=== PATIENT | male | born 1945 | race Caucasian/White ===

== ENCOUNTER 2016-07-30 15:36 | Inpatient (IN) | payer MEDICARE ==
[~2016-07-30] VITALS: Ht 182.9 cm; Wt 122.5 kg
--- NOTE | 2016-07-30 16:04 | PHYS DOC ---
Past Medical History Past Medical History: COPD, Diabetes-Type II, Hypertension, Renal Disease Additional Past Medical Histor: atrial flutter, lympedema Adult General Chief Complaint Chief Complaint: ALTERED MENTAL STATUS HPI HPI Patient is a 71 year old male who presents with AMS. Patient sent to ED from [facility] with c/o decreased LOC. Patient's present at bedside. She reports that patient is usually talkative and A&Ox3, and today the patient is confused and speaking little. She also reports he had emesis x1 today and has been constipated recently. A son catheter was placed at the [facility] yesterday (unclear why) and today he started having some hematuria. Patient altered but denies any complaints at this time. Of note, patient had been on warfarin for atrial fibrillation/flutter. This was stopped on Tuesday, but per report it has been increasing over the course of the week. Review of Systems Review of Systems Review of systems limited by altered mental status Constitutional: Denies fever or chills Eyes: Denies change in visual acuity or eye pain HENT: Denies nasal congestion or sore throat Respiratory: Denies cough or shortness of breath Cardiovascular: Denies chest pain GI: Emesis x1 today, constipation. Denies abdominal pain, bloody stools or diarrhea : Hematuria Musculoskeletal: Denies back pain or joint pain Integument: Denies rash or skin lesions Neurologic: AMS. Denies headache, focal weakness or sensory changes Current Medications Current Medications Current Medications Medications (Trade) Dose Ordered Sig/Shayne Start Time Stop Time Status Last Admin Dose Admin Ceftriaxone Sodium 50 ml @ 100 mls/hr 1X ONCE 07/30/16 16:45 07/30/16 17:14 DC 07/30/16 17:00 100 MLS/HR Fluconazole/ Sodium Chloride (Diflucan 200mg/ 100ml Premix) 100 ml @ 100 mls/hr 1X ONCE 07/30/16 16:45 07/30/16 17:44 DC 07/30/16 17:53 100 MLS/HR Allergies Allergies Allergies Coded Allergies Type Severity Reaction Last Updated Verified No Known Drug Allergies 07/30/16 No Physical Exam Physical Exam Constitutional: Well developed, well nourished, no acute distress, non-toxic appearance HENT: Normocephalic, atraumatic, bilateral external ears normal Eyes: PERRL, EOMI, conjunctiva normal, no discharge Neck: Normal range of motion, no stridor Cardiovascular: Tachycardic, regular rhythm, no murmur Lungs & Thorax: Bilateral breath sounds clear to auscultation Abdomen: Bowel sounds normal, soft, non-distended, appears to have lower abdominal discomfort on palpation Skin: Warm, dry, no erythema, no rash Extremities: No obvious deformity. Marked BLE edema (at baseline per ) Neurologic: Alert and oriented to person only, BAILON to command, diminished strength in all extremities, no facial droop or other obvious cranial nerve deficit Current Patient Data Vital Signs Vital Signs Date Time Temp Pulse Resp B/P Pulse Ox O2 Delivery O2 Flow Rate FiO2 07/30/16 17:56 103 24 113/91 92 07/30/16 16:44 Room Air 07/30/16 16:00 99.0 99.0 Lab Values Laboratory Tests Test 07/30/16 15:45 07/30/16 16:45 Urine Collection Type Unknown Urine Color Red Urine Clarity Turbid Urine pH 5.0 Urine Specific [place] 1.015 Urine Protein 100mg/dL (NEG-TRACE) Urine Glucose (UA) Negativemg/dL (NEG) Urine Ketones (Stick) 15mg/dL (NEG) Urine Blood Large (NEG) Urine Nitrite Negative (NEG) Urine Bilirubin Moderate (NEG) Urine Urobilinogen Dipstick 1.0mg/dL (0.2 mg/dL) Urine Leukocyte Esterase Large (NEG) Urine RBC Tntc/HPF (0-2) Urine WBC >40/HPF (0-4) Urine Bacteria Few/HPF (0-FEW) Urine Hyaline Casts Occasional/HPF Urine Mucus Slight/LPF Urine Yeast Present/HPF White Blood Count 8.6x10^3/uL (4.0-11.0) Red Blood Count 3.84x10^6/uL (4.30-5.70) L Hemoglobin 11.0g/dL (13.0-17.5) L Hematocrit 33.1% (39.0-53.0) L Mean Corpuscular Volume 86fL (79-100) Mean Corpuscular Hemoglobin 29pg (25-35) Mean Corpuscular Hemoglobin Concent 33g/dL (31-37) Red Cell Distribution Width 17.2% (11.5-14.5) H Platelet Count 214x10^3/uL (140-400) Neutrophils (%) (Auto) 84% (31-73) H Lymphocytes (%) (Auto) 7% (24-48) L Monocytes (%) (Auto) 7% (0-9) Eosinophils (%) (Auto) 2% (0-3) Basophils (%) (Auto) 1% (0-3) Neutrophils # (Auto) 7.2x10^3uL (1.8-7.7) Lymphocytes # (Auto) 0.6x10^3/uL (1.0-4.8) L Monocytes # (Auto) 0.6x10^3/uL (0.0-1.1) Eosinophils # (Auto) 0.2x10^3/uL (0.0-0.7) Basophils # (Auto) 0.0x10^3/uL (0.0-0.2) Prothrombin Time 78.3SEC (11.7-14.0) H Prothrombin Time INR 10.6 (0.8-1.1) *H Sodium Level 136mmol/L (136-145) Potassium Level 4.0mmol/L (3.5-5.1) Chloride Level 97mmol/L (98-107) L Carbon Dioxide Level 26mmol/L (21-32) Anion Gap 13 (6-14) Blood Urea Nitrogen 127mg/dL (8-26) H Creatinine 5.1mg/dL (0.7-1.3) H Estimated GFR (Cockcroft-Gault) 11.2 BUN/Creatinine Ratio 25 (6-20) H Glucose Level 92mg/dL (70-99) Lactic Acid Level 0.8mmol/L (0.4-2.0) Calcium Level 9.1mg/dL (8.5-10.1) Total Bilirubin 0.4mg/dL (0.2-1.0) Aspartate Amino Transferase (AST) 31U/L (15-37) Alanine Aminotransferase (ALT) 34U/L (16-63) Alkaline Phosphatase 196U/L (46-116) H Total Protein 6.9g/dL (6.4-8.2) Albumin 2.8g/dL (3.4-5.0) L Albumin/Globulin Ratio 0.7 (1.0-1.7) L Laboratory Tests 07/30/16 16:45 Laboratory Tests 07/30/16 16:45 EKG EKG EKG (my read): sinus tachycardia, rate 108, LAD, LAFB, nonspecific ST changes Radiology/Procedures Radiology/Procedures CT head: Impression: 1. Age-appropriate atrophy without any acute intracranial process. CT A/P: Impression: No convincing evidence of urolithiasis or hydronephrosis seen. Atrophic right kidney. Mild dilation of the colon throughout probably colonic ileus pattern. Diffuse infiltrates both lower lobes. CXR: Impression: 1. Borderline cardiomegaly 2. No acute pulmonary findings detected. Course & Med Decision Making Course & Med Decision Making Pertinent Labs and Imaging studies reviewed. (See chart for details) Patient is 71 year old male who presents with AMS. Differential includes infectious process (eg UTI), metabolic abnormality, CVA. Will check CXR, CT head , CT A/P, labs, UA. Dose of rocephin and fluconazole ordered after UA showed bacteria and yeast. Labs notable for creatinine 5.1 ( reports baseline ~3), elevated BUN, INR >10. Although no obvious bleeding except in urine (and hgb ok - slight anemia), will give 2 units FFP and dose of vitamin K. Small fluid bolus ordered. Discussed results with patient's . Discussed with Dr. Cleary ( nephrology). Discussed with Dr. Merritt, will admit under her care for further evaluation and treatment. Dragon Disclaimer Dragon Disclaimer This electronic medical record was generated, in whole or in part, using a voice recognition dictation system. Departure Departure Impression: Primary Impression: Altered mental status Additional Impressions: Acute kidney injury Supratherapeutic INR Disposition: ADMITTED INPATIENT Admitting Physician: Randy Merritt Condition: GUARDED Problem Qualifiers OLEGARIO MILLS MD Jul 30, 2016 16:04
[2016-07-30 16:12] LABS: BILIRUBIN,URINE MODERATE (NEG); GLUCOSE,URINE NEGATIVE (NEG); NITRITE,URINE NEGATIVE (NEG); PROTEIN,URINE 100 mg/dL (NEG-TRACE)
[2016-07-30 16:20] LABS: BACTERIA,URINE FEW /HPF (0-FEW); RBC,URINE TNTC /HPF (0-2); WBC,URINE >40 /HPF (0-4); YEAST,URINE PRESENT /HPF
--- NOTE | 2016-07-30 16:23 | RAD ---
Exam performed: One view chest. Indication: AMS, r/o acute process Date of Service: 07/30/2016 6:01 PM Comparison: None available. Single AP upright portable view chest findings: Cardiomediastinal silhouette is within upper limits of normal. Pulmonary vascularity is unremarkable. No acute infiltrates, effusion or pneumothorax is detected. Streaky linear opacities are seen in both lung bases probably atelectasis. The bony structures are normal. Impression: 1. Borderline cardiomegaly 2. No acute pulmonary findings detected.
--- NOTE | 2016-07-30 16:43 | RAD ---
Exam performed: CT scan of the head without contrast. Date of Service: 07/30/16. Comparison: None available. Clinical History: Altered mental status, patient is a poor historian. Technique: Helical acquisitions are obtained from the foramen magnum to the vertex without intravenous administration of contrast. Findings: There is prominence of cortical sulci and ventricular system compatible with age related atrophy. There are areas of low-attenuation in both periventricular deep white matter suggesting small vessel ischemic changes. Normal hutchison-white differentiation is maintained. There is no extra axial fluid collection, intraparenchymal hemorrhage or mass lesion. The visualized portions of the orbits, paranasal sinuses and the mastoid air cells appear clear. The calvarium is intact. Impression: 1. Age-appropriate atrophy without any acute intracranial process. PQRS Compliance Statement: One or more of the following individualized dose reduction techniques were utilized for this examination: 1. Automated exposure control 2. Adjustment of the mA and/or kV according to patient size 3. Use of iterative reconstruction technique
[2016-07-30] MEDS ORDERED: FLUCONAZOLE 200MG/100ML PREMIX 100 ML IV ONE (16:45)
[2016-07-30] MEDS ORDERED: CEFTRIAXONE 1GM IVPB FOR OMNI 50 ML IV ONE (16:45)
[2016-07-30 16:58] LABS: BASO % 1 % (0-3); EOS % 2 % (0-3); HEMATOCRIT 33.1 % (39.0-53.0); LYMPH # 0.6 x10^3/uL (1.0-4.8); LYMPH % 7 % (24-48); MEAN CORPUSCULAR HEMOGLOBIN 29 pg (25-35); MEAN CORPUSCULAR HGB CONC 33 g/dL (31-37); MEAN CORPUSCULAR VOLUME 86 fL (79-100); MONO % 7 % (0-9); NEUT % 84 % (31-73); PLATELET COUNT 214 x10^3/uL (140-400); RED BLOOD COUNT 3.84 x10^6/uL (4.30-5.70); RED CELL DISTRIBUTION WIDTH 17.2 % (11.5-14.5); WHITE BLOOD COUNT 8.6 x10^3/uL (4.0-11.0)
--- NOTE | 2016-07-30 17:00 | RAD ---
Exam performed: CT abdomen pelvis without contrast. History: Altered mental status, hematuria. Lymphedema. Patient is a poor historian. Date of service: 07/30/16. Comparison: None available Technique: Contiguous helical acquisitions are obtained through the abdomen and pelvis without oral or IV contrast. Sagittal and coronal reformatted images are obtained and reviewed. Findings: Infiltrates both lower lobes. Pericardial calcification. Atheromatous coronary calcification. Lack of IV contrast limits evaluation of abdominal viscera, however the liver, spleen and gallbladder appear normal. Diffuse fatty infiltration of the pancreas. Both adrenal glands are symmetric. Atrophic right kidney. The left kidney appears grossly normal. No nephrolithiasis is seen. Atheromatous aortic calcification. Small bowel loops appear grossly normal. Mild dilation of the colon throughout normal ileocecal junction. Visualized appendix is normal.. No inflammatory changes in the right lower quadrant. The urinary bladder is decompressed secondary to Carroll's catheter. Stool in the rectosigmoid region. No free or focal fluid collections or pelvic lymphadenopathy. Interrogation of bone windows demonstrates spondylotic changes. Impression: No convincing evidence of urolithiasis or hydronephrosis seen. Atrophic right kidney. Mild dilation of the colon throughout probably colonic ileus pattern. Diffuse infiltrates both lower lobes. PQRS Compliance Statement: One or more of the following individualized dose reduction techniques were utilized for this examination: 1. Automated exposure control 2. Adjustment of the mA and/or kV according to patient size 3. Use of iterative reconstruction technique
[2016-07-30 17:06] LABS: PROTHROMBIN TIME PATIENT 78.3 SEC (11.7-14.0)
[2016-07-30 17:09] LABS: INR 10.6 (0.8-1.1)
[2016-07-30 17:17] LABS: ALBUMIN 2.8 g/dL (3.4-5.0); ALBUMIN/GLOBULIN RATIO 0.7 (1.0-1.7); CALCIUM 9.1 mg/dL (8.5-10.1); CREATININE 5.1 mg/dL (0.7-1.3); GFR 11.2; TOTAL BILIRUBIN 0.4 mg/dL (0.2-1.0); TOTAL PROTEIN 6.9 g/dL (6.4-8.2)
[2016-07-30] MEDS ORDERED: DEXTROSE 50% 25 GM / 50ML DISP.SYRIN. IV PRN (18:45)
[2016-07-30] MEDS ORDERED: ONDANSETRON PF 4 MG/2 ML VIAL. IV PRN ×2 (18:45→19:00)
[2016-07-30] MEDS ORDERED: MORPHINE SULFATE 2 MG/ML DISP.SYRIN. IV PRN (18:45)
[2016-07-30] MEDS ORDERED: IV NORMAL SALINE 1000ML BAG 1,000 ML IV ONE (19:00)
[2016-07-30] MEDS ORDERED: IV NORMAL SALINE 500ML BAG 500 ML IV ONE (19:00)
[2016-07-30] MEDS ORDERED: ALBUTEROL SULFATE 2.5 MG/3 ML NEBU. NEB PRN (19:00)
[2016-07-30] MEDS ORDERED: PHYTONADIONE 5 MG TABLET PO ONE (19:00)
[2016-07-30] MEDS ORDERED: ACETAMINOPHEN 325 MG TABLET. PO PRN (19:00)
--- NOTE | 2016-07-30 19:16 | PDOC1 ---
History and Physical Date of Admission Date of Admission 07/30/16 Identification/Chief Complaint Chief Complaint AMS Problems: Source Source: Caregiver, Chart review History of Present Illness History of Present Illness HPI HPI Patient is a 71 year old male who presents with AMS. Pt is very lethargic now, open eyes, but dosenot follow commands or answer my questions. As per at bedside, [facility] bl leg wound and chronic lymphedema. Pt was found mild confusion for 2 ds, worse today. Usually he may refusing actions by saying "no", today not even answer. Usually also know the place and year, today not answer questions. denies fever, chills, cough, sob. +1 vomiting. in ER, INR 10 (4 2days ago), warfine for Afib was held, also BREANNA. head ct neg. Past Medical History Past Medical History : COPD, Diabetes-Type II, Hypertension, Renal Disease Additional Past Medical Histor: atrial flutter, lympedema Past Surgical History Past Surgical History bl leg wound care sx Social History Smoke: No ALCOHOL: none Drugs: None Current Problem List Problem List Problems Medical Problems: (1) Acute kidney injury Status: Acute (2) Altered mental status Status: Acute (3) Supratherapeutic INR Status: Acute Current Medications Current Medications Current Medications Medications (Trade) Dose Ordered Sig/Shayne Start Time Stop Time Status Last Admin Dose Admin Acetaminophen (Tylenol) 650 mg PRN Q6HRS PRN 07/30/16 19:00 UNV Albuterol Sulfate 2.5 mg 2.5 mg PRN Q4HRS PRN 07/30/16 19:00 UNV Albuterol/ Ipratropium (Duoneb) 3 ml QIDACHS 07/30/16 21:00 UNV Ceftriaxone Sodium/Sodium Chloride (Rocephin/Iv Sodium Chloride 0.9% 50ml) 50 ml @ 100 mls/hr Q24H 07/31/16 09:00 UNV Ceftriaxone Sodium 50 ml @ 100 mls/hr 1X ONCE 07/30/16 16:45 07/30/16 17:14 DC 07/30/16 17:00 100 MLS/HR Dextrose 12.5 gm PRN Q15MIN PRN 07/30/16 18:45 Fluconazole/ Sodium Chloride (Diflucan 200mg/ 100ml Premix) 100 ml @ 100 mls/hr 1X ONCE 07/30/16 16:45 07/30/16 17:44 DC 07/30/16 17:53 100 MLS/HR Insulin Aspart (Novolog) 0-7 UNITS TIDWMEALS 07/31/16 08:00 Morphine Sulfate 2 mg PRN Q2HR PRN 07/30/16 18:45 07/31/16 18:44 Ondansetron HCl (Zofran) 4 mg PRN Q8HRS PRN 07/30/16 18:45 07/31/16 18:44 Ondansetron HCl 4 mg 4 mg PRN Q6HRS PRN 07/30/16 19:00 UNV Phytonadione 2.5 mg 2.5 mg 1X ONCE 07/30/16 19:00 07/30/16 19:01 DC Phytonadione/ Sodium Chloride (Vitamin K/Iv Sodium Chloride 0.9% 50ml) 51 ml @ 102 mls/hr 1X ONCE 07/30/16 19:00 07/30/16 19:29 UNV Sodium Chloride (Iv Sodium Chloride 0.9% 1000ml Bag) 1,000 ml @ 100 mls/hr 1X ONCE 07/30/16 19:00 07/31/16 04:59 UNV Allergies Allergies Allergies Coded Allergies Type Severity Reaction Last Updated Verified No Known Drug Allergies 07/30/16 No ROS Review of System CONSTITUTIONAL: No fever or chills EYES: No recent changes SKIN: No rash or itching CARDIOVASCULAR: No chest pain, syncope, palpitations, or edema RESPIRATORY: No SOB or cough GASTROINTESTINAL: No nausea, vomiting or abdominal pain NEUROLOGICAL: No headaches or weakness ENDOCRINE: No cold or heat intolerance GENITOURINARY: No urgency or frequency of urination MUSCULOSKELETAL: No back pain or joint pain LYMPHATICS: No enlarged lymph nodes PSYCHIATRIC: No anxiety or depression Physical Exam Physical Exam GEN.: No apparent distress. lethargic not answer questions or follow commands ,opening eyes HEENT: Head is normocephalic, atraumatic NECK: Supple. LUNGS: decreased bs HEART: RRR, S1, S2 present. Peripheral pulses intact ABDOMEN: Soft, nontender. Positive bowel sounds. EXTREMITIES: Without any cyanosis. bl severe chronic lymphedema, with small scaral wound and left leg wound Vitals Vitals Vital Signs Date Time Temp Pulse Resp B/P Pulse Ox O2 Delivery O2 Flow Rate FiO2 07/30/16 17:56 103 24 113/91 92 07/30/16 16:44 Room Air 07/30/16 16:00 99.0 99.0 Labs Labs Laboratory Tests Test 07/30/16 15:45 07/30/16 16:45 Urine Collection Type Unknown Urine Color Red Urine Clarity Turbid Urine pH 5.0 Urine Specific [place] 1.015 Urine Protein 100mg/dL (NEG-TRACE) Urine Glucose (UA) Negativemg/dL (NEG) Urine Ketones (Stick) 15mg/dL (NEG) Urine Blood Large (NEG) Urine Nitrite Negative (NEG) Urine Bilirubin Moderate (NEG) Urine Urobilinogen Dipstick 1.0mg/dL (0.2 mg/dL) Urine Leukocyte Esterase Large (NEG) Urine RBC Tntc/HPF (0-2) Urine WBC >40/HPF (0-4) Urine Bacteria Few/HPF (0-FEW) Urine Hyaline Casts Occasional/HPF Urine Mucus Slight/LPF Urine Yeast Present/HPF White Blood Count 8.6x10^3/uL (4.0-11.0) Red Blood Count 3.84x10^6/uL (4.30-5.70) Hemoglobin 11.0g/dL (13.0-17.5) Hematocrit 33.1% (39.0-53.0) Mean Corpuscular Volume 86fL (79-100) Mean Corpuscular Hemoglobin 29pg (25-35) Mean Corpuscular Hemoglobin Concent 33g/dL (31-37) Red Cell Distribution Width 17.2% (11.5-14.5) Platelet Count 214x10^3/uL (140-400) Neutrophils (%) (Auto) 84% (31-73) Lymphocytes (%) (Auto) 7% (24-48) Monocytes (%) (Auto) 7% (0-9) Eosinophils (%) (Auto) 2% (0-3) Basophils (%) (Auto) 1% (0-3) Neutrophils # (Auto) 7.2x10^3uL (1.8-7.7) Lymphocytes # (Auto) 0.6x10^3/uL (1.0-4.8) Monocytes # (Auto) 0.6x10^3/uL (0.0-1.1) Eosinophils # (Auto) 0.2x10^3/uL (0.0-0.7) Basophils # (Auto) 0.0x10^3/uL (0.0-0.2) Prothrombin Time 78.3SEC (11.7-14.0) Prothromb Time International Ratio 10.6 (0.8-1.1) Sodium Level 136mmol/L (136-145) Potassium Level 4.0mmol/L (3.5-5.1) Chloride Level 97mmol/L (98-107) Carbon Dioxide Level 26mmol/L (21-32) Anion Gap 13 (6-14) Blood Urea Nitrogen 127mg/dL (8-26) Creatinine 5.1mg/dL (0.7-1.3) Estimated GFR (Cockcroft-Gault) 11.2 BUN/Creatinine Ratio 25 (6-20) Glucose Level 92mg/dL (70-99) Lactic Acid Level 0.8mmol/L (0.4-2.0) Calcium Level 9.1mg/dL (8.5-10.1) Total Bilirubin 0.4mg/dL (0.2-1.0) Aspartate Amino Transf (AST/SGOT) 31U/L (15-37) Alanine Aminotransferase (ALT/SGPT) 34U/L (16-63) Alkaline Phosphatase 196U/L (46-116) Total Protein 6.9g/dL (6.4-8.2) Albumin 2.8g/dL (3.4-5.0) Albumin/Globulin Ratio 0.7 (1.0-1.7) Laboratory Tests Test 07/30/16 15:45 07/30/16 16:45 Urine Collection Type Unknown Urine Color Red Urine Clarity Turbid Urine pH 5.0 Urine Specific [place] 1.015 Urine Protein 100mg/dL (NEG-TRACE) Urine Glucose (UA) Negativemg/dL (NEG) Urine Ketones (Stick) 15mg/dL (NEG) Urine Blood Large (NEG) Urine Nitrite Negative (NEG) Urine Bilirubin Moderate (NEG) Urine Urobilinogen Dipstick 1.0mg/dL (0.2 mg/dL) Urine Leukocyte Esterase Large (NEG) Urine RBC Tntc/HPF (0-2) Urine WBC >40/HPF (0-4) Urine Bacteria Few/HPF (0-FEW) Urine Hyaline Casts Occasional/HPF Urine Mucus Slight/LPF Urine Yeast Present/HPF White Blood Count 8.6x10^3/uL (4.0-11.0) Red Blood Count 3.84x10^6/uL (4.30-5.70) Hemoglobin 11.0g/dL (13.0-17.5) Hematocrit 33.1% (39.0-53.0) Mean Corpuscular Volume 86fL (79-100) Mean Corpuscular Hemoglobin 29pg (25-35) Mean Corpuscular Hemoglobin Concent 33g/dL (31-37) Red Cell Distribution Width 17.2% (11.5-14.5) Platelet Count 214x10^3/uL (140-400) Neutrophils (%) (Auto) 84% (31-73) Lymphocytes (%) (Auto) 7% (24-48) Monocytes (%) (Auto) 7% (0-9) Eosinophils (%) (Auto) 2% (0-3) Basophils (%) (Auto) 1% (0-3) Neutrophils # (Auto) 7.2x10^3uL (1.8-7.7) Lymphocytes # (Auto) 0.6x10^3/uL (1.0-4.8) Monocytes # (Auto) 0.6x10^3/uL (0.0-1.1) Eosinophils # (Auto) 0.2x10^3/uL (0.0-0.7) Basophils # (Auto) 0.0x10^3/uL (0.0-0.2) Prothrombin Time 78.3SEC (11.7-14.0) Prothromb Time International Ratio 10.6 (0.8-1.1) Sodium Level 136mmol/L (136-145) Potassium Level 4.0mmol/L (3.5-5.1) Chloride Level 97mmol/L (98-107) Carbon Dioxide Level 26mmol/L (21-32) Anion Gap 13 (6-14) Blood Urea Nitrogen 127mg/dL (8-26) Creatinine 5.1mg/dL (0.7-1.3) Estimated GFR (Cockcroft-Gault) 11.2 BUN/Creatinine Ratio 25 (6-20) Glucose Level 92mg/dL (70-99) Lactic Acid Level 0.8mmol/L (0.4-2.0) Calcium Level 9.1mg/dL (8.5-10.1) Total Bilirubin 0.4mg/dL (0.2-1.0) Aspartate Amino Transf (AST/SGOT) 31U/L (15-37) Alanine Aminotransferase (ALT/SGPT) 34U/L (16-63) Alkaline Phosphatase 196U/L (46-116) Total Protein 6.9g/dL (6.4-8.2) Albumin 2.8g/dL (3.4-5.0) Albumin/Globulin Ratio 0.7 (1.0-1.7) VTE Prophylaxis Ordered VTE Prophylaxis Devices: No VTE Pharmacological Prophylaxi: No Assessment/Plan Assessment/Plan 1. AMS, likely 2/2 metabolic encephalopathy with BREANNA 2. supratherapeubci INR, warfarin held 3. aflutter on warfarin 4. BREANNA , vasomtor with CKD3 , baseline Cr 3 as per 5. dehydration 6. copd 7. dm2 8. htn 9. bl leg chronic severe lymphedema with left leg wound 10. generalized weakness 11. UTI 12. SMALL sacral wound PLAN: 1. renal, neuro consult 2. ivf 3. 2 FFB, vitK 10mg ivx1 4. INR tmr, hold warfarin 5. duoneb 6. ceftriaxone for now, fu bcx, ucx 7. need home meds 8. PTOT 9. NpO IF not waking up enough to handle diet. check ABG wound care consult, lymphedema care consult ABELARDO COLUNGA MD Jul 30, 2016 19:16
[2016-07-30] MEDS ORDERED: PHYTONADIONE 10 MG in IV NORMAL SALINE 50ML 50 ML IV ONE (20:00)
--- NOTE | 2016-07-30 20:05 | ACF ---
Admission Forms Criteria MENTAL STATUS CHANGE Clinical Indications for Inpatient Care (Place 'X' for any and all applicable criteria): Ongoing inpatient care may be needed for ANY ONE of the following(1)(2)(3)(5)(6) : [X ]I. Suspected serious etiology (eg, medical disorder, [employer] event) of mental status change [ ]II. Danger to self or others not manageable at lower level of care [ ]III. Grave disability (eg, inability to perform self care necessary at lower level of care) [ ]IV. Agitation or inappropriate behavior interfering with care for primary condition (eg, attempting to discontinue lines or drains prematurely, unable to cooperate with respiratory care) [ ]V. Delirium [A] [D][E] as described by ANY ONE of the following(26): [ ]a) Delirium due to alcohol or sedative [F] withdrawal [ ]b) Delirium of uncertain etiology that has not responded to appropriate empiric treatment [ ]c) Delirium that prevents performance of a life-sustaining function (eg, feeding or hydrating oneself) [X ]. General contraindications and/or Inappropriate clinical situations for Observational Care in patients with Mental Status Change, when ANY ONE of the following is required: [ ]a) Prediction of prolongation of LOS based on ANY ONE of the following may be considered as a contraindication for observational care 2, 3, 4, 5, 6, 7, 8, 9, 10, 11 [X ]i) Age > 65 yrs. [ ]ii) Patient arriving by ambulance [ ]iii) Patient with high acuity [ ]iv) Patient requiring vital sign monitoring [X ]v) Patient on IV medication [ ]b) Systolic blood pressures 180mmHg 3,12 [ ]c) Patient with altered mental status including delirium and other alteration of consciousness, (3) [ ]d) Patient whose discharge disposition will be to a shelter home or rehabilitation home should not be managed in Emergency Department Observation Unit. CMS rule requires 3 days hospital stay before such placement.3,13 [ ]e) Patient with failure to thrive due to broad array of etiologies 3,16,17 [ ]f) Inability to ambulate 3,14 Extended stay beyond goal length of stay for the primary condition may be needed until ALL of the following are present(3)(5): [ ]a) Underlying medical etiology of mental status change is absent, or has been established and adequately treated [ ]b) Danger to self or others is absent or manageable at lower level of care. [ ]c) Behavior crisis management, including physical or chemical restraints, is not required or available at lower level of car [ ]d) Substance or alcohol withdrawal is absent or manageable at lower level of care. [ ]e) Behavioral symptoms (eg, agitation, somnolence, inappropriate behavior) are absent, or are manageable at lower level of care. The original [facility] [employer] content created by [facility] has been revised. The portions of the content which have been revised are identified through the use of italic text or in bold, and [facility] has neither reviewed nor approved the modified material. All other unmodified content is copyright [facility]. Please see references footnoted in the original [facility] edition [facility] Admission Criteria Met?: Yes MAG OCONNELL Jul 30, 2016 20:05
[2016-07-30 20:50] VITALS: BP 121/78
[2016-07-30] MEDS: IPRATRPIUM/ALBUTEROL 0.5/2.5MG 3 ML NEBU. NEB SCH (21:35)
[2016-07-30 23:00] VITALS: BP 113/76
[2016-07-30 23:04] VITALS: BP 110/68
[2016-07-30 23:22] VITALS: BP 113/75
[2016-07-30 23:25] LABS: HCO3 ABG 29 mmol/L (21-28); PCO2 ABG 55 mmHg (35-46); PH ABG 7.34 (7.35-7.45); PO2 ABG 68 mmHg (65-108); SAT O2 ABG 92 % (92-99)
[2016-07-30 23:48] VITALS: BP 121/72
[2016-07-30 23:52] LABS: FIO2 ABG 21
[2016-07-31] VITALS (13 sets, daily range): BP systolic 86–126; BP diastolic 54–82
[2016-07-31] MEDS ORDERED: INFLUENZA VAX SCREEN BY RX. MC PRN (01:30)
[2016-07-31] MEDS ORDERED: LANTUS SQ (01:57)
[2016-07-31] MEDS ORDERED: WARF5TAB PO (02:03)
[2016-07-31] MEDS ORDERED: FLUO20CA16 PO (02:03)
[2016-07-31] MEDS ORDERED: GABA-585 PO (02:03)
[2016-07-31] MEDS ORDERED: ACET325T9 PO (02:03)
[2016-07-31] MEDS ORDERED: DICL100G7 TP (02:03)
[2016-07-31] MEDS ORDERED: INSU100C SQ (02:03)
[2016-07-31] MEDS ORDERED: MUPI15CR TP (02:03)
[2016-07-31] MEDS ORDERED: ALLO300T PO (02:10)
[2016-07-31] MEDS ORDERED: DILT180C2 PO (02:10)
[2016-07-31] MEDS ORDERED: FURO-69 PO (02:10)
[2016-07-31] MEDS ORDERED: COLC0.6T34 PO (02:10)
[2016-07-31] MEDS ORDERED: GLYCOLAX PO (02:10)
[2016-07-31] MEDS ORDERED: TRAM50TA PO (02:19)
[2016-07-31] MEDS ORDERED: METO50TA2 PO (02:19)
[2016-07-31] MEDS ORDERED: TAMS0.4C2 PO (02:19)
[2016-07-31] MEDS ORDERED: MAGN400O4 PO (02:19)
[2016-07-31] MEDS ORDERED: BISA10SU55 RC (02:19)
[2016-07-31] MEDS ORDERED: SENN8.6T99 PO (02:19)
[2016-07-31] MEDS ORDERED: ONDA4TAB7 PO (02:24)
[2016-07-31] MEDS ORDERED: FLEET ENEMA RC (02:24)
[2016-07-31] MEDS ORDERED: MYLANTA PO (02:24)
[2016-07-31] MEDS ORDERED: CEPH-264 PO (02:24)
[2016-07-31 05:35] LABS: BASO # 0.1 x10^3/uL (0.0-0.2); BASO % 1 % (0-3); EOS % 2 % (0-3); HEMATOCRIT 30.1 % (39.0-53.0); HEMOGLOBIN 9.8 g/dL (13.0-17.5); LYMPH # 0.7 x10^3/uL (1.0-4.8); LYMPH % 9 % (24-48); MEAN CORPUSCULAR HEMOGLOBIN 29 pg (25-35); MEAN CORPUSCULAR HGB CONC 33 g/dL (31-37); MEAN CORPUSCULAR VOLUME 88 fL (79-100); MONO % 8 % (0-9); NEUT % 81 % (31-73); PLATELET COUNT 192 x10^3/uL (140-400); RED BLOOD COUNT 3.43 x10^6/uL (4.30-5.70); WHITE BLOOD COUNT 7.6 x10^3/uL (4.0-11.0)
[2016-07-31 05:48] LABS: INR 1.7 (0.8-1.1); PROTHROMBIN TIME PATIENT 19.2 SEC (11.7-14.0)
[2016-07-31 05:56] LABS: CALCIUM 8.7 mg/dL (8.5-10.1); CREATININE 4.8 mg/dL (0.7-1.3); GFR 12.1; POTASSIUM 3.8 mmol/L (3.5-5.1)
[2016-07-31 06:35] LABS: PLT ESTIMATE ADEQUATE (ADEQUATE)
[2016-07-31] MEDS: IPRATRPIUM/ALBUTEROL 0.5/2.5MG 3 ML NEBU. NEB SCH ×4 (07:30→20:02)
[2016-07-31] MEDS: INSULIN ASPART 300 UNITS/3 ML INSULN.PEN SQ SCH ×4 (08:00→17:33)
[2016-07-31] MEDS ORDERED: MAGNESIUM HYDROXIDE 2,400 MG/30 ML ORAL.SUSP. PO PRN (09:15)
[2016-07-31] MEDS ORDERED: TRAMADOL 50 MG TABLET. PO PRN (09:15)
[2016-07-31] MEDS ORDERED: BISACODYL 10 MG SUPP.RECT RC PRN (09:15)
[2016-07-31] MEDS ORDERED: DEXTROSE 50% 25 GM / 50ML DISP.SYRIN. IV PRN (09:15)
[2016-07-31] MEDS ORDERED: ONDANSETRON ODT 4 MG TAB.RAPDIS PO PRN (09:30)
[2016-07-31] MEDS: MUPIROCIN 2 % TOPICAL CREAM 15GM TUBE. TP SCH ×2 (09:30→21:00)
[2016-07-31] MEDS: DICLOFENAC SODIUM 1% TOPICAL GEL 100GM TUBE. TP SCH ×3 (10:00→17:24)
[2016-07-31] MEDS: FUROSEMIDE 20 MG TABLET PO SCH ×2 (10:27→14:15)
[2016-07-31] MEDS: METOPROLOL TART IMMED RELEASE 50 MG TABLET PO SCH ×2 (10:28→21:00)
--- NOTE | 2016-07-31 10:56 | PDOC ---
PROGRESS NOTES Chief Complaint Chief Complaint Delirium BREANNA Hypercoagulability ASSESSMENT AND PLAN: 1. Delirium on chronic worsening dementia: sleeping this AM, unresponsive. prob 2/2 urosepsis and hypercarbia 3. Sepsis: 2/2 UTI. Urine/blood cult drawn 3. UTI: on empiric ceftriax 4. dehydration: cont IVF for now 4. BREANNA: vasomotor. sl improved. nephrology following 5. CKD4: basline creat ~3 6. Hypercoag: INR corrected with vit K and FFP. w/o signs of bleeding, restart coumadin RODRÍGUEZ 7. aflutter: borderline rate controlled on dilt, currently in 100s. poss 2/2 sepsis. monitor for now. if persistent, may need adjustment in meds 8. HTN: well controleed on current regimen 9. DM: currently well controlled, but not eating. monitor 10. COPD: hypercarbic. d/c suppl O2. rpt ABG this PM. duonebs PRN 11. FTT: had been deteriorating at home, unable to walk by himself, which prompted prev admission at [facility] and [place] transfer. somewhat unrealistic. OT/PT 12. Lymphedema: chronic with chronic venous stasis changes. lymphedema massage, AIDEN wraps 13. SMALL sacral wound: wound care consult 14. Gout: on colchicine and allopurinol at home. hold both for now 2/2 renal fxn. pain meds as needed 15. BPH: on flomax 16. Constipation: per , no BM x1 week; symptomatic. MO enema Vitals Vitals Vital Signs Date Time Temp Pulse Resp B/P Pulse Ox O2 Delivery O2 Flow Rate FiO2 07/31/16 07:00 96.6 108 18 106/71 92 Room Air 96.6 07/31/16 00:57 2.0 Physical Exam General: No acute distress, Other (somnolent) Heart: Regular rate Lungs: Clear Abdomen: Normal bowel sounds, Other (TTP LUQ/LLQ) Extremities: Other (massive woody edema with hyperkeratotic changes) Skin: Other (per RN, small sacral decub) Labs LABS Laboratory Tests Test 07/30/16 15:45 07/30/16 16:45 07/30/16 23:24 07/31/16 04:45 Urine Collection Type Unknown Urine Color Red Urine Clarity Turbid Urine pH 5.0 Urine Specific Tower 1.015 Urine Protein 100mg/dL (NEG-TRACE) Urine Glucose (UA) Negativemg/dL (NEG) Urine Ketones (Stick) 15mg/dL (NEG) Urine Blood Large (NEG) Urine Nitrite Negative (NEG) Urine Bilirubin Moderate (NEG) Urine Urobilinogen Dipstick 1.0mg/dL (0.2 mg/dL) Urine Leukocyte Esterase Large (NEG) Urine RBC Tntc/HPF (0-2) Urine WBC >40/HPF (0-4) Urine Bacteria Few/HPF (0-FEW) Urine Hyaline Casts Occasional/HPF Urine Mucus Slight/LPF Urine Yeast Present/HPF White Blood Count 8.6x10^3/uL (4.0-11.0) 7.6x10^3/uL (4.0-11.0) Red Blood Count 3.84x10^6/uL (4.30-5.70) 3.43x10^6/uL (4.30-5.70) Hemoglobin 11.0g/dL (13.0-17.5) 9.8g/dL (13.0-17.5) Hematocrit 33.1% (39.0-53.0) 30.1% (39.0-53.0) Mean Corpuscular Volume 86fL (79-100) 88fL (79-100) Mean Corpuscular Hemoglobin 29pg (25-35) 29pg (25-35) Mean Corpuscular Hemoglobin Concent 33g/dL (31-37) 33g/dL (31-37) Red Cell Distribution Width 17.2% (11.5-14.5) 17.0% (11.5-14.5) Platelet Count 214x10^3/uL (140-400) 192x10^3/uL (140-400) Neutrophils (%) (Auto) 84% (31-73) 81% (31-73) Lymphocytes (%) (Auto) 7% (24-48) 9% (24-48) Monocytes (%) (Auto) 7% (0-9) 8% (0-9) Eosinophils (%) (Auto) 2% (0-3) 2% (0-3) Basophils (%) (Auto) 1% (0-3) 1% (0-3) Neutrophils # (Auto) 7.2x10^3uL (1.8-7.7) 6.1x10^3uL (1.8-7.7) Lymphocytes # (Auto) 0.6x10^3/uL (1.0-4.8) 0.7x10^3/uL (1.0-4.8) Monocytes # (Auto) 0.6x10^3/uL (0.0-1.1) 0.6x10^3/uL (0.0-1.1) Eosinophils # (Auto) 0.2x10^3/uL (0.0-0.7) 0.1x10^3/uL (0.0-0.7) Basophils # (Auto) 0.0x10^3/uL (0.0-0.2) 0.1x10^3/uL (0.0-0.2) Prothrombin Time 78.3SEC (11.7-14.0) 19.2SEC (11.7-14.0) Prothromb Time International Ratio 10.6 (0.8-1.1) 1.7 (0.8-1.1) Sodium Level 136mmol/L (136-145) 138mmol/L (136-145) Potassium Level 4.0mmol/L (3.5-5.1) 3.8mmol/L (3.5-5.1) Chloride Level 97mmol/L (98-107) 98mmol/L (98-107) Carbon Dioxide Level 26mmol/L (21-32) 27mmol/L (21-32) Anion Gap 13 (6-14) 13 (6-14) Blood Urea Nitrogen 127mg/dL (8-26) 122mg/dL (8-26) Creatinine 5.1mg/dL (0.7-1.3) 4.8mg/dL (0.7-1.3) Estimated GFR (Cockcroft-Gault) 11.2 12.1 BUN/Creatinine Ratio 25 (6-20) Glucose Level 92mg/dL (70-99) 160mg/dL (70-99) Lactic Acid Level 0.8mmol/L (0.4-2.0) Calcium Level 9.1mg/dL (8.5-10.1) 8.7mg/dL (8.5-10.1) Total Bilirubin 0.4mg/dL (0.2-1.0) Aspartate Amino Transf (AST/SGOT) 31U/L (15-37) Alanine Aminotransferase (ALT/SGPT) 34U/L (16-63) Alkaline Phosphatase 196U/L (46-116) Total Protein 6.9g/dL (6.4-8.2) Albumin 2.8g/dL (3.4-5.0) Albumin/Globulin Ratio 0.7 (1.0-1.7) O2 Saturation 92% (92-99) Arterial Blood pH 7.34 (7.35-7.45) Arterial Blood pCO2 at Patient Temp 55mmHg (35-46) Arterial Blood pO2 at Patient Temp 68mmHg (65-108) Arterial Blood HCO3 29mmol/L (21-28) Arterial Blood Base Excess 2mmol/L (-3-3) FiO2 21 Segmented Neutrophils % 81% (35-66) Band Neutrophils % 8% (0-9) Lymphocytes % 8% (24-48) Monocytes % 3% (0-10) Platelet Estimate Adequate (ADEQUATE) Activated Partial Thromboplast Time 62SEC (24-38) Test 07/31/16 07:45 Glucose (Fingerstick) 143mg/dL (70-99) Review of Systems Review of Systems JENNY Pedroza MD Jul 31, 2016 10:56
[2016-07-31] MEDS ORDERED: MINERAL OIL 133 ML ENEMA. PR ONE (11:15)
--- NOTE | 2016-07-31 11:37 | PDOC2 ---
NEUROLOGY CONSULT Date of Admission Date of Admission DATE: 07/31/16 TIME: 11:23 Reason for Consult Reason for Consult: IMPRESSION: Metabolic encephalopathy. Bilateral lower lobe infiltrate. UTI Vomiting. AFib or atrial flutter Renal failure Anemia DM HTN COPD Chronic LE wounds Morbid obesity RECOMMENDATIONS/PLAN: Brain MRI w/o contrast, if not able to perform MRI, can change to HCT w/o contrast. ASA 325 mg to tie over Coumadin to therapeutic range. Lab: TSH, Vit B12, Vit D 25OH, UDS Treat medical diseases per floor team. OT/PT Discussed in detail with his at bedside. HISTORY OF THE PRESENT ILLNESS: 71-y0old male patient with multiple medical diseases has menta status changes, decreased response, and confusion. He has chronic LE wounds and weakness and has not been able to walk for 6- 7 months. He has atrial flutter on Coumadin, but his PT was 78.3 and INR was 10.6, so Coumadin was put on hold. His PT and INR normalized on 07/31 test. PAST MEDICAL HISTORY: Please see above. PAST SURGERY HISTORY: LE wound care. ALLERGY: Unknown MEDICATIONS: Refer to [facility] FAMILY HISTORY: Non contributory. SOCIAL HISTORY: Denies current smoking, drinking, and illicit drug use. REVIEW OF SYSTEMS: Constitutional: No malnutrition, weight loss, cachexia. Head: No recent traumatic brain or head injury. Skin: No edema, or rash. Ear: No infection, tinnitus. Eyes: No vision loss or color blindness. Nose: No bleeding or purulent discharges. Hearing: Hearing decrease. Neck: No recent injury. Cardiac: AFib, HTN. Pulmonary: No COPD. GI: No GI ulcer, GI bleeding. Urinary/genital: UTI. Endocrinologic: Diabetes Mellitus, morbid obesity. Skeletomuscular: Generalized weakness. Neurological: see HP. Psychiatric: Denies drug use/abuse. Otherwise, not [id number] review of systems. PHYSICAL EXAMINATION: General appearance is in subacute distress. HEENT: Normocephalic and nontraumatic. Eyes, nose, ears, and throat are unremarkable. Neck is supple. No lymphadenopathy. No crepitus. Cardiovascular: S1, S2, seemed irregular rate and rhythm. Pulmonary: Decreased breathing sounds to auscultation bilaterally. Abdomen: Bowel sounds are positive. Extremities: Rash, lesions, edema and chronic skin changes in LE. NEUROLOGICAL EXAMINATION: Mildly lethargic. not oriented to time, place and person. PERRL. EOMI not elicited due to not follow commands. CN: no acute ocal findings. Muscle tone: decreased, chronic Muscle strength: Movements observed in UE, but not in LE as chronic weakness. DTR: 1- due to morbid obesity. Plantar reflex: Neutral response bilaterally Gait: not able to walk for long time. Sensory exam: no abnormal findings. Not able to access cerebellar signs at this mentation. Not able to F-T-N test due to not follow commands. Current Medications Current Medications Current Medications Ceftriaxone Sodium 50 ml @ 100 mls/hr 1X ONCE IV Last administered on 17:00; Start 07/30/16 at 16:45; Stop 07/30/16 at 17:14; Status DC Fluconazole/ Sodium Chloride (Diflucan 200mg/ 100ml Premix) 100 ml @ 100 mls/ hr 1X ONCE IV Last administered on 07/30/16 17:53; Start 07/30/16 at 16:45; Stop 07/30/16 at 17:44; Status DC Ondansetron HCl (Zofran) 4 mg PRN Q8HRS PRN IV NAUSEA/VOMITING; Start 07/30/16 at 18:45; Stop 07/31/16 at 18:44 Morphine Sulfate 2 mg PRN Q2HR PRN IV PAIN; Start 07/30/16 at 18:45; Stop at 18:44 Insulin Aspart (Novolog) 0-7 UNITS TIDWMEALS SQ ; Start 07/31/16 at 08:00 Dextrose 12.5 gm PRN Q15MIN PRN IV SEE COMMENTS; Start 07/30/16 at 18:45 Phytonadione 2.5 mg 2.5 mg 1X ONCE PO Last administered on 07/30/16 19:17; Start 07/30/16 at 19:00; Stop 07/30/16 at 19:01; Status DC Sodium Chloride 500 ml @ 500 mls/hr 1X ONCE IV Last administered on 07/30/16 19:00; Start 07/30/16 at 19:00; Stop 07/30/16 at 19:59; Status DC Ceftriaxone Sodium/Sodium Chloride (Rocephin/Iv Sodium Chloride 0.9% 50ml) 50 ml @ 100 mls/hr Q24H IV ; Start 07/31/16 at 16:00 Acetaminophen (Tylenol) 650 mg PRN Q6HRS PRN PO FEVER; Start 07/30/16 at 19:00 Ondansetron HCl 4 mg 4 mg PRN Q6HRS PRN IV NAUSEA; Start 07/30/16 at 19:00 Sodium Chloride (Iv Sodium Chloride 0.9% 1000ml Bag) 1,000 ml @ 100 mls/hr 1X ONCE IV Last administered on 07/30/16 23:11; Start 07/30/16 at 19:00; Stop at 04:59; Status DC Albuterol/ Ipratropium (Duoneb) 3 ml QIDACHS NEB Last administered on 07/31/16 11:14; Start 07/30/16 at 21:00 Albuterol Sulfate 2.5 mg 2.5 mg PRN Q4HRS PRN NEB SHORTNESS OF BREATH; Start at 19:00 Phytonadione/ Sodium Chloride (Vitamin K/Iv Sodium Chloride 0.9% 50ml) 51 ml @ 102 mls/hr 1X ONCE IV Last administered on 07/30/16 20:38; Start 07/30/16 at 20 :00; Stop 07/30/16 at 20:29; Status DC Info (Do NOT chart on this placeholder) 1 each PRN DAILY PRN MC UNABLE TO RESPOND; Start 07/31/16 at 01:30 Acetaminophen (Tylenol) 650 mg TID PO ; Start 07/31/16 at 14:00 Bisacodyl (Dulcolax Supp) 10 mg PRN DAILY PRN RC CONSTIPATION; Start 07/31/16 at 09:15 Diclofenac Sodium (Voltaren) 1 kathryn TID TP ; Start 07/31/16 at 10:00 Diltiazem HCl (Cardizem 24hr Cd) 120 mg DAILY PO ; Start 08/01/16 at 09:00 Fluoxetine HCl (Prozac) 20 mg HS PO ; Start 07/31/16 at 21:00 Furosemide (Lasix) 60 mg BID92 PO Last administered on 07/31/16 10:27; Start at 09:30 Gabapentin (Neurontin) 200 mg HS PO ; Start 07/31/16 at 21:00 Magnesium Hydroxide (Milk Of Magnesia) 400 mg DAILY PRN PO CONSTIPATION; Start 07/31/16 at 09:15 Metoprolol Tartrate (Lopressor) 50 mg BID PO Last administered on 07/31/16t 10: 28; Start 07/31/16 at 09:30 Mupirocin (Bactroban) 1 kathryn BID TP ; Start 07/31/16 at 09:30 Sennosides (Senna) 8.6 mg HS PO ; Start 07/31/16 at 21:00 Tamsulosin HCl (Flomax) 0.4 mg HS PO ; Start 07/31/16 at 21:00 Tramadol HCl (Ultram) 50 mg PRN Q6HRS PRN PO PAIN; Start 07/31/16 at 09:15 Insulin Aspart (Novolog) 12 units TIDAC SQ ; Start 07/31/16 at 16:30 Ondansetron HCl (Zofran Odt) 4 mg PRN Q6HRS PRN PO NAUSEA; Start 07/31/16 at 09: 30 Insulin Detemir (Levemir) 20 units QHS SQ ; Start 07/31/16 at 21:00 Insulin Aspart (Novolog) 0-9 UNITS TIDWMEALS SQ ; Start 07/31/16 at 12:00; Stop 07/31/16 at 12:00; Status DC Dextrose 12.5 gm PRN Q15MIN PRN IV SEE COMMENTS; Start 07/31/16 at 09:15 Warfarin Sodium (Coumadin) 6 mg DAILY16 PO ; Start 07/31/16 at 16:00 Mineral Oil (Fleet Mineral Oil) 133 ml 1X ONCE MS ; Start 07/31/16 at 11:15; Stop 07/31/16 at 11:16; Status DC Polyethylene Glycol (miraLAX PACKET) 17 gm DAILY PO ; Start 07/31/16 at 11:15 Warfarin Sodium (Coumadin Per Physician) 1 each PRN DAILY PRN MC SEE COMMENTS; Start 07/31/16 at 11:15 Active Scripts Active Reported Keflex (Cephalexin) 500 Mg Capsule 1 Cap PO TID Zofran (Ondansetron Hcl) 4 Mg Tablet 1 Tab PO Q6HRS PRN [Mylanta] 30 Ml PO PRN Q4HRS PRN [Fleet Enema] 1 Applic RC DAILY PRN Dulcolax (Bisacodyl) 10 Mg Supp.rect 10 Mg RC PRN DAILY PRN Milk Of Magnesia (Magnesium Hydroxide) 400 Mg/5 Ml Oral.susp 400 Mg PO DAILY PRN Senokot (Sennosides) 8.6 Mg Tablet 1 Tab PO HS Tamsulosin Hcl 0.4 Mg Cap.er.24h 0.4 Mg PO HS Metoprolol Tartrate 50 Mg Tablet 50 Mg PO BID Tramadol Hcl 50 Mg Tablet 50 Mg PO Q6H PRN [Glycolax] 17 Gm PO DAILY PRN Cardizem Cd (Diltiazem Hcl) 180 Mg Cap.er.24h 120 Mg PO DAILY Allopurinol 300 Mg Tablet 300 Mg PO DAILY Lasix (Furosemide) 20 Mg Tablet 60 Mg PO BID Colcrys (Colchicine) 0.6 Mg Tablet 0.6 Mg PO BID Humalog (Insulin Lispro) 100 Unit/1 Ml Cartridge 12 Unit SQ TIDAC Voltaren (Diclofenac Sodium) 100 Gm Gel..gram. 1 Gm TP TID Bactroban Cream (Mupirocin) 15 Gm Cream..g. 1 Kathryn TP BID Tylenol (Acetaminophen) 325 Mg Tablet 650 Mg PO TID Prozac (Fluoxetine Hcl) 20 Mg Capsule 1 Cap PO HS Gabapentin 100 Mg Capsule 200 Mg PO HS Coumadin (Warfarin Sodium) 5 Mg Tablet 5 Mg PO DAILY [Lantus] 30 Units SQ HS Allergies Allergies: Coded Allergies: No Known Drug Allergies (Unverified , 07/30/16) Vitals VITALS Vital Signs Date Time Temp Pulse Resp B/P Pulse Ox O2 Delivery O2 Flow Rate FiO2 07/31/16 11:15 96 Room Air 07/31/16 11:00 108 18 107/66 07/31/16 07:00 96.6 96.6 07/31/16 00:57 2.0 Labs Labs Laboratory Tests Test 07/30/16 15:45 07/30/16 16:45 07/30/16 23:24 07/31/16 04:45 Urine Collection Type Unknown Urine Color Red Urine Clarity Turbid Urine pH 5.0 Urine Specific Embudo 1.015 Urine Protein 100mg/dL (NEG-TRACE) Urine Glucose (UA) Negativemg/dL (NEG) Urine Ketones (Stick) 15mg/dL (NEG) Urine Blood Large (NEG) Urine Nitrite Negative (NEG) Urine Bilirubin Moderate (NEG) Urine Urobilinogen Dipstick 1.0mg/dL (0.2 mg/dL) Urine Leukocyte Esterase Large (NEG) Urine RBC Tntc/HPF (0-2) Urine WBC >40/HPF (0-4) Urine Bacteria Few/HPF (0-FEW) Urine Hyaline Casts Occasional/HPF Urine Mucus Slight/LPF Urine Yeast Present/HPF White Blood Count 8.6x10^3/uL (4.0-11.0) 7.6x10^3/uL (4.0-11.0) Red Blood Count 3.84x10^6/uL (4.30-5.70) 3.43x10^6/uL (4.30-5.70) Hemoglobin 11.0g/dL (13.0-17.5) 9.8g/dL (13.0-17.5) Hematocrit 33.1% (39.0-53.0) 30.1% (39.0-53.0) Mean Corpuscular Volume 86fL (79-100) 88fL (79-100) Mean Corpuscular Hemoglobin 29pg (25-35) 29pg (25-35) Mean Corpuscular Hemoglobin Concent 33g/dL (31-37) 33g/dL (31-37) Red Cell Distribution Width 17.2% (11.5-14.5) 17.0% (11.5-14.5) Platelet Count 214x10^3/uL (140-400) 192x10^3/uL (140-400) Neutrophils (%) (Auto) 84% (31-73) 81% (31-73) Lymphocytes (%) (Auto) 7% (24-48) 9% (24-48) Monocytes (%) (Auto) 7% (0-9) 8% (0-9) Eosinophils (%) (Auto) 2% (0-3) 2% (0-3) Basophils (%) (Auto) 1% (0-3) 1% (0-3) Neutrophils # (Auto) 7.2x10^3uL (1.8-7.7) 6.1x10^3uL (1.8-7.7) Lymphocytes # (Auto) 0.6x10^3/uL (1.0-4.8) 0.7x10^3/uL (1.0-4.8) Monocytes # (Auto) 0.6x10^3/uL (0.0-1.1) 0.6x10^3/uL (0.0-1.1) Eosinophils # (Auto) 0.2x10^3/uL (0.0-0.7) 0.1x10^3/uL (0.0-0.7) Basophils # (Auto) 0.0x10^3/uL (0.0-0.2) 0.1x10^3/uL (0.0-0.2) Prothrombin Time 78.3SEC (11.7-14.0) 19.2SEC (11.7-14.0) Prothromb Time International Ratio 10.6 (0.8-1.1) 1.7 (0.8-1.1) Sodium Level 136mmol/L (136-145) 138mmol/L (136-145) Potassium Level 4.0mmol/L (3.5-5.1) 3.8mmol/L (3.5-5.1) Chloride Level 97mmol/L (98-107) 98mmol/L (98-107) Carbon Dioxide Level 26mmol/L (21-32) 27mmol/L (21-32) Anion Gap 13 (6-14) 13 (6-14) Blood Urea Nitrogen 127mg/dL (8-26) 122mg/dL (8-26) Creatinine 5.1mg/dL (0.7-1.3) 4.8mg/dL (0.7-1.3) Estimated GFR (Cockcroft-Gault) 11.2 12.1 BUN/Creatinine Ratio 25 (6-20) Glucose Level 92mg/dL (70-99) 160mg/dL (70-99) Lactic Acid Level 0.8mmol/L (0.4-2.0) Calcium Level 9.1mg/dL (8.5-10.1) 8.7mg/dL (8.5-10.1) Total Bilirubin 0.4mg/dL (0.2-1.0) Aspartate Amino Transf (AST/SGOT) 31U/L (15-37) Alanine Aminotransferase (ALT/SGPT) 34U/L (16-63) Alkaline Phosphatase 196U/L (46-116) Total Protein 6.9g/dL (6.4-8.2) Albumin 2.8g/dL (3.4-5.0) Albumin/Globulin Ratio 0.7 (1.0-1.7) O2 Saturation 92% (92-99) Arterial Blood pH 7.34 (7.35-7.45) Arterial Blood pCO2 at Patient Temp 55mmHg (35-46) Arterial Blood pO2 at Patient Temp 68mmHg (65-108) Arterial Blood HCO3 29mmol/L (21-28) Arterial Blood Base Excess 2mmol/L (-3-3) FiO2 21 Segmented Neutrophils % 81% (35-66) Band Neutrophils % 8% (0-9) Lymphocytes % 8% (24-48) Monocytes % 3% (0-10) Platelet Estimate Adequate (ADEQUATE) Activated Partial Thromboplast Time 62SEC (24-38) Test 07/31/16 07:45 Glucose (Fingerstick) 143mg/dL (70-99) Laboratory Tests Test 07/30/16 15:45 07/30/16 16:45 07/30/16 23:24 07/31/16 04:45 Urine Collection Type Unknown Urine Color Red Urine Clarity Turbid Urine pH 5.0 Urine Specific Embudo 1.015 Urine Protein 100mg/dL (NEG-TRACE) Urine Glucose (UA) Negativemg/dL (NEG) Urine Ketones (Stick) 15mg/dL (NEG) Urine Blood Large (NEG) Urine Nitrite Negative (NEG) Urine Bilirubin Moderate (NEG) Urine Urobilinogen Dipstick 1.0mg/dL (0.2 mg/dL) Urine Leukocyte Esterase Large (NEG) Urine RBC Tntc/HPF (0-2) Urine WBC >40/HPF (0-4) Urine Bacteria Few/HPF (0-FEW) Urine Hyaline Casts Occasional/HPF Urine Mucus Slight/LPF Urine Yeast Present/HPF White Blood Count 8.6x10^3/uL (4.0-11.0) 7.6x10^3/uL (4.0-11.0) Red Blood Count 3.84x10^6/uL (4.30-5.70) 3.43x10^6/uL (4.30-5.70) Hemoglobin 11.0g/dL (13.0-17.5) 9.8g/dL (13.0-17.5) Hematocrit 33.1% (39.0-53.0) 30.1% (39.0-53.0) Mean Corpuscular Volume 86fL (79-100) 88fL (79-100) Mean Corpuscular Hemoglobin 29pg (25-35) 29pg (25-35) Mean Corpuscular Hemoglobin Concent 33g/dL (31-37) 33g/dL (31-37) Red Cell Distribution Width 17.2% (11.5-14.5) 17.0% (11.5-14.5) Platelet Count 214x10^3/uL (140-400) 192x10^3/uL (140-400) Neutrophils (%) (Auto) 84% (31-73) 81% (31-73) Lymphocytes (%) (Auto) 7% (24-48) 9% (24-48) Monocytes (%) (Auto) 7% (0-9) 8% (0-9) Eosinophils (%) (Auto) 2% (0-3) 2% (0-3) Basophils (%) (Auto) 1% (0-3) 1% (0-3) Neutrophils # (Auto) 7.2x10^3uL (1.8-7.7) 6.1x10^3uL (1.8-7.7) Lymphocytes # (Auto) 0.6x10^3/uL (1.0-4.8) 0.7x10^3/uL (1.0-4.8) Monocytes # (Auto) 0.6x10^3/uL (0.0-1.1) 0.6x10^3/uL (0.0-1.1) Eosinophils # (Auto) 0.2x10^3/uL (0.0-0.7) 0.1x10^3/uL (0.0-0.7) Basophils # (Auto) 0.0x10^3/uL (0.0-0.2) 0.1x10^3/uL (0.0-0.2) Prothrombin Time 78.3SEC (11.7-14.0) 19.2SEC (11.7-14.0) Prothromb Time International Ratio 10.6 (0.8-1.1) 1.7 (0.8-1.1) Sodium Level 136mmol/L (136-145) 138mmol/L (136-145) Potassium Level 4.0mmol/L (3.5-5.1) 3.8mmol/L (3.5-5.1) Chloride Level 97mmol/L (98-107) 98mmol/L (98-107) Carbon Dioxide Level 26mmol/L (21-32) 27mmol/L (21-32) Anion Gap 13 (6-14) 13 (6-14) Blood Urea Nitrogen 127mg/dL (8-26) 122mg/dL (8-26) Creatinine 5.1mg/dL (0.7-1.3) 4.8mg/dL (0.7-1.3) Estimated GFR (Cockcroft-Gault) 11.2 12.1 BUN/Creatinine Ratio 25 (6-20) Glucose Level 92mg/dL (70-99) 160mg/dL (70-99) Lactic Acid Level 0.8mmol/L (0.4-2.0) Calcium Level 9.1mg/dL (8.5-10.1) 8.7mg/dL (8.5-10.1) Total Bilirubin 0.4mg/dL (0.2-1.0) Aspartate Amino Transf (AST/SGOT) 31U/L (15-37) Alanine Aminotransferase (ALT/SGPT) 34U/L (16-63) Alkaline Phosphatase 196U/L (46-116) Total Protein 6.9g/dL (6.4-8.2) Albumin 2.8g/dL (3.4-5.0) Albumin/Globulin Ratio 0.7 (1.0-1.7) O2 Saturation 92% (92-99) Arterial Blood pH 7.34 (7.35-7.45) Arterial Blood pCO2 at Patient Temp 55mmHg (35-46) Arterial Blood pO2 at Patient Temp 68mmHg (65-108) Arterial Blood HCO3 29mmol/L (21-28) Arterial Blood Base Excess 2mmol/L (-3-3) FiO2 21 Segmented Neutrophils % 81% (35-66) Band Neutrophils % 8% (0-9) Lymphocytes % 8% (24-48) Monocytes % 3% (0-10) Platelet Estimate Adequate (ADEQUATE) Activated Partial Thromboplast Time 62SEC (24-38) Test 07/31/16 07:45 Glucose (Fingerstick) 143mg/dL (70-99) JANEE MCWILLIAMS MD Jul 31, 2016 11:37
[2016-07-31] MEDS ORDERED: INSULIN ASPART 300 UNITS/3 ML INSULN.PEN SQ SCH (12:00)
[2016-07-31] MEDS: POLYETHYLENE GLYCOL 3350 17 GM PACKET. PO SCH (12:32)
--- NOTE | 2016-07-31 13:06 | PDOC2 ---
DATE OF CONSULT Date of Consult 07/31/2016 REASON FOR CONSULT Reason for Consult BREANNA/ CKD III REFERRING PHYSICIAN Referring Provider Dr marie CHIEF COMPLAINT Chief Complaint Problems Medical Problems: (1) Acute kidney injury Status: Acute (2) Altered mental status Status: Acute (3) Supratherapeutic INR Status: Acute SOURCE Source HPI HPI as dictated CURRENT MEDICATIONS Current Meds Current Medications Medications (Trade) Dose Ordered Sig/Shayne Route PRN Reason Start Time Stop Time Status Last Admin Dose Admin Ceftriaxone Sodium 50 ml @ 100 mls/hr 1X ONCE IV 07/30/16 16:45 07/30/16 17:14 DC 07/30/16 17:00 Fluconazole/ Sodium Chloride (Diflucan 200mg/ 100ml Premix) 100 ml @ 100 mls/hr 1X ONCE IV 07/30/16 16:45 07/30/16 17:44 DC 07/30/16 17:53 Insulin Aspart (Novolog) 0-7 UNITS TIDWMEALS SQ 07/31/16 08:00 07/31/16 12:39 Phytonadione 2.5 mg 2.5 mg 1X ONCE PO 07/30/16 19:00 07/30/16 19:01 DC 07/30/16 19:17 Sodium Chloride 500 ml @ 500 mls/hr 1X ONCE IV 07/30/16 19:00 07/30/16 19:59 DC 07/30/16 19:00 Sodium Chloride (Iv Sodium Chloride 0.9% 1000ml Bag) 1,000 ml @ 100 mls/hr 1X ONCE IV 07/30/16 19:00 07/31/16 04:59 DC 07/30/16 23:11 Albuterol/ Ipratropium 3 ml 3 ml QIDACHS NEB 07/30/16 21:00 07/31/16 11:14 Phytonadione/ Sodium Chloride (Vitamin K/Iv Sodium Chloride 0.9% 50ml) 51 ml @ 102 mls/hr 1X ONCE IV 07/30/16 20:00 07/30/16 20:29 DC 07/30/16 20:38 Furosemide (Lasix) 60 mg BID92 PO 07/31/16 09:30 07/31/16 10:27 Metoprolol Tartrate (Lopressor) 50 mg BID PO 07/31/16 09:30 07/31/16 10:28 Polyethylene Glycol (miraLAX PACKET) 17 gm DAILY PO 07/31/16 11:15 07/31/16 12:32 Home Meds Reviewed as documented ALLERGIES Allergies: Coded Allergies: No Known Drug Allergies (Unverified , 07/30/16) ROS ROS GEN: + Fevers no Chills - per - Pt is altered and confused - unable to answer Qs VITAL SIGNS Vital Signs VS - Last 72 Hours, by Label Date Time Temp Pulse Resp B/P Pulse Ox O2 Delivery O2 Flow Rate FiO2 07/31/16 11:15 96 Room Air 07/31/16 11:00 108 18 107/66 92 Room Air 07/31/16 10:28 108 106/71 07/31/16 07:56 Room Air 07/31/16 07:00 96.6 108 18 106/71 92 Room Air 96.6 07/31/16 05:17 97.5 108 18 126/82 97.5 07/31/16 04:35 97.6 108 18 115/74 97.6 07/31/16 03:16 97.9 107 18 118/76 97.9 07/31/16 03:15 97.7 108 115/71 97.7 07/31/16 03:00 97.9 108 18 112/70 97 Nasal Cannula 97.9 07/31/16 02:54 97.9 108 18 112/70 97.9 07/31/16 01:30 98.1 103 13 117/73 98.1 07/31/16 00:57 Nasal Cannula 2.0 07/31/16 00:29 97.7 108 14 114/76 97.7 07/30/16 23:22 98.1 109 16 113/75 98.1 07/30/16 23:04 98.1 108 18 110/68 98.1 07/30/16 23:00 98.1 106 14 113/76 Room Air 98.1 07/30/16 21:45 97 Room Air 07/30/16 20:50 99.3 109 20 121/78 98 Room Air 99.3 07/30/16 20:37 108 119/75 95 Room Air 07/30/16 20:07 79 125/68 91 Room Air 07/30/16 19:37 109 119/76 92 Room Air 07/30/16 17:56 103 24 113/91 92 2/3/17 16:53 126/82 07/30/16 16:44 74 20 92 Room Air 07/30/16 16:00 99.0 109 107/65 96 Room Air 99.0 PHYSICAL EXAM Physical Exam General Appearance: Arousable not Alert Oriented x 1 () In no Distress Eyes: VIsion Unchanged Conjunctiva Normal EN: No EN Drainage Mucous Memb. dryish Neck: no JVD no JVP Supple no Thyromegaly - thick neck CVS: S1 S2 no Murmur No Gallop No Rub +3 Edema with m in erythema and Ch changes; - Tachy Resp: no Rales no Rhonchi no Acc. Muscle use GI: BAS +ve NO Bruit Non Tender Non Distended - Obese : no CVA tenderness; no Suprapubic Tenderness SKIN: ? Cellulitic rash + Chronic changes. Breast Exam deferred Mu.Sk: unable to assess ROM no Muscle Atrophy Heme: Unable to palpate Obvious LAD n o palp Splenomegaly NEURO: Unable to assess due to lack of pt co-operation Psych: ? Depressed no Active hallucination ASSESSMENT/PLAN Assessment/Plan ARF/ ATN - Dark urine suggestive of ATn. Current FLuid and E-lyte status does not necessitate emergent need for Dialysis. Pt (in the past) has not wanted to do HD, reiterates same. Will try IVF fornow Edema/ Ansarca - Currently better. Conservative IVF - may need Diuresis later Hematuria - suspect Carroll trauma and coagulopathy related Encephalopahty - multi-factorial - Cannot R/o same due to Uremia (however SIRS/ Sepsis appears morelikely) Anemia: may need Epogen Transfuse as needed. HTN: Current BP meds reviewed. watch trend for now Discussed Plan of Care and prognosis etc. at length with family () IMAGES Images: Diffuse fatty infiltration of the pancreas. Both adrenal glands are symmetric. Atrophic right kidney. The left kidney appears grossly normal. No nephrolithiasis is seen. Atheromatous aortic calcification LABS Labs: Laboratory Tests Test 07/30/16 15:45 07/30/16 16:45 07/30/16 23:24 07/31/16 04:45 Urine Collection Type Unknown Urine Color Red Urine Clarity Turbid Urine pH 5.0 Urine Specific Alta 1.015 Urine Protein 100mg/dL (NEG-TRACE) Urine Glucose (UA) Negativemg/dL (NEG) Urine Ketones (Stick) 15mg/dL (NEG) Urine Blood Large (NEG) Urine Nitrite Negative (NEG) Urine Bilirubin Moderate (NEG) Urine Urobilinogen Dipstick 1.0mg/dL (0.2 mg/dL) Urine Leukocyte Esterase Large (NEG) Urine RBC Tntc/HPF (0-2) Urine WBC >40/HPF (0-4) Urine Bacteria Few/HPF (0-FEW) Urine Hyaline Casts Occasional/HPF Urine Mucus Slight/LPF Urine Yeast Present/HPF White Blood Count 8.6x10^3/uL (4.0-11.0) 7.6x10^3/uL (4.0-11.0) Red Blood Count 3.84x10^6/uL (4.30-5.70) 3.43x10^6/uL (4.30-5.70) Hemoglobin 11.0g/dL (13.0-17.5) 9.8g/dL (13.0-17.5) Hematocrit 33.1% (39.0-53.0) 30.1% (39.0-53.0) Mean Corpuscular Volume 86fL (79-100) 88fL (79-100) Mean Corpuscular Hemoglobin 29pg (25-35) 29pg (25-35) Mean Corpuscular Hemoglobin Concent 33g/dL (31-37) 33g/dL (31-37) Red Cell Distribution Width 17.2% (11.5-14.5) 17.0% (11.5-14.5) Platelet Count 214x10^3/uL (140-400) 192x10^3/uL (140-400) Neutrophils (%) (Auto) 84% (31-73) 81% (31-73) Lymphocytes (%) (Auto) 7% (24-48) 9% (24-48) Monocytes (%) (Auto) 7% (0-9) 8% (0-9) Eosinophils (%) (Auto) 2% (0-3) 2% (0-3) Basophils (%) (Auto) 1% (0-3) 1% (0-3) Neutrophils # (Auto) 7.2x10^3uL (1.8-7.7) 6.1x10^3uL (1.8-7.7) Lymphocytes # (Auto) 0.6x10^3/uL (1.0-4.8) 0.7x10^3/uL (1.0-4.8) Monocytes # (Auto) 0.6x10^3/uL (0.0-1.1) 0.6x10^3/uL (0.0-1.1) Eosinophils # (Auto) 0.2x10^3/uL (0.0-0.7) 0.1x10^3/uL (0.0-0.7) Basophils # (Auto) 0.0x10^3/uL (0.0-0.2) 0.1x10^3/uL (0.0-0.2) Prothrombin Time 78.3SEC (11.7-14.0) 19.2SEC (11.7-14.0) Prothromb Time International Ratio 10.6 (0.8-1.1) 1.7 (0.8-1.1) Sodium Level 136mmol/L (136-145) 138mmol/L (136-145) Chloride Level 97mmol/L (98-107) 98mmol/L (98-107) Carbon Dioxide Level 26mmol/L (21-32) 27mmol/L (21-32) Anion Gap 13 (6-14) 13 (6-14) Blood Urea Nitrogen 127mg/dL (8-26) 122mg/dL (8-26) Estimated GFR (Cockcroft-Gault) 11.2 12.1 BUN/Creatinine Ratio 25 (6-20) Glucose Level 92mg/dL (70-99) 160mg/dL (70-99) Lactic Acid Level 0.8mmol/L (0.4-2.0) Calcium Level 9.1mg/dL (8.5-10.1) 8.7mg/dL (8.5-10.1) Total Bilirubin 0.4mg/dL (0.2-1.0) Aspartate Amino Transf (AST/SGOT) 31U/L (15-37) Alkaline Phosphatase 196U/L (46-116) Total Protein 6.9g/dL (6.4-8.2) Albumin 2.8g/dL (3.4-5.0) Albumin/Globulin Ratio 0.7 (1.0-1.7) O2 Saturation 92% (92-99) Arterial Blood pH 7.34 (7.35-7.45) Arterial Blood pCO2 at Patient Temp 55mmHg (35-46) Arterial Blood pO2 at Patient Temp 68mmHg (65-108) Arterial Blood HCO3 29mmol/L (21-28) Arterial Blood Base Excess 2mmol/L (-3-3) FiO2 21 Segmented Neutrophils % 81% (35-66) Band Neutrophils % 8% (0-9) Lymphocytes % 8% (24-48) Monocytes % 3% (0-10) Platelet Estimate Adequate (ADEQUATE) Activated Partial Thromboplast Time 62SEC (24-38) Creatine Kinase 64U/L (39-308) Test 07/31/16 07:45 07/31/16 11:58 Glucose (Fingerstick) 143mg/dL (70-99) 184mg/dL (70-99) CHERRY DORADO MD Jul 31, 2016 13:06
[2016-07-31] MEDS: ACETAMINOPHEN 325 MG TABLET. PO SCH ×2 (14:16→21:00)
--- NOTE | 2016-07-31 14:49 | EKG ---
[facility] [address] [place] [address] Test Date: 2016-07-30 Test Time: 16:48:15 Pat Name: LESLI LOZOYA Department: Room: Gender: M Director Of Clinical Services: : 1945 Requested By: OLEGARIO MILLS Order Number: [id number] Reading MD: Measurements Intervals [place] Rate: 108 P: 70 CA: 122 QRS: -38 QRSD: 108 T: -75 QT: 236 QTc: 319 Interpretive Statements SINUS TACHYCARDIA ABNORMAL LEFT AXIS DEVIATION LOW LIMB LEAD VOLTAGE LEFT ANTERIOR FASCICULAR BLOCK LVH WITH REPOLARIZATION ABNORMALITY ABNORMAL ECG RI6.01 No previous ECG available for comparison
[2016-07-31 15:37] LABS: HCO3 ABG 29 mmol/L (21-28); PCO2 ABG 56 mmHg (35-46); PH ABG 7.33 (7.35-7.45); SAT O2 ABG 82 % (92-99)
[2016-07-31 15:42] LABS: PO2 ABG 46 mmHg (65-108)
[2016-07-31 15:43] LABS: FIO2 ABG 21
[2016-07-31] MEDS: CEFTRIAXONE SODIUM 1 GM in IV NORMAL SALINE 50ML 50 ML IV SCH (17:22)
[2016-07-31] MEDS: WARFARIN 6 MG TABLET. PO SCH (17:23)
[2016-07-31] MEDS: GABAPENTIN 100 MG CAPSULE. PO SCH (21:00)
[2016-07-31] MEDS: SENNOSIDES 8.6 MG TABLET PO SCH (21:00)
[2016-07-31] MEDS: FLUOXETINE HCL 20 MG CAPSULE PO SCH (21:00)
[2016-07-31] MEDS: TAMSULOSIN 0.4 MG CAP.ER.24H. PO SCH (21:00)
[2016-07-31] MEDS: INSULIN DETEMIR 300 UNITS/3 ML INSULN.PEN. SQ SCH (21:10)
[2016-07-31 23:12] LABS: BARBITURATES NEG (NEG); BENZODIAZEPINES NEG (NEG); CANNABINOIDS NEG (NEG); COCAINE NEG (NEG); METHADONE NEG (NEG); OPIATES NEG (NEG); PHENCYCLIDINE NEG (NEG)
[2016-07-31 23:14] LABS: ETHANOL, URINE NEG (NEG)
[2016-08-01 02:40] VITALS: BP 112/84
--- NOTE | 2016-08-01 02:57 | CONS ---
DATE OF CONSULTATION: 07/31/2016 REASON FOR CONSULTATION: Acute on chronic renal insufficiency. HISTORY OF PRESENT ILLNESS: The patient is a 71-year-old morbidly obese gentleman who is usually cared for at [facility]. He was admitted there in early part of May with significant lower extremity edema and cellulitis in his lower extremities as well as weeping and oozing from his lower extremities. His tells me his baseline creatinine runs about 2-3 range. He is also noted to have CKD with a possible single functioning kidney with right renal atrophy on most recent CT scan. Post-hospitalization, he was transferred to [facility]. He apparently had a passing out episode and was noted to be febrile also. Source of fever is being worked up. He is also noted to have significant altered mental status. He has been evaluated by neurology for the same. We were asked to see him for worsening of his creatinine from the 3 range to about 5.1 at presentation with BUN of 127 and it has come down to 122/4.8. As mentioned previously, the patient has not wanted dialysis in the past and has also not followed up with his liability claims adjuster, Dr. Turner at [facility]. PAST MEDICAL HISTORY: Significant for: 1. Severe exogenous obesity. 2. CKD stage 3/4. 3. Congestive heart failure. 4. Atrial fibrillation. 5. COPD. 6. Urinary retention. 7. Gout. 8. Diabetes. 9. Cellulitis in his lower extremities. 10. Atrial flutter. 11. Chronic lymphedema. SOCIAL HISTORY: , nonsmoker, nondrinker, lives by himself. FAMILY HISTORY: Negative for known kidney problems. For rest of the details, please see electronic records. CHERRY DORADO MD DR: HAYDEE/suad JOB#: [id number] / [id number]
[2016-08-01 07:00] VITALS: BP 119/57
[2016-08-01] MEDS: IPRATRPIUM/ALBUTEROL 0.5/2.5MG 3 ML NEBU. NEB SCH ×4 (07:45→19:49)
[2016-08-01] MEDS: INSULIN ASPART 300 UNITS/3 ML INSULN.PEN SQ SCH ×6 (08:00→17:00)
[2016-08-01] MEDS: POLYETHYLENE GLYCOL 3350 17 GM PACKET. PO SCH (08:48)
[2016-08-01] MEDS: METOPROLOL TART IMMED RELEASE 50 MG TABLET PO SCH ×2 (08:48→21:25)
[2016-08-01] MEDS: FUROSEMIDE 20 MG TABLET PO SCH (08:48)
[2016-08-01] MEDS: DILTIAZEM HCL 180 MG CAP.ER.24H PO SCH (08:49)
[2016-08-01] MEDS: DICLOFENAC SODIUM 1% TOPICAL GEL 100GM TUBE. TP SCH ×3 (08:58→21:41)
[2016-08-01] MEDS: ACETAMINOPHEN 325 MG TABLET. PO SCH ×3 (08:59→21:25)
[2016-08-01] MEDS: MUPIROCIN 2 % TOPICAL CREAM 15GM TUBE. TP SCH ×2 (09:00→21:41)
[2016-08-01 11:00] VITALS: BP 116/41
--- NOTE | 2016-08-01 11:12 | PDOC ---
PROGRESS NOTES Chief Complaint Chief Complaint Delirium BREANNA Hypercoagulability ASSESSMENT AND PLAN: 1. Delirium on chronic worsening dementia: more awake, but still lethargic. prob 2/2 urosepsis and hypercarbia 3. Sepsis: 2/2 UTI. Urine/blood cult drawn. BC NGTD 3. UTI: on empiric ceftriax 4. dehydration: cont IVF for now 4. BREANNA: vasomotor. sl improved. nephrology following 5. CKD4: basline creat ~3 6. Hypercoag: INR corrected with vit K and FFP. w/o signs of bleeding, restart coumadin RODRÍGUEZ 7. aflutter: borderline rate controlled on dilt, currently in 100s. poss 2/2 sepsis. monitor for now. if persistent, may need adjustment in meds 8. HTN: well controleed on current regimen 9. DM: currently well controlled, but not eating. monitor 10. COPD: hypercarbic. d/c suppl O2. rpt ABG this PM. duonebs PRN 11. FTT: had been deteriorating at home, unable to walk by himself, which prompted prev admission at [facility] and [place] transfer. somewhat unrealistic. OT/PT 12. Lymphedema: chronic with chronic venous stasis changes. lymphedema massage, AIDEN wraps 13. SMALL sacral wound: wound care consult 14. Gout: on colchicine and allopurinol at home. hold both for now 2/2 renal fxn. pain meds as needed 15. BPH: on flomax 16. Constipation: per , no BM x1 week; symptomatic. ro result w/ MO enema. trial lactulose Vitals Vitals Vital Signs Date Time Temp Pulse Resp B/P Pulse Ox O2 Delivery O2 Flow Rate FiO2 08/01/16 08:49 112 119/57 08/01/16 07:45 94 Room Air 08/01/16 07:00 97.5 18 97.5 Physical Exam General: No acute distress, Other (lethargic, responding to yes/no questions) Heart: Regular rate Lungs: Clear Abdomen: Normal bowel sounds, Other (TTP LLQ) Extremities: Other (massive woody edema with hyperkeratotic changes) Skin: Other (per RN, small sacral decub) Labs LABS Laboratory Tests Test 07/31/16 11:58 07/31/16 15:20 07/31/16 16:39 07/31/16 20:33 Glucose (Fingerstick) 184mg/dL (70-99) 140mg/dL (70-99) 124mg/dL (70-99) O2 Saturation 82% (92-99) Arterial Blood pH 7.33 (7.35-7.45) Arterial Blood pCO2 at Patient Temp 56mmHg (35-46) Arterial Blood pO2 at Patient Temp 46mmHg (65-108) Arterial Blood HCO3 29mmol/L (21-28) Arterial Blood Base Excess 2mmol/L (-3-3) FiO2 21 Test 07/31/16 22:45 08/01/16 08:18 Urine Opiates Screen Neg (NEG) Urine Methadone Screen Neg (NEG) Urine Barbiturates Neg (NEG) Urine Phencyclidine Screen Neg (NEG) Urine Amphetamine/Methamphetamine Neg (NEG) Urine Benzodiazepines Screen Neg (NEG) Urine Cocaine Screen Neg (NEG) Urine Cannabinoids Screen Neg (NEG) Urine Ethyl Alcohol Neg (NEG) Glucose (Fingerstick) 128mg/dL (70-99) Review of Systems Review of Systems at bedside. no BM after Mo JENNY Zendejas MD Aug 01, 2016 11:12
--- NOTE | 2016-08-01 11:14 | PDOC ---
SUBJECTIVE ROS BREANNA/ CKD III/IV Doing same overall ; drowsy and min arousable ROS per is "Sleepy" OBJECTIVE Vital Signs Vital Signs Date Time Temp Pulse Resp B/P Pulse Ox O2 Delivery O2 Flow Rate FiO2 08/01/16 08:49 112 119/57 08/01/16 07:45 94 Room Air 08/01/16 07:00 97.5 18 97.5 I & 0 Intake and Output 08/01/16 07:00 Intake Total 350 ml Output Total 2650 ml Balance -2300 ml Intake Oral 350 ml Output Urine Total 2650 ml # Voids 1 PHYSICAL EXAM Physical Exam General Appearance: Arousable not Alert Oriented x 1 () In no Distress Eyes: VIsion Unchanged Conjunctiva Normal EN: No EN Drainage Mucous Memb. dryish Neck: no JVD no JVP Supple no Thyromegaly - thick neck CVS: S1 S2 no Murmur No Gallop No Rub +3 Edema with m in erythema and Ch changes; - Tachy Resp: no Rales no Rhonchi no Acc. Muscle use GI: BAS +ve NO Bruit Non Tender Non Distended - Obese : no CVA tenderness; no Suprapubic Tenderness ASSESSMENT/PLAN Assessment/Plan ARF/ ATN - UO is better. No labs (pt refused) Current FLuid and E-lyte status does not necessitate emergent need for Dialysis. Pt (in the past) has not wanted to do HD, reiterates same. Edema/ Ansarca - Currently better. Hold IVF and diuretics for now untill hemodynamics are better Hematuria - suspect Carroll trauma and coagulopathy related - now clearing up Encephalopahty - multi-factorial - Cannot R/o some due to Uremia (however SIRS/ Sepsis appears more likely) Anemia: may need Epogen Transfuse as needed. HTN: in the past - currently marginal. Has not been felt to be a dialysis Candidate in the past per and his son - IF AMS felt to be predominantly Uremic - Pall consult may be merited. Discussed Plan of Care and prognosis etc. at length with family () COMMENT/RELEVANT DATA Meds Current Medications Medications (Trade) Dose Ordered Sig/Shayne Start Time Stop Time Status Last Admin Dose Admin Acetaminophen (Tylenol) 650 mg TID 07/31/16 14:00 07/31/16 14:16 650 MG Albuterol Sulfate 2.5 mg 2.5 mg PRN Q4HRS PRN 07/30/16 19:00 Albuterol/ Ipratropium (Duoneb) 3 ml QIDACHS 07/30/16 21:00 08/01/16 07:45 3 ML Bisacodyl (Dulcolax Supp) 10 mg PRN DAILY PRN 07/31/16 09:15 Ceftriaxone Sodium/Sodium Chloride (Rocephin/Iv Sodium Chloride 0.9% 50ml) 50 ml @ 100 mls/hr Q24H 07/31/16 16:00 07/31/16 17:22 100 MLS/HR Ceftriaxone Sodium 50 ml @ 100 mls/hr 1X ONCE 07/30/16 16:45 07/30/16 17:14 DC 07/30/16 17:00 100 MLS/HR Dextrose 12.5 gm PRN Q15MIN PRN 07/31/16 09:15 Diclofenac Sodium (Voltaren) 1 mike TID 07/31/16 10:00 07/31/16 17:24 1 MIKE Diltiazem HCl (Cardizem 24hr Cd) 120 mg DAILY 08/01/16 09:00 08/01/16 08:49 120 MG Fluconazole/ Sodium Chloride (Diflucan 200mg/ 100ml Premix) 100 ml @ 100 mls/hr 1X ONCE 07/30/16 16:45 07/30/16 17:44 DC 07/30/16 17:53 100 MLS/HR Fluoxetine HCl (Prozac) 20 mg HS 07/31/16 21:00 Furosemide (Lasix) 60 mg BID92 07/31/16 09:30 08/01/16 08:48 60 MG Gabapentin (Neurontin) 200 mg HS 07/31/16 21:00 Info (Do NOT chart on this placeholder) 1 each PRN DAILY PRN 07/31/16 01:30 Insulin Aspart (Novolog) 0-9 UNITS TIDWMEALS 07/31/16 12:00 07/31/16 12:00 DC Insulin Detemir (Levemir) 20 units QHS 07/31/16 21:00 07/31/16 21:10 20 UNITS Magnesium Hydroxide (Milk Of Magnesia) 400 mg DAILY PRN 07/31/16 09:15 Metoprolol Tartrate (Lopressor) 50 mg BID 07/31/16 09:30 08/01/16 08:48 50 MG Mineral Oil (Fleet Mineral Oil) 133 ml 1X ONCE 07/31/16 11:15 07/31/16 11:16 DC 07/31/16 14:15 133 ML Morphine Sulfate 2 mg PRN Q2HR PRN 07/30/16 18:45 07/31/16 18:44 DC Mupirocin (Bactroban) 1 mike BID 07/31/16 09:30 08/01/16 09:00 1 MIKE Ondansetron HCl (Zofran Odt) 4 mg PRN Q6HRS PRN 07/31/16 09:30 Ondansetron HCl (Zofran) 4 mg PRN Q8HRS PRN 07/30/16 18:45 07/31/16 13:46 DC Ondansetron HCl 4 mg 4 mg PRN Q6HRS PRN 07/30/16 19:00 Phytonadione 2.5 mg 2.5 mg 1X ONCE 07/30/16 19:00 07/30/16 19:01 DC 07/30/16 19:17 2.5 MG Phytonadione/ Sodium Chloride (Vitamin K/Iv Sodium Chloride 0.9% 50ml) 51 ml @ 102 mls/hr 1X ONCE 07/30/16 20:00 07/30/16 20:29 DC 07/30/16 20:38 102 MLS/HR Polyethylene Glycol (miraLAX PACKET) 17 gm DAILY 07/31/16 11:15 08/01/16 08:48 17 GM Sennosides (Senna) 8.6 mg HS 07/31/16 21:00 Sodium Chloride (Iv Sodium Chloride 0.9% 1000ml Bag) 1,000 ml @ 100 mls/hr 1X ONCE 07/30/16 19:00 07/31/16 04:59 DC 07/30/16 23:11 100 MLS/HR Tamsulosin HCl (Flomax) 0.4 mg HS 07/31/16 21:00 Tramadol HCl (Ultram) 50 mg PRN Q6HRS PRN 07/31/16 09:15 Warfarin Sodium (Coumadin Per Physician) 1 each PRN DAILY PRN 07/31/16 11:15 Warfarin Sodium (Coumadin) 6 mg DAILY16 07/31/16 16:00 07/31/16 17:23 6 MG Lab Laboratory Tests Test 07/31/16 11:58 07/31/16 15:20 07/31/16 16:39 07/31/16 20:33 Glucose (Fingerstick) 184mg/dL (70-99) 140mg/dL (70-99) 124mg/dL (70-99) O2 Saturation 82% (92-99) Arterial Blood pH 7.33 (7.35-7.45) Arterial Blood pCO2 at Patient Temp 56mmHg (35-46) Arterial Blood pO2 at Patient Temp 46mmHg (65-108) Arterial Blood HCO3 29mmol/L (21-28) Arterial Blood Base Excess 2mmol/L (-3-3) FiO2 21 Test 07/31/16 22:45 08/01/16 08:18 Urine Opiates Screen Neg (NEG) Urine Methadone Screen Neg (NEG) Urine Barbiturates Neg (NEG) Urine Phencyclidine Screen Neg (NEG) Urine Amphetamine/Methamphetamine Neg (NEG) Urine Benzodiazepines Screen Neg (NEG) Urine Cocaine Screen Neg (NEG) Urine Cannabinoids Screen Neg (NEG) Urine Ethyl Alcohol Neg (NEG) Glucose (Fingerstick) 128mg/dL (70-99) CHERRY DORADO MD Aug 01, 2016 11:14
--- NOTE | 2016-08-01 12:11 | PDOC ---
PROGRESS NOTES Assessment Assessment Metabolic encephalopathy. Bilateral lower lobe infiltrate. UTI Vomiting. AFib or atrial flutter Renal failure Anemia DM HTN COPD Chronic LE wounds Morbid obesity No evidence of acute large CVA this time. RECOMMENDATIONS/PLAN: Brain MRI w/o contrast performed pending reports. ASA 325 mg to tie over Coumadin to therapeutic range. Treat medical diseases per floor team. OT/PT Discussed in detail with his at bedside on a daily basis. HISTORY OF THE PRESENT ILLNESS: 71-y0old male patient with multiple medical diseases has menta status changes, decreased response, and confusion. He has chronic LE wounds and weakness and has not been able to walk normally for 6- 7 months and inability to walk in at least for 2 weeks. He has atrial flutter on Coumadin, but his PT was 78.3 and INR was 10.6, so Coumadin was put on hold. His PT and INR normalized on 07/31 test. PAST MEDICAL HISTORY: Please see above. PAST SURGERY HISTORY: LE wound care. ALLERGY: Unknown MEDICATIONS: Refer to [facility] FAMILY HISTORY: Non contributory. SOCIAL HISTORY: Denies current smoking, drinking, and illicit drug use. REVIEW OF SYSTEMS: Constitutional: No malnutrition, weight loss, cachexia. Head: No recent traumatic brain or head injury. Skin: No edema, or rash. Ear: No infection, tinnitus. Eyes: No vision loss or color blindness. Nose: No bleeding or purulent discharges. Hearing: Hearing decrease. Neck: No recent injury. Cardiac: AFib, HTN. Pulmonary: No COPD. GI: No GI ulcer, GI bleeding. Urinary/genital: UTI. Endocrinologic: Diabetes Mellitus, morbid obesity. Skeletomuscular: Generalized weakness. Neurological: see HP. Psychiatric: Denies drug use/abuse. Otherwise, not [id number] review of systems. PHYSICAL EXAMINATION: General appearance is in subacute distress. HEENT: Normocephalic and nontraumatic. Eyes, nose, ears, and throat are unremarkable. Neck is supple. No lymphadenopathy. No crepitus. Cardiovascular: S1, S2, seemed irregular rate and rhythm. Pulmonary: Decreased breathing sounds to auscultation bilaterally. Abdomen: Bowel sounds are positive. Extremities: Rash, lesions, edema and chronic skin changes in LE. NEUROLOGICAL EXAMINATION: Drowsiness but arousable. Not oriented to time, place but knows his . PERRL. EOMI not elicited due to not follow commands. CN: no acute focal findings. Muscle tone: decreased, chronic Muscle strength: Movements observed in UE, but not in LE as chronic weakness. DTR: 1- due to morbid obesity. Plantar reflex: Neutral response bilaterally Gait: not able to walk for at least 2 weeks. Sensory exam: no abnormal findings. Not able to access cerebellar signs at this mentation. Not able to F-T-N test due to not follow commands. Objective Objective Vital Signs Date Time Temp Pulse Resp B/P Pulse Ox O2 Delivery O2 Flow Rate FiO2 08/01/16 11:30 94 Room Air 08/01/16 11:00 96.3 113 18 116/41 96.3 Intake and Output 08/01/16 07:00 Intake Total 350 ml Output Total 2650 ml Balance -2300 ml Intake Oral 350 ml Output Urine Total 2650 ml # Voids 1 Vitals Signs Vitals VS - Last 72 Hours, by Label Date Time Temp Pulse Resp B/P Pulse Ox O2 Delivery O2 Flow Rate FiO2 08/01/16 11:30 94 Room Air 08/01/16 11:00 96.3 113 18 116/41 95 Room Air 96.3 08/01/16 08:49 112 119/57 08/01/16 08:48 112 119/57 08/01/16 07:45 94 Room Air 08/01/16 07:00 97.5 112 18 119/57 98 Room Air 97.5 08/01/16 02:40 97.9 78 18 112/84 95 Room Air 97.9 07/31/16 23:00 98.8 105 18 112/54 97 Room Air 98.8 07/31/16 21:00 66 94/70 07/31/16 20:08 Room Air 07/31/16 19:00 97.7 66 16 94/70 98 Room Air 97.7 07/31/16 15:27 Room Air 07/31/16 14:50 98.5 108 18 110/69 94 Room Air 98.5 07/31/16 11:15 96 Room Air 07/31/16 11:00 108 18 107/66 92 Room Air 07/31/16 10:28 108 106/71 07/31/16 07:56 Room Air 07/31/16 07:00 96.6 108 18 106/71 92 Room Air 96.6 Laboratory Laboratory Laboratory Tests Test 2/4/17 15:20 07/31/16 16:39 07/31/16 20:33 07/31/16 22:45 O2 Saturation 82% (92-99) Arterial Blood pH 7.33 (7.35-7.45) Arterial Blood pCO2 at Patient Temp 56mmHg (35-46) Arterial Blood pO2 at Patient Temp 46mmHg (65-108) Arterial Blood HCO3 29mmol/L (21-28) Arterial Blood Base Excess 2mmol/L (-3-3) FiO2 21 Glucose (Fingerstick) 140mg/dL (70-99) 124mg/dL (70-99) Urine Opiates Screen Neg (NEG) Urine Methadone Screen Neg (NEG) Urine Barbiturates Neg (NEG) Urine Phencyclidine Screen Neg (NEG) Urine Amphetamine/Methamphetamine Neg (NEG) Urine Benzodiazepines Screen Neg (NEG) Urine Cocaine Screen Neg (NEG) Urine Cannabinoids Screen Neg (NEG) Urine Ethyl Alcohol Neg (NEG) Test 08/01/16 08:18 Glucose (Fingerstick) 128mg/dL (70-99) Microbiology 07/30/16 Blood Culture - Preliminary, Resulted NO GROWTH AFTER 1 DAY Medication Medications Current Medications Acetaminophen (Tylenol) 650 mg TID PO Last administered on 07/31/16 14:16; Start 07/31/16 at 14:00 Ceftriaxone Sodium/Sodium Chloride (Rocephin/Iv Sodium Chloride 0.9% 50ml) 50 ml @ 100 mls/hr Q24H IV Last administered on 07/31/16 17:22; Start 07/31/16 at 16:00 Darbepoetin Davey (Aranesp) 60 mcg WEEKLYHS SQ ; Start 08/01/16 at 21:00 Darbepoetin Davey (Aranesp) 100 mcg WEEKLYHS SQ ; Start 08/01/16 at 21:00 Diltiazem HCl (Cardizem 24hr Cd) 120 mg DAILY PO Last administered on 08/01/16 08:49; Start 08/01/16 at 09:00 Fluoxetine HCl (Prozac) 20 mg HS PO ; Start 07/31/16 at 21:00 Gabapentin (Neurontin) 200 mg HS PO ; Start 07/31/16 at 21:00 Insulin Aspart (Novolog) 12 units TIDAC SQ Last administered on 08/01/16 08:56 ; Start 07/31/16 at 16:30 Insulin Detemir (Levemir) 20 units QHS SQ Last administered on 07/31/16 21:10; Start 07/31/16 at 21:00 Lactulose 20 gm PRN Q2HR PRN PO until BM; Start 08/01/16 at 11:15 Sennosides (Senna) 8.6 mg HS PO ; Start 07/31/16 at 21:00 Tamsulosin HCl (Flomax) 0.4 mg HS PO ; Start 07/31/16 at 21:00 Warfarin Sodium (Coumadin) 6 mg DAILY16 PO Last administered on 07/31/16 17:23 ; Start 07/31/16 at 16:00 Comment Review of Relevant I have reviewed the following items alan (where applicable) has been applied. JANEE MCWILLIAMS MD Aug 01, 2016 12:11
--- NOTE | 2016-08-01 13:30 | RAD ---
MRI of the brain without contrast 07/31/2016 Clinical history: Mental status changes. Technique: Unenhanced T1-weighted sagittal and axial, T2-weighted axial and coronal and FLAIR, gradient-echo and diffusion-weighted axial images of the brain were obtained. Findings: Comparison is made to the patient's CT scan of the head dated 07/30/2016. There is generalized parenchymal atrophy. Patchy, confluent and small scattered areas of increased signal intensity are seen within the periventricular and subcortical white matter of both cerebral hemispheres on the FLAIR and T2-weighted images consistent with areas of small vessel ischemic disease. No acute brain abnormality is seen. There is no MRI evidence of acute ischemia/infarction. No extra-axial fluid collection is seen. The paranasal sinuses are essentially clear. Normal flow voids are seen within the major vascular structures surrounding the brain parenchyma. A 2.1 cm soft tissue nodule is seen within the left parotid gland which likely represents a benign lesion such as a pleomorphic adenoma. It is unchanged. Impression: No acute parenchymal abnormality is seen.
[2016-08-01 13:43] LABS: BASO # 0.1 x10^3/uL (0.0-0.2); BASO % 1 % (0-3); EOS % 3 % (0-3); HEMATOCRIT 31.8 % (39.0-53.0); HEMOGLOBIN 10.3 g/dL (13.0-17.5); LYMPH # 0.5 x10^3/uL (1.0-4.8); LYMPH % 7 % (24-48); MEAN CORPUSCULAR HEMOGLOBIN 29 pg (25-35); MEAN CORPUSCULAR HGB CONC 32 g/dL (31-37); MEAN CORPUSCULAR VOLUME 88 fL (79-100); MONO % 10 % (0-9); NEUT % 79 % (31-73); PLATELET COUNT 191 x10^3/uL (140-400); RED BLOOD COUNT 3.61 x10^6/uL (4.30-5.70); RED CELL DISTRIBUTION WIDTH 17.2 % (11.5-14.5); WHITE BLOOD COUNT 7.5 x10^3/uL (4.0-11.0)
[2016-08-01 13:52] LABS: INR 1.2 (0.8-1.1); PROTHROMBIN TIME PATIENT 14.1 SEC (11.7-14.0)
[2016-08-01 13:54] LABS: CALCIUM 8.8 mg/dL (8.5-10.1); CREATININE 4.1 mg/dL (0.7-1.3); GFR 14.5; POTASSIUM 3.2 mmol/L (3.5-5.1)
[2016-08-01 15:00] VITALS: BP 121/70
[2016-08-01] MEDS: WARFARIN 6 MG TABLET. PO SCH (16:02)
[2016-08-01] MEDS: CEFTRIAXONE SODIUM 1 GM in IV NORMAL SALINE 50ML 50 ML IV SCH (16:02)
[2016-08-01 19:10] VITALS: BP 111/78
[2016-08-01] MEDS: TAMSULOSIN 0.4 MG CAP.ER.24H. PO SCH (21:24)
[2016-08-01] MEDS: SENNOSIDES 8.6 MG TABLET PO SCH (21:24)
[2016-08-01] MEDS: GABAPENTIN 100 MG CAPSULE. PO SCH (21:25)
[2016-08-01] MEDS: FLUOXETINE HCL 20 MG CAPSULE PO SCH (21:25)
[2016-08-01] MEDS: INSULIN DETEMIR 300 UNITS/3 ML INSULN.PEN. SQ SCH (21:40)
[2016-08-01] MEDS: DARBEPOETIN ALFA 100 MCG/0.5 ML DISP.SYRIN. SQ SCH (21:45)
[2016-08-01] MEDS: DARBEPOETIN ALFA 60 MCG/0.3 ML DISP.SYRIN. SQ SCH (21:46)
[2016-08-01 22:50] VITALS: BP 101/72
[2016-08-02 03:25] VITALS: BP 104/67
[2016-08-02 07:00] VITALS: BP 123/79
[2016-08-02] MEDS: INSULIN ASPART 300 UNITS/3 ML INSULN.PEN SQ SCH ×6 (08:00→17:00)
[2016-08-02] MEDS: POLYETHYLENE GLYCOL 3350 17 GM PACKET. PO SCH (08:09)
[2016-08-02] MEDS: LACTULOSE 20 GM/30 ML SOLUTION. PO PRN ×2 (08:09→11:38)
[2016-08-02] MEDS: ACETAMINOPHEN 325 MG TABLET. PO SCH ×4 (08:09→20:25)
[2016-08-02] MEDS: DILTIAZEM HCL 180 MG CAP.ER.24H PO SCH (08:10)
[2016-08-02] MEDS: METOPROLOL TART IMMED RELEASE 50 MG TABLET PO SCH ×3 (08:10→20:25)
[2016-08-02] MEDS: IPRATRPIUM/ALBUTEROL 0.5/2.5MG 3 ML NEBU. NEB SCH ×4 (08:49→20:34)
[2016-08-02] MEDS: DICLOFENAC SODIUM 1% TOPICAL GEL 100GM TUBE. TP SCH ×3 (09:00→20:31)
[2016-08-02 09:34] LABS: BASO # 0.1 x10^3/uL (0.0-0.2); BASO % 1 % (0-3); EOS % 3 % (0-3); HEMATOCRIT 34.5 % (39.0-53.0); HEMOGLOBIN 11.1 g/dL (13.0-17.5); LYMPH # 0.8 x10^3/uL (1.0-4.8); LYMPH % 10 % (24-48); MEAN CORPUSCULAR HEMOGLOBIN 28 pg (25-35); MEAN CORPUSCULAR HGB CONC 32 g/dL (31-37); MEAN CORPUSCULAR VOLUME 87 fL (79-100); MONO % 11 % (0-9); NEUT % 75 % (31-73); PLATELET COUNT 185 x10^3/uL (140-400); RED BLOOD COUNT 3.95 x10^6/uL (4.30-5.70); RED CELL DISTRIBUTION WIDTH 16.7 % (11.5-14.5); WHITE BLOOD COUNT 7.9 x10^3/uL (4.0-11.0)
[2016-08-02 09:55] LABS: ALBUMIN 2.6 g/dL (3.4-5.0); ALBUMIN/GLOBULIN RATIO 0.6 (1.0-1.7); CREATININE 3.8 mg/dL (0.7-1.3); GFR 15.8; MAGNESIUM 4.2 mg/dL (1.8-2.4); TOTAL BILIRUBIN 0.6 mg/dL (0.2-1.0); TOTAL PROTEIN 7.3 g/dL (6.4-8.2)
[2016-08-02 09:58] LABS: INR 1.3 (0.8-1.1); PROTHROMBIN TIME PATIENT 15.1 SEC (11.7-14.0)
[2016-08-02 10:01] LABS: POTASSIUM 2.9 mmol/L (3.5-5.1)
[2016-08-02 10:19] LABS: VITAMIN D25(OH)TOTAL 21.7 ng/mL (30.0-100.0)
[2016-08-02 11:00] VITALS: BP 114/63
[2016-08-02] MEDS ORDERED: POTASSIUM CHLORIDE 20 MEQ TABLET.ER. PO ONE (11:00)
--- NOTE | 2016-08-02 11:12 | PDOC2 ---
GI CONSULT Reason For Consult: Constipation, abd distention HPI: HPI: 71 y/o obese male admitted admitted 07/30/16 w/ AMS, UTI/sepsis (on Rocephin). Has been at rehab w/ lymphedema. Followed by nephrology for CKD, also seeing neurology. GI consult requested for constipation. No history from pt; his , Mary Ellen, reports a h/o constipation (1 stool every 1-3 days w/ Colace QD) w/o BM for at least 10 days. She says this started at rehab because he didn't want to use the bed carr. Prior to admission, he had some abdominal pain and vomiting. He has been eating a little here w/o recurrent vomiting. Mary Ellen reports previous colonoscopy @ [facility] ~1 year ago which showed polyps. Additional h/o GERD ( apparently untreated) w/ previous EGD. He has been on Miralax and lactulose Q 2 hours (started yesterday). Labs significant for INR 10.6 (now 1.3), Hgb 11.1, K+ 2.9, AST 43, Alk Phos 211 , BUN 108, Cr 3.8. CT A/P suggestive of possible colonic ileus. PMH: PMH: dementia, CKD, A flutter/fib, HTN, DM, COPD, lymphedema, BPH, gout FH: Family History: No pertinent hx Social History: Smoke: No ALCOHOL: none Drugs: None ROS: Unobtainable. VItals: Vitals: Vital Signs Date Time Temp Pulse Resp B/P Pulse Ox O2 Delivery O2 Flow Rate FiO2 08/02/16 08:50 93 Room Air 08/02/16 08:10 111 123/79 08/02/16 07:00 98.0 20 98.0 Labs: Labs: Laboratory Tests Test 08/01/16 12:00 08/01/16 13:00 08/01/16 16:53 08/01/16 21:01 Glucose (Fingerstick) 111mg/dL (70-99) 91mg/dL (70-99) 91mg/dL (70-99) White Blood Count 7.5x10^3/uL (4.0-11.0) Red Blood Count 3.61x10^6/uL (4.30-5.70) Hemoglobin 10.3g/dL (13.0-17.5) Hematocrit 31.8% (39.0-53.0) Mean Corpuscular Volume 88fL (79-100) Mean Corpuscular Hemoglobin 29pg (25-35) Mean Corpuscular Hemoglobin Concent 32g/dL (31-37) Red Cell Distribution Width 17.2% (11.5-14.5) Platelet Count 191x10^3/uL (140-400) Neutrophils (%) (Auto) 79% (31-73) Lymphocytes (%) (Auto) 7% (24-48) Monocytes (%) (Auto) 10% (0-9) Eosinophils (%) (Auto) 3% (0-3) Basophils (%) (Auto) 1% (0-3) Neutrophils # (Auto) 5.9x10^3uL (1.8-7.7) Lymphocytes # (Auto) 0.5x10^3/uL (1.0-4.8) Monocytes # (Auto) 0.8x10^3/uL (0.0-1.1) Eosinophils # (Auto) 0.2x10^3/uL (0.0-0.7) Basophils # (Auto) 0.1x10^3/uL (0.0-0.2) Prothrombin Time 14.1SEC (11.7-14.0) Prothromb Time International Ratio 1.2 (0.8-1.1) Sodium Level 142mmol/L (136-145) Potassium Level 3.2mmol/L (3.5-5.1) Chloride Level 100mmol/L (98-107) Carbon Dioxide Level 32mmol/L (21-32) Anion Gap 10 (6-14) Blood Urea Nitrogen 110mg/dL (8-26) Creatinine 4.1mg/dL (0.7-1.3) Estimated GFR (Cockcroft-Gault) 14.5 Glucose Level 108mg/dL (70-99) Calcium Level 8.8mg/dL (8.5-10.1) Magnesium Level 4.0mg/dL (1.8-2.4) Test 08/02/16 08:07 08/02/16 08:59 Glucose (Fingerstick) 113mg/dL (70-99) White Blood Count 7.9x10^3/uL (4.0-11.0) Red Blood Count 3.95x10^6/uL (4.30-5.70) Hemoglobin 11.1g/dL (13.0-17.5) Hematocrit 34.5% (39.0-53.0) Mean Corpuscular Volume 87fL (79-100) Mean Corpuscular Hemoglobin 28pg (25-35) Mean Corpuscular Hemoglobin Concent 32g/dL (31-37) Red Cell Distribution Width 16.7% (11.5-14.5) Platelet Count 185x10^3/uL (140-400) Neutrophils (%) (Auto) 75% (31-73) Lymphocytes (%) (Auto) 10% (24-48) Monocytes (%) (Auto) 11% (0-9) Eosinophils (%) (Auto) 3% (0-3) Basophils (%) (Auto) 1% (0-3) Neutrophils # (Auto) 5.9x10^3uL (1.8-7.7) Lymphocytes # (Auto) 0.8x10^3/uL (1.0-4.8) Monocytes # (Auto) 0.8x10^3/uL (0.0-1.1) Eosinophils # (Auto) 0.3x10^3/uL (0.0-0.7) Basophils # (Auto) 0.1x10^3/uL (0.0-0.2) Prothrombin Time 15.1SEC (11.7-14.0) Prothromb Time International Ratio 1.3 (0.8-1.1) Sodium Level 142mmol/L (136-145) Potassium Level 2.9mmol/L (3.5-5.1) Chloride Level 100mmol/L (98-107) Carbon Dioxide Level 32mmol/L (21-32) Anion Gap 10 (6-14) Blood Urea Nitrogen 108mg/dL (8-26) Creatinine 3.8mg/dL (0.7-1.3) Estimated GFR (Cockcroft-Gault) 15.8 BUN/Creatinine Ratio 28 (6-20) Glucose Level 139mg/dL (70-99) Calcium Level 9.0mg/dL (8.5-10.1) Magnesium Level 4.2mg/dL (1.8-2.4) Total Bilirubin 0.6mg/dL (0.2-1.0) Aspartate Amino Transf (AST/SGOT) 43U/L (15-37) Alanine Aminotransferase (ALT/SGPT) 36U/L (16-63) Alkaline Phosphatase 211U/L (46-116) Total Protein 7.3g/dL (6.4-8.2) Albumin 2.6g/dL (3.4-5.0) Albumin/Globulin Ratio 0.6 (1.0-1.7) Allergies: Coded Allergies: No Known Drug Allergies (Unverified , 08/01/16) Medications: Current Medications Medications (Trade) Dose Ordered Sig/Shayne Route PRN Reason Start Time Stop Time Status Last Admin Dose Admin Lactulose 20 gm PRN Q2HR PRN PO until BM 08/01/16 11:15 08/02/16 08:09 Darbepoetin Davey (Aranesp) 100 mcg WEEKLYHS SQ 08/01/16 21:00 08/01/16 21:45 Darbepoetin Davey (Aranesp) 60 mcg WEEKLYHS SQ 08/01/16 21:00 08/01/16 21:46 Insulin Aspart (Novolog) 12 units TIDAC SQ 08/01/16 13:23 08/02/16 08:18 Imaging: Imaging: Head CT 07/30/16 Impression: 1. Age-appropriate atrophy without any acute intracranial process. CXR 07/30/16 Impression: 1. Borderline cardiomegaly 2. No acute pulmonary findings detected. CT A/P 07/31/16 Impression: No convincing evidence of urolithiasis or hydronephrosis seen. Atrophic right kidney. Mild dilation of the colon throughout probably colonic ileus pattern. Diffuse infiltrates both lower lobes. Brain MRI 08/01/16 Impression: No acute parenchymal abnormality is seen. PE: GEN: NAD HEENT: Atraumatic LUNGS: decreased bilaterally anteriorly HEART: tachycardic ABD: obese, BS+ but quiet, unclear if tender EXTREMITY: BLE massive edema SKIN: No rashes, no jaundice NEURO/PSYCH: unintelligible mumbling A/P: A/P: Constipation -history of previously controlled w/ Colace, apparently worse at rehab w/ last BM >10 days ago -unresolved w/ lactulose and Miralax her -?abd pain and +vomiting at rehab prior to admission -CT as above, ?ileus AMS, UTI/sepsis CKD, hematuria Coagulopathy - improved GERD -untreated, reports previous EGD CRC screen, h/o colon polyps - reports last colonoscopy ~1 year ago @[facility] -- Will review w/ Dr. Kee. GIRMA CASEY Aug 02, 2016 11:12
[2016-08-02] MEDS: MUPIROCIN 2 % TOPICAL CREAM 15GM TUBE. TP SCH ×2 (11:39→20:31)
--- NOTE | 2016-08-02 13:01 | PDOC ---
SUBJECTIVE ROS BREANNA/ CKD III; Edema Anasarca no ROS from the Pt, remains sleepy OBJECTIVE Vital Signs Vital Signs Date Time Temp Pulse Resp B/P Pulse Ox O2 Delivery O2 Flow Rate FiO2 08/02/16 11:13 Room Air 08/02/16 11:00 97.1 110 22 114/63 96 97.1 I & 0 Intake and Output 08/02/16 07:00 Intake Total 638 ml Output Total 725 ml Balance -87 ml Intake Oral 638 ml Output Urine Total 725 ml PHYSICAL EXAM Physical Exam General Appearance: Arousable not Alert Oriented x 1 () In no Distress Eyes: VIsion Unchanged Conjunctiva Normal EN: No EN Drainage Mucous Memb. dryish Neck: no JVD no JVP Supple no Thyromegaly - thick neck CVS: S1 S2 no Murmur No Gallop No Rub +3 Edema with m in erythema and Ch changes; - Tachy Resp: no Rales no Rhonchi no Acc. Muscle use GI: BS +ve NO Bruit ? Tender Non Distended - Obese : no CVA tenderness; no Suprapubic Tenderness ASSESSMENT/PLAN Assessment/Plan ARF/ ATN - UO is better. No labs (pt refused) Current FLuid and E-lyte status does not necessitate emergent need for Dialysis. Pt (in the past) has not wanted to do HD, reiterates same. ^ed Mag - D/c MOM Edema/ Ansarca - Currently better. Hold IVF and diuretics for now untill hemodynamics are better Hematuria - resolved Encephalopahty - multi-factorial - Cannot R/o some due to Uremia - await Neuro input Anemia: may need Epogen if hgb < 10 Transfuse as needed. HTN: in the past - currently marginal. Has not been felt to be a dialysis Candidate in the past per and his son - IF AMS felt to be predominantly Uremic - Pall consult may be merited. Discussed Plan of Care and prognosis etc. at length with family () COMMENT/RELEVANT DATA Meds Current Medications Medications (Trade) Dose Ordered Sig/Shayne Start Time Stop Time Status Last Admin Dose Admin Acetaminophen (Tylenol) 650 mg TID 07/31/16 14:00 08/02/16 08:09 650 MG Albuterol Sulfate 2.5 mg 2.5 mg PRN Q4HRS PRN 07/30/16 19:00 Albuterol/ Ipratropium (Duoneb) 3 ml QIDACHS 07/30/16 21:00 08/02/16 11:13 3 ML Bisacodyl (Dulcolax Supp) 10 mg PRN DAILY PRN 07/31/16 09:15 Ceftriaxone Sodium/Sodium Chloride (Rocephin/Iv Sodium Chloride 0.9% 50ml) 50 ml @ 100 mls/hr Q24H 07/31/16 16:00 08/01/16 16:02 100 MLS/HR Ceftriaxone Sodium 50 ml @ 100 mls/hr 1X ONCE 07/30/16 16:45 07/30/16 17:14 DC 07/30/16 17:00 100 MLS/HR Darbepoetin Davey (Aranesp) 60 mcg WEEKLYHS 08/01/16 21:00 08/01/16 21:46 60 MCG Dextrose 12.5 gm PRN Q15MIN PRN 07/31/16 09:15 Diclofenac Sodium (Voltaren) 1 mike TID 07/31/16 10:00 08/01/16 21:41 1 MIKE Diltiazem HCl (Cardizem 24hr Cd) 120 mg DAILY 08/01/16 09:00 08/02/16 08:10 120 MG Fluconazole/ Sodium Chloride (Diflucan 200mg/ 100ml Premix) 100 ml @ 100 mls/hr 1X ONCE 07/30/16 16:45 07/30/16 17:44 DC 07/30/16 17:53 100 MLS/HR Fluoxetine HCl (Prozac) 20 mg HS 07/31/16 21:00 08/01/16 21:25 20 MG Furosemide (Lasix) 60 mg [id number] 07/31/16 09:30 08/01/16 11:13 DC 08/01/16 08:48 60 MG Gabapentin (Neurontin) 200 mg HS 07/31/16 21:00 08/01/16 21:25 200 MG Info (Do NOT chart on this placeholder) 1 each PRN DAILY PRN 07/31/16 01:30 Cancel Insulin Aspart (Novolog) 12 units TIDAC 08/01/16 13:23 08/02/16 12:03 12 UNITS Insulin Detemir (Levemir) 20 units QHS 07/31/16 21:00 08/01/16 21:40 20 UNITS Lactulose 20 gm PRN Q2HR PRN 08/01/16 11:15 08/02/16 11:38 20 GM Lubiprostone (Amitiza) 8 mcg BIDWMEALS 08/02/16 17:00 Magnesium Hydroxide (Milk Of Magnesia) 400 mg DAILY PRN 07/31/16 09:15 Metoprolol Tartrate (Lopressor) 50 mg BID 07/31/16 09:30 08/02/16 08:10 50 MG Mineral Oil (Fleet Mineral Oil) 133 ml 1X ONCE 07/31/16 11:15 07/31/16 11:16 DC 07/31/16 14:15 133 ML Morphine Sulfate 2 mg PRN Q2HR PRN 07/30/16 18:45 07/31/16 18:44 DC Mupirocin (Bactroban) 1 mike BID 07/31/16 09:30 08/02/16 11:39 1 MIKE Ondansetron HCl (Zofran Odt) 4 mg PRN Q6HRS PRN 07/31/16 09:30 Ondansetron HCl (Zofran) 4 mg PRN Q8HRS PRN 07/30/16 18:45 07/31/16 13:46 DC Ondansetron HCl 4 mg 4 mg PRN Q6HRS PRN 07/30/16 19:00 Phytonadione 2.5 mg 2.5 mg 1X ONCE 07/30/16 19:00 07/30/16 19:01 DC 07/30/16 19:17 2.5 MG Phytonadione/ Sodium Chloride (Vitamin K/Iv Sodium Chloride 0.9% 50ml) 51 ml @ 102 mls/hr 1X ONCE 07/30/16 20:00 07/30/16 20:29 DC 07/30/16 20:38 102 MLS/HR Polyethylene Glycol (miraLAX PACKET) 17 gm DAILY 07/31/16 11:15 08/02/16 08:09 17 GM Potassium Chloride (Klor-Con) 40 meq 1X ONCE 08/02/16 11:00 08/02/16 11:01 DC 08/02/16 11:38 40 MEQ Sennosides (Senna) 8.6 mg HS 07/31/16 21:00 08/01/16 21:24 8.6 MG Sodium Chloride (Iv Sodium Chloride 0.9% 1000ml Bag) 1,000 ml @ 100 mls/hr 1X ONCE 07/30/16 19:00 07/31/16 04:59 DC 07/30/16 23:11 100 MLS/HR Tamsulosin HCl (Flomax) 0.4 mg HS 07/31/16 21:00 08/01/16 21:24 0.4 MG Tramadol HCl (Ultram) 50 mg PRN Q6HRS PRN 07/31/16 09:15 Warfarin Sodium (Coumadin Per Physician) 1 each PRN DAILY PRN 07/31/16 11:15 Warfarin Sodium (Coumadin) 6 mg DAILY16 07/31/16 16:00 08/01/16 16:02 6 MG Lab Laboratory Tests Test 08/01/16 13:00 08/01/16 16:53 08/01/16 21:01 08/02/16 08:07 White Blood Count 7.5x10^3/uL (4.0-11.0) Red Blood Count 3.61x10^6/uL (4.30-5.70) Hemoglobin 10.3g/dL (13.0-17.5) Hematocrit 31.8% (39.0-53.0) Mean Corpuscular Volume 88fL (79-100) Mean Corpuscular Hemoglobin 29pg (25-35) Mean Corpuscular Hemoglobin Concent 32g/dL (31-37) Red Cell Distribution Width 17.2% (11.5-14.5) Platelet Count 191x10^3/uL (140-400) Neutrophils (%) (Auto) 79% (31-73) Lymphocytes (%) (Auto) 7% (24-48) Monocytes (%) (Auto) 10% (0-9) Eosinophils (%) (Auto) 3% (0-3) Basophils (%) (Auto) 1% (0-3) Neutrophils # (Auto) 5.9x10^3uL (1.8-7.7) Lymphocytes # (Auto) 0.5x10^3/uL (1.0-4.8) Monocytes # (Auto) 0.8x10^3/uL (0.0-1.1) Eosinophils # (Auto) 0.2x10^3/uL (0.0-0.7) Basophils # (Auto) 0.1x10^3/uL (0.0-0.2) Prothrombin Time 14.1SEC (11.7-14.0) Prothromb Time International Ratio 1.2 (0.8-1.1) Sodium Level 142mmol/L (136-145) Potassium Level 3.2mmol/L (3.5-5.1) Chloride Level 100mmol/L (98-107) Carbon Dioxide Level 32mmol/L (21-32) Anion Gap 10 (6-14) Blood Urea Nitrogen 110mg/dL (8-26) Creatinine 4.1mg/dL (0.7-1.3) Estimated GFR (Cockcroft-Gault) 14.5 Glucose Level 108mg/dL (70-99) Calcium Level 8.8mg/dL (8.5-10.1) Magnesium Level 4.0mg/dL (1.8-2.4) Glucose (Fingerstick) 91mg/dL (70-99) 91mg/dL (70-99) 113mg/dL (70-99) Test 08/02/16 08:59 08/02/16 11:53 White Blood Count 7.9x10^3/uL (4.0-11.0) Red Blood Count 3.95x10^6/uL (4.30-5.70) Hemoglobin 11.1g/dL (13.0-17.5) Hematocrit 34.5% (39.0-53.0) Mean Corpuscular Volume 87fL (79-100) Mean Corpuscular Hemoglobin 28pg (25-35) Mean Corpuscular Hemoglobin Concent 32g/dL (31-37) Red Cell Distribution Width 16.7% (11.5-14.5) Platelet Count 185x10^3/uL (140-400) Neutrophils (%) (Auto) 75% (31-73) Lymphocytes (%) (Auto) 10% (24-48) Monocytes (%) (Auto) 11% (0-9) Eosinophils (%) (Auto) 3% (0-3) Basophils (%) (Auto) 1% (0-3) Neutrophils # (Auto) 5.9x10^3uL (1.8-7.7) Lymphocytes # (Auto) 0.8x10^3/uL (1.0-4.8) Monocytes # (Auto) 0.8x10^3/uL (0.0-1.1) Eosinophils # (Auto) 0.3x10^3/uL (0.0-0.7) Basophils # (Auto) 0.1x10^3/uL (0.0-0.2) Prothrombin Time 15.1SEC (11.7-14.0) Prothromb Time International Ratio 1.3 (0.8-1.1) Sodium Level 142mmol/L (136-145) Potassium Level 2.9mmol/L (3.5-5.1) Chloride Level 100mmol/L (98-107) Carbon Dioxide Level 32mmol/L (21-32) Anion Gap 10 (6-14) Blood Urea Nitrogen 108mg/dL (8-26) Creatinine 3.8mg/dL (0.7-1.3) Estimated GFR (Cockcroft-Gault) 15.8 BUN/Creatinine Ratio 28 (6-20) Glucose Level 139mg/dL (70-99) Calcium Level 9.0mg/dL (8.5-10.1) Magnesium Level 4.2mg/dL (1.8-2.4) Total Bilirubin 0.6mg/dL (0.2-1.0) Aspartate Amino Transf (AST/SGOT) 43U/L (15-37) Alanine Aminotransferase (ALT/SGPT) 36U/L (16-63) Alkaline Phosphatase 211U/L (46-116) Total Protein 7.3g/dL (6.4-8.2) Albumin 2.6g/dL (3.4-5.0) Albumin/Globulin Ratio 0.6 (1.0-1.7) Glucose (Fingerstick) 134mg/dL (70-99) CHERRY DORADO MD Aug 02, 2016 13:01
--- NOTE | 2016-08-02 14:56 | PDOC ---
PROGRESS NOTES Assessment Assessment Metabolic encephalopathy. Bilateral lower lobe infiltrate. UTI Vomiting. AFib or atrial flutter Renal failure Anemia DM HTN COPD Chronic LE wounds Morbid obesity No evidence of acute large CVA this time. RECOMMENDATIONS/PLAN: ASA 325 mg to tie over Coumadin to therapeutic range. Treat medical diseases per floor team. treat UTI. OT/PT Discussed in detail with his at bedside on a daily basis. Brain MRI w/o contrast: No acute findings. HISTORY OF THE PRESENT ILLNESS: 71-y0old male patient with multiple medical diseases has menta status changes, decreased response, and confusion. He has chronic LE wounds and weakness and has not been able to walk normally for 6- 7 months and inability to walk in at least for 2 weeks. He has atrial flutter on Coumadin, but his PT was 78.3 and INR was 10.6, so Coumadin was put on hold. His PT and INR normalized on 07/31 test. PAST MEDICAL HISTORY: Please see above. PAST SURGERY HISTORY: LE wound care. ALLERGY: Unknown MEDICATIONS: Refer to [facility] FAMILY HISTORY: Non contributory. SOCIAL HISTORY: Denies current smoking, drinking, and illicit drug use. REVIEW OF SYSTEMS: Constitutional: No malnutrition, weight loss, cachexia. Head: No recent traumatic brain or head injury. Skin: No edema, or rash. Ear: No infection, tinnitus. Eyes: No vision loss or color blindness. Nose: No bleeding or purulent discharges. Hearing: Hearing decrease. Neck: No recent injury. Cardiac: AFib, HTN. Pulmonary: No COPD. GI: No GI ulcer, GI bleeding. Urinary/genital: UTI. Endocrinologic: Diabetes Mellitus, morbid obesity. Skeletomuscular: Generalized weakness. Neurological: see HP. Psychiatric: Denies drug use/abuse. Otherwise, not [id number] review of systems. PHYSICAL EXAMINATION: General appearance is in subacute distress. HEENT: Normocephalic and nontraumatic. Eyes, nose, ears, and throat are unremarkable. Neck is supple. No lymphadenopathy. No crepitus. Cardiovascular: S1, S2, seemed irregular rate and rhythm. Pulmonary: Decreased breathing sounds to auscultation bilaterally. Abdomen: Bowel sounds are positive. Extremities: Rash, lesions, edema and chronic skin changes in LE. NEUROLOGICAL EXAMINATION: Awake. Not follow commands. Not oriented to time, place but knows his . PERRL. EOMI not elicited due to not follow commands. CN: no acute focal findings. Muscle tone: decreased, chronic Muscle strength: Movements observed in UE, but not in LE as chronic weakness. DTR: 1- due to morbid obesity. Plantar reflex: Neutral response bilaterally Gait: not able to walk for at least 2 weeks. Sensory exam: no abnormal findings. Not able to access cerebellar signs at this mentation. Not able to F-T-N test due to not follow commands. Objective Objective Vital Signs Date Time Temp Pulse Resp B/P Pulse Ox O2 Delivery O2 Flow Rate FiO2 08/02/16 11:13 Room Air 08/02/16 11:00 97.1 110 22 114/63 96 97.1 Intake and Output 08/02/16 07:00 Intake Total 638 ml Output Total 725 ml Balance -87 ml Intake Oral 638 ml Output Urine Total 725 ml Vitals Signs Vitals VS - Last 72 Hours, by Label Date Time Temp Pulse Resp B/P Pulse Ox O2 Delivery O2 Flow Rate FiO2 08/02/16 11:13 Room Air 08/02/16 11:00 97.1 110 22 114/63 96 Room Air 97.1 08/02/16 08:50 93 Room Air 08/02/16 08:10 111 123/79 08/02/16 08:10 111 123/79 08/02/16 07:46 Room Air 08/02/16 07:00 98.0 111 20 123/79 93 Room Air 98.0 08/02/16 03:25 97.2 110 20 104/67 92 Room Air 97.2 08/01/16 22:50 97.4 109 20 101/72 91 Room Air 97.4 08/01/16 21:25 114 111/78 08/01/16 19:59 Room Air 08/01/16 19:50 Room Air 08/01/16 19:10 97.8 114 20 111/78 91 Room Air 97.8 08/01/16 15:49 Room Air 08/01/16 15:00 97.3 111 18 121/70 100 Room Air 97.3 08/01/16 11:30 94 Room Air 08/01/16 11:00 96.3 113 18 116/41 95 Room Air 96.3 08/01/16 08:49 112 119/57 08/01/16 08:48 112 119/57 08/01/16 08:23 Room Air 08/01/16 07:45 94 Room Air 08/01/16 07:00 97.5 112 18 119/57 98 Room Air 97.5 Laboratory Laboratory Laboratory Tests Test 08/01/16 16:53 08/01/16 21:01 08/02/16 08:07 08/02/16 08:59 Glucose (Fingerstick) 91mg/dL (70-99) 91mg/dL (70-99) 113mg/dL (70-99) White Blood Count 7.9x10^3/uL (4.0-11.0) Red Blood Count 3.95x10^6/uL (4.30-5.70) Hemoglobin 11.1g/dL (13.0-17.5) Hematocrit 34.5% (39.0-53.0) Mean Corpuscular Volume 87fL (79-100) Mean Corpuscular Hemoglobin 28pg (25-35) Mean Corpuscular Hemoglobin Concent 32g/dL (31-37) Red Cell Distribution Width 16.7% (11.5-14.5) Platelet Count 185x10^3/uL (140-400) Neutrophils (%) (Auto) 75% (31-73) Lymphocytes (%) (Auto) 10% (24-48) Monocytes (%) (Auto) 11% (0-9) Eosinophils (%) (Auto) 3% (0-3) Basophils (%) (Auto) 1% (0-3) Neutrophils # (Auto) 5.9x10^3uL (1.8-7.7) Lymphocytes # (Auto) 0.8x10^3/uL (1.0-4.8) Monocytes # (Auto) 0.8x10^3/uL (0.0-1.1) Eosinophils # (Auto) 0.3x10^3/uL (0.0-0.7) Basophils # (Auto) 0.1x10^3/uL (0.0-0.2) Prothrombin Time 15.1SEC (11.7-14.0) Prothromb Time International Ratio 1.3 (0.8-1.1) Sodium Level 142mmol/L (136-145) Potassium Level 2.9mmol/L (3.5-5.1) Chloride Level 100mmol/L (98-107) Carbon Dioxide Level 32mmol/L (21-32) Anion Gap 10 (6-14) Blood Urea Nitrogen 108mg/dL (8-26) Creatinine 3.8mg/dL (0.7-1.3) Estimated GFR (Cockcroft-Gault) 15.8 BUN/Creatinine Ratio 28 (6-20) Glucose Level 139mg/dL (70-99) Calcium Level 9.0mg/dL (8.5-10.1) Magnesium Level 4.2mg/dL (1.8-2.4) Total Bilirubin 0.6mg/dL (0.2-1.0) Aspartate Amino Transf (AST/SGOT) 43U/L (15-37) Alanine Aminotransferase (ALT/SGPT) 36U/L (16-63) Alkaline Phosphatase 211U/L (46-116) Total Protein 7.3g/dL (6.4-8.2) Albumin 2.6g/dL (3.4-5.0) Albumin/Globulin Ratio 0.6 (1.0-1.7) Test 08/02/16 11:53 Glucose (Fingerstick) 134mg/dL (70-99) Microbiology 07/30/16 Blood Culture - Preliminary, Resulted NO GROWTH AFTER 2 DAYS 07/30/16 Urine Culture - Final, Complete 07/30/16 Urine Culture Result 1 (VINAYAK) - Final, Complete Medication Medications Current Medications Albumin Human (Albuminar) 100 ml @ 100 mls/hr TID IV ; Start 08/02/16 at 14:00; Stop 08/04/16 at 09:59 Darbepoetin Davey (Aranesp) 60 mcg WEEKLYHS SQ Last administered on 08/01/16 21: 46; Start 08/01/16 at 21:00 Darbepoetin Davey (Aranesp) 100 mcg WEEKLYHS SQ Last administered on 08/01/16 21 :45; Start 08/01/16 at 21:00 Lubiprostone 8 mcg 8 mcg BIDWMEALS PO ; Start 08/02/16 at 17:00 Potassium Chloride (Klor-Con) 40 meq 1X ONCE PO Last administered on 08/02/16 11:38; Start 08/02/16 at 11:00; Stop 08/02/16 at 11:01; Status DC Comment Review of Relevant I have reviewed the following items alan (where applicable) has been applied. JANEE MCWILLIAMS MD Aug 02, 2016 14:56
[2016-08-02 15:00] VITALS: BP 106/64
[2016-08-02] MEDS: ALBUMIN HUMAN 25% 100 ML IV SCH ×2 (15:06→20:22)
--- NOTE | 2016-08-02 15:23 | PDOC2 ---
PALLIATIVE CARE Palliative Care Note Palliative Care Consult requested by Dr. Soares to address goals of care. Diagnosis: UTI, sepsis; BREANNA/CKD3--has refused dialysis; elevated INR now 1.3; HTN--well controlled; DM; COPD; Lymphedema lower extremities--wounds; sacral would--small; gout; BPH; Constipation. MRI Brain-no acute findings; Labs reviewed. Patient resting--confused when awake per notes. did not awaken. Attempted to reach . Message on answering machine to return call. Will attempt to arrange family meeting in am. Code Status: DNR/DNI ACE ANTONIO Aug 02, 2016 15:23
--- NOTE | 2016-08-02 17:07 | PDOC ---
PROGRESS NOTES Chief Complaint Chief Complaint Delirium BREANNA Hypercoagulability ASSESSMENT AND PLAN: 1. Delirium on chronic worsening dementia: more awake, but still lethargic. prob 2/2 urosepsis and hypercarbia 3. Sepsis: 2/2 UTI. Urine/blood cult drawn. BC NGTD 3. UTI: on empiric ceftriax 4. dehydration: cont IVF for now 4. BREANNA: vasomotor. sl improved. nephrology following 5. CKD4: basline creat ~3 6. Hypercoag: INR corrected with vit K and FFP. w/o signs of bleeding, restart coumadin RODRÍGUEZ 7. aflutter: borderline rate controlled on dilt, currently in 100s. poss 2/2 sepsis. monitor for now. if persistent, may need adjustment in meds 8. HTN: well controleed on current regimen 9. DM: currently well controlled, but not eating. monitor 10. COPD: hypercarbic. d/c suppl O2. rpt ABG this PM. duonebs PRN 11. FTT: had been deteriorating at home, unable to walk by himself, which prompted prev admission at [facility] and [place] transfer. somewhat unrealistic. OT/PT 12. Lymphedema: chronic with chronic venous stasis changes. lymphedema massage, AIDEN wraps 13. SMALL sacral wound: wound care consult 14. Gout: on colchicine and allopurinol at home. hold both for now 2/2 renal fxn. pain meds as needed 15. BPH: on flomax 16. Constipation: per , no BM x1 week; symptomatic. ro result w/ MO enema. trial lactulose History of Present Illness History of Present Illness Pt resting with NAD. present Anxious that he has not had a BM for 10 days DW RN Vitals Vitals Vital Signs Date Time Temp Pulse Resp B/P Pulse Ox O2 Delivery O2 Flow Rate FiO2 08/02/16 15:46 Room Air 08/02/16 15:00 97.4 110 22 106/64 95 97.4 Physical Exam General: No acute distress, Other (lethargic, responding to yes/no questions) Heart: Regular rate Lungs: Clear Abdomen: Normal bowel sounds, Other (TTP LLQ) Extremities: Other (massive woody edema with hyperkeratotic changes) Skin: Other (per RN, small sacral decub) Labs LABS Laboratory Tests Test 08/01/16 21:01 2/6/17 08:07 08/02/16 08:59 08/02/16 11:53 Glucose (Fingerstick) 91mg/dL (70-99) 113mg/dL (70-99) 134mg/dL (70-99) White Blood Count 7.9x10^3/uL (4.0-11.0) Red Blood Count 3.95x10^6/uL (4.30-5.70) Hemoglobin 11.1g/dL (13.0-17.5) Hematocrit 34.5% (39.0-53.0) Mean Corpuscular Volume 87fL (79-100) Mean Corpuscular Hemoglobin 28pg (25-35) Mean Corpuscular Hemoglobin Concent 32g/dL (31-37) Red Cell Distribution Width 16.7% (11.5-14.5) Platelet Count 185x10^3/uL (140-400) Neutrophils (%) (Auto) 75% (31-73) Lymphocytes (%) (Auto) 10% (24-48) Monocytes (%) (Auto) 11% (0-9) Eosinophils (%) (Auto) 3% (0-3) Basophils (%) (Auto) 1% (0-3) Neutrophils # (Auto) 5.9x10^3uL (1.8-7.7) Lymphocytes # (Auto) 0.8x10^3/uL (1.0-4.8) Monocytes # (Auto) 0.8x10^3/uL (0.0-1.1) Eosinophils # (Auto) 0.3x10^3/uL (0.0-0.7) Basophils # (Auto) 0.1x10^3/uL (0.0-0.2) Prothrombin Time 15.1SEC (11.7-14.0) Prothromb Time International Ratio 1.3 (0.8-1.1) Sodium Level 142mmol/L (136-145) Potassium Level 2.9mmol/L (3.5-5.1) Chloride Level 100mmol/L (98-107) Carbon Dioxide Level 32mmol/L (21-32) Anion Gap 10 (6-14) Blood Urea Nitrogen 108mg/dL (8-26) Creatinine 3.8mg/dL (0.7-1.3) Estimated GFR (Cockcroft-Gault) 15.8 BUN/Creatinine Ratio 28 (6-20) Glucose Level 139mg/dL (70-99) Calcium Level 9.0mg/dL (8.5-10.1) Magnesium Level 4.2mg/dL (1.8-2.4) Total Bilirubin 0.6mg/dL (0.2-1.0) Aspartate Amino Transf (AST/SGOT) 43U/L (15-37) Alanine Aminotransferase (ALT/SGPT) 36U/L (16-63) Alkaline Phosphatase 211U/L (46-116) Total Protein 7.3g/dL (6.4-8.2) Albumin 2.6g/dL (3.4-5.0) Albumin/Globulin Ratio 0.6 (1.0-1.7) Review of Systems Review of Systems unreliable Assessment and Plan Assessmemt and Plan Problems Medical Problems: (1) Acute kidney injury Status: Acute (2) Altered mental status Status: Acute (3) Supratherapeutic INR Status: Acute Delirium BREANNA Hypercoagulability ASSESSMENT AND PLAN: 0. Severe constipation, Consult GI 1. Delirium on chronic worsening dementia: more awake, but still lethargic. prob 2/2 urosepsis and hypercarbia 3. Sepsis: 2/2 UTI. Urine/blood cult drawn. BC NGTD 3. UTI: on empiric ceftriax 4. dehydration: cont IVF for now 4. BREANNA: vasomotor. sl improved. nephrology following 5. CKD4: basline creat ~3 6. Hypercoag: INR corrected with vit K and FFP. w/o signs of bleeding, restart coumadin RODRÍGUEZ 7. aflutter: borderline rate controlled on dilt, currently in 100s. poss 2/2 sepsis. monitor for now. if persistent, may need adjustment in meds 8. HTN: well controleed on current regimen 9. DM: currently well controlled, but not eating. monitor 10. COPD: hypercarbic. d/c suppl O2. rpt ABG this PM. duonebs PRN 11. FTT: had been deteriorating at home, unable to walk by himself, which prompted prev admission at [facility] and [place] transfer. somewhat unrealistic. OT/PT 12. Lymphedema: chronic with chronic venous stasis changes. lymphedema massage, AIDEN wraps 13. SMALL sacral wound: wound care consult 14. Gout: on colchicine and allopurinol at home. hold both for now 2/2 renal fxn. pain meds as needed 15. BPH: on flomax Problems: Comment Review of Relevant I have reviewed the following items alan (where applicable) has been applied. Labs Laboratory Tests Test 07/31/16 20:33 07/31/16 22:45 08/01/16 08:18 08/01/16 12:00 Glucose (Fingerstick) 124mg/dL (70-99) 128mg/dL (70-99) 111mg/dL (70-99) Urine Opiates Screen Neg (NEG) Urine Methadone Screen Neg (NEG) Urine Barbiturates Neg (NEG) Urine Phencyclidine Screen Neg (NEG) Urine Amphetamine/Methamphetamine Neg (NEG) Urine Benzodiazepines Screen Neg (NEG) Urine Cocaine Screen Neg (NEG) Urine Cannabinoids Screen Neg (NEG) Urine Ethyl Alcohol Neg (NEG) Test 08/01/16 13:00 08/01/16 16:53 08/01/16 21:01 08/02/16 08:07 White Blood Count 7.5x10^3/uL (4.0-11.0) Red Blood Count 3.61x10^6/uL (4.30-5.70) Hemoglobin 10.3g/dL (13.0-17.5) Hematocrit 31.8% (39.0-53.0) Mean Corpuscular Volume 88fL (79-100) Mean Corpuscular Hemoglobin 29pg (25-35) Mean Corpuscular Hemoglobin Concent 32g/dL (31-37) Red Cell Distribution Width 17.2% (11.5-14.5) Platelet Count 191x10^3/uL (140-400) Neutrophils (%) (Auto) 79% (31-73) Lymphocytes (%) (Auto) 7% (24-48) Monocytes (%) (Auto) 10% (0-9) Eosinophils (%) (Auto) 3% (0-3) Basophils (%) (Auto) 1% (0-3) Neutrophils # (Auto) 5.9x10^3uL (1.8-7.7) Lymphocytes # (Auto) 0.5x10^3/uL (1.0-4.8) Monocytes # (Auto) 0.8x10^3/uL (0.0-1.1) Eosinophils # (Auto) 0.2x10^3/uL (0.0-0.7) Basophils # (Auto) 0.1x10^3/uL (0.0-0.2) Prothrombin Time 14.1SEC (11.7-14.0) Prothromb Time International Ratio 1.2 (0.8-1.1) Sodium Level 142mmol/L (136-145) Potassium Level 3.2mmol/L (3.5-5.1) Chloride Level 100mmol/L (98-107) Carbon Dioxide Level 32mmol/L (21-32) Anion Gap 10 (6-14) Blood Urea Nitrogen 110mg/dL (8-26) Creatinine 4.1mg/dL (0.7-1.3) Estimated GFR (Cockcroft-Gault) 14.5 Glucose Level 108mg/dL (70-99) Calcium Level 8.8mg/dL (8.5-10.1) Magnesium Level 4.0mg/dL (1.8-2.4) Glucose (Fingerstick) 91mg/dL (70-99) 91mg/dL (70-99) 113mg/dL (70-99) Test 08/02/16 08:59 08/02/16 11:53 White Blood Count 7.9x10^3/uL (4.0-11.0) Red Blood Count 3.95x10^6/uL (4.30-5.70) Hemoglobin 11.1g/dL (13.0-17.5) Hematocrit 34.5% (39.0-53.0) Mean Corpuscular Volume 87fL (79-100) Mean Corpuscular Hemoglobin 28pg (25-35) Mean Corpuscular Hemoglobin Concent 32g/dL (31-37) Red Cell Distribution Width 16.7% (11.5-14.5) Platelet Count 185x10^3/uL (140-400) Neutrophils (%) (Auto) 75% (31-73) Lymphocytes (%) (Auto) 10% (24-48) Monocytes (%) (Auto) 11% (0-9) Eosinophils (%) (Auto) 3% (0-3) Basophils (%) (Auto) 1% (0-3) Neutrophils # (Auto) 5.9x10^3uL (1.8-7.7) Lymphocytes # (Auto) 0.8x10^3/uL (1.0-4.8) Monocytes # (Auto) 0.8x10^3/uL (0.0-1.1) Eosinophils # (Auto) 0.3x10^3/uL (0.0-0.7) Basophils # (Auto) 0.1x10^3/uL (0.0-0.2) Prothrombin Time 15.1SEC (11.7-14.0) Prothromb Time International Ratio 1.3 (0.8-1.1) Sodium Level 142mmol/L (136-145) Potassium Level 2.9mmol/L (3.5-5.1) Chloride Level 100mmol/L (98-107) Carbon Dioxide Level 32mmol/L (21-32) Anion Gap 10 (6-14) Blood Urea Nitrogen 108mg/dL (8-26) Creatinine 3.8mg/dL (0.7-1.3) Estimated GFR (Cockcroft-Gault) 15.8 BUN/Creatinine Ratio 28 (6-20) Glucose Level 139mg/dL (70-99) Calcium Level 9.0mg/dL (8.5-10.1) Magnesium Level 4.2mg/dL (1.8-2.4) Total Bilirubin 0.6mg/dL (0.2-1.0) Aspartate Amino Transf (AST/SGOT) 43U/L (15-37) Alanine Aminotransferase (ALT/SGPT) 36U/L (16-63) Alkaline Phosphatase 211U/L (46-116) Total Protein 7.3g/dL (6.4-8.2) Albumin 2.6g/dL (3.4-5.0) Albumin/Globulin Ratio 0.6 (1.0-1.7) Glucose (Fingerstick) 134mg/dL (70-99) Laboratory Tests Test 08/01/16 21:01 08/02/16 08:07 08/02/16 08:59 08/02/16 11:53 Glucose (Fingerstick) 91mg/dL (70-99) 113mg/dL (70-99) 134mg/dL (70-99) White Blood Count 7.9x10^3/uL (4.0-11.0) Red Blood Count 3.95x10^6/uL (4.30-5.70) Hemoglobin 11.1g/dL (13.0-17.5) Hematocrit 34.5% (39.0-53.0) Mean Corpuscular Volume 87fL (79-100) Mean Corpuscular Hemoglobin 28pg (25-35) Mean Corpuscular Hemoglobin Concent 32g/dL (31-37) Red Cell Distribution Width 16.7% (11.5-14.5) Platelet Count 185x10^3/uL (140-400) Neutrophils (%) (Auto) 75% (31-73) Lymphocytes (%) (Auto) 10% (24-48) Monocytes (%) (Auto) 11% (0-9) Eosinophils (%) (Auto) 3% (0-3) Basophils (%) (Auto) 1% (0-3) Neutrophils # (Auto) 5.9x10^3uL (1.8-7.7) Lymphocytes # (Auto) 0.8x10^3/uL (1.0-4.8) Monocytes # (Auto) 0.8x10^3/uL (0.0-1.1) Eosinophils # (Auto) 0.3x10^3/uL (0.0-0.7) Basophils # (Auto) 0.1x10^3/uL (0.0-0.2) Prothrombin Time 15.1SEC (11.7-14.0) Prothromb Time International Ratio 1.3 (0.8-1.1) Sodium Level 142mmol/L (136-145) Potassium Level 2.9mmol/L (3.5-5.1) Chloride Level 100mmol/L (98-107) Carbon Dioxide Level 32mmol/L (21-32) Anion Gap 10 (6-14) Blood Urea Nitrogen 108mg/dL (8-26) Creatinine 3.8mg/dL (0.7-1.3) Estimated GFR (Cockcroft-Gault) 15.8 BUN/Creatinine Ratio 28 (6-20) Glucose Level 139mg/dL (70-99) Calcium Level 9.0mg/dL (8.5-10.1) Magnesium Level 4.2mg/dL (1.8-2.4) Total Bilirubin 0.6mg/dL (0.2-1.0) Aspartate Amino Transf (AST/SGOT) 43U/L (15-37) Alanine Aminotransferase (ALT/SGPT) 36U/L (16-63) Alkaline Phosphatase 211U/L (46-116) Total Protein 7.3g/dL (6.4-8.2) Albumin 2.6g/dL (3.4-5.0) Albumin/Globulin Ratio 0.6 (1.0-1.7) Microbiology 07/30/16 Blood Culture - Preliminary, Resulted NO GROWTH AFTER 3 DAYS 07/30/16 Urine Culture - Final, Complete 07/30/16 Urine Culture Result 1 (VINAYAK) - Final, Complete Medications Current Medications Ceftriaxone Sodium 50 ml @ 100 mls/hr 1X ONCE IV Last administered on 17:00; Start 07/30/16 at 16:45; Stop 07/30/16 at 17:14; Status DC Fluconazole/ Sodium Chloride (Diflucan 200mg/ 100ml Premix) 100 ml @ 100 mls/ hr 1X ONCE IV Last administered on 07/30/16 17:53; Start 07/30/16 at 16:45; Stop 07/30/16 at 17:44; Status DC Ondansetron HCl (Zofran) 4 mg PRN Q8HRS PRN IV NAUSEA/VOMITING; Start 07/30/16 at 18:45; Stop 07/31/16 at 13:46; Status DC Morphine Sulfate 2 mg PRN Q2HR PRN IV PAIN; Start 07/30/16 at 18:45; Stop at 18:44; Status DC Insulin Aspart (Novolog) 0-7 UNITS TIDWMEALS SQ Last administered on 07/31/16 12:39; Start 07/31/16 at 08:00 Dextrose 12.5 gm PRN Q15MIN PRN IV SEE COMMENTS; Start 07/30/16 at 18:45; Stop 07/31/16 at 13:45; Status DC Phytonadione 2.5 mg 2.5 mg 1X ONCE PO Last administered on 07/30/16 19:17; Start 07/30/16 at 19:00; Stop 07/30/16 at 19:01; Status DC Sodium Chloride 500 ml @ 500 mls/hr 1X ONCE IV Last administered on 07/30/16 19:00; Start 07/30/16 at 19:00; Stop 07/30/16 at 19:59; Status DC Ceftriaxone Sodium/Sodium Chloride (Rocephin/Iv Sodium Chloride 0.9% 50ml) 50 ml @ 100 mls/hr Q24H IV Last administered on 08/01/16 16:02; Start 07/31/16 at 16:00 Acetaminophen (Tylenol) 650 mg PRN Q6HRS PRN PO FEVER; Start 07/30/16 at 19:00 Ondansetron HCl 4 mg 4 mg PRN Q6HRS PRN IV NAUSEA; Start 07/30/16 at 19:00 Sodium Chloride (Iv Sodium Chloride 0.9% 1000ml Bag) 1,000 ml @ 100 mls/hr 1X ONCE IV Last administered on 07/30/16 23:11; Start 07/30/16 at 19:00; Stop at 04:59; Status DC Albuterol/ Ipratropium (Duoneb) 3 ml QIDACHS NEB Last administered on 08/02/16 15:44; Start 07/30/16 at 21:00 Albuterol Sulfate 2.5 mg 2.5 mg PRN Q4HRS PRN NEB SHORTNESS OF BREATH; Start at 19:00 Phytonadione/ Sodium Chloride (Vitamin K/Iv Sodium Chloride 0.9% 50ml) 51 ml @ 102 mls/hr 1X ONCE IV Last administered on 07/30/16 20:38; Start 07/30/16 at 20 :00; Stop 07/30/16 at 20:29; Status DC Info (Do NOT chart on this placeholder) 1 each PRN DAILY PRN MC UNABLE TO RESPOND; Start 07/31/16 at 01:30; Status Cancel Acetaminophen (Tylenol) 650 mg TID PO Last administered on 08/02/16 15:01; Start 07/31/16 at 14:00 Bisacodyl (Dulcolax Supp) 10 mg PRN DAILY PRN RC CONSTIPATION; Start 07/31/16 at 09:15 Diclofenac Sodium (Voltaren) 1 kathryn TID TP Last administered on 08/02/16 15:02; Start 07/31/16 at 10:00 Diltiazem HCl (Cardizem 24hr Cd) 120 mg DAILY PO Last administered on 08/02/16 08:10; Start 08/01/16 at 09:00 Fluoxetine HCl (Prozac) 20 mg HS PO Last administered on 08/01/16 21:25; Start 07/31/16 at 21:00 Furosemide (Lasix) 60 mg [id number] PO Last administered on 08/01/16 08:48; Start at 09:30; Stop 08/01/16 at 11:13; Status DC Gabapentin (Neurontin) 200 mg HS PO Last administered on 08/01/16 21:25; Start 07/31/16 at 21:00 Magnesium Hydroxide (Milk Of Magnesia) 400 mg DAILY PRN PO CONSTIPATION; Start 07/31/16 at 09:15; Stop 08/02/16 at 13:01; Status DC Metoprolol Tartrate (Lopressor) 50 mg BID PO Last administered on 08/02/16 08: 10; Start 07/31/16 at 09:30 Mupirocin (Bactroban) 1 kathryn BID TP Last administered on 08/02/16 11:39; Start 07/31/16 at 09:30 Sennosides (Senna) 8.6 mg HS PO Last administered on 08/01/16 21:24; Start 07/31 at 21:00 Tamsulosin HCl (Flomax) 0.4 mg HS PO Last administered on 08/01/16 21:24; Start 07/31/16 at 21:00 Tramadol HCl (Ultram) 50 mg PRN Q6HRS PRN PO PAIN; Start 07/31/16 at 09:15 Insulin Aspart (Novolog) 12 units TIDAC SQ Last administered on 08/01/16 12:43 ; Start 07/31/16 at 16:30; Stop 08/01/16 at 13:23; Status DC Ondansetron HCl (Zofran Odt) 4 mg PRN Q6HRS PRN PO NAUSEA; Start 07/31/16 at 09: 30 Insulin Detemir (Levemir) 20 units QHS SQ Last administered on 08/01/16 21:40; Start 07/31/16 at 21:00 Insulin Aspart (Novolog) 0-9 UNITS TIDWMEALS SQ ; Start 07/31/16 at 12:00; Stop 07/31/16 at 12:00; Status DC Dextrose 12.5 gm PRN Q15MIN PRN IV SEE COMMENTS; Start 07/31/16 at 09:15 Warfarin Sodium (Coumadin) 6 mg DAILY16 PO Last administered on 08/01/16 16:02 ; Start 07/31/16 at 16:00 Mineral Oil (Fleet Mineral Oil) 133 ml 1X ONCE TN Last administered on 14:15; Start 07/31/16 at 11:15; Stop 07/31/16 at 11:16; Status DC Polyethylene Glycol (miraLAX PACKET) 17 gm DAILY PO Last administered on 08:09; Start 07/31/16 at 11:15 Warfarin Sodium (Coumadin Per Physician) 1 each PRN DAILY PRN MC SEE COMMENTS Last administered on 08/02/16 15:45; Start 07/31/16 at 11:15 Lactulose 20 gm PRN Q2HR PRN PO until BM Last administered on 08/02/16 11:38; Start 08/01/16 at 11:15 Darbepoetin Davey (Aranesp) 100 mcg WEEKLYHS SQ Last administered on 08/01/16 21 :45; Start 08/01/16 at 21:00 Darbepoetin Davey (Aranesp) 60 mcg WEEKLYHS SQ Last administered on 08/01/16 21: 46; Start 08/01/16 at 21:00 Insulin Aspart (Novolog) 12 units TIDAC SQ Last administered on 08/02/16 12:03 ; Start 08/01/16 at 13:23 Potassium Chloride (Klor-Con) 40 meq 1X ONCE PO Last administered on 08/02/16 11:38; Start 08/02/16 at 11:00; Stop 08/02/16 at 11:01; Status DC Lubiprostone 8 mcg 8 mcg BIDWMEALS PO ; Start 08/02/16 at 17:00 Albumin Human (Albuminar) 100 ml @ 100 mls/hr TID IV Last administered on t 15:06; Start 08/02/16 at 14:00; Stop 08/04/16 at 09:59 Active Scripts Active Reported Keflex (Cephalexin) 500 Mg Capsule 1 Cap PO TID Zofran (Ondansetron Hcl) 4 Mg Tablet 1 Tab PO Q6HRS PRN [Mylanta] 30 Ml PO PRN Q4HRS PRN [Fleet Enema] 1 Applic RC DAILY PRN Dulcolax (Bisacodyl) 10 Mg Supp.rect 10 Mg RC PRN DAILY PRN Milk Of Magnesia (Magnesium Hydroxide) 400 Mg/5 Ml Oral.susp 400 Mg PO DAILY PRN Senokot (Sennosides) 8.6 Mg Tablet 1 Tab PO HS Tamsulosin Hcl 0.4 Mg Cap.er.24h 0.4 Mg PO HS Metoprolol Tartrate 50 Mg Tablet 50 Mg PO BID Tramadol Hcl 50 Mg Tablet 50 Mg PO Q6H PRN [Glycolax] 17 Gm PO DAILY PRN Cardizem Cd (Diltiazem Hcl) 180 Mg Cap.er.24h 120 Mg PO DAILY Allopurinol 300 Mg Tablet 300 Mg PO DAILY Lasix (Furosemide) 20 Mg Tablet 60 Mg PO BID Colcrys (Colchicine) 0.6 Mg Tablet 0.6 Mg PO BID Humalog (Insulin Lispro) 100 Unit/1 Ml Cartridge 12 Unit SQ TIDAC Voltaren (Diclofenac Sodium) 100 Gm Gel..gram. 1 Gm TP TID Bactroban Cream (Mupirocin) 15 Gm Cream..g. 1 Kathryn TP BID Tylenol (Acetaminophen) 325 Mg Tablet 650 Mg PO TID Prozac (Fluoxetine Hcl) 20 Mg Capsule 1 Cap PO HS Gabapentin 100 Mg Capsule 200 Mg PO HS Coumadin (Warfarin Sodium) 5 Mg Tablet 5 Mg PO DAILY [Lantus] 30 Units SQ HS Vitals/I & O Vital Sign - Last 24 Hours 08/01/16 08/01/16 08/01/16 08/01/16 19:10 19:50 19:59 21:25 Temp 97.8 97.8 Pulse 114 114 Resp 20 B/P 111/78 111/78 Pulse Ox 91 O2 Delivery Room Air Room Air Room Air 08/01/16 08/02/16 08/02/16 08/02/16 22:50 03:25 07:00 07:46 Temp 97.4 97.2 98.0 97.4 97.2 98.0 Pulse 109 110 111 Resp 20 20 20 B/P 101/72 104/67 123/79 Pulse Ox 91 92 93 O2 Delivery Room Air Room Air Room Air Room Air 08/02/16 08/02/16 08/02/16 08/02/16 08:10 08:10 08:50 11:00 Temp 97.1 97.1 Pulse 111 111 110 Resp 22 B/P 123/79 123/79 114/63 Pulse Ox 93 96 O2 Delivery Room Air Room Air 08/02/16 08/02/16 08/02/16 11:13 15:00 15:46 Temp 97.4 97.4 Pulse 110 Resp 22 B/P 106/64 Pulse Ox 95 O2 Delivery Room Air Room Air Room Air Intake and Output 08/01/16 08/01/16 08/02/16 15:00 23:00 07:00 Intake Total 220 ml 118 ml 300 ml Output Total 725 ml Balance 220 ml 118 ml -425 ml RODERICK MELENDEZ III DO Aug 02, 2016 17:07
[2016-08-02] MEDS: LUBIPROSTONE 8 MCG CAPSULE PO SCH (17:33)
[2016-08-02] MEDS: WARFARIN 6 MG TABLET. PO SCH (17:33)
[2016-08-02] MEDS: CEFTRIAXONE SODIUM 1 GM in IV NORMAL SALINE 50ML 50 ML IV SCH (17:33)
[2016-08-02 19:20] VITALS: BP 115/72
[2016-08-02] MEDS: GABAPENTIN 100 MG CAPSULE. PO SCH ×2 (20:19→20:25)
[2016-08-02] MEDS: TAMSULOSIN 0.4 MG CAP.ER.24H. PO SCH ×2 (20:19→20:24)
[2016-08-02] MEDS: FLUOXETINE HCL 20 MG CAPSULE PO SCH ×2 (20:19→20:25)
[2016-08-02] MEDS: SENNOSIDES 8.6 MG TABLET PO SCH ×2 (20:19→20:25)
[2016-08-02] MEDS: INSULIN DETEMIR 300 UNITS/3 ML INSULN.PEN. SQ SCH (21:00)
[2016-08-02 23:32] VITALS: BP 136/96
[2016-08-03] VITALS (7 sets, daily range): BP systolic 113–137; BP diastolic 65–85
[2016-08-03 07:05] LABS: BASO % 1 % (0-3); EOS % 2 % (0-3); HEMATOCRIT 33.4 % (39.0-53.0); HEMOGLOBIN 10.5 g/dL (13.0-17.5); LYMPH # 0.7 x10^3/uL (1.0-4.8); LYMPH % 10 % (24-48); MEAN CORPUSCULAR HEMOGLOBIN 28 pg (25-35); MEAN CORPUSCULAR HGB CONC 32 g/dL (31-37); MEAN CORPUSCULAR VOLUME 90 fL (79-100); MONO % 11 % (0-9); NEUT % 77 % (31-73); PLATELET COUNT 160 x10^3/uL (140-400); RED BLOOD COUNT 3.72 x10^6/uL (4.30-5.70); RED CELL DISTRIBUTION WIDTH 17.1 % (11.5-14.5); WHITE BLOOD COUNT 7.1 x10^3/uL (4.0-11.0)
[2016-08-03 07:18] LABS: INR 1.7 (0.8-1.1); PROTHROMBIN TIME PATIENT 19.3 SEC (11.7-14.0)
[2016-08-03] MEDS: INSULIN ASPART 300 UNITS/3 ML INSULN.PEN SQ SCH ×5 (07:30→17:00)
[2016-08-03 07:46] LABS: ALBUMIN 3.1 g/dL (3.4-5.0); ALBUMIN/GLOBULIN RATIO 0.8 (1.0-1.7); CALCIUM 9.4 mg/dL (8.5-10.1); CREATININE 3.6 mg/dL (0.7-1.3); GFR 16.8; MAGNESIUM 4.1 mg/dL (1.8-2.4); TOTAL BILIRUBIN 0.7 mg/dL (0.2-1.0)
[2016-08-03] MEDS: IPRATRPIUM/ALBUTEROL 0.5/2.5MG 3 ML NEBU. NEB SCH ×4 (08:25→19:41)
[2016-08-03] MEDS: METOPROLOL TART IMMED RELEASE 50 MG TABLET PO SCH ×2 (09:37→23:17)
[2016-08-03] MEDS: LUBIPROSTONE 8 MCG CAPSULE PO SCH ×2 (09:37→18:23)
[2016-08-03] MEDS: ACETAMINOPHEN 325 MG TABLET. PO SCH ×3 (09:39→23:18)
[2016-08-03] MEDS: DILTIAZEM HCL 180 MG CAP.ER.24H PO SCH (09:40)
[2016-08-03] MEDS: POLYETHYLENE GLYCOL 3350 17 GM PACKET. PO SCH (09:42)
[2016-08-03] MEDS ORDERED: POTASSIUM CHLORIDE 20 MEQ TABLET.ER. PO PRN (11:00)
[2016-08-03] MEDS: DICLOFENAC SODIUM 1% TOPICAL GEL 100GM TUBE. TP SCH ×3 (11:03→18:14)
[2016-08-03] MEDS: ALBUMIN HUMAN 25% 100 ML IV SCH ×3 (11:03→23:21)
--- NOTE | 2016-08-03 11:03 | PDOC ---
SUBJECTIVE ROS CKD IV Remains Drowsy and min confused Unabel to get ROS from Pt - daughter in room says he did not eat much OBJECTIVE Vital Signs Vital Signs Date Time Temp Pulse Resp B/P Pulse Ox O2 Delivery O2 Flow Rate FiO2 08/03/16 09:40 113 132/65 08/03/16 08:00 95 Room Air 08/03/16 07:36 98.1 20 98.1 I & 0 Intake and Output 08/03/16 07:00 Intake Total 1250 ml Output Total 2000 ml Balance -750 ml Intake Oral 1100 ml IV Total 150 ml Output Urine Total 2000 ml PHYSICAL EXAM Physical Exam General Appearance: Arousable not Alert barely Oriented In no Distress Eyes: VIsion Unchanged Conjunctiva Normal EN: No EN Drainage Mucous Memb. dryish Neck: no JVD no JVP Supple no Thyromegaly - thick neck CVS: S1 S2 no Murmur No Gallop No Rub +3 Edema with m in erythema and Ch changes; - Tachy Resp: no Rales no Rhonchi no Acc. Muscle use GI: BS +ve NO Bruit ? Tender Non Distended - Obese : no CVA tenderness; no Suprapubic Tenderness [employer] Unabel to elicit Asterixis per se ASSESSMENT/PLAN Assessment/Plan ARF/ ATN - UO is better. No labs (pt refused) Current FLuid and E-lyte status does not necessitate emergent need for Dialysis. Pt (in the past) has not wanted to do HD, reiterates same. ^ed Mag - D/elizabeth MOM - watch trend low K - Repalce IV Edema/ Ansarca - Currently acceptable. will see and let us know if she wants diuretics restarted. Hold IVF and diuretics for now untill hemodynamics are better Hematuria - resolved Encephalopahty - multi-factorial - Cannot R/o some due to Uremia - await Neuro input - If so He and the family have not wanted HD in the past Anemia: may need Epogen if hgb < 10 Transfuse as needed. HTN: in the past - currently marginal. Has not been felt to be a dialysis Candidate in the past per and his son - IF AMS felt to be predominantly Uremic - Pall consult may be merited. Discussed Plan of Care and prognosis etc. at length with family () over the phone. COMMENT/RELEVANT DATA Meds Current Medications Medications (Trade) Dose Ordered Sig/Shayne Start Time Stop Time Status Last Admin Dose Admin Acetaminophen (Tylenol) 650 mg TID 07/31/16 14:00 08/03/16 09:39 650 MG Albumin Human (Albuminar) 100 ml @ 100 mls/hr TID 08/02/16 14:00 08/04/16 09:59 08/02/16 20:22 100 MLS/HR Albuterol Sulfate 2.5 mg 2.5 mg PRN Q4HRS PRN 07/30/16 19:00 Albuterol/ Ipratropium (Duoneb) 3 ml QIDACHS 07/30/16 21:00 08/03/16 08:25 3 ML Bisacodyl (Dulcolax Supp) 10 mg PRN DAILY PRN 07/31/16 09:15 Ceftriaxone Sodium/Sodium Chloride (Rocephin/Iv Sodium Chloride 0.9% 50ml) 50 ml @ 100 mls/hr Q24H 07/31/16 16:00 08/02/16 17:33 100 MLS/HR Ceftriaxone Sodium 50 ml @ 100 mls/hr 1X ONCE 07/30/16 16:45 07/30/16 17:14 DC 07/30/16 17:00 100 MLS/HR Darbepoetin Davey (Aranesp) 60 mcg WEEKLYHS 08/01/16 21:00 08/01/16 21:46 60 MCG Dextrose 12.5 gm PRN Q15MIN PRN 07/31/16 09:15 Diclofenac Sodium (Voltaren) 1 mike TID 07/31/16 10:00 08/02/16 20:31 1 MIKE Diltiazem HCl (Cardizem 24hr Cd) 120 mg DAILY 08/01/16 09:00 08/03/16 09:40 120 MG Fluconazole/ Sodium Chloride (Diflucan 200mg/ 100ml Premix) 100 ml @ 100 mls/hr 1X ONCE 07/30/16 16:45 07/30/16 17:44 DC 07/30/16 17:53 100 MLS/HR Fluoxetine HCl (Prozac) 20 mg HS 07/31/16 21:00 08/01/16 21:25 20 MG Furosemide (Lasix) 60 mg [id number] 07/31/16 09:30 08/01/16 11:13 DC 08/01/16 08:48 60 MG Gabapentin (Neurontin) 200 mg HS 07/31/16 21:00 08/01/16 21:25 200 MG Info (Do NOT chart on this placeholder) 1 each PRN DAILY PRN 07/31/16 01:30 Cancel Insulin Aspart (Novolog) 12 units TIDAC 08/01/16 13:23 08/02/16 12:03 12 UNITS Insulin Detemir (Levemir) 20 units QHS 07/31/16 21:00 08/01/16 21:40 20 UNITS Lactulose 20 gm PRN Q2HR PRN 08/01/16 11:15 08/02/16 11:38 20 GM Lubiprostone 8 mcg 8 mcg BIDWMEALS 08/02/16 17:00 08/03/16 09:37 8 MCG Magnesium Hydroxide (Milk Of Magnesia) 400 mg DAILY PRN 07/31/16 09:15 08/02/16 13:01 DC Metoprolol Tartrate (Lopressor) 50 mg BID 07/31/16 09:30 08/03/16 09:37 50 MG Mineral Oil (Fleet Mineral Oil) 133 ml 1X ONCE 07/31/16 11:15 07/31/16 11:16 DC 07/31/16 14:15 133 ML Morphine Sulfate 2 mg PRN Q2HR PRN 07/30/16 18:45 07/31/16 18:44 DC Mupirocin (Bactroban) 1 mike BID 07/31/16 09:30 08/02/16 20:31 1 MIKE Ondansetron HCl (Zofran Odt) 4 mg PRN Q6HRS PRN 07/31/16 09:30 Ondansetron HCl (Zofran) 4 mg PRN Q8HRS PRN 07/30/16 18:45 07/31/16 13:46 DC Ondansetron HCl 4 mg 4 mg PRN Q6HRS PRN 07/30/16 19:00 Phytonadione 2.5 mg 2.5 mg 1X ONCE 07/30/16 19:00 07/30/16 19:01 DC 07/30/16 19:17 2.5 MG Phytonadione/ Sodium Chloride (Vitamin K/Iv Sodium Chloride 0.9% 50ml) 51 ml @ 102 mls/hr 1X ONCE 07/30/16 20:00 2/3/17 20:29 DC 07/30/16 20:38 102 MLS/HR Polyethylene Glycol (miraLAX PACKET) 17 gm DAILY 07/31/16 11:15 08/03/16 09:42 17 GM Potassium Chloride (Klor-Con) 40 meq 1X ONCE 08/02/16 11:00 08/02/16 11:01 DC 08/02/16 11:38 40 MEQ Sennosides (Senna) 8.6 mg HS 07/31/16 21:00 08/01/16 21:24 8.6 MG Sodium Chloride (Iv Sodium Chloride 0.9% 1000ml Bag) 1,000 ml @ 100 mls/hr 1X ONCE 07/30/16 19:00 07/31/16 04:59 DC 07/30/16 23:11 100 MLS/HR Tamsulosin HCl (Flomax) 0.4 mg HS 07/31/16 21:00 08/01/16 21:24 0.4 MG Tramadol HCl (Ultram) 50 mg PRN Q6HRS PRN 07/31/16 09:15 Warfarin Sodium (Coumadin Per Physician) 1 each PRN DAILY PRN 07/31/16 11:15 08/02/16 15:45 1 EACH Warfarin Sodium (Coumadin) 6 mg DAILY16 07/31/16 16:00 08/02/16 17:33 6 MG Lab Laboratory Tests Test 08/02/16 11:53 08/02/16 16:47 08/02/16 19:04 08/02/16 21:29 Glucose (Fingerstick) 134mg/dL (70-99) 70mg/dL (70-99) 83mg/dL (70-99) 98mg/dL (70-99) Test 08/03/16 06:45 08/03/16 07:30 White Blood Count 7.1x10^3/uL (4.0-11.0) Red Blood Count 3.72x10^6/uL (4.30-5.70) Hemoglobin 10.5g/dL (13.0-17.5) Hematocrit 33.4% (39.0-53.0) Mean Corpuscular Volume 90fL (79-100) Mean Corpuscular Hemoglobin 28pg (25-35) Mean Corpuscular Hemoglobin Concent 32g/dL (31-37) Red Cell Distribution Width 17.1% (11.5-14.5) Platelet Count 160x10^3/uL (140-400) Neutrophils (%) (Auto) 77% (31-73) Lymphocytes (%) (Auto) 10% (24-48) Monocytes (%) (Auto) 11% (0-9) Eosinophils (%) (Auto) 2% (0-3) Basophils (%) (Auto) 1% (0-3) Neutrophils # (Auto) 5.5x10^3uL (1.8-7.7) Lymphocytes # (Auto) 0.7x10^3/uL (1.0-4.8) Monocytes # (Auto) 0.8x10^3/uL (0.0-1.1) Eosinophils # (Auto) 0.2x10^3/uL (0.0-0.7) Basophils # (Auto) 0.0x10^3/uL (0.0-0.2) Prothrombin Time 19.3SEC (11.7-14.0) Prothromb Time International Ratio 1.7 (0.8-1.1) Sodium Level 140mmol/L (136-145) Potassium Level 3.0mmol/L (3.5-5.1) Chloride Level 99mmol/L (98-107) Carbon Dioxide Level 27mmol/L (21-32) Anion Gap 14 (6-14) Blood Urea Nitrogen 106mg/dL (8-26) Creatinine 3.6mg/dL (0.7-1.3) Estimated GFR (Cockcroft-Gault) 16.8 BUN/Creatinine Ratio 29 (6-20) Glucose Level 147mg/dL (70-99) Calcium Level 9.4mg/dL (8.5-10.1) Magnesium Level 4.1mg/dL (1.8-2.4) Total Bilirubin 0.7mg/dL (0.2-1.0) Aspartate Amino Transf (AST/SGOT) 74U/L (15-37) Alanine Aminotransferase (ALT/SGPT) 64U/L (16-63) Alkaline Phosphatase 205U/L (46-116) Total Protein 7.0g/dL (6.4-8.2) Albumin 3.1g/dL (3.4-5.0) Albumin/Globulin Ratio 0.8 (1.0-1.7) Glucose (Fingerstick) 138mg/dL (70-99) CHERRY DORADO MD Aug 03, 2016 11:03
[2016-08-03] MEDS: MUPIROCIN 2 % TOPICAL CREAM 15GM TUBE. TP SCH ×2 (11:04→23:22)
--- NOTE | 2016-08-03 11:13 | PDOC ---
PROGRESS NOTES Chief Complaint Chief Complaint Delirium BREANNA Hypercoagulability ASSESSMENT AND PLAN: 1. Delirium on chronic worsening dementia 3. Sepsis 3. UTI 4. dehydration 4. BREANNA 5. CKD4 6. Hypercoag 7. aflutter 8. HTN 9. DM 10. COPD 11. FTT 12. Lymphedema 13. SMALL sacral wound 14. Gout 15. BPH 16. Constipation History of Present Illness History of Present Illness Pt resting comfortably in bed. DW pt family and Pallative Care RN at bedside the plan for patient. His states that at this time they would like to continue the IV abx treatment but would like to hold off on Dialysis. The patients also states the patient is still constipated and has not had a bowel movement at this time. Vitals Vitals Vital Signs Date Time Temp Pulse Resp B/P Pulse Ox O2 Delivery O2 Flow Rate FiO2 08/03/16 09:40 113 132/65 08/03/16 08:00 95 Room Air 08/03/16 07:36 98.1 20 98.1 Physical Exam General: No acute distress, Other (lethargic, sleeping comfortably in bed, arouseable during physical exam) Heart: Regular rate, No murmurs Lungs: Clear, Other (No wheezes present) Abdomen: Normal bowel sounds, Other (TTP LLQ) Extremities: Other (massive woody edema with hyperkeratotic changes bilaterally on both lower extremities) Skin: Other (per RN, small sacral decub present) Labs LABS Laboratory Tests Test 08/02/16 11:53 08/02/16 16:47 08/02/16 19:04 08/02/16 21:29 Glucose (Fingerstick) 134mg/dL (70-99) 70mg/dL (70-99) 83mg/dL (70-99) 98mg/dL (70-99) Test 08/03/16 06:45 08/03/16 07:30 White Blood Count 7.1x10^3/uL (4.0-11.0) Red Blood Count 3.72x10^6/uL (4.30-5.70) Hemoglobin 10.5g/dL (13.0-17.5) Hematocrit 33.4% (39.0-53.0) Mean Corpuscular Volume 90fL (79-100) Mean Corpuscular Hemoglobin 28pg (25-35) Mean Corpuscular Hemoglobin Concent 32g/dL (31-37) Red Cell Distribution Width 17.1% (11.5-14.5) Platelet Count 160x10^3/uL (140-400) Neutrophils (%) (Auto) 77% (31-73) Lymphocytes (%) (Auto) 10% (24-48) Monocytes (%) (Auto) 11% (0-9) Eosinophils (%) (Auto) 2% (0-3) Basophils (%) (Auto) 1% (0-3) Neutrophils # (Auto) 5.5x10^3uL (1.8-7.7) Lymphocytes # (Auto) 0.7x10^3/uL (1.0-4.8) Monocytes # (Auto) 0.8x10^3/uL (0.0-1.1) Eosinophils # (Auto) 0.2x10^3/uL (0.0-0.7) Basophils # (Auto) 0.0x10^3/uL (0.0-0.2) Prothrombin Time 19.3SEC (11.7-14.0) Prothromb Time International Ratio 1.7 (0.8-1.1) Sodium Level 140mmol/L (136-145) Potassium Level 3.0mmol/L (3.5-5.1) Chloride Level 99mmol/L (98-107) Carbon Dioxide Level 27mmol/L (21-32) Anion Gap 14 (6-14) Blood Urea Nitrogen 106mg/dL (8-26) Creatinine 3.6mg/dL (0.7-1.3) Estimated GFR (Cockcroft-Gault) 16.8 BUN/Creatinine Ratio 29 (6-20) Glucose Level 147mg/dL (70-99) Calcium Level 9.4mg/dL (8.5-10.1) Magnesium Level 4.1mg/dL (1.8-2.4) Total Bilirubin 0.7mg/dL (0.2-1.0) Aspartate Amino Transf (AST/SGOT) 74U/L (15-37) Alanine Aminotransferase (ALT/SGPT) 64U/L (16-63) Alkaline Phosphatase 205U/L (46-116) Total Protein 7.0g/dL (6.4-8.2) Albumin 3.1g/dL (3.4-5.0) Albumin/Globulin Ratio 0.8 (1.0-1.7) Glucose (Fingerstick) 138mg/dL (70-99) Review of Systems Review of Systems ROS provided by pt family at time of exam- Pt resting comfortably - still complaining of Constipation - stated was complaining of discomfort at site of sacral ulcer - chronic lower extremity lymphedema unchanged Assessment and Plan Assessmemt and Plan Problems Medical Problems: (1) Acute kidney injury Status: Acute (2) Altered mental status Status: Acute (3) Supratherapeutic INR Status: Acute Delirium BREANNA Hypercoagulability ASSESSMENT AND PLAN: 1. Severe constipation: Consult GI consulted, will attempt Molasses Enema to see if Constipation resolves. 2. Delirium on chronic worsening dementia: still lethargic today, arousable but not oriented. prob 2/2 urosepsis and hypercarbia - Pallative Care Consult placed: Discussed with family and pallative Care RN at bedside today and family is ok with continued \ treatment with IV antibiotics to see if pt continues to improve. Family does not want Dialysis if it becomes necessary. 3. Sepsis: 2/2 UTI. Urine/blood cult drawn. NGTD 4. UTI: on empiric ceftriaxone 1 gm Q24 H IV will continue at this time 5. dehydration: cont IVF for now 6. BREANNA: vasomotor. sl improved. nephrology following. Per patient's family- Pt does not want Dialysis if he continues to worsen 7. CKD4: basline creat ~3. Todat Creat:3.6; will continue to monitor 8. Hypercoag: INR corrected with vit K and FFP. w/o signs of bleeding, Pt family would like to discuss anticoagulation with Xarelto rather than Coumadin on discharge if possible 9. aflutter: borderline rate controlled on dilt, currently in 100s. poss 2/2 sepsis. monitor for now. if persistent, may need adjustment in meds 10. HTN: well controled on current regimen 11. DM: currently well controlled, but not eating. monitor 12. COPD: hypercarbic. d/c suppl O2. rpt ABG this PM. duonebs PRN 13. FTT: had been deteriorating at home, unable to walk by himself, which prompted prev admission at [facility] and NH transfer. somewhat unrealistic. OT/PT 14. Lymphedema: chronic with chronic venous stasis changes. lymphedema massage, AIDEN wraps 15. SMALL sacral wound: wound care consulted and assisting on case; will continue regular dressing changes and monitor site 16. Gout: on colchicine and allopurinol at home. hold both for now 2/2 renal fxn. pain meds as needed 17. BPH: on flomax Problems: Comment Review of Relevant I have reviewed the following items alan (where applicable) has been applied. Labs Laboratory Tests Test 08/01/16 12:00 08/01/16 13:00 08/01/16 16:53 08/01/16 21:01 Glucose (Fingerstick) 111mg/dL (70-99) 91mg/dL (70-99) 91mg/dL (70-99) White Blood Count 7.5x10^3/uL (4.0-11.0) Red Blood Count 3.61x10^6/uL (4.30-5.70) Hemoglobin 10.3g/dL (13.0-17.5) Hematocrit 31.8% (39.0-53.0) Mean Corpuscular Volume 88fL (79-100) Mean Corpuscular Hemoglobin 29pg (25-35) Mean Corpuscular Hemoglobin Concent 32g/dL (31-37) Red Cell Distribution Width 17.2% (11.5-14.5) Platelet Count 191x10^3/uL (140-400) Neutrophils (%) (Auto) 79% (31-73) Lymphocytes (%) (Auto) 7% (24-48) Monocytes (%) (Auto) 10% (0-9) Eosinophils (%) (Auto) 3% (0-3) Basophils (%) (Auto) 1% (0-3) Neutrophils # (Auto) 5.9x10^3uL (1.8-7.7) Lymphocytes # (Auto) 0.5x10^3/uL (1.0-4.8) Monocytes # (Auto) 0.8x10^3/uL (0.0-1.1) Eosinophils # (Auto) 0.2x10^3/uL (0.0-0.7) Basophils # (Auto) 0.1x10^3/uL (0.0-0.2) Prothrombin Time 14.1SEC (11.7-14.0) Prothromb Time International Ratio 1.2 (0.8-1.1) Sodium Level 142mmol/L (136-145) Potassium Level 3.2mmol/L (3.5-5.1) Chloride Level 100mmol/L (98-107) Carbon Dioxide Level 32mmol/L (21-32) Anion Gap 10 (6-14) Blood Urea Nitrogen 110mg/dL (8-26) Creatinine 4.1mg/dL (0.7-1.3) Estimated GFR (Cockcroft-Gault) 14.5 Glucose Level 108mg/dL (70-99) Calcium Level 8.8mg/dL (8.5-10.1) Magnesium Level 4.0mg/dL (1.8-2.4) Test 08/02/16 08:07 08/02/16 08:59 08/02/16 11:53 08/02/16 16:47 Glucose (Fingerstick) 113mg/dL (70-99) 134mg/dL (70-99) 70mg/dL (70-99) White Blood Count 7.9x10^3/uL (4.0-11.0) Red Blood Count 3.95x10^6/uL (4.30-5.70) Hemoglobin 11.1g/dL (13.0-17.5) Hematocrit 34.5% (39.0-53.0) Mean Corpuscular Volume 87fL (79-100) Mean Corpuscular Hemoglobin 28pg (25-35) Mean Corpuscular Hemoglobin Concent 32g/dL (31-37) Red Cell Distribution Width 16.7% (11.5-14.5) Platelet Count 185x10^3/uL (140-400) Neutrophils (%) (Auto) 75% (31-73) Lymphocytes (%) (Auto) 10% (24-48) Monocytes (%) (Auto) 11% (0-9) Eosinophils (%) (Auto) 3% (0-3) Basophils (%) (Auto) 1% (0-3) Neutrophils # (Auto) 5.9x10^3uL (1.8-7.7) Lymphocytes # (Auto) 0.8x10^3/uL (1.0-4.8) Monocytes # (Auto) 0.8x10^3/uL (0.0-1.1) Eosinophils # (Auto) 0.3x10^3/uL (0.0-0.7) Basophils # (Auto) 0.1x10^3/uL (0.0-0.2) Prothrombin Time 15.1SEC (11.7-14.0) Prothromb Time International Ratio 1.3 (0.8-1.1) Sodium Level 142mmol/L (136-145) Potassium Level 2.9mmol/L (3.5-5.1) Chloride Level 100mmol/L (98-107) Carbon Dioxide Level 32mmol/L (21-32) Anion Gap 10 (6-14) Blood Urea Nitrogen 108mg/dL (8-26) Creatinine 3.8mg/dL (0.7-1.3) Estimated GFR (Cockcroft-Gault) 15.8 BUN/Creatinine Ratio 28 (6-20) Glucose Level 139mg/dL (70-99) Calcium Level 9.0mg/dL (8.5-10.1) Magnesium Level 4.2mg/dL (1.8-2.4) Total Bilirubin 0.6mg/dL (0.2-1.0) Aspartate Amino Transf (AST/SGOT) 43U/L (15-37) Alanine Aminotransferase (ALT/SGPT) 36U/L (16-63) Alkaline Phosphatase 211U/L (46-116) Total Protein 7.3g/dL (6.4-8.2) Albumin 2.6g/dL (3.4-5.0) Albumin/Globulin Ratio 0.6 (1.0-1.7) Test 08/02/16 19:04 08/02/16 21:29 08/03/16 06:45 08/03/16 07:30 Glucose (Fingerstick) 83mg/dL (70-99) 98mg/dL (70-99) 138mg/dL (70-99) White Blood Count 7.1x10^3/uL (4.0-11.0) Red Blood Count 3.72x10^6/uL (4.30-5.70) Hemoglobin 10.5g/dL (13.0-17.5) Hematocrit 33.4% (39.0-53.0) Mean Corpuscular Volume 90fL (79-100) Mean Corpuscular Hemoglobin 28pg (25-35) Mean Corpuscular Hemoglobin Concent 32g/dL (31-37) Red Cell Distribution Width 17.1% (11.5-14.5) Platelet Count 160x10^3/uL (140-400) Neutrophils (%) (Auto) 77% (31-73) Lymphocytes (%) (Auto) 10% (24-48) Monocytes (%) (Auto) 11% (0-9) Eosinophils (%) (Auto) 2% (0-3) Basophils (%) (Auto) 1% (0-3) Neutrophils # (Auto) 5.5x10^3uL (1.8-7.7) Lymphocytes # (Auto) 0.7x10^3/uL (1.0-4.8) Monocytes # (Auto) 0.8x10^3/uL (0.0-1.1) Eosinophils # (Auto) 0.2x10^3/uL (0.0-0.7) Basophils # (Auto) 0.0x10^3/uL (0.0-0.2) Prothrombin Time 19.3SEC (11.7-14.0) Prothromb Time International Ratio 1.7 (0.8-1.1) Sodium Level 140mmol/L (136-145) Potassium Level 3.0mmol/L (3.5-5.1) Chloride Level 99mmol/L (98-107) Carbon Dioxide Level 27mmol/L (21-32) Anion Gap 14 (6-14) Blood Urea Nitrogen 106mg/dL (8-26) Creatinine 3.6mg/dL (0.7-1.3) Estimated GFR (Cockcroft-Gault) 16.8 BUN/Creatinine Ratio 29 (6-20) Glucose Level 147mg/dL (70-99) Calcium Level 9.4mg/dL (8.5-10.1) Magnesium Level 4.1mg/dL (1.8-2.4) Total Bilirubin 0.7mg/dL (0.2-1.0) Aspartate Amino Transf (AST/SGOT) 74U/L (15-37) Alanine Aminotransferase (ALT/SGPT) 64U/L (16-63) Alkaline Phosphatase 205U/L (46-116) Total Protein 7.0g/dL (6.4-8.2) Albumin 3.1g/dL (3.4-5.0) Albumin/Globulin Ratio 0.8 (1.0-1.7) Laboratory Tests Test 08/02/16 11:53 08/02/16 16:47 08/02/16 19:04 08/02/16 21:29 Glucose (Fingerstick) 134mg/dL (70-99) 70mg/dL (70-99) 83mg/dL (70-99) 98mg/dL (70-99) Test 08/03/16 06:45 08/03/16 07:30 White Blood Count 7.1x10^3/uL (4.0-11.0) Red Blood Count 3.72x10^6/uL (4.30-5.70) Hemoglobin 10.5g/dL (13.0-17.5) Hematocrit 33.4% (39.0-53.0) Mean Corpuscular Volume 90fL (79-100) Mean Corpuscular Hemoglobin 28pg (25-35) Mean Corpuscular Hemoglobin Concent 32g/dL (31-37) Red Cell Distribution Width 17.1% (11.5-14.5) Platelet Count 160x10^3/uL (140-400) Neutrophils (%) (Auto) 77% (31-73) Lymphocytes (%) (Auto) 10% (24-48) Monocytes (%) (Auto) 11% (0-9) Eosinophils (%) (Auto) 2% (0-3) Basophils (%) (Auto) 1% (0-3) Neutrophils # (Auto) 5.5x10^3uL (1.8-7.7) Lymphocytes # (Auto) 0.7x10^3/uL (1.0-4.8) Monocytes # (Auto) 0.8x10^3/uL (0.0-1.1) Eosinophils # (Auto) 0.2x10^3/uL (0.0-0.7) Basophils # (Auto) 0.0x10^3/uL (0.0-0.2) Prothrombin Time 19.3SEC (11.7-14.0) Prothromb Time International Ratio 1.7 (0.8-1.1) Sodium Level 140mmol/L (136-145) Potassium Level 3.0mmol/L (3.5-5.1) Chloride Level 99mmol/L (98-107) Carbon Dioxide Level 27mmol/L (21-32) Anion Gap 14 (6-14) Blood Urea Nitrogen 106mg/dL (8-26) Creatinine 3.6mg/dL (0.7-1.3) Estimated GFR (Cockcroft-Gault) 16.8 BUN/Creatinine Ratio 29 (6-20) Glucose Level 147mg/dL (70-99) Calcium Level 9.4mg/dL (8.5-10.1) Magnesium Level 4.1mg/dL (1.8-2.4) Total Bilirubin 0.7mg/dL (0.2-1.0) Aspartate Amino Transf (AST/SGOT) 74U/L (15-37) Alanine Aminotransferase (ALT/SGPT) 64U/L (16-63) Alkaline Phosphatase 205U/L (46-116) Total Protein 7.0g/dL (6.4-8.2) Albumin 3.1g/dL (3.4-5.0) Albumin/Globulin Ratio 0.8 (1.0-1.7) Glucose (Fingerstick) 138mg/dL (70-99) Microbiology 07/30/16 Blood Culture - Preliminary, Resulted NO GROWTH AFTER 3 DAYS 07/30/16 Urine Culture - Final, Complete 07/30/16 Urine Culture Result 1 (VINAYAK) - Final, Complete Medications Current Medications Ceftriaxone Sodium 50 ml @ 100 mls/hr 1X ONCE IV Last administered on 17:00; Start 07/30/16 at 16:45; Stop 07/30/16 at 17:14; Status DC Fluconazole/ Sodium Chloride (Diflucan 200mg/ 100ml Premix) 100 ml @ 100 mls/ hr 1X ONCE IV Last administered on 07/30/16 17:53; Start 07/30/16 at 16:45; Stop 07/30/16 at 17:44; Status DC Ondansetron HCl (Zofran) 4 mg PRN Q8HRS PRN IV NAUSEA/VOMITING; Start 07/30/16 at 18:45; Stop 07/31/16 at 13:46; Status DC Morphine Sulfate 2 mg PRN Q2HR PRN IV PAIN; Start 07/30/16 at 18:45; Stop at 18:44; Status DC Insulin Aspart (Novolog) 0-7 UNITS TIDWMEALS SQ Last administered on 07/31/16 12:39; Start 07/31/16 at 08:00 Dextrose 12.5 gm PRN Q15MIN PRN IV SEE COMMENTS; Start 07/30/16 at 18:45; Stop 07/31/16 at 13:45; Status DC Phytonadione 2.5 mg 2.5 mg 1X ONCE PO Last administered on 07/30/16 19:17; Start 07/30/16 at 19:00; Stop 07/30/16 at 19:01; Status DC Sodium Chloride 500 ml @ 500 mls/hr 1X ONCE IV Last administered on 07/30/16 19:00; Start 07/30/16 at 19:00; Stop 07/30/16 at 19:59; Status DC Ceftriaxone Sodium/Sodium Chloride (Rocephin/Iv Sodium Chloride 0.9% 50ml) 50 ml @ 100 mls/hr Q24H IV Last administered on 08/02/16 17:33; Start 07/31/16 at 16:00 Acetaminophen (Tylenol) 650 mg PRN Q6HRS PRN PO FEVER; Start 07/30/16 at 19:00 Ondansetron HCl 4 mg 4 mg PRN Q6HRS PRN IV NAUSEA; Start 07/30/16 at 19:00 Sodium Chloride (Iv Sodium Chloride 0.9% 1000ml Bag) 1,000 ml @ 100 mls/hr 1X ONCE IV Last administered on 07/30/16 23:11; Start 07/30/16 at 19:00; Stop at 04:59; Status DC Albuterol/ Ipratropium (Duoneb) 3 ml QIDACHS NEB Last administered on 08/03/16 08:25; Start 07/30/16 at 21:00 Albuterol Sulfate 2.5 mg 2.5 mg PRN Q4HRS PRN NEB SHORTNESS OF BREATH; Start at 19:00 Phytonadione/ Sodium Chloride (Vitamin K/Iv Sodium Chloride 0.9% 50ml) 51 ml @ 102 mls/hr 1X ONCE IV Last administered on 07/30/16 20:38; Start 07/30/16 at 20 :00; Stop 07/30/16 at 20:29; Status DC Info (Do NOT chart on this placeholder) 1 each PRN DAILY PRN MC UNABLE TO RESPOND; Start 07/31/16 at 01:30; Status Cancel Acetaminophen (Tylenol) 650 mg TID PO Last administered on 08/03/16 09:39; Start 07/31/16 at 14:00 Bisacodyl (Dulcolax Supp) 10 mg PRN DAILY PRN RC CONSTIPATION; Start 07/31/16 at 09:15 Diclofenac Sodium (Voltaren) 1 kathryn TID TP Last administered on 08/02/16 20:31; Start 07/31/16 at 10:00 Diltiazem HCl (Cardizem 24hr Cd) 120 mg DAILY PO Last administered on 08/03/16 09:40; Start 08/01/16 at 09:00 Fluoxetine HCl (Prozac) 20 mg HS PO Last administered on 08/01/16 21:25; Start 07/31/16 at 21:00 Furosemide (Lasix) 60 mg BID92 PO Last administered on 08/01/16 08:48; Start at 09:30; Stop 08/01/16 at 11:13; Status DC Gabapentin (Neurontin) 200 mg HS PO Last administered on 08/01/16 21:25; Start 07/31/16 at 21:00 Magnesium Hydroxide (Milk Of Magnesia) 400 mg DAILY PRN PO CONSTIPATION; Start 07/31/16 at 09:15; Stop 08/02/16 at 13:01; Status DC Metoprolol Tartrate (Lopressor) 50 mg BID PO Last administered on 08/03/16 09: 37; Start 07/31/16 at 09:30 Mupirocin (Bactroban) 1 kathryn BID TP Last administered on 08/02/16 20:31; Start 07/31/16 at 09:30 Sennosides (Senna) 8.6 mg HS PO Last administered on 08/01/16 21:24; Start 07/31 at 21:00 Tamsulosin HCl (Flomax) 0.4 mg HS PO Last administered on 08/01/16 21:24; Start 07/31/16 at 21:00 Tramadol HCl (Ultram) 50 mg PRN Q6HRS PRN PO PAIN; Start 07/31/16 at 09:15 Insulin Aspart (Novolog) 12 units TIDAC SQ Last administered on 08/01/16 12:43 ; Start 07/31/16 at 16:30; Stop 08/01/16 at 13:23; Status DC Ondansetron HCl (Zofran Odt) 4 mg PRN Q6HRS PRN PO NAUSEA; Start 07/31/16 at 09: 30 Insulin Detemir (Levemir) 20 units QHS SQ Last administered on 08/01/16 21:40; Start 07/31/16 at 21:00 Insulin Aspart (Novolog) 0-9 UNITS TIDWMEALS SQ ; Start 07/31/16 at 12:00; Stop 07/31/16 at 12:00; Status DC Dextrose 12.5 gm PRN Q15MIN PRN IV SEE COMMENTS; Start 07/31/16 at 09:15 Warfarin Sodium (Coumadin) 6 mg DAILY16 PO Last administered on 08/02/16 17:33 ; Start 07/31/16 at 16:00 Mineral Oil (Fleet Mineral Oil) 133 ml 1X ONCE WI Last administered on 14:15; Start 07/31/16 at 11:15; Stop 07/31/16 at 11:16; Status DC Polyethylene Glycol (miraLAX PACKET) 17 gm DAILY PO Last administered on 09:42; Start 07/31/16 at 11:15 Warfarin Sodium (Coumadin Per Physician) 1 each PRN DAILY PRN MC SEE COMMENTS Last administered on 08/02/16 15:45; Start 07/31/16 at 11:15 Lactulose 20 gm PRN Q2HR PRN PO until BM Last administered on 08/02/16 11:38; Start 08/01/16 at 11:15 Darbepoetin Davey (Aranesp) 100 mcg WEEKLYHS SQ Last administered on 08/01/16 21 :45; Start 08/01/16 at 21:00 Darbepoetin Davey (Aranesp) 60 mcg WEEKLYHS SQ Last administered on 08/01/16 21: 46; Start 08/01/16 at 21:00 Insulin Aspart (Novolog) 12 units TIDAC SQ Last administered on 08/02/16 12:03 ; Start 08/01/16 at 13:23 Potassium Chloride (Klor-Con) 40 meq 1X ONCE PO Last administered on 08/02/16 11:38; Start 08/02/16 at 11:00; Stop 08/02/16 at 11:01; Status DC Lubiprostone 8 mcg 8 mcg BIDWMEALS PO Last administered on 08/03/16 09:37; Start 08/02/16 at 17:00 Albumin Human (Albuminar) 100 ml @ 100 mls/hr TID IV Last administered on 20:22; Start 08/02/16 at 14:00; Stop 08/04/16 at 09:59 Active Scripts Active Reported Keflex (Cephalexin) 500 Mg Capsule 1 Cap PO TID Zofran (Ondansetron Hcl) 4 Mg Tablet 1 Tab PO Q6HRS PRN [Mylanta] 30 Ml PO PRN Q4HRS PRN [Fleet Enema] 1 Applic RC DAILY PRN Dulcolax (Bisacodyl) 10 Mg Supp.rect 10 Mg RC PRN DAILY PRN Milk Of Magnesia (Magnesium Hydroxide) 400 Mg/5 Ml Oral.susp 400 Mg PO DAILY PRN Senokot (Sennosides) 8.6 Mg Tablet 1 Tab PO HS Tamsulosin Hcl 0.4 Mg Cap.er.24h 0.4 Mg PO HS Metoprolol Tartrate 50 Mg Tablet 50 Mg PO BID Tramadol Hcl 50 Mg Tablet 50 Mg PO Q6H PRN [Glycolax] 17 Gm PO DAILY PRN Cardizem Cd (Diltiazem Hcl) 180 Mg Cap.er.24h 120 Mg PO DAILY Allopurinol 300 Mg Tablet 300 Mg PO DAILY Lasix (Furosemide) 20 Mg Tablet 60 Mg PO BID Colcrys (Colchicine) 0.6 Mg Tablet 0.6 Mg PO BID Humalog (Insulin Lispro) 100 Unit/1 Ml Cartridge 12 Unit SQ TIDAC Voltaren (Diclofenac Sodium) 100 Gm Gel..gram. 1 Gm TP TID Bactroban Cream (Mupirocin) 15 Gm Cream..g. 1 Kathryn TP BID Tylenol (Acetaminophen) 325 Mg Tablet 650 Mg PO TID Prozac (Fluoxetine Hcl) 20 Mg Capsule 1 Cap PO HS Gabapentin 100 Mg Capsule 200 Mg PO HS Coumadin (Warfarin Sodium) 5 Mg Tablet 5 Mg PO DAILY [Lantus] 30 Units SQ HS Vitals/I & O Vital Sign - Last 24 Hours 08/02/16 08/02/16 08/02/16 08/02/16 11:00 11:13 15:00 15:46 Temp 97.1 97.4 97.1 97.4 Pulse 110 110 Resp 22 22 B/P 114/63 106/64 Pulse Ox 96 95 O2 Delivery Room Air Room Air Room Air Room Air 08/02/16 08/02/16 08/02/16 08/02/16 19:20 20:00 20:35 23:32 Temp 97.5 97.7 97.5 97.7 Pulse 109 109 Resp 20 20 B/P 115/72 136/96 Pulse Ox 96 94 O2 Delivery Room Air Room Air Room Air Room Air 08/03/16 08/03/16 08/03/16 08/03/16 02:38 07:36 08:00 09:37 Temp 97.6 98.1 97.6 98.1 Pulse 111 113 113 Resp 20 20 B/P 137/85 132/65 132/65 Pulse Ox 95 94 95 O2 Delivery Room Air Room Air Room Air 08/03/16 09:40 Pulse 113 B/P 132/65 Intake and Output 08/02/16 08/02/16 08/03/16 15:00 23:00 07:00 Intake Total 250 ml 1000 ml Output Total 2000 ml Balance -1750 ml 1000 ml RODERICK MELENDEZ III DO Aug 03, 2016 11:13
--- NOTE | 2016-08-03 12:24 | PDOC ---
Subjective: Subjective: Per family - no BM yet. Son repeats that if he has a BM his kidney function will improve. Objective: Objective: Per RN - no BM, c/o back pain, not eating much, still confused. Vital Signs: Vital Signs Date Time Temp Pulse Resp B/P Pulse Ox O2 Delivery O2 Flow Rate FiO2 08/03/16 11:14 97.5 113 20 114/69 94 Room Air 97.5 Labs: Laboratory Tests Test 08/02/16 16:47 08/02/16 19:04 08/02/16 21:29 08/03/16 07:30 Glucose (Fingerstick) 70mg/dL (70-99) 83mg/dL (70-99) 98mg/dL (70-99) 138mg/dL (70-99) Test 08/03/16 12:01 Glucose (Fingerstick) 194mg/dL (70-99) PE: GEN: NAD LUNGS: clear anteriorly HEART: RRR ABD: tender - seems worst LLQ, ?firmer, obese, BS quiet NEURO/PSYCH: moans, asks me to stop touching him A/P: Constipation, abd pain -unresolved w/ lactulose, Miralax, and Amitiza 8mcg here -CT w/ ?ileus -colonoscopy ~1 year ago AMS, UTI, CKD -- Seems more tender today w/ quiet BS. Will check KUB and increase Amitiza dose. Note orders for enema (Dr. Soares). Will review w/ Dr. Kee. GIRMA CASEY Aug 03, 2016 12:24
--- NOTE | 2016-08-03 13:44 | PDOC2 ---
PALLIATIVE CARE Palliative Care Note Palliative Care Patient more alert today. Agitated. Patient does not wish to be part of conversation Met with Mary Ellen and niece Chayo Reviewed medical condition. CKD 3--has never wanted dialysis. Cr 3.8; INR elevated 10.6 on admission -ow 1.3; lymphedema--lymphedema specialist to see patient today. DM2; sacral wound. HTN, Copy of AD reviewed and placed on chart. Mary Ellen states patient has always been adamant about not wanting dialysis. Responds with "no" to many things. can get patient to take medications etc. Discussed goals of care. Aggressive care with dialysis vs limit care including no dialysis; DNR/DNI; continue antibiotics, PT/OT and supportive care to see if he improves vs comfort care. would like to limit care with no dialysis (as states in AD) continue antibiotics, DNR/DNI to see if he could improve. If he does not improve she would be open to discussing comfort care. Discussed returning to [facility]. No decision voiced at this time. Confirmed DNR/DNI. Outside the Hospital form completed. Discussed issue with no bowel movement for > [address] Soares -- will order enema. GI issues be addressed by Dr. Kee. Plan: DNR/DNI No dialysis continue other care as above ACE NATONIO Aug 03, 2016 13:44
--- NOTE | 2016-08-03 15:00 | RAD ---
Indication constipation and abdominal pain. Supine films of the abdomen were obtained. Note is made of the CT examination of the abdomen and pelvis 4 days earlier. There is dilatation of the ascending and transverse colon. The descending colon and rectosigmoid are relatively collapsed. Findings probably reflect ileus. An obstructing lesion is not suggested on the recent CT although this cannot be absolutely excluded. There is vascular calcification. No additional finding is seen. The lung bases are unremarkable. There does not appear to be a large amount of stool in the visualized large bowel IMPRESSION: Dilatation of the ascending and transverse colon likely reflecting ileus
--- NOTE | 2016-08-03 15:05 | PDOC ---
PROGRESS NOTES Assessment Assessment Metabolic encephalopathy. Bilateral lower lobe infiltrate. UTI Vomiting. AFib or atrial flutter Renal failure Anemia DM HTN COPD Chronic LE wounds Morbid obesity No evidence of acute large CVA this time. RECOMMENDATIONS/PLAN: ASA 325 mg to tie over Coumadin to therapeutic range. Treat medical diseases per floor team. treat UTI. OT/PT Discussed in detail with his at bedside on a daily basis. Brain MRI w/o contrast: No acute findings. HISTORY OF THE PRESENT ILLNESS: 71-y0old male patient with multiple medical diseases has menta status changes, decreased response, and confusion. He has chronic LE wounds and weakness and has not been able to walk normally for 6- 7 months and inability to walk in at least for 2 weeks. He has atrial flutter on Coumadin, but his PT was 78.3 and INR was 10.6, so Coumadin was put on hold. His PT and INR normalized on 07/31 test. PAST MEDICAL HISTORY: Please see above. PAST SURGERY HISTORY: LE wound care. ALLERGY: Unknown MEDICATIONS: Refer to [facility] FAMILY HISTORY: Non contributory. SOCIAL HISTORY: Denies current smoking, drinking, and illicit drug use. REVIEW OF SYSTEMS: Constitutional: No malnutrition, weight loss, cachexia. Head: No recent traumatic brain or head injury. Skin: No edema, or rash. Ear: No infection, tinnitus. Eyes: No vision loss or color blindness. Nose: No bleeding or purulent discharges. Hearing: Hearing decrease. Neck: No recent injury. Cardiac: AFib, HTN. Pulmonary: No COPD. GI: No GI ulcer, GI bleeding. Urinary/genital: UTI. Endocrinologic: Diabetes Mellitus, morbid obesity. Skeletomuscular: Generalized weakness. Neurological: see HP. Psychiatric: Denies drug use/abuse. Otherwise, not [id number] review of systems. PHYSICAL EXAMINATION: General appearance is in subacute distress. HEENT: Normocephalic and nontraumatic. Eyes, nose, ears, and throat are unremarkable. Neck is supple. No lymphadenopathy. No crepitus. Cardiovascular: S1, S2, seemed irregular rate and rhythm. Pulmonary: Decreased breathing sounds to auscultation bilaterally. Abdomen: Bowel sounds are positive. Extremities: Rash, lesions, edema and chronic skin changes in LE. NEUROLOGICAL EXAMINATION: Sleepiness but arousable. Not follow commands. Not oriented to time, place but knows his . PERRL. EOMI not elicited due to not follow commands. CN: no acute focal findings. Muscle tone: decreased, chronic Muscle strength: Movements observed in UE, but not in LE as chronic weakness. DTR: 0-1- due to morbid obesity. Plantar reflex: Neutral response bilaterally Gait: not able to walk for at least 2 weeks per his and 2 months per his niece. Sensory exam: no abnormal findings. Not able to access cerebellar signs at this mentation. Not able to F-T-N test due to not follow commands. Objective Objective Vital Signs Date Time Temp Pulse Resp B/P Pulse Ox O2 Delivery O2 Flow Rate FiO2 08/03/16 14:41 97.5 111 20 126/85 94 Room Air 97.5 Intake and Output 08/03/16 07:00 Intake Total 1250 ml Output Total 2000 ml Balance -750 ml Intake Oral 1100 ml IV Total 150 ml Output Urine Total 2000 ml Vitals Signs Vitals VS - Last 72 Hours, by Label Date Time Temp Pulse Resp B/P Pulse Ox O2 Delivery O2 Flow Rate FiO2 08/03/16 14:41 97.5 111 20 126/85 94 Room Air 97.5 08/03/16 11:25 95 Room Air 08/03/16 11:14 97.5 113 20 114/69 94 Room Air 97.5 08/03/16 09:40 113 132/65 08/03/16 09:37 113 132/65 08/03/16 08:00 95 Room Air 08/03/16 07:36 98.1 113 20 132/65 94 Room Air 98.1 08/03/16 02:38 97.6 111 20 137/85 95 Room Air 97.6 08/02/16 23:32 97.7 109 20 136/96 94 Room Air 97.7 08/02/16 20:35 Room Air 08/02/16 20:00 Room Air 08/02/16 19:20 97.5 109 20 115/72 96 Room Air 97.5 08/02/16 15:46 Room Air 08/02/16 15:00 97.4 110 22 106/64 95 Room Air 97.4 08/02/16 11:13 Room Air 08/02/16 11:00 97.1 110 22 114/63 96 Room Air 97.1 08/02/16 08:50 93 Room Air 08/02/16 08:10 111 123/79 08/02/16 08:10 111 123/79 08/02/16 07:46 Room Air 08/02/16 07:00 98.0 111 20 123/79 93 Room Air 98.0 Laboratory Laboratory Laboratory Tests Test 08/02/16 16:47 08/02/16 19:04 08/02/16 21:29 08/03/16 06:45 Glucose (Fingerstick) 70mg/dL (70-99) 83mg/dL (70-99) 98mg/dL (70-99) White Blood Count 7.1x10^3/uL (4.0-11.0) Red Blood Count 3.72x10^6/uL (4.30-5.70) Hemoglobin 10.5g/dL (13.0-17.5) Hematocrit 33.4% (39.0-53.0) Mean Corpuscular Volume 90fL (79-100) Mean Corpuscular Hemoglobin 28pg (25-35) Mean Corpuscular Hemoglobin Concent 32g/dL (31-37) Red Cell Distribution Width 17.1% (11.5-14.5) Platelet Count 160x10^3/uL (140-400) Neutrophils (%) (Auto) 77% (31-73) Lymphocytes (%) (Auto) 10% (24-48) Monocytes (%) (Auto) 11% (0-9) Eosinophils (%) (Auto) 2% (0-3) Basophils (%) (Auto) 1% (0-3) Neutrophils # (Auto) 5.5x10^3uL (1.8-7.7) Lymphocytes # (Auto) 0.7x10^3/uL (1.0-4.8) Monocytes # (Auto) 0.8x10^3/uL (0.0-1.1) Eosinophils # (Auto) 0.2x10^3/uL (0.0-0.7) Basophils # (Auto) 0.0x10^3/uL (0.0-0.2) Prothrombin Time 19.3SEC (11.7-14.0) Prothromb Time International Ratio 1.7 (0.8-1.1) Sodium Level 140mmol/L (136-145) Potassium Level 3.0mmol/L (3.5-5.1) Chloride Level 99mmol/L (98-107) Carbon Dioxide Level 27mmol/L (21-32) Anion Gap 14 (6-14) Blood Urea Nitrogen 106mg/dL (8-26) Creatinine 3.6mg/dL (0.7-1.3) Estimated GFR (Cockcroft-Gault) 16.8 BUN/Creatinine Ratio 29 (6-20) Glucose Level 147mg/dL (70-99) Calcium Level 9.4mg/dL (8.5-10.1) Magnesium Level 4.1mg/dL (1.8-2.4) Total Bilirubin 0.7mg/dL (0.2-1.0) Aspartate Amino Transf (AST/SGOT) 74U/L (15-37) Alanine Aminotransferase (ALT/SGPT) 64U/L (16-63) Alkaline Phosphatase 205U/L (46-116) Total Protein 7.0g/dL (6.4-8.2) Albumin 3.1g/dL (3.4-5.0) Albumin/Globulin Ratio 0.8 (1.0-1.7) Test 08/03/16 07:30 08/03/16 11:53 08/03/16 12:01 Glucose (Fingerstick) 138mg/dL (70-99) 194mg/dL (70-99) Potassium Level 3.1mmol/L (3.5-5.1) Microbiology 07/30/16 Blood Culture - Preliminary, Resulted NO GROWTH AFTER 3 DAYS 07/30/16 Urine Culture - Final, Complete 07/30/16 Urine Culture Result 1 (VINAYAK) - Final, Complete Medication Medications Current Medications Insulin Aspart (Novolog) 10 units TIDAC SQ ; Start 08/03/16 at 16:30 Lubiprostone (Amitiza) 8 mcg BIDWMEALS PO Last administered on 08/03/16t 09:37; Start 08/02/16 at 17:00; Stop 08/03/16 at 12:20; Status DC Lubiprostone (Amitiza) 24 mcg BIDWMEALS PO ; Start 08/03/16 at 17:00 Potassium Chloride (Klor-Con) 40 meq QIDPRN PRN PO for K < 3.7; Start 08/03/16 at 11:00 Comment Review of Relevant I have reviewed the following items alan (where applicable) has been applied. JANEE MCWILLIAMS MD Aug 03, 2016 15:05
[2016-08-03] MEDS: WARFARIN 6 MG TABLET. PO SCH (16:47)
[2016-08-03] MEDS: CEFTRIAXONE SODIUM 1 GM in IV NORMAL SALINE 50ML 50 ML IV SCH (16:50)
[2016-08-03] MEDS: TAMSULOSIN 0.4 MG CAP.ER.24H. PO SCH ×3 (21:00→23:30)
[2016-08-03] MEDS: GABAPENTIN 100 MG CAPSULE. PO SCH (23:16)
[2016-08-03] MEDS: SENNOSIDES 8.6 MG TABLET PO SCH (23:17)
[2016-08-03] MEDS: FLUOXETINE HCL 20 MG CAPSULE PO SCH (23:17)
[2016-08-03] MEDS: INSULIN DETEMIR 300 UNITS/3 ML INSULN.PEN. SQ SCH (23:20)
[2016-08-04 03:41] VITALS: BP 119/77
[2016-08-04 06:08] LABS: BASO # 0.1 x10^3/uL (0.0-0.2); BASO % 1 % (0-3); EOS % 3 % (0-3); HEMATOCRIT 28.6 % (39.0-53.0); HEMOGLOBIN 9.1 g/dL (13.0-17.5); LYMPH # 0.6 x10^3/uL (1.0-4.8); LYMPH % 12 % (24-48); MEAN CORPUSCULAR HEMOGLOBIN 28 pg (25-35); MEAN CORPUSCULAR HGB CONC 32 g/dL (31-37); MEAN CORPUSCULAR VOLUME 89 fL (79-100); MONO % 14 % (0-9); NEUT % 71 % (31-73); PLATELET COUNT 142 x10^3/uL (140-400); RED BLOOD COUNT 3.22 x10^6/uL (4.30-5.70); RED CELL DISTRIBUTION WIDTH 16.9 % (11.5-14.5); WHITE BLOOD COUNT 5.6 x10^3/uL (4.0-11.0)
[2016-08-04 06:26] LABS: ALBUMIN 3.4 g/dL (3.4-5.0); ALBUMIN/GLOBULIN RATIO 0.9 (1.0-1.7); CREATININE 3.5 mg/dL (0.7-1.3); GFR 17.4; MAGNESIUM 3.6 mg/dL (1.8-2.4); TOTAL BILIRUBIN 0.7 mg/dL (0.2-1.0); TOTAL PROTEIN 7.1 g/dL (6.4-8.2)
[2016-08-04 06:29] LABS: POTASSIUM 2.9 mmol/L (3.5-5.1)
[2016-08-04] MEDS: IPRATRPIUM/ALBUTEROL 0.5/2.5MG 3 ML NEBU. NEB SCH ×4 (07:20→18:58)
[2016-08-04 07:58] VITALS: BP 105/61
[2016-08-04] MEDS: POTASSIUM CHLORIDE 10MEQ 100 ML IV SCH ×4 (08:00→10:00)
[2016-08-04] MEDS: ALBUMIN HUMAN 25% 100 ML IV SCH (08:38)
[2016-08-04] MEDS: ACETAMINOPHEN 325 MG TABLET. PO SCH ×3 (08:39→21:06)
[2016-08-04] MEDS: METOPROLOL TART IMMED RELEASE 50 MG TABLET PO SCH ×2 (08:39→21:07)
[2016-08-04] MEDS: LUBIPROSTONE 8 MCG CAPSULE PO SCH (08:40)
[2016-08-04] MEDS: POLYETHYLENE GLYCOL 3350 17 GM PACKET. PO SCH (08:40)
[2016-08-04] MEDS: DILTIAZEM HCL 180 MG CAP.ER.24H PO SCH (08:42)
[2016-08-04] MEDS: INSULIN ASPART 300 UNITS/3 ML INSULN.PEN SQ SCH ×6 (09:00→17:00)
[2016-08-04] MEDS: DICLOFENAC SODIUM 1% TOPICAL GEL 100GM TUBE. TP SCH ×3 (09:00→21:18)
[2016-08-04] MEDS: MUPIROCIN 2 % TOPICAL CREAM 15GM TUBE. TP SCH ×2 (09:00→21:18)
[2016-08-04 09:09] LABS: INR 3.2 (0.8-1.1)
--- NOTE | 2016-08-04 09:55 | PDOC ---
Subjective: Subjective: Per - finally had stools. Ate oatmeal. Objective: Objective: Per RN - explosive diarrhea all night. Vital Signs: Vital Signs Date Time Temp Pulse Resp B/P Pulse Ox O2 Delivery O2 Flow Rate FiO2 08/04/16 08:42 72 105/61 08/04/16 07:58 97.5 18 92 Room Air 97.5 08/03/16 08:00 2.0 Labs: Laboratory Tests Test 08/03/16 11:53 08/03/16 12:01 08/03/16 16:25 08/03/16 17:40 Potassium Level 3.1mmol/L 3.1mmol/L Glucose (Fingerstick) 194mg/dL 171mg/dL Test 08/03/16 21:11 08/04/16 04:35 08/04/16 07:19 08/04/16 08:30 Glucose (Fingerstick) 186mg/dL 195mg/dL White Blood Count 5.6x10^3/uL Red Blood Count 3.22x10^6/uL Hemoglobin 9.1g/dL Hematocrit 28.6% Mean Corpuscular Volume 89fL Mean Corpuscular Hemoglobin 28pg Mean Corpuscular Hemoglobin Concent 32g/dL Red Cell Distribution Width 16.9% Platelet Count 142x10^3/uL Neutrophils (%) (Auto) 71% Lymphocytes (%) (Auto) 12% Monocytes (%) (Auto) 14% Eosinophils (%) (Auto) 3% Basophils (%) (Auto) 1% Neutrophils # (Auto) 3.9x10^3uL Lymphocytes # (Auto) 0.6x10^3/uL Monocytes # (Auto) 0.8x10^3/uL Eosinophils # (Auto) 0.1x10^3/uL Basophils # (Auto) 0.1x10^3/uL Sodium Level 138mmol/L Potassium Level 2.9mmol/L Chloride Level 98mmol/L Carbon Dioxide Level 29mmol/L Anion Gap 11 Blood Urea Nitrogen 102mg/dL Creatinine 3.5mg/dL Estimated GFR (Cockcroft-Gault) 17.4 BUN/Creatinine Ratio 29 Glucose Level 197mg/dL Calcium Level 9.0mg/dL Magnesium Level 3.6mg/dL Total Bilirubin 0.7mg/dL Aspartate Amino Transf (AST/SGOT) 38U/L Alanine Aminotransferase (ALT/SGPT) 49U/L Alkaline Phosphatase 168U/L Total Protein 7.1g/dL Albumin 3.4g/dL Albumin/Globulin Ratio 0.9 Prothrombin Time 31.0SEC Prothromb Time International Ratio 3.2 Imaging: KUB 08/03/16 IMPRESSION: Dilatation of the ascending and transverse colon likely reflecting ileus. PE: GEN: NAD LUNGS: clear anteriorly HEART: S1S2 ABD: obese, BS+ (better today), says "easy!" when I listen in [facility] NEURO/PSYCH: confused, c/o arm pain w/ potassium A/P: Constipation - resolved -colonoscopy ~1 year ago AMS, UTI, CKD -on atbx, renal and neuro following -family/pt want to avoid dialysis -- Now stooling. Would continue at least Miralax long-term (although holding today for diarrhea). D/w Pat/PC yesterday. UPDATE: RN called reported projectile vomiting x 1 this afternoon. Family concerned w/ this and says his abd feels hard. After a significant amount of diarrhea overnight (requiring sheets to be changed twice), he continues to have a small amount of loose stool every time he's turned by staff. Returned to see pt, d/w Chayo (family) at bedside. Says vomited oatmeal between 12:00 and 1:00. Describes a similar instance prior to admission. His exam is stable from this morning w/ quieter BS. D/w Dr. Kee - will recheck KUB. Also discussed Movantik/Relistor - he's still having loose stools after enemas yesterday. D/w RN who will relay to family. Await KUB results, other per Dr. Kee. GIRMA CASEY Aug 04, 2016 09:55 ELINOR KEE MD Aug 04, 2016 15:01
--- NOTE | 2016-08-04 11:01 | PDOC ---
PROGRESS NOTES Chief Complaint Chief Complaint 1. Delirium on chronic worsening dementia 2. Sepsis 3. UTI 4. dehydration 5. BREANNA 6. Constipation 7. CKD4 8. Hypercoag 9. aflutter 10. HTN 11. DM 12. COPD 13. FTT 14. Lymphedema 15. SMALL sacral wound 16. Gout 17. BPH 18. Sacral Ulcer History of Present Illness History of Present Illness Pt resting comfortably in bed. at bedside today states that the pt was able to have bowel movement after the enema yesterday. She is also stating when he is awake he is still somewhat confused. This morning he was able to tolerate eating oatmeal. STEPHANIE RN- VSS. Vitals Vitals Vital Signs Date Time Temp Pulse Resp B/P Pulse Ox O2 Delivery O2 Flow Rate FiO2 08/04/16 08:42 72 105/61 08/04/16 08:00 Room Air 08/04/16 07:58 97.5 18 92 97.5 08/03/16 08:00 2.0 Physical Exam General: No acute distress, Other (lethargic, sleeping comfortably, able to answer yes or no questions once aroused) Heart: Regular rate, No murmurs Lungs: Clear, Other (No wheezes present) Abdomen: Normal bowel sounds, Other (TTP LLQ) Extremities: Other (massive woody edema with hyperkeratotic changes bilaterally on both lower extremities) Skin: Other (small sacral decub present) Labs LABS Laboratory Tests Test 08/03/16 11:53 08/03/16 12:01 08/03/16 16:25 08/03/16 17:40 Potassium Level 3.1mmol/L (3.5-5.1) 3.1mmol/L (3.5-5.1) Glucose (Fingerstick) 194mg/dL (70-99) 171mg/dL (70-99) Test 08/03/16 21:11 08/04/16 04:35 08/04/16 07:19 08/04/16 08:30 Glucose (Fingerstick) 186mg/dL (70-99) 195mg/dL (70-99) White Blood Count 5.6x10^3/uL (4.0-11.0) Red Blood Count 3.22x10^6/uL (4.30-5.70) Hemoglobin 9.1g/dL (13.0-17.5) Hematocrit 28.6% (39.0-53.0) Mean Corpuscular Volume 89fL (79-100) Mean Corpuscular Hemoglobin 28pg (25-35) Mean Corpuscular Hemoglobin Concent 32g/dL (31-37) Red Cell Distribution Width 16.9% (11.5-14.5) Platelet Count 142x10^3/uL (140-400) Neutrophils (%) (Auto) 71% (31-73) Lymphocytes (%) (Auto) 12% (24-48) Monocytes (%) (Auto) 14% (0-9) Eosinophils (%) (Auto) 3% (0-3) Basophils (%) (Auto) 1% (0-3) Neutrophils # (Auto) 3.9x10^3uL (1.8-7.7) Lymphocytes # (Auto) 0.6x10^3/uL (1.0-4.8) Monocytes # (Auto) 0.8x10^3/uL (0.0-1.1) Eosinophils # (Auto) 0.1x10^3/uL (0.0-0.7) Basophils # (Auto) 0.1x10^3/uL (0.0-0.2) Sodium Level 138mmol/L (136-145) Potassium Level 2.9mmol/L (3.5-5.1) Chloride Level 98mmol/L (98-107) Carbon Dioxide Level 29mmol/L (21-32) Anion Gap 11 (6-14) Blood Urea Nitrogen 102mg/dL (8-26) Creatinine 3.5mg/dL (0.7-1.3) Estimated GFR (Cockcroft-Gault) 17.4 BUN/Creatinine Ratio 29 (6-20) Glucose Level 197mg/dL (70-99) Calcium Level 9.0mg/dL (8.5-10.1) Magnesium Level 3.6mg/dL (1.8-2.4) Total Bilirubin 0.7mg/dL (0.2-1.0) Aspartate Amino Transf (AST/SGOT) 38U/L (15-37) Alanine Aminotransferase (ALT/SGPT) 49U/L (16-63) Alkaline Phosphatase 168U/L (46-116) Total Protein 7.1g/dL (6.4-8.2) Albumin 3.4g/dL (3.4-5.0) Albumin/Globulin Ratio 0.9 (1.0-1.7) Prothrombin Time 31.0SEC (11.7-14.0) Prothromb Time International Ratio 3.2 (0.8-1.1) Review of Systems Review of Systems Complaining of Fatigue Complaining of Weakness Constipation has resolved Assessment and Plan Assessmemt and Plan Problems Medical Problems: (1) Acute kidney injury Status: Acute (2) Altered mental status Status: Acute (3) Supratherapeutic INR Status: Acute 1. Delirium on chronic worsening dementia 2. Sepsis 3. UTI 4. dehydration 5. BREANNA 6. Constipation 7. CKD4 8. Hypercoag 9. aflutter 10. HTN 11. DM 12. COPD 13. FTT 14. Lymphedema 15. SMALL sacral wound 16. Gout 17. BPH 18. Sacral Ulcer Plan: Delirium- More arousable today; states he was answering questions for her - Most likely secondary to urosepsis and hypercarbia - Will obtain regular labs in the AM to monitor progression UTI- Continue IV Ceftriaxone for treatment Constipation- resolved at this time- will continue to monitor Appreciate Nephro Consult- Creat: 3.5 today; Will continue following Nephro Recommendations Appreciate GI Consult- Will continue Amitiza as recommended Continue Regular Home medications PT/OT on case Sacral Ulcer- Wound Care Consulted will continue with recommendations. Problems: Comment Review of Relevant I have reviewed the following items alan (where applicable) has been applied. Labs Laboratory Tests Test 08/02/16 11:53 08/02/16 16:47 08/02/16 19:04 08/02/16 21:29 Glucose (Fingerstick) 134mg/dL (70-99) 70mg/dL (70-99) 83mg/dL (70-99) 98mg/dL (70-99) Test 08/03/16 06:45 08/03/16 07:30 08/03/16 11:53 08/03/16 12:01 White Blood Count 7.1x10^3/uL (4.0-11.0) Red Blood Count 3.72x10^6/uL (4.30-5.70) Hemoglobin 10.5g/dL (13.0-17.5) Hematocrit 33.4% (39.0-53.0) Mean Corpuscular Volume 90fL (79-100) Mean Corpuscular Hemoglobin 28pg (25-35) Mean Corpuscular Hemoglobin Concent 32g/dL (31-37) Red Cell Distribution Width 17.1% (11.5-14.5) Platelet Count 160x10^3/uL (140-400) Neutrophils (%) (Auto) 77% (31-73) Lymphocytes (%) (Auto) 10% (24-48) Monocytes (%) (Auto) 11% (0-9) Eosinophils (%) (Auto) 2% (0-3) Basophils (%) (Auto) 1% (0-3) Neutrophils # (Auto) 5.5x10^3uL (1.8-7.7) Lymphocytes # (Auto) 0.7x10^3/uL (1.0-4.8) Monocytes # (Auto) 0.8x10^3/uL (0.0-1.1) Eosinophils # (Auto) 0.2x10^3/uL (0.0-0.7) Basophils # (Auto) 0.0x10^3/uL (0.0-0.2) Prothrombin Time 19.3SEC (11.7-14.0) Prothromb Time International Ratio 1.7 (0.8-1.1) Sodium Level 140mmol/L (136-145) Potassium Level 3.0mmol/L (3.5-5.1) 3.1mmol/L (3.5-5.1) Chloride Level 99mmol/L (98-107) Carbon Dioxide Level 27mmol/L (21-32) Anion Gap 14 (6-14) Blood Urea Nitrogen 106mg/dL (8-26) Creatinine 3.6mg/dL (0.7-1.3) Estimated GFR (Cockcroft-Gault) 16.8 BUN/Creatinine Ratio 29 (6-20) Glucose Level 147mg/dL (70-99) Calcium Level 9.4mg/dL (8.5-10.1) Magnesium Level 4.1mg/dL (1.8-2.4) Total Bilirubin 0.7mg/dL (0.2-1.0) Aspartate Amino Transf (AST/SGOT) 74U/L (15-37) Alanine Aminotransferase (ALT/SGPT) 64U/L (16-63) Alkaline Phosphatase 205U/L (46-116) Total Protein 7.0g/dL (6.4-8.2) Albumin 3.1g/dL (3.4-5.0) Albumin/Globulin Ratio 0.8 (1.0-1.7) Glucose (Fingerstick) 138mg/dL (70-99) 194mg/dL (70-99) Test 08/03/16 16:25 08/03/16 17:40 08/03/16 21:11 08/04/16 04:35 Glucose (Fingerstick) 171mg/dL (70-99) 186mg/dL (70-99) Potassium Level 3.1mmol/L (3.5-5.1) 2.9mmol/L (3.5-5.1) White Blood Count 5.6x10^3/uL (4.0-11.0) Red Blood Count 3.22x10^6/uL (4.30-5.70) Hemoglobin 9.1g/dL (13.0-17.5) Hematocrit 28.6% (39.0-53.0) Mean Corpuscular Volume 89fL (79-100) Mean Corpuscular Hemoglobin 28pg (25-35) Mean Corpuscular Hemoglobin Concent 32g/dL (31-37) Red Cell Distribution Width 16.9% (11.5-14.5) Platelet Count 142x10^3/uL (140-400) Neutrophils (%) (Auto) 71% (31-73) Lymphocytes (%) (Auto) 12% (24-48) Monocytes (%) (Auto) 14% (0-9) Eosinophils (%) (Auto) 3% (0-3) Basophils (%) (Auto) 1% (0-3) Neutrophils # (Auto) 3.9x10^3uL (1.8-7.7) Lymphocytes # (Auto) 0.6x10^3/uL (1.0-4.8) Monocytes # (Auto) 0.8x10^3/uL (0.0-1.1) Eosinophils # (Auto) 0.1x10^3/uL (0.0-0.7) Basophils # (Auto) 0.1x10^3/uL (0.0-0.2) Sodium Level 138mmol/L (136-145) Chloride Level 98mmol/L (98-107) Carbon Dioxide Level 29mmol/L (21-32) Anion Gap 11 (6-14) Blood Urea Nitrogen 102mg/dL (8-26) Creatinine 3.5mg/dL (0.7-1.3) Estimated GFR (Cockcroft-Gault) 17.4 BUN/Creatinine Ratio 29 (6-20) Glucose Level 197mg/dL (70-99) Calcium Level 9.0mg/dL (8.5-10.1) Magnesium Level 3.6mg/dL (1.8-2.4) Total Bilirubin 0.7mg/dL (0.2-1.0) Aspartate Amino Transf (AST/SGOT) 38U/L (15-37) Alanine Aminotransferase (ALT/SGPT) 49U/L (16-63) Alkaline Phosphatase 168U/L (46-116) Total Protein 7.1g/dL (6.4-8.2) Albumin 3.4g/dL (3.4-5.0) Albumin/Globulin Ratio 0.9 (1.0-1.7) Test 08/04/16 07:19 08/04/16 08:30 Glucose (Fingerstick) 195mg/dL (70-99) Prothrombin Time 31.0SEC (11.7-14.0) Prothromb Time International Ratio 3.2 (0.8-1.1) Laboratory Tests Test 08/03/16 11:53 08/03/16 12:01 08/03/16 16:25 08/03/16 17:40 Potassium Level 3.1mmol/L (3.5-5.1) 3.1mmol/L (3.5-5.1) Glucose (Fingerstick) 194mg/dL (70-99) 171mg/dL (70-99) Test 08/03/16 21:11 08/04/16 04:35 08/04/16 07:19 08/04/16 08:30 Glucose (Fingerstick) 186mg/dL (70-99) 195mg/dL (70-99) White Blood Count 5.6x10^3/uL (4.0-11.0) Red Blood Count 3.22x10^6/uL (4.30-5.70) Hemoglobin 9.1g/dL (13.0-17.5) Hematocrit 28.6% (39.0-53.0) Mean Corpuscular Volume 89fL (79-100) Mean Corpuscular Hemoglobin 28pg (25-35) Mean Corpuscular Hemoglobin Concent 32g/dL (31-37) Red Cell Distribution Width 16.9% (11.5-14.5) Platelet Count 142x10^3/uL (140-400) Neutrophils (%) (Auto) 71% (31-73) Lymphocytes (%) (Auto) 12% (24-48) Monocytes (%) (Auto) 14% (0-9) Eosinophils (%) (Auto) 3% (0-3) Basophils (%) (Auto) 1% (0-3) Neutrophils # (Auto) 3.9x10^3uL (1.8-7.7) Lymphocytes # (Auto) 0.6x10^3/uL (1.0-4.8) Monocytes # (Auto) 0.8x10^3/uL (0.0-1.1) Eosinophils # (Auto) 0.1x10^3/uL (0.0-0.7) Basophils # (Auto) 0.1x10^3/uL (0.0-0.2) Sodium Level 138mmol/L (136-145) Potassium Level 2.9mmol/L (3.5-5.1) Chloride Level 98mmol/L (98-107) Carbon Dioxide Level 29mmol/L (21-32) Anion Gap 11 (6-14) Blood Urea Nitrogen 102mg/dL (8-26) Creatinine 3.5mg/dL (0.7-1.3) Estimated GFR (Cockcroft-Gault) 17.4 BUN/Creatinine Ratio 29 (6-20) Glucose Level 197mg/dL (70-99) Calcium Level 9.0mg/dL (8.5-10.1) Magnesium Level 3.6mg/dL (1.8-2.4) Total Bilirubin 0.7mg/dL (0.2-1.0) Aspartate Amino Transf (AST/SGOT) 38U/L (15-37) Alanine Aminotransferase (ALT/SGPT) 49U/L (16-63) Alkaline Phosphatase 168U/L (46-116) Total Protein 7.1g/dL (6.4-8.2) Albumin 3.4g/dL (3.4-5.0) Albumin/Globulin Ratio 0.9 (1.0-1.7) Prothrombin Time 31.0SEC (11.7-14.0) Prothromb Time International Ratio 3.2 (0.8-1.1) Microbiology 07/30/16 Blood Culture - Preliminary, Resulted NO GROWTH AFTER 4 DAYS 07/30/16 Urine Culture - Final, Complete 07/30/16 Urine Culture Result 1 (VINAYAK) - Final, Complete Medications Current Medications Ceftriaxone Sodium 50 ml @ 100 mls/hr 1X ONCE IV Last administered on 17:00; Start 07/30/16 at 16:45; Stop 07/30/16 at 17:14; Status DC Fluconazole/ Sodium Chloride (Diflucan 200mg/ 100ml Premix) 100 ml @ 100 mls/ hr 1X ONCE IV Last administered on 07/30/16 17:53; Start 07/30/16 at 16:45; Stop 07/30/16 at 17:44; Status DC Ondansetron HCl (Zofran) 4 mg PRN Q8HRS PRN IV NAUSEA/VOMITING; Start 07/30/16 at 18:45; Stop 07/31/16 at 13:46; Status DC Morphine Sulfate 2 mg PRN Q2HR PRN IV PAIN; Start 07/30/16 at 18:45; Stop at 18:44; Status DC Insulin Aspart (Novolog) 0-7 UNITS TIDWMEALS SQ Last administered on 07/31/16 12:39; Start 07/31/16 at 08:00 Dextrose 12.5 gm PRN Q15MIN PRN IV SEE COMMENTS; Start 07/30/16 at 18:45; Stop 07/31/16 at 13:45; Status DC Phytonadione 2.5 mg 2.5 mg 1X ONCE PO Last administered on 07/30/16 19:17; Start 07/30/16 at 19:00; Stop 07/30/16 at 19:01; Status DC Sodium Chloride 500 ml @ 500 mls/hr 1X ONCE IV Last administered on 07/30/16 19:00; Start 07/30/16 at 19:00; Stop 07/30/16 at 19:59; Status DC Ceftriaxone Sodium/Sodium Chloride (Rocephin/Iv Sodium Chloride 0.9% 50ml) 50 ml @ 100 mls/hr Q24H IV Last administered on 08/03/16 16:50; Start 07/31/16 at 16:00 Acetaminophen (Tylenol) 650 mg PRN Q6HRS PRN PO FEVER; Start 07/30/16 at 19:00 Ondansetron HCl 4 mg 4 mg PRN Q6HRS PRN IV NAUSEA; Start 07/30/16 at 19:00 Sodium Chloride (Iv Sodium Chloride 0.9% 1000ml Bag) 1,000 ml @ 100 mls/hr 1X ONCE IV Last administered on 07/30/16 23:11; Start 07/30/16 at 19:00; Stop at 04:59; Status DC Albuterol/ Ipratropium (Duoneb) 3 ml QIDACHS NEB Last administered on 08/04/16 07:20; Start 07/30/16 at 21:00 Albuterol Sulfate 2.5 mg 2.5 mg PRN Q4HRS PRN NEB SHORTNESS OF BREATH; Start at 19:00 Phytonadione/ Sodium Chloride (Vitamin K/Iv Sodium Chloride 0.9% 50ml) 51 ml @ 102 mls/hr 1X ONCE IV Last administered on 07/30/16 20:38; Start 07/30/16 at 20 :00; Stop 07/30/16 at 20:29; Status DC Info (Do NOT chart on this placeholder) 1 each PRN DAILY PRN MC UNABLE TO RESPOND; Start 07/31/16 at 01:30; Status Cancel Acetaminophen (Tylenol) 650 mg TID PO Last administered on 08/04/16 08:39; Start 07/31/16 at 14:00 Bisacodyl (Dulcolax Supp) 10 mg PRN DAILY PRN RC CONSTIPATION Last administered on 08/03/16 16:31; Start 07/31/16 at 09:15 Diclofenac Sodium (Voltaren) 1 kathryn TID TP Last administered on 08/03/16 11:03; Start 07/31/16 at 10:00 Diltiazem HCl (Cardizem 24hr Cd) 120 mg DAILY PO Last administered on 08/04/16 08:42; Start 08/01/16 at 09:00 Fluoxetine HCl (Prozac) 20 mg HS PO Last administered on 08/03/16 23:17; Start 07/31/16 at 21:00 Furosemide (Lasix) 60 mg BID92 PO Last administered on 08/01/16 08:48; Start at 09:30; Stop 08/01/16 at 11:13; Status DC Gabapentin (Neurontin) 200 mg HS PO Last administered on 08/03/16 23:16; Start 07/31/16 at 21:00 Magnesium Hydroxide (Milk Of Magnesia) 400 mg DAILY PRN PO CONSTIPATION; Start 07/31/16 at 09:15; Stop 08/02/16 at 13:01; Status DC Metoprolol Tartrate (Lopressor) 50 mg BID PO Last administered on 08/04/16 08: 39; Start 07/31/16 at 09:30 Mupirocin (Bactroban) 1 kathryn BID TP Last administered on 08/03/16 23:22; Start 07/31/16 at 09:30 Sennosides (Senna) 8.6 mg HS PO Last administered on 08/03/16 23:17; Start 07/31 at 21:00 Tamsulosin HCl (Flomax) 0.4 mg HS PO Last administered on 08/03/16 21:00; Start 07/31/16 at 21:00 Tramadol HCl (Ultram) 50 mg PRN Q6HRS PRN PO PAIN; Start 07/31/16 at 09:15 Insulin Aspart (Novolog) 12 units TIDAC SQ Last administered on 08/01/16 12:43 ; Start 07/31/16 at 16:30; Stop 08/01/16 at 13:23; Status DC Ondansetron HCl (Zofran Odt) 4 mg PRN Q6HRS PRN PO NAUSEA; Start 07/31/16 at 09: 30 Insulin Detemir (Levemir) 20 units QHS SQ Last administered on 08/03/16 23:20; Start 07/31/16 at 21:00 Insulin Aspart (Novolog) 0-9 UNITS TIDWMEALS SQ ; Start 07/31/16 at 12:00; Stop 07/31/16 at 12:00; Status DC Dextrose 12.5 gm PRN Q15MIN PRN IV SEE COMMENTS; Start 07/31/16 at 09:15 Warfarin Sodium (Coumadin) 6 mg DAILY16 PO Last administered on 08/03/16 16:47 ; Start 07/31/16 at 16:00 Mineral Oil (Fleet Mineral Oil) 133 ml 1X ONCE IA Last administered on 14:15; Start 07/31/16 at 11:15; Stop 07/31/16 at 11:16; Status DC Polyethylene Glycol (miraLAX PACKET) 17 gm DAILY PO Last administered on 09:42; Start 07/31/16 at 11:15 Warfarin Sodium (Coumadin Per Physician) 1 each PRN DAILY PRN MC SEE COMMENTS Last administered on 08/03/16 16:32; Start 07/31/16 at 11:15 Lactulose 20 gm PRN Q2HR PRN PO until BM Last administered on 08/02/16 11:38; Start 08/01/16 at 11:15; Stop 08/04/16 at 09:53; Status DC Darbepoetin Davey (Aranesp) 100 mcg WEEKLYHS SQ Last administered on 08/01/16 21 :45; Start 08/01/16 at 21:00 Darbepoetin Davey (Aranesp) 60 mcg WEEKLYHS SQ Last administered on 08/01/16 21: 46; Start 08/01/16 at 21:00 Insulin Aspart (Novolog) 12 units TIDAC SQ Last administered on 08/02/16 12:03 ; Start 08/01/16 at 13:23; Stop 08/03/16 at 11:33; Status DC Potassium Chloride (Klor-Con) 40 meq 1X ONCE PO Last administered on 08/02/16 11:38; Start 08/02/16 at 11:00; Stop 08/02/16 at 11:01; Status DC Lubiprostone 8 mcg 8 mcg BIDWMEALS PO Last administered on 08/03/16 09:37; Start 08/02/16 at 17:00; Stop 08/03/16 at 12:20; Status DC Albumin Human (Albuminar) 100 ml @ 100 mls/hr TID IV Last administered on 08:38; Start 08/02/16 at 14:00; Stop 08/04/16 at 09:59; Status DC Potassium Chloride (Klor-Con) 40 meq QIDPRN PRN PO for K < 3.7; Start 08/03/16 at 11:00 Insulin Aspart (Novolog) 10 units TIDAC SQ ; Start 08/03/16 at 16:30 Lubiprostone 24 mcg 24 mcg BIDWMEALS PO Last administered on 08/04/16 08:40; Start 08/03/16 at 17:00; Stop 08/04/16 at 09:53; Status DC Potassium Chloride (KCl Premix 10meq) 100 ml @ 100 mls/hr Q1H IV Last administered on 08/04/16 08:38; Start 08/04/16 at 07:00; Stop 08/04/16 at 10:59 Lactulose 20 gm PRN BID PRN PO constipation; Start 08/04/16 at 21:00 Active Scripts Active Reported Keflex (Cephalexin) 500 Mg Capsule 1 Cap PO TID Zofran (Ondansetron Hcl) 4 Mg Tablet 1 Tab PO Q6HRS PRN [Mylanta] 30 Ml PO PRN Q4HRS PRN [Fleet Enema] 1 Applic RC DAILY PRN Dulcolax (Bisacodyl) 10 Mg Supp.rect 10 Mg RC PRN DAILY PRN Milk Of Magnesia (Magnesium Hydroxide) 400 Mg/5 Ml Oral.susp 400 Mg PO DAILY PRN Senokot (Sennosides) 8.6 Mg Tablet 1 Tab PO HS Tamsulosin Hcl 0.4 Mg Cap.er.24h 0.4 Mg PO HS Metoprolol Tartrate 50 Mg Tablet 50 Mg PO BID Tramadol Hcl 50 Mg Tablet 50 Mg PO Q6H PRN [Glycolax] 17 Gm PO DAILY PRN Cardizem Cd (Diltiazem Hcl) 180 Mg Cap.er.24h 120 Mg PO DAILY Allopurinol 300 Mg Tablet 300 Mg PO DAILY Lasix (Furosemide) 20 Mg Tablet 60 Mg PO BID Colcrys (Colchicine) 0.6 Mg Tablet 0.6 Mg PO BID Humalog (Insulin Lispro) 100 Unit/1 Ml Cartridge 12 Unit SQ TIDAC Voltaren (Diclofenac Sodium) 100 Gm Gel..gram. 1 Gm TP TID Bactroban Cream (Mupirocin) 15 Gm Cream..g. 1 Kathryn TP BID Tylenol (Acetaminophen) 325 Mg Tablet 650 Mg PO TID Prozac (Fluoxetine Hcl) 20 Mg Capsule 1 Cap PO HS Gabapentin 100 Mg Capsule 200 Mg PO HS Coumadin (Warfarin Sodium) 5 Mg Tablet 5 Mg PO DAILY [Lantus] 30 Units SQ HS Vitals/I & O Vital Sign - Last 24 Hours 08/03/16 08/03/16 08/03/16 08/03/16 11:14 11:25 14:41 15:31 Temp 97.5 97.5 97.5 97.5 Pulse 113 111 Resp 20 20 B/P 114/69 126/85 Pulse Ox 94 95 94 O2 Delivery Room Air Room Air Room Air Room Air 08/03/16 08/03/16 08/03/16 08/03/16 19:42 19:52 20:00 23:17 Temp 98.2 98.2 Pulse 110 110 Resp 16 B/P 129/68 129/68 Pulse Ox 93 O2 Delivery Room Air Room Air Room Air 08/03/16 08/04/16 08/04/16 08/04/16 23:31 03:41 07:21 07:58 Temp 98.8 82.9 97.5 98.8 82.9 97.5 Pulse 112 87 72 Resp 16 18 18 B/P 113/72 119/77 105/61 Pulse Ox 94 90 94 92 O2 Delivery Room Air Room Air Room Air Room Air 08/04/16 08/04/16 08/04/16 08:00 08:39 08:42 Pulse 72 72 B/P 105/61 105/61 O2 Delivery Room Air Intake and Output 08/03/16 08/03/16 08/04/16 15:00 23:00 07:00 Intake Total 550 ml 220 ml Output Total 875 ml 450 ml Balance -325 ml -230 ml RODERICK MELENDEZ III DO Aug 04, 2016 11:01
[2016-08-04] MEDS ORDERED: POTASSIUM CHLORIDE 10 MEQ TABLET.ER. PO ONE (12:00)
--- NOTE | 2016-08-04 12:02 | PDOC ---
PROGRESS NOTES Assessment Assessment Metabolic encephalopathy. Bilateral lower lobe infiltrate. UTI Vomiting. AFib or atrial flutter Renal failure Anemia DM HTN COPD Ileus. Chronic LE wounds Morbid obesity No evidence of acute large CVA this time. RECOMMENDATIONS/PLAN: Coumadin Treat medical diseases per floor team. Treat UTI. Treat pulmonary infiltrate. EEG Palliative care team consulted. Discussed in detail with his and daughter at bedside on 08/04. Brain MRI w/o contrast: No acute findings. HISTORY OF THE PRESENT ILLNESS: 71-y0old male patient with multiple medical diseases has menta status changes, decreased response, and confusion. He has chronic LE wounds and weakness and has not been able to walk normally for 6- 7 months and inability to walk in at least for 2 weeks. He has atrial flutter on Coumadin, but his PT was 78.3 and INR was 10.6, so Coumadin was put on hold. His PT and INR normalized on 07/31 test. PAST MEDICAL HISTORY: Please see above. PAST SURGERY HISTORY: LE wound care. ALLERGY: Unknown MEDICATIONS: Refer to [facility] FAMILY HISTORY: Non contributory. SOCIAL HISTORY: Denies current smoking, drinking, and illicit drug use. REVIEW OF SYSTEMS: Constitutional: No malnutrition, weight loss, cachexia. Head: No recent traumatic brain or head injury. Skin: No edema, or rash. Ear: No infection, tinnitus. Eyes: No vision loss or color blindness. Nose: No bleeding or purulent discharges. Hearing: Hearing decrease. Neck: No recent injury. Cardiac: AFib, HTN. Pulmonary: No COPD. GI: No GI ulcer, GI bleeding. Urinary/genital: UTI. Endocrinologic: Diabetes Mellitus, morbid obesity. Skeletomuscular: Generalized weakness. Neurological: see HP. Psychiatric: Denies drug use/abuse. Otherwise, not [id number] review of systems. PHYSICAL EXAMINATION: General appearance is in subacute distress. HEENT: Normocephalic and nontraumatic. Eyes, nose, ears, and throat are unremarkable. Neck is supple. No lymphadenopathy. No crepitus. Cardiovascular: S1, S2, seemed irregular rate and rhythm. Pulmonary: Decreased breathing sounds to auscultation bilaterally. Abdomen: Bowel sounds are positive. Extremities: Rash, lesions, edema and chronic skin changes in LE. NEUROLOGICAL EXAMINATION: Awake. Not follow commands. Not oriented to time, place but knows his and daughter. PERRL. EOMI CN: no acute focal findings. Muscle tone: decreased, chronic Muscle strength: Movements observed in UE, but not in LE as chronic weakness. DTR: 0-1- due to morbid obesity. Plantar reflex: Neutral response bilaterally Gait: not able to walk for at least 2 weeks per his and 2 months per his niece. Sensory exam: no acute abnormal findings. Not able to access cerebellar signs at this mentation. Not able to F-T-N test due to not follow commands. Objective Objective Vital Signs Date Time Temp Pulse Resp B/P Pulse Ox O2 Delivery O2 Flow Rate FiO2 08/04/16 11:03 Room Air 08/04/16 08:42 72 105/61 08/04/16 07:58 97.5 18 92 97.5 08/03/16 08:00 2.0 Intake and Output 08/04/16 07:00 Intake Total 770 ml Output Total 1325 ml Balance -555 ml Intake Oral 770 ml Output Urine Total 1325 ml Vitals Signs Vitals VS - Last 72 Hours, by Label Date Time Temp Pulse Resp B/P Pulse Ox O2 Delivery O2 Flow Rate FiO2 08/04/16 11:03 Room Air 08/04/16 08:42 72 105/61 08/04/16 08:39 72 105/61 08/04/16 08:00 Room Air 08/04/16 07:58 97.5 72 18 105/61 92 Room Air 97.5 08/04/16 07:21 94 Room Air 08/04/16 03:41 82.9 87 18 119/77 90 Room Air 82.9 08/03/16 23:31 98.8 112 16 113/72 94 Room Air 98.8 08/03/16 23:17 110 129/68 08/03/16 20:00 Room Air 08/03/16 19:52 98.2 110 16 129/68 93 Room Air 98.2 08/03/16 19:42 Room Air 08/03/16 15:31 Room Air 08/03/16 14:41 97.5 111 20 126/85 94 Room Air 97.5 08/03/16 11:25 95 Room Air 08/03/16 11:14 97.5 113 20 114/69 94 Room Air 97.5 08/03/16 09:40 113 132/65 08/03/16 09:37 113 132/65 08/03/16 08:00 95 Room Air 08/03/16 08:00 Room Air 2.0 08/03/16 07:36 98.1 113 20 132/65 94 Room Air 98.1 Laboratory Laboratory Laboratory Tests Test 08/03/16 12:01 08/03/16 16:25 08/03/16 17:40 08/03/16 21:11 Glucose (Fingerstick) 194mg/dL (70-99) 171mg/dL (70-99) 186mg/dL (70-99) Potassium Level 3.1mmol/L (3.5-5.1) Test 08/04/16 04:35 08/04/16 07:19 08/04/16 08:30 White Blood Count 5.6x10^3/uL (4.0-11.0) Red Blood Count 3.22x10^6/uL (4.30-5.70) Hemoglobin 9.1g/dL (13.0-17.5) Hematocrit 28.6% (39.0-53.0) Mean Corpuscular Volume 89fL (79-100) Mean Corpuscular Hemoglobin 28pg (25-35) Mean Corpuscular Hemoglobin Concent 32g/dL (31-37) Red Cell Distribution Width 16.9% (11.5-14.5) Platelet Count 142x10^3/uL (140-400) Neutrophils (%) (Auto) 71% (31-73) Lymphocytes (%) (Auto) 12% (24-48) Monocytes (%) (Auto) 14% (0-9) Eosinophils (%) (Auto) 3% (0-3) Basophils (%) (Auto) 1% (0-3) Neutrophils # (Auto) 3.9x10^3uL (1.8-7.7) Lymphocytes # (Auto) 0.6x10^3/uL (1.0-4.8) Monocytes # (Auto) 0.8x10^3/uL (0.0-1.1) Eosinophils # (Auto) 0.1x10^3/uL (0.0-0.7) Basophils # (Auto) 0.1x10^3/uL (0.0-0.2) Sodium Level 138mmol/L (136-145) Potassium Level 2.9mmol/L (3.5-5.1) Chloride Level 98mmol/L (98-107) Carbon Dioxide Level 29mmol/L (21-32) Anion Gap 11 (6-14) Blood Urea Nitrogen 102mg/dL (8-26) Creatinine 3.5mg/dL (0.7-1.3) Estimated GFR (Cockcroft-Gault) 17.4 BUN/Creatinine Ratio 29 (6-20) Glucose Level 197mg/dL (70-99) Calcium Level 9.0mg/dL (8.5-10.1) Magnesium Level 3.6mg/dL (1.8-2.4) Total Bilirubin 0.7mg/dL (0.2-1.0) Aspartate Amino Transf (AST/SGOT) 38U/L (15-37) Alanine Aminotransferase (ALT/SGPT) 49U/L (16-63) Alkaline Phosphatase 168U/L (46-116) Total Protein 7.1g/dL (6.4-8.2) Albumin 3.4g/dL (3.4-5.0) Albumin/Globulin Ratio 0.9 (1.0-1.7) Glucose (Fingerstick) 195mg/dL (70-99) Prothrombin Time 31.0SEC (11.7-14.0) Prothromb Time International Ratio 3.2 (0.8-1.1) Microbiology 07/30/16 Blood Culture - Preliminary, Resulted NO GROWTH AFTER 4 DAYS 07/30/16 Urine Culture - Final, Complete 07/30/16 Urine Culture Result 1 (VINAYAK) - Final, Complete Medication Medications Current Medications Insulin Aspart (Novolog) 10 units TIDAC SQ Last administered on 08/04/16 09:00 ; Start 08/03/16 at 16:30 Lactulose 20 gm PRN BID PRN PO constipation; Start 08/04/16 at 21:00 Lubiprostone 24 mcg 24 mcg BIDWMEALS PO Last administered on 08/04/16 08:40; Start 08/03/16 at 17:00; Stop 08/04/16 at 09:53; Status DC Potassium Chloride (KCl Premix 10meq) 100 ml @ 100 mls/hr Q1H IV Last administered on 08/04/16 08:38; Start 08/04/16 at 07:00; Stop 08/04/16 at 10:59; Status DC Potassium Chloride (Klor-Con) 30 meq ONCE ONCE PO ; Start 08/04/16 at 12:00; Stop 08/04/16 at 12:01 Comment Review of Relevant I have reviewed the following items alan (where applicable) has been applied. JANEE MCWILLIAMS MD Aug 04, 2016 12:02
--- NOTE | 2016-08-04 14:49 | PDOC ---
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 A littl more awake today CVS: no Orthopnea, no CP RESP: no SOB, no GOMEZ GI: no Nausea, no Vomiting : no Dysuria, no Urgency - son inp alce OBJECTIVE Vital Signs Vital Signs Date Time Temp Pulse Resp B/P Pulse Ox O2 Delivery O2 Flow Rate FiO2 08/04/16 11:03 Room Air 08/04/16 08:42 72 105/61 08/04/16 07:58 97.5 18 92 97.5 08/03/16 08:00 2.0 I & 0 Intake and Output 08/04/16 07:00 Intake Total 770 ml Output Total 1327 ml Balance -557 ml Intake Oral 770 ml Output Urine Total 1325 ml Stool Total 2 ml PHYSICAL EXAM Physical Exam General Appearance: Arousable more Alert Oriented x 1-2 In no Distress Eyes: VIsion Unchanged Conjunctiva Normal EN: No EN Drainage Mucous Memb. dryish Neck: no JVD no JVP Supple no Thyromegaly - thick neck CVS: S1 S2 no Murmur No Gallop No Rub +3 chronic Edema with Ch changes; Resp: no Rales no Rhonchi no Acc. Muscle use GI: BS +ve NO Bruit ? 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 [employer] ASSESSMENT/PLAN Assessment/Plan ARF/ ATN - UO is better. Pt has not wanted to do HD, reiterates same. reviewed Pall Care note too ^ed Mag - D/elizabeth MOM - trending down low K - Repalce IV as ordered - cautiously due to advanced CKD Edema/ Ansarca - Currently acceptable. will see and let us know if she wants diuretics restarted. Encephalopahty - multi-factorial - Cannot R/o some due to Uremia - await Neuro input - If so He and the family have not wanted HD in the past Anemia: start Epogen ifor hgb < 10 HTN: in the past - currently marginal. Discussed Plan of Care and prognosis etc. at length with family () at [facility] COMMENT/RELEVANT DATA Meds Current Medications Medications (Trade) Dose Ordered Sig/Shayne Start Time Stop Time Status Last Admin Dose Admin Acetaminophen (Tylenol) 650 mg TID 07/31/16 14:00 08/04/16 08:39 650 MG Albumin Human (Albuminar) 100 ml @ 100 mls/hr TID 08/02/16 14:00 08/04/16 09:59 DC 08/04/16 08:38 100 MLS/HR Albuterol Sulfate 2.5 mg 2.5 mg PRN Q4HRS PRN 07/30/16 19:00 Albuterol/ Ipratropium (Duoneb) 3 ml QIDACHS 07/30/16 21:00 08/04/16 11:00 3 ML Bisacodyl (Dulcolax Supp) 10 mg PRN DAILY PRN 07/31/16 09:15 08/03/16 16:31 10 MG Ceftriaxone Sodium/Sodium Chloride (Rocephin/Iv Sodium Chloride 0.9% 50ml) 50 ml @ 100 mls/hr Q24H 07/31/16 16:00 08/03/16 16:50 100 MLS/HR Ceftriaxone Sodium 50 ml @ 100 mls/hr 1X ONCE 07/30/16 16:45 07/30/16 17:14 DC 07/30/16 17:00 100 MLS/HR Darbepoetin Davey (Aranesp) 60 mcg WEEKLYHS 08/01/16 21:00 08/01/16 21:46 60 MCG Dextrose 12.5 gm PRN Q15MIN PRN 07/31/16 09:15 Diclofenac Sodium (Voltaren) 1 mike TID 07/31/16 10:00 08/04/16 14:00 1 MIKE Diltiazem HCl (Cardizem 24hr Cd) 120 mg DAILY 08/01/16 09:00 08/04/16 08:42 120 MG Fluconazole/ Sodium Chloride (Diflucan 200mg/ 100ml Premix) 100 ml @ 100 mls/hr 1X ONCE 07/30/16 16:45 07/30/16 17:44 DC 07/30/16 17:53 100 MLS/HR Fluoxetine HCl (Prozac) 20 mg HS 07/31/16 21:00 08/03/16 23:17 20 MG Furosemide (Lasix) 60 mg [id number] 07/31/16 09:30 08/01/16 11:13 DC 08/01/16 08:48 60 MG Gabapentin (Neurontin) 200 mg HS 07/31/16 21:00 08/03/16 23:16 200 MG Info (Do NOT chart on this placeholder) 1 each PRN DAILY PRN 07/31/16 01:30 Cancel Insulin Aspart (Novolog) 10 units TIDAC 08/03/16 16:30 08/04/16 09:00 10 UNITS Insulin Detemir (Levemir) 20 units QHS 07/31/16 21:00 08/03/16 23:20 20 UNITS Lactulose 20 gm PRN BID PRN 08/04/16 21:00 Lubiprostone 24 mcg 24 mcg BIDWMEALS 08/03/16 17:00 08/04/16 09:53 DC 08/04/16 08:40 24 MCG Lubiprostone 8 mcg 8 mcg BIDWMEALS 08/02/16 17:00 08/03/16 12:20 DC 08/03/16 09:37 8 MCG Magnesium Hydroxide (Milk Of Magnesia) 400 mg DAILY PRN 07/31/16 09:15 08/02/16 13:01 DC Metoprolol Tartrate (Lopressor) 50 mg BID 07/31/16 09:30 08/04/16 08:39 50 MG Mineral Oil (Fleet Mineral Oil) 133 ml 1X ONCE 07/31/16 11:15 07/31/16 11:16 DC 07/31/16 14:15 133 ML Morphine Sulfate 2 mg PRN Q2HR PRN 07/30/16 18:45 07/31/16 18:44 DC Mupirocin (Bactroban) 1 mike BID 07/31/16 09:30 08/03/16 23:22 1 MIKE Ondansetron HCl (Zofran Odt) 4 mg PRN Q6HRS PRN 07/31/16 09:30 Ondansetron HCl (Zofran) 4 mg PRN Q8HRS PRN 07/30/16 18:45 07/31/16 13:46 DC Ondansetron HCl 4 mg 4 mg PRN Q6HRS PRN 07/30/16 19:00 Phytonadione 2.5 mg 2.5 mg 1X ONCE 07/30/16 19:00 07/30/16 19:01 DC 07/30/16 19:17 2.5 MG Phytonadione/ Sodium Chloride (Vitamin K/Iv Sodium Chloride 0.9% 50ml) 51 ml @ 102 mls/hr 1X ONCE 07/30/16 20:00 07/30/16 20:29 DC 07/30/16 20:38 102 MLS/HR Polyethylene Glycol (miraLAX PACKET) 17 gm DAILY 07/31/16 11:15 08/03/16 09:42 17 GM Potassium Chloride (KCl Premix 10meq) 100 ml @ 100 mls/hr Q1H 08/04/16 07:00 08/04/16 10:59 DC 08/04/16 08:38 100 MLS/HR Potassium Chloride (Klor-Con) 30 meq ONCE ONCE 08/04/16 12:00 08/04/16 12:01 DC 08/04/16 12:39 30 MEQ Sennosides (Senna) 8.6 mg HS 07/31/16 21:00 08/03/16 23:17 8.6 MG Sodium Chloride (Iv Sodium Chloride 0.9% 1000ml Bag) 1,000 ml @ 100 mls/hr 1X ONCE 07/30/16 19:00 07/31/16 04:59 DC 07/30/16 23:11 100 MLS/HR Tamsulosin HCl (Flomax) 0.4 mg HS 07/31/16 21:00 08/03/16 21:00 0.4 MG Tramadol HCl (Ultram) 50 mg PRN Q6HRS PRN 07/31/16 09:15 Warfarin Sodium (Coumadin - No Dose Today) 1 each 1X WARF ONCE 08/04/16 16:00 08/04/16 16:01 Warfarin Sodium (Coumadin Per Pharmacy) 1 each PRN DAILY PRN 08/04/16 14:30 08/04/16 14:32 1 EACH Warfarin Sodium (Coumadin Per Physician) 1 each PRN DAILY PRN 07/31/16 11:15 08/04/16 14:24 DC 08/03/16 16:32 1 EACH Warfarin Sodium (Coumadin) 6 mg DAILY16 07/31/16 16:00 08/04/16 14:24 DC 08/03/16 16:47 6 MG Lab Laboratory Tests Test 08/03/16 16:25 08/03/16 17:40 08/03/16 21:11 08/04/16 04:35 Glucose (Fingerstick) 171mg/dL (70-99) 186mg/dL (70-99) Potassium Level 3.1mmol/L (3.5-5.1) 2.9mmol/L (3.5-5.1) White Blood Count 5.6x10^3/uL (4.0-11.0) Red Blood Count 3.22x10^6/uL (4.30-5.70) Hemoglobin 9.1g/dL (13.0-17.5) Hematocrit 28.6% (39.0-53.0) Mean Corpuscular Volume 89fL (79-100) Mean Corpuscular Hemoglobin 28pg (25-35) Mean Corpuscular Hemoglobin Concent 32g/dL (31-37) Red Cell Distribution Width 16.9% (11.5-14.5) Platelet Count 142x10^3/uL (140-400) Neutrophils (%) (Auto) 71% (31-73) Lymphocytes (%) (Auto) 12% (24-48) Monocytes (%) (Auto) 14% (0-9) Eosinophils (%) (Auto) 3% (0-3) Basophils (%) (Auto) 1% (0-3) Neutrophils # (Auto) 3.9x10^3uL (1.8-7.7) Lymphocytes # (Auto) 0.6x10^3/uL (1.0-4.8) Monocytes # (Auto) 0.8x10^3/uL (0.0-1.1) Eosinophils # (Auto) 0.1x10^3/uL (0.0-0.7) Basophils # (Auto) 0.1x10^3/uL (0.0-0.2) Sodium Level 138mmol/L (136-145) Chloride Level 98mmol/L (98-107) Carbon Dioxide Level 29mmol/L (21-32) Anion Gap 11 (6-14) Blood Urea Nitrogen 102mg/dL (8-26) Creatinine 3.5mg/dL (0.7-1.3) Estimated GFR (Cockcroft-Gault) 17.4 BUN/Creatinine Ratio 29 (6-20) Glucose Level 197mg/dL (70-99) Calcium Level 9.0mg/dL (8.5-10.1) Magnesium Level 3.6mg/dL (1.8-2.4) Total Bilirubin 0.7mg/dL (0.2-1.0) Aspartate Amino Transf (AST/SGOT) 38U/L (15-37) Alanine Aminotransferase (ALT/SGPT) 49U/L (16-63) Alkaline Phosphatase 168U/L (46-116) Total Protein 7.1g/dL (6.4-8.2) Albumin 3.4g/dL (3.4-5.0) Albumin/Globulin Ratio 0.9 (1.0-1.7) Test 08/04/16 07:19 08/04/16 08:30 08/04/16 12:28 08/04/16 12:50 Glucose (Fingerstick) 195mg/dL (70-99) 170mg/dL (70-99) Prothrombin Time 31.0SEC (11.7-14.0) Prothromb Time International Ratio 3.2 (0.8-1.1) Potassium Level 3.0mmol/L (3.5-5.1) CHERRY DORADO MD Aug 04, 2016 14:49
[2016-08-04 14:55] VITALS: BP 113/83
--- NOTE | 2016-08-04 15:20 | RAD ---
Indication nausea vomiting. Abdominal pain. History of ileus. Supine films of the abdomen were obtained and are compared to an examination one day earlier. There is dilatation of the large bowel similar to slightly improved relative to the previous exam
[2016-08-04] MEDS: PANTOPRAZOLE 40 MG TABLET. PO SCH (15:30)
[2016-08-04] MEDS: CEFTRIAXONE SODIUM 1 GM in IV NORMAL SALINE 50ML 50 ML IV SCH (18:55)
[2016-08-04 19:00] VITALS: BP 104/68
[2016-08-04] MEDS ORDERED: LACTULOSE 20 GM/30 ML SOLUTION. PO PRN (21:00)
[2016-08-04] MEDS: GABAPENTIN 100 MG CAPSULE. PO SCH (21:06)
[2016-08-04] MEDS: SENNOSIDES 8.6 MG TABLET PO SCH (21:06)
[2016-08-04] MEDS: TAMSULOSIN 0.4 MG CAP.ER.24H. PO SCH (21:06)
[2016-08-04] MEDS: FLUOXETINE HCL 20 MG CAPSULE PO SCH (21:06)
[2016-08-04] MEDS: INSULIN DETEMIR 300 UNITS/3 ML INSULN.PEN. SQ SCH (21:17)
[2016-08-04 23:26] VITALS: BP 107/77
--- NOTE | 2016-08-05 02:27 | EEG ---
DATE OF SERVICE: 08/04/2016 EEG NUMBER: [id number] OBJECTIVE: This is a 71-year-old male patient with history of mental status changes and confusion. EEG was requested to evaluate the cerebral activity and help rule out subclinical seizure. METHOD: Twenty electrodes were applied according to the international 10-20 electrode placement system. EKG monitoring, hyperventilation, intermittent photic stimulation, monopolar and bipolar montages are routinely utilized. The record was obtained on a digital system with video monitoring. FINDINGS: 1. Background: The patient was recorded in the awake, drowsy and sleep states. The overall background amplitude is 10-20 microvolts. The posterior dominant rhythm is not well organized and is in 6-7 Hz range with superimposed mixture in theta and delta frequencies. 2. Abnormalities: No specific epileptiform discharge or electrographic seizure is seen. Diffuse slowing in theta and delta frequencies is throughout the entire recording. 3. Activation: Hyperventilation was not performed because of the patient was unable to follow the commands. Intermittent photic stimulation was performed with photic driving. IMPRESSION: This EEG is an abnormal study for the awake, drowsy, and sleep states. No awake and the sleep differentiation. The posterior dominant rhythm is not well organized and is in 6-7 Hz range that is slow for age. There is a superimposed slowing in theta and delta frequencies throughout the entire recording. No focal, lateralizing, specific epileptiform discharge or electrographic seizure is seen. This pattern of EEG may suggest diffuse encephalopathy. JANEE MCWILLIAMS MD DR: MIRIAM/suad JOB#: [id number] / [id number] VIMAL
[2016-08-05 03:00] VITALS: BP 107/65
[2016-08-05 07:00] VITALS: BP 137/47
[2016-08-05 07:17] LABS: BASO % 1 % (0-3); EOS % 2 % (0-3); HEMATOCRIT 28.4 % (39.0-53.0); HEMOGLOBIN 9.2 g/dL (13.0-17.5); LYMPH # 0.8 x10^3/uL (1.0-4.8); LYMPH % 15 % (24-48); MEAN CORPUSCULAR HEMOGLOBIN 29 pg (25-35); MEAN CORPUSCULAR HGB CONC 32 g/dL (31-37); MEAN CORPUSCULAR VOLUME 88 fL (79-100); MONO % 13 % (0-9); NEUT % 68 % (31-73); PLATELET COUNT 133 x10^3/uL (140-400); RED BLOOD COUNT 3.22 x10^6/uL (4.30-5.70); RED CELL DISTRIBUTION WIDTH 17.1 % (11.5-14.5); WHITE BLOOD COUNT 5.2 x10^3/uL (4.0-11.0)
[2016-08-05] MEDS: IPRATRPIUM/ALBUTEROL 0.5/2.5MG 3 ML NEBU. NEB SCH ×4 (07:20→21:00)
[2016-08-05 07:31] LABS: INR 4.1 (0.8-1.1); PROTHROMBIN TIME PATIENT 37.7 SEC (11.7-14.0)
[2016-08-05 07:40] LABS: ALBUMIN/GLOBULIN RATIO 0.9 (1.0-1.7); CALCIUM 9.1 mg/dL (8.5-10.1); CREATININE 3.7 mg/dL (0.7-1.3); GFR 16.3; MAGNESIUM 3.7 mg/dL (1.8-2.4); TOTAL BILIRUBIN 0.5 mg/dL (0.2-1.0); TOTAL PROTEIN 6.3 g/dL (6.4-8.2)
[2016-08-05] MEDS: ACETAMINOPHEN 325 MG TABLET. PO SCH ×3 (08:56→20:26)
[2016-08-05] MEDS: POLYETHYLENE GLYCOL 3350 17 GM PACKET. PO SCH (08:56)
[2016-08-05] MEDS: PANTOPRAZOLE 40 MG TABLET. PO SCH (08:56)
[2016-08-05] MEDS: DILTIAZEM HCL 120 MG CAP.ER.24H PO SCH (08:56)
[2016-08-05] MEDS: METOPROLOL TART IMMED RELEASE 50 MG TABLET PO SCH ×2 (08:56→20:29)
[2016-08-05] MEDS: DICLOFENAC SODIUM 1% TOPICAL GEL 100GM TUBE. TP SCH ×3 (09:00→20:37)
[2016-08-05] MEDS: MUPIROCIN 2 % TOPICAL CREAM 15GM TUBE. TP SCH ×2 (09:00→20:42)
[2016-08-05] MEDS: INSULIN ASPART 300 UNITS/3 ML INSULN.PEN SQ SCH ×6 (09:03→17:00)
--- NOTE | 2016-08-05 10:48 | PDOC ---
PROGRESS NOTES Chief Complaint Chief Complaint 1. Delirium on chronic worsening dementia 2. Sepsis 3. UTI 4. dehydration 5. BREANNA 6. Constipation 7. CKD4 8. Hypercoag 9. aflutter 10. HTN 11. DM 12. COPD 13. FTT 14. Lymphedema 15. SMALL sacral wound 16. Gout 17. BPH 18. Sacral Ulcer History of Present Illness History of Present Illness Pt resting comfortably in bed pleasant confused. and family at bedside today states that pt has been stooling well. Pt did pull out IV over the night with some slight agitation. All questions and concerns addressed and answered. Vitals Vitals Vital Signs Date Time Temp Pulse Resp B/P Pulse Ox O2 Delivery O2 Flow Rate FiO2 08/05/16 08:56 105 107/65 08/05/16 08:00 Room Air 08/05/16 07:00 98.1 18 99 98.1 Physical Exam General: Alert, Cooperative, No acute distress, Other (lethargic, sleeping comfortably, able to answer yes or no questions once aroused) Heart: Regular rate, Normal S1, Normal S2, No murmurs Lungs: Clear, Other (No wheezes present) Abdomen: Normal bowel sounds, Other (TTP LLQ) Extremities: Other (massive woody edema with hyperkeratotic changes bilaterally on both lower extremities) Skin: Other (small sacral decub present) Labs LABS Laboratory Tests Test 08/04/16 12:28 08/04/16 12:50 08/04/16 16:05 08/04/16 17:32 Glucose (Fingerstick) 170mg/dL (70-99) 165mg/dL (70-99) Potassium Level 3.0mmol/L (3.5-5.1) 3.0mmol/L (3.5-5.1) Test 08/04/16 20:59 08/04/16 21:08 08/05/16 06:10 08/05/16 08:37 Glucose (Fingerstick) 179mg/dL (70-99) 187mg/dL (70-99) 152mg/dL (70-99) White Blood Count 5.2x10^3/uL (4.0-11.0) Red Blood Count 3.22x10^6/uL (4.30-5.70) Hemoglobin 9.2g/dL (13.0-17.5) Hematocrit 28.4% (39.0-53.0) Mean Corpuscular Volume 88fL (79-100) Mean Corpuscular Hemoglobin 29pg (25-35) Mean Corpuscular Hemoglobin Concent 32g/dL (31-37) Red Cell Distribution Width 17.1% (11.5-14.5) Platelet Count 133x10^3/uL (140-400) Neutrophils (%) (Auto) 68% (31-73) Lymphocytes (%) (Auto) 15% (24-48) Monocytes (%) (Auto) 13% (0-9) Eosinophils (%) (Auto) 2% (0-3) Basophils (%) (Auto) 1% (0-3) Neutrophils # (Auto) 3.6x10^3uL (1.8-7.7) Lymphocytes # (Auto) 0.8x10^3/uL (1.0-4.8) Monocytes # (Auto) 0.7x10^3/uL (0.0-1.1) Eosinophils # (Auto) 0.1x10^3/uL (0.0-0.7) Basophils # (Auto) 0.0x10^3/uL (0.0-0.2) Prothrombin Time 37.7SEC (11.7-14.0) Prothromb Time International Ratio 4.1 (0.8-1.1) Sodium Level 138mmol/L (136-145) Potassium Level 3.0mmol/L (3.5-5.1) Chloride Level 98mmol/L (98-107) Carbon Dioxide Level 29mmol/L (21-32) Anion Gap 11 (6-14) Blood Urea Nitrogen 108mg/dL (8-26) Creatinine 3.7mg/dL (0.7-1.3) Estimated GFR (Cockcroft-Gault) 16.3 BUN/Creatinine Ratio 29 (6-20) Glucose Level 167mg/dL (70-99) Calcium Level 9.1mg/dL (8.5-10.1) Magnesium Level 3.7mg/dL (1.8-2.4) Total Bilirubin 0.5mg/dL (0.2-1.0) Aspartate Amino Transf (AST/SGOT) 29U/L (15-37) Alanine Aminotransferase (ALT/SGPT) 40U/L (16-63) Alkaline Phosphatase 164U/L (46-116) Total Protein 6.3g/dL (6.4-8.2) Albumin 3.0g/dL (3.4-5.0) Albumin/Globulin Ratio 0.9 (1.0-1.7) Review of Systems Review of Systems Patient complaint of hunger Patient complaint of fatigue Assessment and Plan Assessmemt and Plan Problems Medical Problems: (1) Acute kidney injury Status: Acute (2) Altered mental status Status: Acute (3) Supratherapeutic INR Status: Acute Assessment: 1. Delirium on chronic worsening dementia 2. Sepsis 3. UTI 4. dehydration 5. BREANNA 6. Constipation 7. CKD4 8. Hypercoag 9. aflutter 10. HTN 11. DM 12. COPD 13. FTT 14. Lymphedema 15. SMALL sacral wound 16. Gout 17. BPH 18. Sacral Ulcer Plan: Continue to monitor the patient per floor protocol Continue to monitor daily labs Daily PTOT DW RN Await EEG results per Neurology recommendation Appreciate all subspecialty input and evaluation Problems: Comment Review of Relevant I have reviewed the following items alan (where applicable) has been applied. Labs Laboratory Tests Test 08/03/16 11:53 08/03/16 12:01 08/03/16 16:25 08/03/16 17:40 Potassium Level 3.1mmol/L (3.5-5.1) 3.1mmol/L (3.5-5.1) Glucose (Fingerstick) 194mg/dL (70-99) 171mg/dL (70-99) Test 08/03/16 21:11 08/04/16 04:35 08/04/16 07:19 08/04/16 08:30 Glucose (Fingerstick) 186mg/dL (70-99) 195mg/dL (70-99) White Blood Count 5.6x10^3/uL (4.0-11.0) Red Blood Count 3.22x10^6/uL (4.30-5.70) Hemoglobin 9.1g/dL (13.0-17.5) Hematocrit 28.6% (39.0-53.0) Mean Corpuscular Volume 89fL (79-100) Mean Corpuscular Hemoglobin 28pg (25-35) Mean Corpuscular Hemoglobin Concent 32g/dL (31-37) Red Cell Distribution Width 16.9% (11.5-14.5) Platelet Count 142x10^3/uL (140-400) Neutrophils (%) (Auto) 71% (31-73) Lymphocytes (%) (Auto) 12% (24-48) Monocytes (%) (Auto) 14% (0-9) Eosinophils (%) (Auto) 3% (0-3) Basophils (%) (Auto) 1% (0-3) Neutrophils # (Auto) 3.9x10^3uL (1.8-7.7) Lymphocytes # (Auto) 0.6x10^3/uL (1.0-4.8) Monocytes # (Auto) 0.8x10^3/uL (0.0-1.1) Eosinophils # (Auto) 0.1x10^3/uL (0.0-0.7) Basophils # (Auto) 0.1x10^3/uL (0.0-0.2) Sodium Level 138mmol/L (136-145) Potassium Level 2.9mmol/L (3.5-5.1) Chloride Level 98mmol/L (98-107) Carbon Dioxide Level 29mmol/L (21-32) Anion Gap 11 (6-14) Blood Urea Nitrogen 102mg/dL (8-26) Creatinine 3.5mg/dL (0.7-1.3) Estimated GFR (Cockcroft-Gault) 17.4 BUN/Creatinine Ratio 29 (6-20) Glucose Level 197mg/dL (70-99) Calcium Level 9.0mg/dL (8.5-10.1) Magnesium Level 3.6mg/dL (1.8-2.4) Total Bilirubin 0.7mg/dL (0.2-1.0) Aspartate Amino Transf (AST/SGOT) 38U/L (15-37) Alanine Aminotransferase (ALT/SGPT) 49U/L (16-63) Alkaline Phosphatase 168U/L (46-116) Total Protein 7.1g/dL (6.4-8.2) Albumin 3.4g/dL (3.4-5.0) Albumin/Globulin Ratio 0.9 (1.0-1.7) Prothrombin Time 31.0SEC (11.7-14.0) Prothromb Time International Ratio 3.2 (0.8-1.1) Test 08/04/16 12:28 08/04/16 12:50 08/04/16 16:05 08/04/16 17:32 Glucose (Fingerstick) 170mg/dL (70-99) 165mg/dL (70-99) Potassium Level 3.0mmol/L (3.5-5.1) 3.0mmol/L (3.5-5.1) Test 08/04/16 20:59 08/04/16 21:08 08/05/16 06:10 08/05/16 08:37 Glucose (Fingerstick) 179mg/dL (70-99) 187mg/dL (70-99) 152mg/dL (70-99) White Blood Count 5.2x10^3/uL (4.0-11.0) Red Blood Count 3.22x10^6/uL (4.30-5.70) Hemoglobin 9.2g/dL (13.0-17.5) Hematocrit 28.4% (39.0-53.0) Mean Corpuscular Volume 88fL (79-100) Mean Corpuscular Hemoglobin 29pg (25-35) Mean Corpuscular Hemoglobin Concent 32g/dL (31-37) Red Cell Distribution Width 17.1% (11.5-14.5) Platelet Count 133x10^3/uL (140-400) Neutrophils (%) (Auto) 68% (31-73) Lymphocytes (%) (Auto) 15% (24-48) Monocytes (%) (Auto) 13% (0-9) Eosinophils (%) (Auto) 2% (0-3) Basophils (%) (Auto) 1% (0-3) Neutrophils # (Auto) 3.6x10^3uL (1.8-7.7) Lymphocytes # (Auto) 0.8x10^3/uL (1.0-4.8) Monocytes # (Auto) 0.7x10^3/uL (0.0-1.1) Eosinophils # (Auto) 0.1x10^3/uL (0.0-0.7) Basophils # (Auto) 0.0x10^3/uL (0.0-0.2) Prothrombin Time 37.7SEC (11.7-14.0) Prothromb Time International Ratio 4.1 (0.8-1.1) Sodium Level 138mmol/L (136-145) Potassium Level 3.0mmol/L (3.5-5.1) Chloride Level 98mmol/L (98-107) Carbon Dioxide Level 29mmol/L (21-32) Anion Gap 11 (6-14) Blood Urea Nitrogen 108mg/dL (8-26) Creatinine 3.7mg/dL (0.7-1.3) Estimated GFR (Cockcroft-Gault) 16.3 BUN/Creatinine Ratio 29 (6-20) Glucose Level 167mg/dL (70-99) Calcium Level 9.1mg/dL (8.5-10.1) Magnesium Level 3.7mg/dL (1.8-2.4) Total Bilirubin 0.5mg/dL (0.2-1.0) Aspartate Amino Transf (AST/SGOT) 29U/L (15-37) Alanine Aminotransferase (ALT/SGPT) 40U/L (16-63) Alkaline Phosphatase 164U/L (46-116) Total Protein 6.3g/dL (6.4-8.2) Albumin 3.0g/dL (3.4-5.0) Albumin/Globulin Ratio 0.9 (1.0-1.7) Laboratory Tests Test 08/04/16 12:28 08/04/16 12:50 08/04/16 16:05 08/04/16 17:32 Glucose (Fingerstick) 170mg/dL (70-99) 165mg/dL (70-99) Potassium Level 3.0mmol/L (3.5-5.1) 3.0mmol/L (3.5-5.1) Test 08/04/16 20:59 08/04/16 21:08 08/05/16 06:10 08/05/16 08:37 Glucose (Fingerstick) 179mg/dL (70-99) 187mg/dL (70-99) 152mg/dL (70-99) White Blood Count 5.2x10^3/uL (4.0-11.0) Red Blood Count 3.22x10^6/uL (4.30-5.70) Hemoglobin 9.2g/dL (13.0-17.5) Hematocrit 28.4% (39.0-53.0) Mean Corpuscular Volume 88fL (79-100) Mean Corpuscular Hemoglobin 29pg (25-35) Mean Corpuscular Hemoglobin Concent 32g/dL (31-37) Red Cell Distribution Width 17.1% (11.5-14.5) Platelet Count 133x10^3/uL (140-400) Neutrophils (%) (Auto) 68% (31-73) Lymphocytes (%) (Auto) 15% (24-48) Monocytes (%) (Auto) 13% (0-9) Eosinophils (%) (Auto) 2% (0-3) Basophils (%) (Auto) 1% (0-3) Neutrophils # (Auto) 3.6x10^3uL (1.8-7.7) Lymphocytes # (Auto) 0.8x10^3/uL (1.0-4.8) Monocytes # (Auto) 0.7x10^3/uL (0.0-1.1) Eosinophils # (Auto) 0.1x10^3/uL (0.0-0.7) Basophils # (Auto) 0.0x10^3/uL (0.0-0.2) Prothrombin Time 37.7SEC (11.7-14.0) Prothromb Time International Ratio 4.1 (0.8-1.1) Sodium Level 138mmol/L (136-145) Potassium Level 3.0mmol/L (3.5-5.1) Chloride Level 98mmol/L (98-107) Carbon Dioxide Level 29mmol/L (21-32) Anion Gap 11 (6-14) Blood Urea Nitrogen 108mg/dL (8-26) Creatinine 3.7mg/dL (0.7-1.3) Estimated GFR (Cockcroft-Gault) 16.3 BUN/Creatinine Ratio 29 (6-20) Glucose Level 167mg/dL (70-99) Calcium Level 9.1mg/dL (8.5-10.1) Magnesium Level 3.7mg/dL (1.8-2.4) Total Bilirubin 0.5mg/dL (0.2-1.0) Aspartate Amino Transf (AST/SGOT) 29U/L (15-37) Alanine Aminotransferase (ALT/SGPT) 40U/L (16-63) Alkaline Phosphatase 164U/L (46-116) Total Protein 6.3g/dL (6.4-8.2) Albumin 3.0g/dL (3.4-5.0) Albumin/Globulin Ratio 0.9 (1.0-1.7) Microbiology 07/30/16 Blood Culture - Final, Complete NO GROWTH AFTER 5 DAYS 07/30/16 Urine Culture - Final, Complete 07/30/16 Urine Culture Result 1 (VINAYAK) - Final, Complete Medications Current Medications Ceftriaxone Sodium 50 ml @ 100 mls/hr 1X ONCE IV Last administered on 17:00; Start 07/30/16 at 16:45; Stop 07/30/16 at 17:14; Status DC Fluconazole/ Sodium Chloride (Diflucan 200mg/ 100ml Premix) 100 ml @ 100 mls/ hr 1X ONCE IV Last administered on 07/30/16 17:53; Start 07/30/16 at 16:45; Stop 07/30/16 at 17:44; Status DC Ondansetron HCl (Zofran) 4 mg PRN Q8HRS PRN IV NAUSEA/VOMITING; Start 07/30/16 at 18:45; Stop 07/31/16 at 13:46; Status DC Morphine Sulfate 2 mg PRN Q2HR PRN IV PAIN; Start 07/30/16 at 18:45; Stop at 18:44; Status DC Insulin Aspart (Novolog) 0-7 UNITS TIDWMEALS SQ Last administered on 08/05/16 09:03; Start 07/31/16 at 08:00 Dextrose 12.5 gm PRN Q15MIN PRN IV SEE COMMENTS; Start 07/30/16 at 18:45; Stop 07/31/16 at 13:45; Status DC Phytonadione 2.5 mg 2.5 mg 1X ONCE PO Last administered on 07/30/16 19:17; Start 07/30/16 at 19:00; Stop 07/30/16 at 19:01; Status DC Sodium Chloride 500 ml @ 500 mls/hr 1X ONCE IV Last administered on 07/30/16 19:00; Start 07/30/16 at 19:00; Stop 07/30/16 at 19:59; Status DC Ceftriaxone Sodium/Sodium Chloride (Rocephin/Iv Sodium Chloride 0.9% 50ml) 50 ml @ 100 mls/hr Q24H IV Last administered on 08/04/16 18:55; Start 07/31/16 at 16:00 Acetaminophen (Tylenol) 650 mg PRN Q6HRS PRN PO FEVER; Start 07/30/16 at 19:00 Ondansetron HCl 4 mg 4 mg PRN Q6HRS PRN IV NAUSEA; Start 07/30/16 at 19:00 Sodium Chloride (Iv Sodium Chloride 0.9% 1000ml Bag) 1,000 ml @ 100 mls/hr 1X ONCE IV Last administered on 07/30/16 23:11; Start 07/30/16 at 19:00; Stop at 04:59; Status DC Albuterol/ Ipratropium (Duoneb) 3 ml QIDACHS NEB Last administered on 08/04/16 18:58; Start 07/30/16 at 21:00 Albuterol Sulfate 2.5 mg 2.5 mg PRN Q4HRS PRN NEB SHORTNESS OF BREATH; Start at 19:00 Phytonadione/ Sodium Chloride (Vitamin K/Iv Sodium Chloride 0.9% 50ml) 51 ml @ 102 mls/hr 1X ONCE IV Last administered on 07/30/16 20:38; Start 07/30/16 at 20 :00; Stop 07/30/16 at 20:29; Status DC Info (Do NOT chart on this placeholder) 1 each PRN DAILY PRN MC UNABLE TO RESPOND; Start 07/31/16 at 01:30; Status Cancel Acetaminophen (Tylenol) 650 mg TID PO Last administered on 08/05/16 08:56; Start 07/31/16 at 14:00 Bisacodyl (Dulcolax Supp) 10 mg PRN DAILY PRN RC CONSTIPATION Last administered on 08/03/16 16:31; Start 07/31/16 at 09:15 Diclofenac Sodium (Voltaren) 1 kathryn TID TP Last administered on 08/05/16 09:00; Start 07/31/16 at 10:00 Diltiazem HCl (Cardizem 24hr Cd) 120 mg DAILY PO Last administered on 08/04/16 08:42; Start 08/01/16 at 09:00; Stop 08/05/16 at 08:48; Status DC Fluoxetine HCl (Prozac) 20 mg HS PO Last administered on 08/04/16 21:06; Start 07/31/16 at 21:00 Furosemide (Lasix) 60 mg BID92 PO Last administered on 08/01/16 08:48; Start at 09:30; Stop 08/01/16 at 11:13; Status DC Gabapentin (Neurontin) 200 mg HS PO Last administered on 08/04/16 21:06; Start 07/31/16 at 21:00 Magnesium Hydroxide (Milk Of Magnesia) 400 mg DAILY PRN PO CONSTIPATION; Start 07/31/16 at 09:15; Stop 08/02/16 at 13:01; Status DC Metoprolol Tartrate (Lopressor) 50 mg BID PO Last administered on 08/05/16 08: 56; Start 07/31/16 at 09:30 Mupirocin (Bactroban) 1 kathryn BID TP Last administered on 08/05/16 09:00; Start 07/31/16 at 09:30 Sennosides (Senna) 8.6 mg HS PO Last administered on 08/04/16 21:06; Start 07/31 at 21:00 Tamsulosin HCl (Flomax) 0.4 mg HS PO Last administered on 08/04/16 21:06; Start 07/31/16 at 21:00 Tramadol HCl (Ultram) 50 mg PRN Q6HRS PRN PO PAIN; Start 07/31/16 at 09:15 Insulin Aspart (Novolog) 12 units TIDAC SQ Last administered on 08/01/16 12:43 ; Start 07/31/16 at 16:30; Stop 08/01/16 at 13:23; Status DC Ondansetron HCl (Zofran Odt) 4 mg PRN Q6HRS PRN PO NAUSEA; Start 07/31/16 at 09: 30 Insulin Detemir (Levemir) 20 units QHS SQ Last administered on 08/04/16 21:17; Start 07/31/16 at 21:00 Insulin Aspart (Novolog) 0-9 UNITS TIDWMEALS SQ ; Start 07/31/16 at 12:00; Stop 07/31/16 at 12:00; Status DC Dextrose 12.5 gm PRN Q15MIN PRN IV SEE COMMENTS; Start 07/31/16 at 09:15 Warfarin Sodium (Coumadin) 6 mg DAILY16 PO Last administered on 08/03/16 16:47 ; Start 07/31/16 at 16:00; Stop 08/04/16 at 14:24; Status DC Mineral Oil (Fleet Mineral Oil) 133 ml 1X ONCE VA Last administered on 14:15; Start 07/31/16 at 11:15; Stop 07/31/16 at 11:16; Status DC Polyethylene Glycol (miraLAX PACKET) 17 gm DAILY PO Last administered on 08:56; Start 07/31/16 at 11:15 Warfarin Sodium (Coumadin Per Physician) 1 each PRN DAILY PRN MC SEE COMMENTS Last administered on 08/03/16 16:32; Start 07/31/16 at 11:15; Stop 08/04/16 at 14: 24; Status DC Lactulose 20 gm PRN Q2HR PRN PO until BM Last administered on 08/02/16 11:38; Start 08/01/16 at 11:15; Stop 08/04/16 at 09:53; Status DC Darbepoetin Davey (Aranesp) 100 mcg WEEKLYHS SQ Last administered on 08/01/16 21 :45; Start 08/01/16 at 21:00 Darbepoetin Davey (Aranesp) 60 mcg WEEKLYHS SQ Last administered on 08/01/16 21: 46; Start 08/01/16 at 21:00 Insulin Aspart (Novolog) 12 units TIDAC SQ Last administered on 08/02/16 12:03 ; Start 08/01/16 at 13:23; Stop 08/03/16 at 11:33; Status DC Potassium Chloride (Klor-Con) 40 meq 1X ONCE PO Last administered on 08/02/16 11:38; Start 08/02/16 at 11:00; Stop 08/02/16 at 11:01; Status DC Lubiprostone 8 mcg 8 mcg BIDWMEALS PO Last administered on 08/03/16 09:37; Start 08/02/16 at 17:00; Stop 08/03/16 at 12:20; Status DC Albumin Human (Albuminar) 100 ml @ 100 mls/hr TID IV Last administered on 08:38; Start 08/02/16 at 14:00; Stop 08/04/16 at 09:59; Status DC Potassium Chloride (Klor-Con) 40 meq QIDPRN PRN PO for K < 3.7; Start 08/03/16 at 11:00 Insulin Aspart (Novolog) 10 units TIDAC SQ Last administered on 08/05/16 09:03 ; Start 08/03/16 at 16:30 Lubiprostone 24 mcg 24 mcg BIDWMEALS PO Last administered on 08/04/16 08:40; Start 08/03/16 at 17:00; Stop 08/04/16 at 09:53; Status DC Potassium Chloride (KCl Premix 10meq) 100 ml @ 100 mls/hr Q1H IV Last administered on 08/04/16 08:38; Start 08/04/16 at 07:00; Stop 08/04/16 at 10:59; Status DC Lactulose 20 gm PRN BID PRN PO constipation; Start 08/04/16 at 21:00 Potassium Chloride (Klor-Con) 30 meq ONCE ONCE PO Last administered on 12:39; Start 08/04/16 at 12:00; Stop 08/04/16 at 12:01; Status DC Warfarin Sodium (Coumadin Per Pharmacy) 1 each PRN DAILY PRN MC SEE COMMENTS Last administered on 08/04/16 14:32; Start 08/04/16 at 14:30 Warfarin Sodium (Coumadin - No Dose Today) 1 each 1X WARF ONCE MC Last administered on 08/04/16 16:42; Start 08/04/16 at 16:00; Stop 08/04/16 at 16:01; Status DC Pantoprazole Sodium (Protonix) 40 mg DAILYAC PO Last administered on 08/05/16 08:56; Start 08/04/16 at 15:30 Diltiazem HCl (Cardizem 24hr Cd) 120 mg DAILY PO Last administered on 08/05/16t 08:56; Start 08/05/16 at 09:00 Active Scripts Active Reported Keflex (Cephalexin) 500 Mg Capsule 1 Cap PO TID Zofran (Ondansetron Hcl) 4 Mg Tablet 1 Tab PO Q6HRS PRN [Mylanta] 30 Ml PO PRN Q4HRS PRN [Fleet Enema] 1 Applic RC DAILY PRN Dulcolax (Bisacodyl) 10 Mg Supp.rect 10 Mg RC PRN DAILY PRN Milk Of Magnesia (Magnesium Hydroxide) 400 Mg/5 Ml Oral.susp 400 Mg PO DAILY PRN Senokot (Sennosides) 8.6 Mg Tablet 1 Tab PO HS Tamsulosin Hcl 0.4 Mg Cap.er.24h 0.4 Mg PO HS Metoprolol Tartrate 50 Mg Tablet 50 Mg PO BID Tramadol Hcl 50 Mg Tablet 50 Mg PO Q6H PRN [Glycolax] 17 Gm PO DAILY PRN Cardizem Cd (Diltiazem Hcl) 180 Mg Cap.er.24h 120 Mg PO DAILY Allopurinol 300 Mg Tablet 300 Mg PO DAILY Lasix (Furosemide) 20 Mg Tablet 60 Mg PO BID Colcrys (Colchicine) 0.6 Mg Tablet 0.6 Mg PO BID Humalog (Insulin Lispro) 100 Unit/1 Ml Cartridge 12 Unit SQ TIDAC Voltaren (Diclofenac Sodium) 100 Gm Gel..gram. 1 Gm TP TID Bactroban Cream (Mupirocin) 15 Gm Cream..g. 1 Kathryn TP BID Tylenol (Acetaminophen) 325 Mg Tablet 650 Mg PO TID Prozac (Fluoxetine Hcl) 20 Mg Capsule 1 Cap PO HS Gabapentin 100 Mg Capsule 200 Mg PO HS Coumadin (Warfarin Sodium) 5 Mg Tablet 5 Mg PO DAILY [Lantus] 30 Units SQ HS Vitals/I & O Vital Sign - Last 24 Hours 08/04/16 08/04/16 08/04/16 08/04/16 11:03 14:55 16:54 19:00 Temp 97.3 97.3 Pulse 111 Resp 18 B/P 113/83 Pulse Ox 95 100 O2 Delivery Room Air Room Air Room Air Room Air 08/04/16 08/04/16 08/04/16 08/04/16 19:00 20:25 21:07 23:26 Temp 97.4 97.5 97.4 97.5 Pulse 114 114 113 Resp 16 16 B/P 104/68 104/68 107/77 Pulse Ox 95 95 O2 Delivery Room Air Room Air Room Air 08/05/16 08/05/16 08/05/16 08/05/16 03:00 07:00 08:00 08:56 Temp 97.7 98.1 97.7 98.1 Pulse 105 113 105 Resp 16 18 B/P 107/65 137/47 107/65 Pulse Ox 95 99 O2 Delivery Room Air Room Air Room Air 08/05/16 08:56 Pulse 105 B/P 107/65 Intake and Output 08/04/16 08/04/16 08/05/16 15:00 23:00 07:00 Intake Total 300 ml 390 ml Output Total 3 ml 250 ml 200 ml Balance -3 ml 50 ml 190 ml RODERICK MELENDEZ III DO Aug 05, 2016 10:48
--- NOTE | 2016-08-05 11:42 | PDOC ---
Subjective: Subjective: Alone in room. Objective: Objective: Per RN - reports of large BM yesterday, has had smears of stool this morning, no recurrent vomiting, eating some. Vital Signs: Vital Signs Date Time Temp Pulse Resp B/P Pulse Ox O2 Delivery O2 Flow Rate FiO2 08/05/16 08:56 105 107/65 08/05/16 08:00 Room Air 08/05/16 07:00 98.1 18 99 98.1 Labs: Laboratory Tests Test 08/04/16 12:28 08/04/16 12:50 08/04/16 16:05 08/04/16 17:32 Glucose (Fingerstick) 170mg/dL 165mg/dL Potassium Level 3.0mmol/L 3.0mmol/L Test 08/04/16 20:59 08/04/16 21:08 08/05/16 06:10 08/05/16 08:37 Glucose (Fingerstick) 179mg/dL 187mg/dL 152mg/dL White Blood Count 5.2x10^3/uL Red Blood Count 3.22x10^6/uL Hemoglobin 9.2g/dL Hematocrit 28.4% Mean Corpuscular Volume 88fL Mean Corpuscular Hemoglobin 29pg Mean Corpuscular Hemoglobin Concent 32g/dL Red Cell Distribution Width 17.1% Platelet Count 133x10^3/uL Neutrophils (%) (Auto) 68% Lymphocytes (%) (Auto) 15% Monocytes (%) (Auto) 13% Eosinophils (%) (Auto) 2% Basophils (%) (Auto) 1% Neutrophils # (Auto) 3.6x10^3uL Lymphocytes # (Auto) 0.8x10^3/uL Monocytes # (Auto) 0.7x10^3/uL Eosinophils # (Auto) 0.1x10^3/uL Basophils # (Auto) 0.0x10^3/uL Prothrombin Time 37.7SEC Prothromb Time International Ratio 4.1 Sodium Level 138mmol/L Potassium Level 3.0mmol/L Chloride Level 98mmol/L Carbon Dioxide Level 29mmol/L Anion Gap 11 Blood Urea Nitrogen 108mg/dL Creatinine 3.7mg/dL Estimated GFR (Cockcroft-Gault) 16.3 BUN/Creatinine Ratio 29 Glucose Level 167mg/dL Calcium Level 9.1mg/dL Magnesium Level 3.7mg/dL Total Bilirubin 0.5mg/dL Aspartate Amino Transf (AST/SGOT) 29U/L Alanine Aminotransferase (ALT/SGPT) 40U/L Alkaline Phosphatase 164U/L Total Protein 6.3g/dL Albumin 3.0g/dL Albumin/Globulin Ratio 0.9 Imaging: KUB 08/04/16 There is dilatation of the large bowel similar to slightly improved relative to the previous exam. PE: GEN: NAD LUNGS: clear anteriorly HEART: S1S2 ABD: BS+ but quiet, a bit softer compared to yesterday, says "it hurts" NEURO/PSYCH: seems confused A/P: Constipation -colonoscopy ~1 year ago Abd distention/?ileus -second KUB as above Vomiting - resolved AMS, CKD, elevated INR -per neuro, renal, primary -- Continue Miralax - will restart Amitiza. GIRMA CASEY Aug 05, 2016 11:42
[2016-08-05] MEDS ORDERED: POTASSIUM CHLORIDE 20 MEQ TABLET.ER. PO ONE (12:30)
[2016-08-05 15:00] VITALS: BP 108/66
[2016-08-05] MEDS: CEFTRIAXONE SODIUM 1 GM in IV NORMAL SALINE 50ML 50 ML IV SCH (15:43)
[2016-08-05] MEDS: LUBIPROSTONE 8 MCG CAPSULE PO SCH (17:00)
--- NOTE | 2016-08-05 17:04 | PDOC2 ---
PALLIATIVE CARE Palliative Care Note Palliative Care Patient remains confused and agitated at time. Await results of EEG. would like to meet tomorrow when results of EEG are available. Plan 1130 meeting tomorrow. ACE ANTONIO Aug 05, 2016 17:04
--- NOTE | 2016-08-05 17:18 | PDOC ---
SUBJECTIVE ROS CKD IV/V - ? Uremia Had NV previously unable to get ROS from pt. He remains confused and encephalopahtic OBJECTIVE Vital Signs Vital Signs Date Time Temp Pulse Resp B/P Pulse Ox O2 Delivery O2 Flow Rate FiO2 08/05/16 16:26 100 Room Air 08/05/16 08:56 105 107/65 08/05/16 07:00 98.1 18 98.1 I & 0 Intake and Output 08/05/16 07:00 Intake Total 690 ml Output Total 453 ml Balance 237 ml Intake Oral 690 ml Output Urine Total 450 ml Stool Total 2 ml Emesis 1 ml PHYSICAL EXAM Physical Exam General Appearance: less Arousable not as Alert today Oriented x barely 1 In no Distress Eyes: VIsion Unchanged Conjunctiva Normal EN: No EN Drainage Mucous Memb. dryish Neck: no JVD no JVP Supple no Thyromegaly - thick neck CVS: S1 S2 no Murmur No Gallop No Rub +3 chronic Edema with Ch changes; Resp: no Rales no Rhonchi no Acc. Muscle use GI: BS +ve NO Bruit ? Tender Non Distended - Obese : no CVA tenderness; no Suprapubic Tenderness [employer] LE[employer] ? [employer] ASSESSMENT/PLAN Assessment/Plan CKD IV/ V - Pt has not wanted to do HD, reiterates same. reviewed Pall Care note too; I had a long discussion with the re Honoring his wishes, considering Hospice and comfort measures V/S a trial of HD and once he is more oriented - he can make a decision re continuing the same. Defer further information to Pall Care team ^ed Mag - D/elizabeth MOM - trending down low K - Repalce IV as ordered once IV access can be established - cautiously due to advanced CKD - PO intake remains Poor Edema/ Ansarca - Currently acceptable. will see and let us know if she wants diuretics restarted. Encephalopahty - multi-factorial - Cannot R/o some due to Uremia - await Neuro input - If so He and the family have not wanted HD in the past Anemia: start Epogen ifor hgb < 10 HTN: in the past - currently marginal. Discussed Plan of Care and prognosis etc. at length with family () at bedside; await her discussion withPall care team in am COMMENT/RELEVANT DATA Meds Current Medications Medications (Trade) Dose Ordered Sig/Shayne Start Time Stop Time Status Last Admin Dose Admin Acetaminophen (Tylenol) 650 mg TID 07/31/16 14:00 08/05/16 08:56 650 MG Albumin Human (Albuminar) 100 ml @ 100 mls/hr TID 08/02/16 14:00 08/04/16 09:59 DC 08/04/16 08:38 100 MLS/HR Albuterol Sulfate 2.5 mg 2.5 mg PRN Q4HRS PRN 07/30/16 19:00 Albuterol/ Ipratropium (Duoneb) 3 ml QIDACHS 07/30/16 21:00 08/05/16 16:25 3 ML Bisacodyl (Dulcolax Supp) 10 mg PRN DAILY PRN 07/31/16 09:15 08/03/16 16:31 10 MG Ceftriaxone Sodium/Sodium Chloride (Rocephin/Iv Sodium Chloride 0.9% 50ml) 50 ml @ 100 mls/hr Q24H 07/31/16 16:00 08/05/16 15:43 100 MLS/HR Ceftriaxone Sodium 50 ml @ 100 mls/hr 1X ONCE 07/30/16 16:45 07/30/16 17:14 DC 07/30/16 17:00 100 MLS/HR Darbepoetin Davey (Aranesp) 60 mcg WEEKLYHS 08/01/16 21:00 08/01/16 21:46 60 MCG Dextrose 12.5 gm PRN Q15MIN PRN 07/31/16 09:15 Diclofenac Sodium (Voltaren) 1 mike TID 07/31/16 10:00 08/05/16 13:12 1 MIKE Diltiazem HCl (Cardizem 24hr Cd) 120 mg DAILY 08/05/16 09:00 08/05/16 08:56 120 MG Fluconazole/ Sodium Chloride (Diflucan 200mg/ 100ml Premix) 100 ml @ 100 mls/hr 1X ONCE 07/30/16 16:45 07/30/16 17:44 DC 07/30/16 17:53 100 MLS/HR Fluoxetine HCl (Prozac) 20 mg HS 07/31/16 21:00 08/04/16 21:06 20 MG Furosemide (Lasix) 60 mg BID92 07/31/16 09:30 08/01/16 11:13 DC 08/01/16 08:48 60 MG Gabapentin (Neurontin) 200 mg HS 07/31/16 21:00 08/04/16 21:06 200 MG Info (Do NOT chart on this placeholder) 1 each PRN DAILY PRN 07/31/16 01:30 Cancel Insulin Aspart (Novolog) 10 units TIDAC 08/03/16 16:30 08/05/16 09:03 10 UNITS Insulin Detemir (Levemir) 20 units QHS 07/31/16 21:00 08/04/16 21:17 20 UNITS Lactulose 20 gm PRN BID PRN 08/04/16 21:00 Lubiprostone (Amitiza) 24 mcg BIDWMEALS 08/05/16 17:00 Lubiprostone 24 mcg 24 mcg BIDWMEALS 08/03/16 17:00 08/04/16 09:53 DC 08/04/16 08:40 24 MCG Lubiprostone 8 mcg 8 mcg BIDWMEALS 08/02/16 17:00 08/03/16 12:20 DC 08/03/16 09:37 8 MCG Magnesium Hydroxide (Milk Of Magnesia) 400 mg DAILY PRN 07/31/16 09:15 08/02/16 13:01 DC Metoprolol Tartrate (Lopressor) 50 mg BID 07/31/16 09:30 08/05/16 08:56 50 MG Mineral Oil (Fleet Mineral Oil) 133 ml 1X ONCE 07/31/16 11:15 07/31/16 11:16 DC 07/31/16 14:15 133 ML Morphine Sulfate 2 mg PRN Q2HR PRN 07/30/16 18:45 07/31/16 18:44 DC Mupirocin (Bactroban) 1 mike BID 07/31/16 09:30 08/05/16 09:00 1 MIKE Ondansetron HCl (Zofran Odt) 4 mg PRN Q6HRS PRN 07/31/16 09:30 Ondansetron HCl (Zofran) 4 mg PRN Q8HRS PRN 07/30/16 18:45 07/31/16 13:46 DC Ondansetron HCl 4 mg 4 mg PRN Q6HRS PRN 07/30/16 19:00 Pantoprazole Sodium (Protonix) 40 mg DAILYAC 08/04/16 15:30 08/05/16 08:56 40 MG Phytonadione 2.5 mg 2.5 mg 1X ONCE 07/30/16 19:00 07/30/16 19:01 DC 07/30/16 19:17 2.5 MG Phytonadione/ Sodium Chloride (Vitamin K/Iv Sodium Chloride 0.9% 50ml) 51 ml @ 102 mls/hr 1X ONCE 07/30/16 20:00 07/30/16 20:29 DC 07/30/16 20:38 102 MLS/HR Polyethylene Glycol (miraLAX PACKET) 17 gm DAILY 07/31/16 11:15 08/05/16 08:56 17 GM Potassium Chloride (KCl Premix 10meq) 100 ml @ 100 mls/hr Q1H 08/04/16 07:00 08/04/16 10:59 DC 08/04/16 08:38 100 MLS/HR Potassium Chloride (Klor-Con) 40 meq 1X ONCE 08/05/16 12:30 08/05/16 12:31 DC 08/05/16 12:37 40 MEQ Sennosides (Senna) 8.6 mg HS 07/31/16 21:00 08/04/16 21:06 8.6 MG Sodium Chloride (Iv Sodium Chloride 0.9% 1000ml Bag) 1,000 ml @ 100 mls/hr 1X ONCE 07/30/16 19:00 07/31/16 04:59 DC 07/30/16 23:11 100 MLS/HR Tamsulosin HCl (Flomax) 0.4 mg HS 07/31/16 21:00 08/04/16 21:06 0.4 MG Tramadol HCl (Ultram) 50 mg PRN Q6HRS PRN 07/31/16 09:15 Warfarin Sodium (Coumadin - No Dose Today) 1 each 1X WARF ONCE 08/05/16 16:00 08/05/16 16:01 DC 08/05/16 15:12 1 EACH Warfarin Sodium (Coumadin Per Pharmacy) 1 each PRN DAILY PRN 08/04/16 14:30 08/05/16 14:14 1 EACH Warfarin Sodium (Coumadin Per Physician) 1 each PRN DAILY PRN 07/31/16 11:15 08/04/16 14:24 DC 08/03/16 16:32 1 EACH Warfarin Sodium (Coumadin) 6 mg DAILY16 07/31/16 16:00 08/04/16 14:24 DC 08/03/16 16:47 6 MG Lab Laboratory Tests Test 08/04/16 17:32 08/04/16 20:59 08/04/16 21:08 08/05/16 06:10 Potassium Level 3.0mmol/L (3.5-5.1) 3.0mmol/L (3.5-5.1) Glucose (Fingerstick) 179mg/dL (70-99) 187mg/dL (70-99) White Blood Count 5.2x10^3/uL (4.0-11.0) Red Blood Count 3.22x10^6/uL (4.30-5.70) Hemoglobin 9.2g/dL (13.0-17.5) Hematocrit 28.4% (39.0-53.0) Mean Corpuscular Volume 88fL (79-100) Mean Corpuscular Hemoglobin 29pg (25-35) Mean Corpuscular Hemoglobin Concent 32g/dL (31-37) Red Cell Distribution Width 17.1% (11.5-14.5) Platelet Count 133x10^3/uL (140-400) Neutrophils (%) (Auto) 68% (31-73) Lymphocytes (%) (Auto) 15% (24-48) Monocytes (%) (Auto) 13% (0-9) Eosinophils (%) (Auto) 2% (0-3) Basophils (%) (Auto) 1% (0-3) Neutrophils # (Auto) 3.6x10^3uL (1.8-7.7) Lymphocytes # (Auto) 0.8x10^3/uL (1.0-4.8) Monocytes # (Auto) 0.7x10^3/uL (0.0-1.1) Eosinophils # (Auto) 0.1x10^3/uL (0.0-0.7) Basophils # (Auto) 0.0x10^3/uL (0.0-0.2) Prothrombin Time 37.7SEC (11.7-14.0) Prothromb Time International Ratio 4.1 (0.8-1.1) Sodium Level 138mmol/L (136-145) Chloride Level 98mmol/L (98-107) Carbon Dioxide Level 29mmol/L (21-32) Anion Gap 11 (6-14) Blood Urea Nitrogen 108mg/dL (8-26) Creatinine 3.7mg/dL (0.7-1.3) Estimated GFR (Cockcroft-Gault) 16.3 BUN/Creatinine Ratio 29 (6-20) Glucose Level 167mg/dL (70-99) Calcium Level 9.1mg/dL (8.5-10.1) Magnesium Level 3.7mg/dL (1.8-2.4) Total Bilirubin 0.5mg/dL (0.2-1.0) Aspartate Amino Transf (AST/SGOT) 29U/L (15-37) Alanine Aminotransferase (ALT/SGPT) 40U/L (16-63) Alkaline Phosphatase 164U/L (46-116) Total Protein 6.3g/dL (6.4-8.2) Albumin 3.0g/dL (3.4-5.0) Albumin/Globulin Ratio 0.9 (1.0-1.7) Test 08/05/16 08:37 08/05/16 11:50 08/05/16 12:21 Glucose (Fingerstick) 152mg/dL (70-99) 129mg/dL (70-99) Potassium Level 2.8mmol/L (3.5-5.1) CHERRY DORADO MD Aug 05, 2016 17:18
--- NOTE | 2016-08-05 17:54 | PDOC ---
PROGRESS NOTES Assessment Assessment Metabolic encephalopathy. Bilateral lower lobe infiltrate. UTI Vomiting. AFib or atrial flutter Renal failure Anemia DM HTN COPD Ileus. Chronic LE wounds Morbid obesity No evidence of acute large CVA this time. RECOMMENDATIONS/PLAN: Coumadin Treat medical diseases per floor team. Treat UTI. Treat pulmonary infiltrate. EEG Palliative care team consulted. Discussed in detail with his and daughter at bedside on 08/04. Brain MRI w/o contrast: No acute findings. HISTORY OF THE PRESENT ILLNESS: 71-y0old male patient with multiple medical diseases has menta status changes, decreased response, and confusion. He has chronic LE wounds and weakness and has not been able to walk normally for 6- 7 months and inability to walk in at least for 2 weeks. He has atrial flutter on Coumadin, but his PT was 78.3 and INR was 10.6, so Coumadin was put on hold. His PT and INR normalized on 07/31 test. PAST MEDICAL HISTORY: Please see above. PAST SURGERY HISTORY: LE wound care. ALLERGY: Unknown MEDICATIONS: Refer to [facility] FAMILY HISTORY: Non contributory. SOCIAL HISTORY: Denies current smoking, drinking, and illicit drug use. REVIEW OF SYSTEMS: Constitutional: No malnutrition, weight loss, cachexia. Head: No recent traumatic brain or head injury. Skin: No edema, or rash. Ear: No infection, tinnitus. Eyes: No vision loss or color blindness. Nose: No bleeding or purulent discharges. Hearing: Hearing decrease. Neck: No recent injury. Cardiac: AFib, HTN. Pulmonary: No COPD. GI: No GI ulcer, GI bleeding. Urinary/genital: UTI. Endocrinologic: Diabetes Mellitus, morbid obesity. Skeletomuscular: Generalized weakness. Neurological: see HP. Psychiatric: Denies drug use/abuse. Otherwise, not [id number] review of systems. PHYSICAL EXAMINATION: General appearance is in subacute distress. HEENT: Normocephalic and nontraumatic. Eyes, nose, ears, and throat are unremarkable. Neck is supple. No lymphadenopathy. No crepitus. Cardiovascular: S1, S2, seemed irregular rate and rhythm. Pulmonary: Decreased breathing sounds to auscultation bilaterally. Abdomen: Bowel sounds are positive. Extremities: Rash, lesions, edema and chronic skin changes in LE. NEUROLOGICAL EXAMINATION: Drowsiness but arousable. Not able to communicate nor follow commands. Not oriented to time, place but knows his and daughter. PERRL. EOMI CN: no acute focal findings. Muscle tone: decreased, chronic Muscle strength: Movements observed in UE, but not in LE as chronic weakness. DTR: 0-1- due to morbid obesity. Plantar reflex: Neutral response bilaterally Gait: not able to walk for at least 2 weeks per his and 2 months per his niece. Sensory exam: no acute abnormal findings. Not able to access cerebellar signs at this mentation. Not able to F-T-N test due to not follow commands. Objective Objective Vital Signs Date Time Temp Pulse Resp B/P Pulse Ox O2 Delivery O2 Flow Rate FiO2 08/05/16 16:26 100 Room Air 08/05/16 15:00 97.7 113 18 108/66 97.7 Intake and Output 08/05/16 07:00 Intake Total 690 ml Output Total 453 ml Balance 237 ml Intake Oral 690 ml Output Urine Total 450 ml Stool Total 2 ml Emesis 1 ml Vitals Signs Vitals VS - Last 72 Hours, by Label Date Time Temp Pulse Resp B/P Pulse Ox O2 Delivery O2 Flow Rate FiO2 08/05/16 16:26 100 Room Air 08/05/16 15:00 97.7 113 18 108/66 95 Room Air 97.7 08/05/16 11:38 100 Room Air 08/05/16 08:56 105 107/65 08/05/16 08:56 105 107/65 08/05/16 08:00 Room Air 08/05/16 07:00 98.1 113 18 137/47 99 Room Air 98.1 08/05/16 03:00 97.7 105 16 107/65 95 Room Air 97.7 08/04/16 23:26 97.5 113 16 107/77 95 Room Air 97.5 08/04/16 21:07 114 104/68 08/04/16 20:25 Room Air 08/04/16 19:00 97.4 114 16 104/68 95 Room Air 97.4 08/04/16 19:00 100 Room Air 08/04/16 16:54 Room Air 08/04/16 14:55 97.3 111 18 113/83 95 Room Air 97.3 08/04/16 11:03 Room Air 08/04/16 08:42 72 105/61 2/8/17 08:39 72 105/61 08/04/16 08:00 Room Air 08/04/16 07:58 97.5 72 18 105/61 92 Room Air 97.5 08/04/16 07:21 94 Room Air Laboratory Laboratory Laboratory Tests Test 08/04/16 20:59 08/04/16 21:08 08/05/16 06:10 08/05/16 08:37 Glucose (Fingerstick) 179mg/dL (70-99) 187mg/dL (70-99) 152mg/dL (70-99) White Blood Count 5.2x10^3/uL (4.0-11.0) Red Blood Count 3.22x10^6/uL (4.30-5.70) Hemoglobin 9.2g/dL (13.0-17.5) Hematocrit 28.4% (39.0-53.0) Mean Corpuscular Volume 88fL (79-100) Mean Corpuscular Hemoglobin 29pg (25-35) Mean Corpuscular Hemoglobin Concent 32g/dL (31-37) Red Cell Distribution Width 17.1% (11.5-14.5) Platelet Count 133x10^3/uL (140-400) Neutrophils (%) (Auto) 68% (31-73) Lymphocytes (%) (Auto) 15% (24-48) Monocytes (%) (Auto) 13% (0-9) Eosinophils (%) (Auto) 2% (0-3) Basophils (%) (Auto) 1% (0-3) Neutrophils # (Auto) 3.6x10^3uL (1.8-7.7) Lymphocytes # (Auto) 0.8x10^3/uL (1.0-4.8) Monocytes # (Auto) 0.7x10^3/uL (0.0-1.1) Eosinophils # (Auto) 0.1x10^3/uL (0.0-0.7) Basophils # (Auto) 0.0x10^3/uL (0.0-0.2) Prothrombin Time 37.7SEC (11.7-14.0) Prothromb Time International Ratio 4.1 (0.8-1.1) Sodium Level 138mmol/L (136-145) Potassium Level 3.0mmol/L (3.5-5.1) Chloride Level 98mmol/L (98-107) Carbon Dioxide Level 29mmol/L (21-32) Anion Gap 11 (6-14) Blood Urea Nitrogen 108mg/dL (8-26) Creatinine 3.7mg/dL (0.7-1.3) Estimated GFR (Cockcroft-Gault) 16.3 BUN/Creatinine Ratio 29 (6-20) Glucose Level 167mg/dL (70-99) Calcium Level 9.1mg/dL (8.5-10.1) Magnesium Level 3.7mg/dL (1.8-2.4) Total Bilirubin 0.5mg/dL (0.2-1.0) Aspartate Amino Transf (AST/SGOT) 29U/L (15-37) Alanine Aminotransferase (ALT/SGPT) 40U/L (16-63) Alkaline Phosphatase 164U/L (46-116) Total Protein 6.3g/dL (6.4-8.2) Albumin 3.0g/dL (3.4-5.0) Albumin/Globulin Ratio 0.9 (1.0-1.7) Test 08/05/16 11:50 08/05/16 12:21 08/05/16 17:23 Potassium Level 2.8mmol/L (3.5-5.1) Glucose (Fingerstick) 129mg/dL (70-99) 173mg/dL (70-99) Microbiology 07/30/16 Blood Culture - Final, Complete NO GROWTH AFTER 5 DAYS 07/30/16 Urine Culture - Final, Complete 07/30/16 Urine Culture Result 1 (VINAYAK) - Final, Complete Medication Medications Current Medications Diltiazem HCl (Cardizem 24hr Cd) 120 mg DAILY PO Last administered on 08/05/16 08:56; Start 08/05/16 at 09:00 Lactulose 20 gm PRN BID PRN PO constipation; Start 08/04/16 at 21:00 Lubiprostone (Amitiza) 24 mcg BIDWMEALS PO ; Start 08/05/16 at 17:00 Potassium Chloride (Klor-Con) 40 meq 1X ONCE PO Last administered on 08/05/16 12:37; Start 08/05/16 at 12:30; Stop 08/05/16 at 12:31; Status DC Warfarin Sodium (Coumadin - No Dose Today) 1 each 1X WARF ONCE MC Last administered on 08/05/16t 15:12; Start 08/05/16 at 16:00; Stop 08/05/16 at 16:01; Status DC Comment Review of Relevant I have reviewed the following items alan (where applicable) has been applied. JANEE MCWILLIAMS MD Aug 05, 2016 17:54
[2016-08-05 19:15] VITALS: BP 113/72
[2016-08-05] MEDS: FLUOXETINE HCL 20 MG CAPSULE PO SCH (20:26)
[2016-08-05] MEDS: GABAPENTIN 100 MG CAPSULE. PO SCH (20:26)
[2016-08-05] MEDS: TAMSULOSIN 0.4 MG CAP.ER.24H. PO SCH (20:26)
[2016-08-05] MEDS: SENNOSIDES 8.6 MG TABLET PO SCH (20:29)
[2016-08-05] MEDS: INSULIN DETEMIR 300 UNITS/3 ML INSULN.PEN. SQ SCH (20:42)
[2016-08-05 23:30] VITALS: BP 113/93
[2016-08-06 02:33] VITALS: BP 122/81
[2016-08-06 04:27] LABS: BASO % 1 % (0-3); EOS % 3 % (0-3); HEMATOCRIT 28.5 % (39.0-53.0); HEMOGLOBIN 9.4 g/dL (13.0-17.5); LYMPH # 0.8 x10^3/uL (1.0-4.8); LYMPH % 17 % (24-48); MEAN CORPUSCULAR HEMOGLOBIN 29 pg (25-35); MEAN CORPUSCULAR HGB CONC 33 g/dL (31-37); MEAN CORPUSCULAR VOLUME 88 fL (79-100); MONO % 13 % (0-9); NEUT % 67 % (31-73); PLATELET COUNT 149 x10^3/uL (140-400); RED BLOOD COUNT 3.25 x10^6/uL (4.30-5.70); RED CELL DISTRIBUTION WIDTH 17.3 % (11.5-14.5); WHITE BLOOD COUNT 4.9 x10^3/uL (4.0-11.0)
[2016-08-06 04:44] LABS: PROTHROMBIN TIME PATIENT 42.6 SEC (11.7-14.0)
[2016-08-06 04:52] LABS: INR 4.8 (0.8-1.1)
[2016-08-06 05:15] LABS: CALCIUM 9.1 mg/dL (8.5-10.1); CREATININE 3.8 mg/dL (0.7-1.3); GFR 15.8; POTASSIUM 3.3 mmol/L (3.5-5.1)
[2016-08-06 07:00] VITALS: BP 120/82
[2016-08-06] MEDS: INSULIN ASPART 300 UNITS/3 ML INSULN.PEN SQ SCH ×6 (07:30→17:00)
[2016-08-06] MEDS: PANTOPRAZOLE 40 MG TABLET. PO SCH (07:30)
[2016-08-06] MEDS: LUBIPROSTONE 8 MCG CAPSULE PO SCH ×2 (08:00→17:00)
[2016-08-06] MEDS: IPRATRPIUM/ALBUTEROL 0.5/2.5MG 3 ML NEBU. NEB SCH ×4 (08:20→19:00)
[2016-08-06] MEDS: DICLOFENAC SODIUM 1% TOPICAL GEL 100GM TUBE. TP SCH ×3 (09:00→21:03)
[2016-08-06] MEDS: MUPIROCIN 2 % TOPICAL CREAM 15GM TUBE. TP SCH ×2 (09:00→21:03)
[2016-08-06] MEDS: POLYETHYLENE GLYCOL 3350 17 GM PACKET. PO SCH (09:00)
[2016-08-06] MEDS: ACETAMINOPHEN 325 MG TABLET. PO SCH ×3 (09:00→21:02)
[2016-08-06] MEDS: METOPROLOL TART IMMED RELEASE 50 MG TABLET PO SCH ×2 (09:00→21:00)
[2016-08-06] MEDS: DILTIAZEM HCL 120 MG CAP.ER.24H PO SCH (09:00)
--- NOTE | 2016-08-06 10:02 | PDOC ---
Objective: Objective: Per family - no change. Per RN - some smears of stool. Vital Signs: Vital Signs Date Time Temp Pulse Resp B/P Pulse Ox O2 Delivery O2 Flow Rate FiO2 08/06/16 08:21 99 Room Air 08/06/16 07:00 97.5 116 20 120/82 97.5 Labs: Laboratory Tests Test 08/05/16 12:21 08/05/16 17:23 08/05/16 20:30 08/06/16 07:53 Glucose (Fingerstick) 129mg/dL (70-99) 173mg/dL (70-99) 174mg/dL (70-99) 167mg/dL (70-99) PE: GEN: NAD NEURO/PSYCH: confused A/P: Constipation AMS, CKD -- Family has decided to take pt home for comfort care. GIRMA CASEY Aug 06, 2016 10:02 ELINOR DELGADO MD Aug 06, 2016 10:15
[2016-08-06 11:00] VITALS: BP 116/80
--- NOTE | 2016-08-06 11:07 | PDOC ---
PROGRESS NOTES Chief Complaint Chief Complaint 1. Delirium on chronic worsening dementia 2. Sepsis 3. UTI 4. dehydration 5. BREANNA 6. Constipation 7. CKD4 8. Hypercoag 9. aflutter 10. HTN 11. DM 12. COPD 13. FTT 14. Lymphedema 15. SMALL sacral wound 16. Gout 17. BPH 18. Sacral Ulcer History of Present Illness History of Present Illness Pt resting comfortably in bed pleasant confused. and family at bedside today. In depth discussion regarding home health, hospice, and inpatient care. Discussed with family 5 different hospice companies. All questions and concerns addressed and answered. Vitals Vitals Vital Signs Date Time Temp Pulse Resp B/P Pulse Ox O2 Delivery O2 Flow Rate FiO2 08/06/16 08:21 99 Room Air 08/06/16 07:00 97.5 116 20 120/82 97.5 Physical Exam General: Alert, Cooperative, No acute distress, Other (lethargic, sleeping comfortably, able to answer yes or no questions once aroused) Heart: Regular rate, Normal S1, Normal S2, No murmurs Lungs: Clear, Other (No wheezes present) Abdomen: Normal bowel sounds, Other (TTP LLQ) Extremities: Other (massive woody edema with hyperkeratotic changes bilaterally on both lower extremities) Skin: Other (small sacral decub present) Labs LABS Laboratory Tests Test 08/05/16 11:50 08/05/16 12:21 08/05/16 17:23 08/05/16 20:00 Potassium Level 2.8mmol/L (3.5-5.1) 3.3mmol/L (3.5-5.1) Glucose (Fingerstick) 129mg/dL (70-99) 173mg/dL (70-99) Test 08/05/16 20:30 08/06/16 04:05 08/06/16 07:53 Glucose (Fingerstick) 174mg/dL (70-99) 167mg/dL (70-99) White Blood Count 4.9x10^3/uL (4.0-11.0) Red Blood Count 3.25x10^6/uL (4.30-5.70) Hemoglobin 9.4g/dL (13.0-17.5) Hematocrit 28.5% (39.0-53.0) Mean Corpuscular Volume 88fL (79-100) Mean Corpuscular Hemoglobin 29pg (25-35) Mean Corpuscular Hemoglobin Concent 33g/dL (31-37) Red Cell Distribution Width 17.3% (11.5-14.5) Platelet Count 149x10^3/uL (140-400) Neutrophils (%) (Auto) 67% (31-73) Lymphocytes (%) (Auto) 17% (24-48) Monocytes (%) (Auto) 13% (0-9) Eosinophils (%) (Auto) 3% (0-3) Basophils (%) (Auto) 1% (0-3) Neutrophils # (Auto) 3.2x10^3uL (1.8-7.7) Lymphocytes # (Auto) 0.8x10^3/uL (1.0-4.8) Monocytes # (Auto) 0.7x10^3/uL (0.0-1.1) Eosinophils # (Auto) 0.1x10^3/uL (0.0-0.7) Basophils # (Auto) 0.0x10^3/uL (0.0-0.2) Prothrombin Time 42.6SEC (11.7-14.0) Prothromb Time International Ratio 4.8 (0.8-1.1) Sodium Level 137mmol/L (136-145) Potassium Level 3.3mmol/L (3.5-5.1) Chloride Level 98mmol/L (98-107) Carbon Dioxide Level 31mmol/L (21-32) Anion Gap 8 (6-14) Blood Urea Nitrogen 119mg/dL (8-26) Creatinine 3.8mg/dL (0.7-1.3) Estimated GFR (Cockcroft-Gault) 15.8 Glucose Level 180mg/dL (70-99) Calcium Level 9.1mg/dL (8.5-10.1) Review of Systems Review of Systems Complaint of hunger Complaint of fatigue Assessment and Plan Assessmemt and Plan Problems Medical Problems: (1) Acute kidney injury Status: Acute (2) Altered mental status Status: Acute (3) Supratherapeutic INR Status: Acute Assessment: 1. Delirium on chronic worsening dementia 2. Sepsis 3. UTI 4. dehydration 5. BREANNA 6. Constipation 7. CKD4 8. Hypercoag 9. aflutter 10. HTN 11. DM 12. COPD 13. FTT 14. Lymphedema 15. SMALL sacral wound 16. Gout 17. BPH 18. Sacral Ulcer Plan: Continue to monitor the patient per floor protocol Daily labs PTOT STEPHANIE RN Discussed with family 5 different hospice companies. Appreciate all subspecialty input Wound care Problems: Comment Review of Relevant I have reviewed the following items alan (where applicable) has been applied. Labs Laboratory Tests Test 08/04/16 12:28 08/04/16 12:50 08/04/16 16:05 08/04/16 17:32 Glucose (Fingerstick) 170mg/dL (70-99) 165mg/dL (70-99) Potassium Level 3.0mmol/L (3.5-5.1) 3.0mmol/L (3.5-5.1) Test 08/04/16 20:59 08/04/16 21:08 08/05/16 06:10 08/05/16 08:37 Glucose (Fingerstick) 179mg/dL (70-99) 187mg/dL (70-99) 152mg/dL (70-99) White Blood Count 5.2x10^3/uL (4.0-11.0) Red Blood Count 3.22x10^6/uL (4.30-5.70) Hemoglobin 9.2g/dL (13.0-17.5) Hematocrit 28.4% (39.0-53.0) Mean Corpuscular Volume 88fL (79-100) Mean Corpuscular Hemoglobin 29pg (25-35) Mean Corpuscular Hemoglobin Concent 32g/dL (31-37) Red Cell Distribution Width 17.1% (11.5-14.5) Platelet Count 133x10^3/uL (140-400) Neutrophils (%) (Auto) 68% (31-73) Lymphocytes (%) (Auto) 15% (24-48) Monocytes (%) (Auto) 13% (0-9) Eosinophils (%) (Auto) 2% (0-3) Basophils (%) (Auto) 1% (0-3) Neutrophils # (Auto) 3.6x10^3uL (1.8-7.7) Lymphocytes # (Auto) 0.8x10^3/uL (1.0-4.8) Monocytes # (Auto) 0.7x10^3/uL (0.0-1.1) Eosinophils # (Auto) 0.1x10^3/uL (0.0-0.7) Basophils # (Auto) 0.0x10^3/uL (0.0-0.2) Prothrombin Time 37.7SEC (11.7-14.0) Prothromb Time International Ratio 4.1 (0.8-1.1) Sodium Level 138mmol/L (136-145) Potassium Level 3.0mmol/L (3.5-5.1) Chloride Level 98mmol/L (98-107) Carbon Dioxide Level 29mmol/L (21-32) Anion Gap 11 (6-14) Blood Urea Nitrogen 108mg/dL (8-26) Creatinine 3.7mg/dL (0.7-1.3) Estimated GFR (Cockcroft-Gault) 16.3 BUN/Creatinine Ratio 29 (6-20) Glucose Level 167mg/dL (70-99) Calcium Level 9.1mg/dL (8.5-10.1) Magnesium Level 3.7mg/dL (1.8-2.4) Total Bilirubin 0.5mg/dL (0.2-1.0) Aspartate Amino Transf (AST/SGOT) 29U/L (15-37) Alanine Aminotransferase (ALT/SGPT) 40U/L (16-63) Alkaline Phosphatase 164U/L (46-116) Total Protein 6.3g/dL (6.4-8.2) Albumin 3.0g/dL (3.4-5.0) Albumin/Globulin Ratio 0.9 (1.0-1.7) Test 08/05/16 11:50 08/05/16 12:21 08/05/16 17:23 08/05/16 20:00 Potassium Level 2.8mmol/L (3.5-5.1) 3.3mmol/L (3.5-5.1) Glucose (Fingerstick) 129mg/dL (70-99) 173mg/dL (70-99) Test 08/05/16 20:30 08/06/16 04:05 08/06/16 07:53 Glucose (Fingerstick) 174mg/dL (70-99) 167mg/dL (70-99) White Blood Count 4.9x10^3/uL (4.0-11.0) Red Blood Count 3.25x10^6/uL (4.30-5.70) Hemoglobin 9.4g/dL (13.0-17.5) Hematocrit 28.5% (39.0-53.0) Mean Corpuscular Volume 88fL (79-100) Mean Corpuscular Hemoglobin 29pg (25-35) Mean Corpuscular Hemoglobin Concent 33g/dL (31-37) Red Cell Distribution Width 17.3% (11.5-14.5) Platelet Count 149x10^3/uL (140-400) Neutrophils (%) (Auto) 67% (31-73) Lymphocytes (%) (Auto) 17% (24-48) Monocytes (%) (Auto) 13% (0-9) Eosinophils (%) (Auto) 3% (0-3) Basophils (%) (Auto) 1% (0-3) Neutrophils # (Auto) 3.2x10^3uL (1.8-7.7) Lymphocytes # (Auto) 0.8x10^3/uL (1.0-4.8) Monocytes # (Auto) 0.7x10^3/uL (0.0-1.1) Eosinophils # (Auto) 0.1x10^3/uL (0.0-0.7) Basophils # (Auto) 0.0x10^3/uL (0.0-0.2) Prothrombin Time 42.6SEC (11.7-14.0) Prothromb Time International Ratio 4.8 (0.8-1.1) Sodium Level 137mmol/L (136-145) Potassium Level 3.3mmol/L (3.5-5.1) Chloride Level 98mmol/L (98-107) Carbon Dioxide Level 31mmol/L (21-32) Anion Gap 8 (6-14) Blood Urea Nitrogen 119mg/dL (8-26) Creatinine 3.8mg/dL (0.7-1.3) Estimated GFR (Cockcroft-Gault) 15.8 Glucose Level 180mg/dL (70-99) Calcium Level 9.1mg/dL (8.5-10.1) Laboratory Tests Test 08/05/16 11:50 08/05/16 12:21 08/05/16 17:23 08/05/16 20:00 Potassium Level 2.8mmol/L (3.5-5.1) 3.3mmol/L (3.5-5.1) Glucose (Fingerstick) 129mg/dL (70-99) 173mg/dL (70-99) Test 08/05/16 20:30 08/06/16 04:05 08/06/16 07:53 Glucose (Fingerstick) 174mg/dL (70-99) 167mg/dL (70-99) White Blood Count 4.9x10^3/uL (4.0-11.0) Red Blood Count 3.25x10^6/uL (4.30-5.70) Hemoglobin 9.4g/dL (13.0-17.5) Hematocrit 28.5% (39.0-53.0) Mean Corpuscular Volume 88fL (79-100) Mean Corpuscular Hemoglobin 29pg (25-35) Mean Corpuscular Hemoglobin Concent 33g/dL (31-37) Red Cell Distribution Width 17.3% (11.5-14.5) Platelet Count 149x10^3/uL (140-400) Neutrophils (%) (Auto) 67% (31-73) Lymphocytes (%) (Auto) 17% (24-48) Monocytes (%) (Auto) 13% (0-9) Eosinophils (%) (Auto) 3% (0-3) Basophils (%) (Auto) 1% (0-3) Neutrophils # (Auto) 3.2x10^3uL (1.8-7.7) Lymphocytes # (Auto) 0.8x10^3/uL (1.0-4.8) Monocytes # (Auto) 0.7x10^3/uL (0.0-1.1) Eosinophils # (Auto) 0.1x10^3/uL (0.0-0.7) Basophils # (Auto) 0.0x10^3/uL (0.0-0.2) Prothrombin Time 42.6SEC (11.7-14.0) Prothromb Time International Ratio 4.8 (0.8-1.1) Sodium Level 137mmol/L (136-145) Potassium Level 3.3mmol/L (3.5-5.1) Chloride Level 98mmol/L (98-107) Carbon Dioxide Level 31mmol/L (21-32) Anion Gap 8 (6-14) Blood Urea Nitrogen 119mg/dL (8-26) Creatinine 3.8mg/dL (0.7-1.3) Estimated GFR (Cockcroft-Gault) 15.8 Glucose Level 180mg/dL (70-99) Calcium Level 9.1mg/dL (8.5-10.1) Microbiology 07/30/16 Blood Culture - Final, Complete NO GROWTH AFTER 5 DAYS 07/30/16 Urine Culture - Final, Complete 07/30/16 Urine Culture Result 1 (VINAYAK) - Final, Complete Medications Current Medications Ceftriaxone Sodium 50 ml @ 100 mls/hr 1X ONCE IV Last administered on 17:00; Start 07/30/16 at 16:45; Stop 07/30/16 at 17:14; Status DC Fluconazole/ Sodium Chloride (Diflucan 200mg/ 100ml Premix) 100 ml @ 100 mls/ hr 1X ONCE IV Last administered on 07/30/16 17:53; Start 07/30/16 at 16:45; Stop 07/30/16 at 17:44; Status DC Ondansetron HCl (Zofran) 4 mg PRN Q8HRS PRN IV NAUSEA/VOMITING; Start 07/30/16 at 18:45; Stop 07/31/16 at 13:46; Status DC Morphine Sulfate 2 mg PRN Q2HR PRN IV PAIN; Start 07/30/16 at 18:45; Stop at 18:44; Status DC Insulin Aspart (Novolog) 0-7 UNITS TIDWMEALS SQ Last administered on 08/05/16 09:03; Start 07/31/16 at 08:00 Dextrose 12.5 gm PRN Q15MIN PRN IV SEE COMMENTS; Start 07/30/16 at 18:45; Stop 07/31/16 at 13:45; Status DC Phytonadione 2.5 mg 2.5 mg 1X ONCE PO Last administered on 07/30/16 19:17; Start 07/30/16 at 19:00; Stop 07/30/16 at 19:01; Status DC Sodium Chloride 500 ml @ 500 mls/hr 1X ONCE IV Last administered on 07/30/16 19:00; Start 07/30/16 at 19:00; Stop 07/30/16 at 19:59; Status DC Ceftriaxone Sodium/Sodium Chloride (Rocephin/Iv Sodium Chloride 0.9% 50ml) 50 ml @ 100 mls/hr Q24H IV Last administered on 08/05/16 15:43; Start 07/31/16 at 16:00 Acetaminophen (Tylenol) 650 mg PRN Q6HRS PRN PO FEVER; Start 07/30/16 at 19:00 Ondansetron HCl 4 mg 4 mg PRN Q6HRS PRN IV NAUSEA; Start 07/30/16 at 19:00 Sodium Chloride (Iv Sodium Chloride 0.9% 1000ml Bag) 1,000 ml @ 100 mls/hr 1X ONCE IV Last administered on 07/30/16 23:11; Start 07/30/16 at 19:00; Stop at 04:59; Status DC Albuterol/ Ipratropium (Duoneb) 3 ml QIDACHS NEB Last administered on 08:20; Start 07/30/16 at 21:00 Albuterol Sulfate 2.5 mg 2.5 mg PRN Q4HRS PRN NEB SHORTNESS OF BREATH; Start at 19:00 Phytonadione/ Sodium Chloride (Vitamin K/Iv Sodium Chloride 0.9% 50ml) 51 ml @ 102 mls/hr 1X ONCE IV Last administered on 07/30/16 20:38; Start 07/30/16 at 20 :00; Stop 07/30/16 at 20:29; Status DC Info (Do NOT chart on this placeholder) 1 each PRN DAILY PRN MC UNABLE TO RESPOND; Start 07/31/16 at 01:30; Status Cancel Acetaminophen (Tylenol) 650 mg TID PO Last administered on 08/05/16 20:26; Start 07/31/16 at 14:00 Bisacodyl (Dulcolax Supp) 10 mg PRN DAILY PRN RC CONSTIPATION Last administered on 08/03/16 16:31; Start 07/31/16 at 09:15 Diclofenac Sodium (Voltaren) 1 kathryn TID TP Last administered on 08/05/16 20:37; Start 07/31/16 at 10:00 Diltiazem HCl (Cardizem 24hr Cd) 120 mg DAILY PO Last administered on 08/04/16 08:42; Start 08/01/16 at 09:00; Stop 08/05/16 at 08:48; Status DC Fluoxetine HCl (Prozac) 20 mg HS PO Last administered on 08/05/16 20:26; Start 07/31/16 at 21:00 Furosemide (Lasix) 60 mg BID92 PO Last administered on 08/01/16 08:48; Start at 09:30; Stop 08/01/16 at 11:13; Status DC Gabapentin (Neurontin) 200 mg HS PO Last administered on 08/05/16 20:26; Start 07/31/16 at 21:00 Magnesium Hydroxide (Milk Of Magnesia) 400 mg DAILY PRN PO CONSTIPATION; Start 07/31/16 at 09:15; Stop 08/02/16 at 13:01; Status DC Metoprolol Tartrate (Lopressor) 50 mg BID PO Last administered on 08/05/16 20: 29; Start 07/31/16 at 09:30 Mupirocin (Bactroban) 1 kathryn BID TP Last administered on 08/05/16 09:00; Start 07/31/16 at 09:30 Sennosides (Senna) 8.6 mg HS PO Last administered on 08/05/16 20:29; Start 07/31 at 21:00 Tamsulosin HCl (Flomax) 0.4 mg HS PO Last administered on 08/05/16 20:26; Start 07/31/16 at 21:00 Tramadol HCl (Ultram) 50 mg PRN Q6HRS PRN PO PAIN; Start 07/31/16 at 09:15 Insulin Aspart (Novolog) 12 units TIDAC SQ Last administered on 08/01/16 12:43 ; Start 07/31/16 at 16:30; Stop 08/01/16 at 13:23; Status DC Ondansetron HCl (Zofran Odt) 4 mg PRN Q6HRS PRN PO NAUSEA; Start 07/31/16 at 09: 30 Insulin Detemir (Levemir) 20 units QHS SQ Last administered on 08/05/16 20:42; Start 07/31/16 at 21:00 Insulin Aspart (Novolog) 0-9 UNITS TIDWMEALS SQ ; Start 07/31/16 at 12:00; Stop 07/31/16 at 12:00; Status DC Dextrose 12.5 gm PRN Q15MIN PRN IV SEE COMMENTS; Start 07/31/16 at 09:15 Warfarin Sodium (Coumadin) 6 mg DAILY16 PO Last administered on 08/03/16 16:47 ; Start 07/31/16 at 16:00; Stop 08/04/16 at 14:24; Status DC Mineral Oil (Fleet Mineral Oil) 133 ml 1X ONCE ID Last administered on 14:15; Start 07/31/16 at 11:15; Stop 07/31/16 at 11:16; Status DC Polyethylene Glycol (miraLAX PACKET) 17 gm DAILY PO Last administered on 08:56; Start 07/31/16 at 11:15 Warfarin Sodium (Coumadin Per Physician) 1 each PRN DAILY PRN MC SEE COMMENTS Last administered on 08/03/16 16:32; Start 07/31/16 at 11:15; Stop 08/04/16 at 14: 24; Status DC Lactulose 20 gm PRN Q2HR PRN PO until BM Last administered on 08/02/16 11:38; Start 08/01/16 at 11:15; Stop 08/04/16 at 09:53; Status DC Darbepoetin Davey (Aranesp) 100 mcg WEEKLYHS SQ Last administered on 08/01/16 21 :45; Start 08/01/16 at 21:00 Darbepoetin Davey (Aranesp) 60 mcg WEEKLYHS SQ Last administered on 08/01/16 21: 46; Start 08/01/16 at 21:00 Insulin Aspart (Novolog) 12 units TIDAC SQ Last administered on 08/02/16 12:03 ; Start 08/01/16 at 13:23; Stop 08/03/16 at 11:33; Status DC Potassium Chloride (Klor-Con) 40 meq 1X ONCE PO Last administered on 08/02/16 11:38; Start 08/02/16 at 11:00; Stop 08/02/16 at 11:01; Status DC Lubiprostone 8 mcg 8 mcg BIDWMEALS PO Last administered on 08/03/16 09:37; Start 08/02/16 at 17:00; Stop 08/03/16 at 12:20; Status DC Albumin Human (Albuminar) 100 ml @ 100 mls/hr TID IV Last administered on 08:38; Start 08/02/16 at 14:00; Stop 08/04/16 at 09:59; Status DC Potassium Chloride (Klor-Con) 40 meq QIDPRN PRN PO for K < 3.7; Start 08/03/16 at 11:00; Stop 08/05/16 at 12:29; Status DC Insulin Aspart (Novolog) 10 units TIDAC SQ Last administered on 08/05/16 09:03 ; Start 08/03/16 at 16:30 Lubiprostone 24 mcg 24 mcg BIDWMEALS PO Last administered on 08/04/16 08:40; Start 08/03/16 at 17:00; Stop 08/04/16 at 09:53; Status DC Potassium Chloride (KCl Premix 10meq) 100 ml @ 100 mls/hr Q1H IV Last administered on 08/04/16 08:38; Start 08/04/16 at 07:00; Stop 08/04/16 at 10:59; Status DC Lactulose 20 gm PRN BID PRN PO constipation; Start 08/04/16 at 21:00 Potassium Chloride (Klor-Con) 30 meq ONCE ONCE PO Last administered on 12:39; Start 08/04/16 at 12:00; Stop 08/04/16 at 12:01; Status DC Warfarin Sodium (Coumadin Per Pharmacy) 1 each PRN DAILY PRN MC SEE COMMENTS Last administered on 08/05/16 14:14; Start 08/04/16 at 14:30 Warfarin Sodium (Coumadin - No Dose Today) 1 each 1X WARF ONCE MC Last administered on 08/04/16 16:42; Start 08/04/16 at 16:00; Stop 08/04/16 at 16:01; Status DC Pantoprazole Sodium (Protonix) 40 mg DAILYAC PO Last administered on 08/05/16 08:56; Start 08/04/16 at 15:30 Diltiazem HCl (Cardizem 24hr Cd) 120 mg DAILY PO Last administered on 08/05/16 08:56; Start 08/05/16 at 09:00 Lubiprostone (Amitiza) 24 mcg BIDWMEALS PO ; Start 08/05/16 at 17:00 Potassium Chloride (Klor-Con) 40 meq 1X ONCE PO Last administered on 08/05/16 12:37; Start 08/05/16 at 12:30; Stop 08/05/16 at 12:31; Status DC Warfarin Sodium (Coumadin - No Dose Today) 1 each 1X WARF ONCE MC Last administered on 08/05/16 15:12; Start 08/05/16 at 16:00; Stop 08/05/16 at 16:01; Status DC Active Scripts Active Reported Keflex (Cephalexin) 500 Mg Capsule 1 Cap PO TID Zofran (Ondansetron Hcl) 4 Mg Tablet 1 Tab PO Q6HRS PRN [Mylanta] 30 Ml PO PRN Q4HRS PRN [Fleet Enema] 1 Applic RC DAILY PRN Dulcolax (Bisacodyl) 10 Mg Supp.rect 10 Mg RC PRN DAILY PRN Milk Of Magnesia (Magnesium Hydroxide) 400 Mg/5 Ml Oral.susp 400 Mg PO DAILY PRN Senokot (Sennosides) 8.6 Mg Tablet 1 Tab PO HS Tamsulosin Hcl 0.4 Mg Cap.er.24h 0.4 Mg PO HS Metoprolol Tartrate 50 Mg Tablet 50 Mg PO BID Tramadol Hcl 50 Mg Tablet 50 Mg PO Q6H PRN [Glycolax] 17 Gm PO DAILY PRN Cardizem Cd (Diltiazem Hcl) 180 Mg Cap.er.24h 120 Mg PO DAILY Allopurinol 300 Mg Tablet 300 Mg PO DAILY Lasix (Furosemide) 20 Mg Tablet 60 Mg PO BID Colcrys (Colchicine) 0.6 Mg Tablet 0.6 Mg PO BID Humalog (Insulin Lispro) 100 Unit/1 Ml Cartridge 12 Unit SQ TIDAC Voltaren (Diclofenac Sodium) 100 Gm Gel..gram. 1 Gm TP TID Bactroban Cream (Mupirocin) 15 Gm Cream..g. 1 Kathryn TP BID Tylenol (Acetaminophen) 325 Mg Tablet 650 Mg PO TID Prozac (Fluoxetine Hcl) 20 Mg Capsule 1 Cap PO HS Gabapentin 100 Mg Capsule 200 Mg PO HS Coumadin (Warfarin Sodium) 5 Mg Tablet 5 Mg PO DAILY [Lantus] 30 Units SQ HS Vitals/I & O Vital Sign - Last 24 Hours 08/05/16 08/05/16 08/05/16 08/05/16 11:38 15:00 16:26 19:15 Temp 97.7 98.1 97.7 98.1 Pulse 113 114 Resp 18 20 B/P 108/66 113/72 Pulse Ox 100 95 100 95 O2 Delivery Room Air Room Air Room Air Room Air 08/05/16 08/05/16 08/05/16 08/06/16 20:00 20:29 23:30 02:33 Temp 97.9 97.9 97.9 97.9 Pulse 114 113 115 Resp 20 20 B/P 113/72 113/93 122/81 Pulse Ox 95 99 O2 Delivery Room Air Room Air Room Air 08/06/16 08/06/16 07:00 08:21 Temp 97.5 97.5 Pulse 116 Resp 20 B/P 120/82 Pulse Ox 97 99 O2 Delivery Room Air Room Air Intake and Output 08/05/16 08/05/16 08/06/16 15:00 23:00 07:00 Intake Total 270 ml 350 ml 400 ml Output Total 250 ml 200 ml Balance 270 ml 100 ml 200 ml RODERICK MELENDEZ III DO Aug 06, 2016 11:07
--- NOTE | 2016-08-06 11:55 | PDOC2 ---
PALLIATIVE CARE Palliative Care Note Palliative Care Met with patient, Mary Ellen and son Josiah. Family does not see improvement in over-all condition. Creat 3.8.(No Dialysis) Options of care discussed. Continue current treatment plan vs Hospice. Family would like to focus on comfort care. Options discussed. Home with Hospice and hired care givers vs IP Hospice if patient would qualify vs Group Home with Hospice. Included cost of [facility] ($250day) Discussed with Dr. Soares. ACE ANTONIO Aug 06, 2016 11:55
--- NOTE | 2016-08-06 12:53 | PDOC2 ---
PALLIATIVE CARE Palliative Care Note Palliative Care Spoke with . Plan home with [facility] Patient has Hospital Bed. DME: Bedside Table. Outside The Hospital DNR/DNI completed. Justina MATTA assisting with Discharge Plan. ACE ANTONIO Aug 06, 2016 12:53
[2016-08-06] MEDS ORDERED: FENTANYL 50MCG/HR PATCH. TD SCH (14:15)
--- NOTE | 2016-08-06 14:38 | PDOC ---
SUBJECTIVE ROS Presumed ESRD and Uremia OBJECTIVE Vital Signs Vital Signs Date Time Temp Pulse Resp B/P Pulse Ox O2 Delivery O2 Flow Rate FiO2 08/06/16 14:28 98 Room Air 2.0 08/06/16 11:00 98.1 117 20 116/80 98.1 I & 0 Intake and Output 08/06/16 07:00 Intake Total 1020 ml Output Total 450 ml Balance 570 ml Intake Oral 970 ml IV Total 50 ml Output Urine Total 450 ml PHYSICAL EXAM Physical Exam General Appearance: confused and sleepy Neck: No JVD or JVP Chest: CTA [place] Heart: S1 S2 Abdomen - Soft NTND; obese Extremities - +3 ChronicEdema DIAGNOSIS/ASSESSMENT Assessment & Plan ESRD: Pt has and family wishes no dialysis - plans for palliative care and hopsice noted will sign off Problems: COMMENT/RELEVANT DATA Meds Current Medications Medications (Trade) Dose Ordered Sig/Shayne Start Time Stop Time Status Last Admin Dose Admin Acetaminophen (Tylenol) 650 mg TID 07/31/16 14:00 08/05/16 20:26 650 MG Albumin Human (Albuminar) 100 ml @ 100 mls/hr TID 08/02/16 14:00 08/04/16 09:59 DC 08/04/16 08:38 100 MLS/HR Albuterol Sulfate 2.5 mg 2.5 mg PRN Q4HRS PRN 07/30/16 19:00 Albuterol/ Ipratropium (Duoneb) 3 ml QIDACHS 07/30/16 21:00 08/06/16 08:20 3 ML Bisacodyl (Dulcolax Supp) 10 mg PRN DAILY PRN 07/31/16 09:15 08/03/16 16:31 10 MG Ceftriaxone Sodium/Sodium Chloride (Rocephin/Iv Sodium Chloride 0.9% 50ml) 50 ml @ 100 mls/hr Q24H 07/31/16 16:00 08/05/16 15:43 100 MLS/HR Ceftriaxone Sodium 50 ml @ 100 mls/hr 1X ONCE 07/30/16 16:45 07/30/16 17:14 DC 07/30/16 17:00 100 MLS/HR Darbepoetin Davey (Aranesp) 60 mcg WEEKLYHS 08/01/16 21:00 08/01/16 21:46 60 MCG Dextrose 12.5 gm PRN Q15MIN PRN 07/31/16 09:15 Diclofenac Sodium (Voltaren) 1 mike TID 07/31/16 10:00 08/06/16 09:00 1 MIKE Diltiazem HCl (Cardizem 24hr Cd) 120 mg DAILY 08/05/16 09:00 08/05/16 08:56 120 MG Fentanyl (Duragesic 50mcg/ Hr Patch) 1 patch Q3DAYS 08/06/16 14:15 08/06/16 14:28 1 PATCH Fluconazole/ Sodium Chloride (Diflucan 200mg/ 100ml Premix) 100 ml @ 100 mls/hr 1X ONCE 07/30/16 16:45 07/30/16 17:44 DC 07/30/16 17:53 100 MLS/HR Fluoxetine HCl (Prozac) 20 mg HS 07/31/16 21:00 08/05/16 20:26 20 MG Furosemide (Lasix) 60 mg BID92 07/31/16 09:30 08/01/16 11:13 DC 08/01/16 08:48 60 MG Gabapentin (Neurontin) 200 mg HS 07/31/16 21:00 08/05/16 20:26 200 MG Info (Do NOT chart on this placeholder) 1 each PRN DAILY PRN 07/31/16 01:30 Cancel Insulin Aspart (Novolog) 10 units TIDAC 08/03/16 16:30 08/05/16 09:03 10 UNITS Insulin Detemir (Levemir) 20 units QHS 07/31/16 21:00 08/05/16 20:42 20 UNITS Lactulose 20 gm PRN BID PRN 08/04/16 21:00 Lubiprostone (Amitiza) 24 mcg BIDWMEALS 08/05/16 17:00 Lubiprostone 24 mcg 24 mcg BIDWMEALS 08/03/16 17:00 08/04/16 09:53 DC 08/04/16 08:40 24 MCG Lubiprostone 8 mcg 8 mcg BIDWMEALS 08/02/16 17:00 08/03/16 12:20 DC 08/03/16 09:37 8 MCG Magnesium Hydroxide (Milk Of Magnesia) 400 mg DAILY PRN 07/31/16 09:15 08/02/16 13:01 DC Metoprolol Tartrate (Lopressor) 50 mg BID 07/31/16 09:30 08/05/16 20:29 50 MG Mineral Oil (Fleet Mineral Oil) 133 ml 1X ONCE 07/31/16 11:15 07/31/16 11:16 DC 07/31/16 14:15 133 ML Morphine Sulfate 2 mg PRN Q2HR PRN 07/30/16 18:45 07/31/16 18:44 DC Mupirocin (Bactroban) 1 mike BID 07/31/16 09:30 08/06/16 09:00 1 MIKE Ondansetron HCl (Zofran Odt) 4 mg PRN Q6HRS PRN 07/31/16 09:30 Ondansetron HCl (Zofran) 4 mg PRN Q8HRS PRN 07/30/16 18:45 07/31/16 13:46 DC Ondansetron HCl 4 mg 4 mg PRN Q6HRS PRN 07/30/16 19:00 Pantoprazole Sodium (Protonix) 40 mg DAILYAC 08/04/16 15:30 08/05/16 08:56 40 MG Phytonadione 2.5 mg 2.5 mg 1X ONCE 07/30/16 19:00 07/30/16 19:01 DC 07/30/16 19:17 2.5 MG Phytonadione/ Sodium Chloride (Vitamin K/Iv Sodium Chloride 0.9% 50ml) 51 ml @ 102 mls/hr 1X ONCE 07/30/16 20:00 07/30/16 20:29 DC 07/30/16 20:38 102 MLS/HR Polyethylene Glycol (miraLAX PACKET) 17 gm DAILY 07/31/16 11:15 08/05/16 08:56 17 GM Potassium Chloride (KCl Premix 10meq) 100 ml @ 100 mls/hr Q1H 08/04/16 07:00 08/04/16 10:59 DC 08/04/16 08:38 100 MLS/HR Potassium Chloride (Klor-Con) 40 meq 1X ONCE 08/05/16 12:30 08/05/16 12:31 DC 08/05/16 12:37 40 MEQ Sennosides (Senna) 8.6 mg HS 07/31/16 21:00 08/05/16 20:29 8.6 MG Sodium Chloride (Iv Sodium Chloride 0.9% 1000ml Bag) 1,000 ml @ 100 mls/hr 1X ONCE 07/30/16 19:00 07/31/16 04:59 DC 07/30/16 23:11 100 MLS/HR Tamsulosin HCl (Flomax) 0.4 mg HS 07/31/16 21:00 08/05/16 20:26 0.4 MG Tramadol HCl (Ultram) 50 mg PRN Q6HRS PRN 07/31/16 09:15 Warfarin Sodium (Coumadin - No Dose Today) 1 each 1X WARF ONCE 08/05/16 16:00 08/05/16 16:01 DC 08/05/16 15:12 1 EACH Warfarin Sodium (Coumadin Per Pharmacy) 1 each PRN DAILY PRN 08/04/16 14:30 08/05/16 14:14 1 EACH Warfarin Sodium (Coumadin Per Physician) 1 each PRN DAILY PRN 07/31/16 11:15 08/04/16 14:24 DC 08/03/16 16:32 1 EACH Warfarin Sodium (Coumadin) 6 mg DAILY16 07/31/16 16:00 08/04/16 14:24 DC 08/03/16 16:47 6 MG Lab Laboratory Tests Test 08/05/16 17:23 08/05/16 20:00 08/05/16 20:30 08/06/16 04:05 Glucose (Fingerstick) 173mg/dL (70-99) 174mg/dL (70-99) Potassium Level 3.3mmol/L (3.5-5.1) 3.3mmol/L (3.5-5.1) White Blood Count 4.9x10^3/uL (4.0-11.0) Red Blood Count 3.25x10^6/uL (4.30-5.70) Hemoglobin 9.4g/dL (13.0-17.5) Hematocrit 28.5% (39.0-53.0) Mean Corpuscular Volume 88fL (79-100) Mean Corpuscular Hemoglobin 29pg (25-35) Mean Corpuscular Hemoglobin Concent 33g/dL (31-37) Red Cell Distribution Width 17.3% (11.5-14.5) Platelet Count 149x10^3/uL (140-400) Neutrophils (%) (Auto) 67% (31-73) Lymphocytes (%) (Auto) 17% (24-48) Monocytes (%) (Auto) 13% (0-9) Eosinophils (%) (Auto) 3% (0-3) Basophils (%) (Auto) 1% (0-3) Neutrophils # (Auto) 3.2x10^3uL (1.8-7.7) Lymphocytes # (Auto) 0.8x10^3/uL (1.0-4.8) Monocytes # (Auto) 0.7x10^3/uL (0.0-1.1) Eosinophils # (Auto) 0.1x10^3/uL (0.0-0.7) Basophils # (Auto) 0.0x10^3/uL (0.0-0.2) Prothrombin Time 42.6SEC (11.7-14.0) Prothromb Time International Ratio 4.8 (0.8-1.1) Sodium Level 137mmol/L (136-145) Chloride Level 98mmol/L (98-107) Carbon Dioxide Level 31mmol/L (21-32) Anion Gap 8 (6-14) Blood Urea Nitrogen 119mg/dL (8-26) Creatinine 3.8mg/dL (0.7-1.3) Estimated GFR (Cockcroft-Gault) 15.8 Glucose Level 180mg/dL (70-99) Calcium Level 9.1mg/dL (8.5-10.1) Test 08/06/16 07:53 08/06/16 12:27 Glucose (Fingerstick) 167mg/dL (70-99) 188mg/dL (70-99) CHERRY DORADO MD Aug 06, 2016 14:38
--- NOTE | 2016-08-06 14:38 | PDOC ---
PROGRESS NOTES Assessment Assessment Metabolic encephalopathy. Bilateral lower lobe infiltrate. UTI Vomiting. AFib or atrial flutter Renal failure Anemia DM HTN COPD Ileus. Chronic LE wounds Morbid obesity No evidence of acute large CVA this time. RECOMMENDATIONS/PLAN: He has been treated with Coumadin Treat medical diseases per floor team. Treat UTI. Treat pulmonary infiltrate. Palliative care team consulted. Discussed in detail with his and daughter at bedside on 08/04. Brain MRI w/o contrast: No acute findings. EEG on 08/04: diffuse encephalopathy. HISTORY OF THE PRESENT ILLNESS: 71-y0old male patient with multiple medical diseases has menta status changes, decreased response, and confusion. He has chronic LE wounds and weakness and has not been able to walk normally for 6- 7 months and inability to walk in at least for 2 weeks. He has atrial flutter on Coumadin, but his PT was 78.3 and INR was 10.6, so Coumadin was put on hold. His PT and INR normalized on 07/31 test. PAST MEDICAL HISTORY: Please see above. PAST SURGERY HISTORY: LE wound care. ALLERGY: Unknown MEDICATIONS: Refer to [facility] FAMILY HISTORY: Non contributory. SOCIAL HISTORY: Denies current smoking, drinking, and illicit drug use. REVIEW OF SYSTEMS: Constitutional: No malnutrition, weight loss, cachexia. Head: No recent traumatic brain or head injury. Skin: No edema, or rash. Ear: No infection, tinnitus. Eyes: No vision loss or color blindness. Nose: No bleeding or purulent discharges. Hearing: Hearing decrease. Neck: No recent injury. Cardiac: AFib, HTN. Pulmonary: No COPD. GI: No GI ulcer, GI bleeding. Urinary/genital: UTI. Endocrinologic: Diabetes Mellitus, morbid obesity. Skeletomuscular: Generalized weakness. Neurological: see HP. Psychiatric: Denies drug use/abuse. Otherwise, not [id number] review of systems. PHYSICAL EXAMINATION: General appearance is in subacute distress. HEENT: Normocephalic and nontraumatic. Eyes, nose, ears, and throat are unremarkable. Neck is supple. No lymphadenopathy. No crepitus. Cardiovascular: S1, S2, seemed irregular rate and rhythm. Pulmonary: Decreased breathing sounds to auscultation bilaterally. Abdomen: Bowel sounds are positive. Extremities: Rash, lesions, edema and chronic skin changes in LE. NEUROLOGICAL EXAMINATION: Drowsiness but arousable. Not able to communicate nor follow commands. Not oriented to time, place but knows his and daughter. PERRL. EOMI CN: no acute focal findings. Muscle tone: decreased, chronic Muscle strength: 4- UE, no movements observed in LE as chronic weakness. DTR: 0-1- due to morbid obesity. Plantar reflex: Neutral response bilaterally Gait: not able to walk for at least 2 weeks per his and 2 months per his niece. Sensory exam: no acute abnormal findings. Not able to access cerebellar signs at this mentation. Not able to F-T-N test due to not follow commands. Objective Objective Vital Signs Date Time Temp Pulse Resp B/P Pulse Ox O2 Delivery O2 Flow Rate FiO2 08/06/16 14:28 98 Room Air 2.0 08/06/16 11:00 98.1 117 20 116/80 98.1 Intake and Output 08/06/16 07:00 Intake Total 1020 ml Output Total 450 ml Balance 570 ml Intake Oral 970 ml IV Total 50 ml Output Urine Total 450 ml Vitals Signs Vitals VS - Last 72 Hours, by Label Date Time Temp Pulse Resp B/P Pulse Ox O2 Delivery O2 Flow Rate FiO2 08/06/16 14:28 98 Room Air 2.0 08/06/16 11:00 98.1 117 20 116/80 98 Room Air 98.1 08/06/16 09:00 116 120/82 08/06/16 09:00 116 120/82 08/06/16 08:21 99 Room Air 08/06/16 08:00 Room Air 08/06/16 07:00 97.5 116 20 120/82 97 Room Air 97.5 08/06/16 02:33 97.9 115 20 122/81 99 Room Air 97.9 08/05/16 23:30 97.9 113 20 113/93 95 Room Air 97.9 08/05/16 20:29 114 113/72 08/05/16 20:00 Room Air 08/05/16 19:15 98.1 114 20 113/72 95 Room Air 98.1 08/05/16 16:26 100 Room Air 08/05/16 15:00 97.7 113 18 108/66 95 Room Air 97.7 08/05/16 11:38 100 Room Air 08/05/16 08:56 105 107/65 08/05/16 08:56 105 107/65 08/05/16 08:00 Room Air 08/05/16 07:00 98.1 113 18 137/47 99 Room Air 98.1 Laboratory Laboratory Laboratory Tests Test 08/05/16 17:23 08/05/16 20:00 08/05/16 20:30 08/06/16 04:05 Glucose (Fingerstick) 173mg/dL (70-99) 174mg/dL (70-99) Potassium Level 3.3mmol/L (3.5-5.1) 3.3mmol/L (3.5-5.1) White Blood Count 4.9x10^3/uL (4.0-11.0) Red Blood Count 3.25x10^6/uL (4.30-5.70) Hemoglobin 9.4g/dL (13.0-17.5) Hematocrit 28.5% (39.0-53.0) Mean Corpuscular Volume 88fL (79-100) Mean Corpuscular Hemoglobin 29pg (25-35) Mean Corpuscular Hemoglobin Concent 33g/dL (31-37) Red Cell Distribution Width 17.3% (11.5-14.5) Platelet Count 149x10^3/uL (140-400) Neutrophils (%) (Auto) 67% (31-73) Lymphocytes (%) (Auto) 17% (24-48) Monocytes (%) (Auto) 13% (0-9) Eosinophils (%) (Auto) 3% (0-3) Basophils (%) (Auto) 1% (0-3) Neutrophils # (Auto) 3.2x10^3uL (1.8-7.7) Lymphocytes # (Auto) 0.8x10^3/uL (1.0-4.8) Monocytes # (Auto) 0.7x10^3/uL (0.0-1.1) Eosinophils # (Auto) 0.1x10^3/uL (0.0-0.7) Basophils # (Auto) 0.0x10^3/uL (0.0-0.2) Prothrombin Time 42.6SEC (11.7-14.0) Prothromb Time International Ratio 4.8 (0.8-1.1) Sodium Level 137mmol/L (136-145) Chloride Level 98mmol/L (98-107) Carbon Dioxide Level 31mmol/L (21-32) Anion Gap 8 (6-14) Blood Urea Nitrogen 119mg/dL (8-26) Creatinine 3.8mg/dL (0.7-1.3) Estimated GFR (Cockcroft-Gault) 15.8 Glucose Level 180mg/dL (70-99) Calcium Level 9.1mg/dL (8.5-10.1) Test 08/06/16 07:53 08/06/16 12:27 Glucose (Fingerstick) 167mg/dL (70-99) 188mg/dL (70-99) Microbiology 07/30/16 Blood Culture - Final, Complete NO GROWTH AFTER 5 DAYS 07/30/16 Urine Culture - Final, Complete 07/30/16 Urine Culture Result 1 (VINAYAK) - Final, Complete Medication Medications Current Medications Fentanyl (Duragesic 50mcg/ Hr Patch) 1 patch Q3DAYS TD Last administered on 14:28; Start 08/06/16 at 14:15 Lubiprostone (Amitiza) 24 mcg BIDWMEALS PO ; Start 08/05/16 at 17:00 Warfarin Sodium (Coumadin - No Dose Today) 1 each 1X WARF ONCE MC Last administered on 08/05/16 15:12; Start 08/05/16 at 16:00; Stop 08/05/16 at 16:01; Status DC Comment Review of Relevant I have reviewed the following items alan (where applicable) has been applied. JANEE MCWILLIAMS MD Aug 06, 2016 14:38
[2016-08-06 15:00] VITALS: BP 140/62
[2016-08-06] MEDS: CEFTRIAXONE SODIUM 1 GM in IV NORMAL SALINE 50ML 50 ML IV SCH (16:00)
[2016-08-06] MEDS ORDERED: MORPHINE SULFATE 20 MG/ML CONC SOLUTION. SL PRN (17:15)
[2016-08-06 19:00] VITALS: BP 139/64
[2016-08-06] MEDS: GABAPENTIN 100 MG CAPSULE. PO SCH (21:00)
[2016-08-06] MEDS: TAMSULOSIN 0.4 MG CAP.ER.24H. PO SCH (21:00)
[2016-08-06] MEDS: SENNOSIDES 8.6 MG TABLET PO SCH (21:02)
[2016-08-06] MEDS: FLUOXETINE HCL 20 MG CAPSULE PO SCH (21:02)
[2016-08-06] MEDS: INSULIN DETEMIR 300 UNITS/3 ML INSULN.PEN. SQ SCH (21:03)
[2016-08-06 22:40] VITALS: BP 118/64
[2016-08-07 03:00] VITALS: BP 141/72
[2016-08-07] MEDS: IPRATRPIUM/ALBUTEROL 0.5/2.5MG 3 ML NEBU. NEB SCH ×4 (06:54→20:43)
[2016-08-07 07:00] VITALS: BP 120/80
[2016-08-07] MEDS: PANTOPRAZOLE 40 MG TABLET. PO SCH (07:30)
[2016-08-07] MEDS: INSULIN ASPART 300 UNITS/3 ML INSULN.PEN SQ SCH ×6 (07:30→17:00)
[2016-08-07] MEDS: LUBIPROSTONE 8 MCG CAPSULE PO SCH ×2 (08:00→17:00)
[2016-08-07 08:19] LABS: BASO % 1 % (0-3); EOS % 2 % (0-3); HEMOGLOBIN 9.4 g/dL (13.0-17.5); LYMPH # 0.5 x10^3/uL (1.0-4.8); LYMPH % 10 % (24-48); MEAN CORPUSCULAR HEMOGLOBIN 28 pg (25-35); MEAN CORPUSCULAR HGB CONC 31 g/dL (31-37); MEAN CORPUSCULAR VOLUME 90 fL (79-100); MONO % 12 % (0-9); NEUT % 76 % (31-73); PLATELET COUNT 168 x10^3/uL (140-400); RED BLOOD COUNT 3.32 x10^6/uL (4.30-5.70); WHITE BLOOD COUNT 5.3 x10^3/uL (4.0-11.0)
[2016-08-07 08:24] LABS: CALCIUM 9.3 mg/dL (8.5-10.1); GFR 14.9; POTASSIUM 4.1 mmol/L (3.5-5.1)
[2016-08-07] MEDS: POLYETHYLENE GLYCOL 3350 17 GM PACKET. PO SCH (09:00)
[2016-08-07] MEDS: DILTIAZEM HCL 120 MG CAP.ER.24H PO SCH (09:00)
[2016-08-07] MEDS: ACETAMINOPHEN 325 MG TABLET. PO SCH ×3 (09:00→20:00)
[2016-08-07] MEDS: DICLOFENAC SODIUM 1% TOPICAL GEL 100GM TUBE. TP SCH ×3 (09:00→20:00)
[2016-08-07] MEDS: MUPIROCIN 2 % TOPICAL CREAM 15GM TUBE. TP SCH ×2 (09:00→20:00)
[2016-08-07] MEDS: METOPROLOL TART IMMED RELEASE 50 MG TABLET PO SCH ×2 (09:00→19:59)
[2016-08-07 09:08] LABS: INR 6.1 (0.8-1.1)
[2016-08-07 11:00] VITALS: BP 128/77
--- NOTE | 2016-08-07 11:50 | PDOC ---
PROGRESS NOTES Chief Complaint Chief Complaint 1. Delirium on chronic worsening dementia 2. Sepsis 3. UTI 4. dehydration 5. BREANNA 6. Constipation 7. CKD4 8. Hypercoag 9. aflutter 10. HTN 11. DM 12. COPD 13. FTT 14. Lymphedema 15. SMALL sacral wound 16. Gout 17. BPH 18. Sacral Ulcer History of Present Illness History of Present Illness Pt resting comfortably in bed pleasant confused. and family at bedside today states that after long discussion yesterday they feel uncomfortable with taking pt home on hospice at this time. tearful and unsure if she can keep pt comfortable once at home. She reports he was agitated yesterday evening and had to be given meds for anxiety. Vitals Vitals Vital Signs Date Time Temp Pulse Resp B/P Pulse Ox O2 Delivery O2 Flow Rate FiO2 08/07/16 07:00 97.7 101 20 120/80 96 Nasal Cannula 3.0 97.7 Physical Exam General: Alert, Cooperative, No acute distress, Other (lethargic, sleeping comfortably, able to answer yes or no questions once aroused) Heart: Regular rate, Normal S1, Normal S2, No murmurs Lungs: Clear, Other (No wheezes present) Abdomen: Normal bowel sounds, Other (TTP LLQ) Extremities: Other (massive woody edema, hyperkeratotic changes bilaterally on both lower extremities) Skin: Other (small sacral decub present) Labs LABS Laboratory Tests Test 08/06/16 12:27 08/06/16 18:20 08/06/16 20:40 08/07/16 07:35 Glucose (Fingerstick) 188mg/dL (70-99) 199mg/dL (70-99) 187mg/dL (70-99) White Blood Count 5.3x10^3/uL (4.0-11.0) Red Blood Count 3.32x10^6/uL (4.30-5.70) Hemoglobin 9.4g/dL (13.0-17.5) Hematocrit 30.0% (39.0-53.0) Mean Corpuscular Volume 90fL (79-100) Mean Corpuscular Hemoglobin 28pg (25-35) Mean Corpuscular Hemoglobin Concent 31g/dL (31-37) Red Cell Distribution Width 17.0% (11.5-14.5) Platelet Count 168x10^3/uL (140-400) Neutrophils (%) (Auto) 76% (31-73) Lymphocytes (%) (Auto) 10% (24-48) Monocytes (%) (Auto) 12% (0-9) Eosinophils (%) (Auto) 2% (0-3) Basophils (%) (Auto) 1% (0-3) Neutrophils # (Auto) 4.0x10^3uL (1.8-7.7) Lymphocytes # (Auto) 0.5x10^3/uL (1.0-4.8) Monocytes # (Auto) 0.6x10^3/uL (0.0-1.1) Eosinophils # (Auto) 0.1x10^3/uL (0.0-0.7) Basophils # (Auto) 0.0x10^3/uL (0.0-0.2) Prothrombin Time 51.0SEC (11.7-14.0) Prothromb Time International Ratio 6.1 (0.8-1.1) Sodium Level 136mmol/L (136-145) Potassium Level 4.1mmol/L (3.5-5.1) Chloride Level 96mmol/L (98-107) Carbon Dioxide Level 31mmol/L (21-32) Anion Gap 9 (6-14) Blood Urea Nitrogen 128mg/dL (8-26) Creatinine 4.0mg/dL (0.7-1.3) Estimated GFR (Cockcroft-Gault) 14.9 Glucose Level 243mg/dL (70-99) Calcium Level 9.3mg/dL (8.5-10.1) Test 08/07/16 08:45 Glucose (Fingerstick) 243mg/dL (70-99) Review of Systems Review of Systems Complaining of Agitation per ; agitated in room at times Complaining of Decreased appetitie Complaining of Pain but unable to localize pain Assessment and Plan Assessmemt and Plan Problems Medical Problems: (1) Acute kidney injury Status: Acute (2) Altered mental status Status: Acute (3) Supratherapeutic INR Status: Acute 1. Delirium on chronic worsening dementia 2. Sepsis 3. UTI 4. dehydration 5. BREANNA 6. Constipation 7. CKD4 8. Hypercoag 9. aflutter 10. HTN 11. DM 12. COPD 13. FTT 14. Lymphedema 15. SMALL sacral wound 16. Gout 17. BPH 18. Sacral Ulcer Plan: - Continue to monitor the patient per floor protocol - Palliative Care Consulted: -Plan was for discharge to home on with [facility] today - discussed that uncomfortable with taking pt home at this time- Will continue to discuss with SW and Palliative Care on other options - Continue Daily labs/ Vitals - STEPHANIE RN- INR 6.1 today; Up from 4.8 on 08/06/12- will discuss with further to determine if she would like to treat; at this time family would prefer no IV access per RN Note; Will notify when family has decision - PT/OT on case to evaluate and treat - Appreciate Subspecialists recommendations - Wound care on case for Sacral Ulcer Problems: Comment Review of Relevant I have reviewed the following items alan (where applicable) has been applied. Labs Laboratory Tests Test 08/05/16 11:50 08/05/16 12:21 08/05/16 17:23 08/05/16 20:00 Potassium Level 2.8mmol/L (3.5-5.1) 3.3mmol/L (3.5-5.1) Glucose (Fingerstick) 129mg/dL (70-99) 173mg/dL (70-99) Test 08/05/16 20:30 08/06/16 04:05 08/06/16 07:53 08/06/16 12:27 Glucose (Fingerstick) 174mg/dL (70-99) 167mg/dL (70-99) 188mg/dL (70-99) White Blood Count 4.9x10^3/uL (4.0-11.0) Red Blood Count 3.25x10^6/uL (4.30-5.70) Hemoglobin 9.4g/dL (13.0-17.5) Hematocrit 28.5% (39.0-53.0) Mean Corpuscular Volume 88fL (79-100) Mean Corpuscular Hemoglobin 29pg (25-35) Mean Corpuscular Hemoglobin Concent 33g/dL (31-37) Red Cell Distribution Width 17.3% (11.5-14.5) Platelet Count 149x10^3/uL (140-400) Neutrophils (%) (Auto) 67% (31-73) Lymphocytes (%) (Auto) 17% (24-48) Monocytes (%) (Auto) 13% (0-9) Eosinophils (%) (Auto) 3% (0-3) Basophils (%) (Auto) 1% (0-3) Neutrophils # (Auto) 3.2x10^3uL (1.8-7.7) Lymphocytes # (Auto) 0.8x10^3/uL (1.0-4.8) Monocytes # (Auto) 0.7x10^3/uL (0.0-1.1) Eosinophils # (Auto) 0.1x10^3/uL (0.0-0.7) Basophils # (Auto) 0.0x10^3/uL (0.0-0.2) Prothrombin Time 42.6SEC (11.7-14.0) Prothromb Time International Ratio 4.8 (0.8-1.1) Sodium Level 137mmol/L (136-145) Potassium Level 3.3mmol/L (3.5-5.1) Chloride Level 98mmol/L (98-107) Carbon Dioxide Level 31mmol/L (21-32) Anion Gap 8 (6-14) Blood Urea Nitrogen 119mg/dL (8-26) Creatinine 3.8mg/dL (0.7-1.3) Estimated GFR (Cockcroft-Gault) 15.8 Glucose Level 180mg/dL (70-99) Calcium Level 9.1mg/dL (8.5-10.1) Test 08/06/16 18:20 08/06/16 20:40 08/07/16 07:35 08/07/16 08:45 Glucose (Fingerstick) 199mg/dL (70-99) 187mg/dL (70-99) 243mg/dL (70-99) White Blood Count 5.3x10^3/uL (4.0-11.0) Red Blood Count 3.32x10^6/uL (4.30-5.70) Hemoglobin 9.4g/dL (13.0-17.5) Hematocrit 30.0% (39.0-53.0) Mean Corpuscular Volume 90fL (79-100) Mean Corpuscular Hemoglobin 28pg (25-35) Mean Corpuscular Hemoglobin Concent 31g/dL (31-37) Red Cell Distribution Width 17.0% (11.5-14.5) Platelet Count 168x10^3/uL (140-400) Neutrophils (%) (Auto) 76% (31-73) Lymphocytes (%) (Auto) 10% (24-48) Monocytes (%) (Auto) 12% (0-9) Eosinophils (%) (Auto) 2% (0-3) Basophils (%) (Auto) 1% (0-3) Neutrophils # (Auto) 4.0x10^3uL (1.8-7.7) Lymphocytes # (Auto) 0.5x10^3/uL (1.0-4.8) Monocytes # (Auto) 0.6x10^3/uL (0.0-1.1) Eosinophils # (Auto) 0.1x10^3/uL (0.0-0.7) Basophils # (Auto) 0.0x10^3/uL (0.0-0.2) Prothrombin Time 51.0SEC (11.7-14.0) Prothromb Time International Ratio 6.1 (0.8-1.1) Sodium Level 136mmol/L (136-145) Potassium Level 4.1mmol/L (3.5-5.1) Chloride Level 96mmol/L (98-107) Carbon Dioxide Level 31mmol/L (21-32) Anion Gap 9 (6-14) Blood Urea Nitrogen 128mg/dL (8-26) Creatinine 4.0mg/dL (0.7-1.3) Estimated GFR (Cockcroft-Gault) 14.9 Glucose Level 243mg/dL (70-99) Calcium Level 9.3mg/dL (8.5-10.1) Laboratory Tests Test 08/06/16 12:27 08/06/16 18:20 08/06/16 20:40 08/07/16 07:35 Glucose (Fingerstick) 188mg/dL (70-99) 199mg/dL (70-99) 187mg/dL (70-99) White Blood Count 5.3x10^3/uL (4.0-11.0) Red Blood Count 3.32x10^6/uL (4.30-5.70) Hemoglobin 9.4g/dL (13.0-17.5) Hematocrit 30.0% (39.0-53.0) Mean Corpuscular Volume 90fL (79-100) Mean Corpuscular Hemoglobin 28pg (25-35) Mean Corpuscular Hemoglobin Concent 31g/dL (31-37) Red Cell Distribution Width 17.0% (11.5-14.5) Platelet Count 168x10^3/uL (140-400) Neutrophils (%) (Auto) 76% (31-73) Lymphocytes (%) (Auto) 10% (24-48) Monocytes (%) (Auto) 12% (0-9) Eosinophils (%) (Auto) 2% (0-3) Basophils (%) (Auto) 1% (0-3) Neutrophils # (Auto) 4.0x10^3uL (1.8-7.7) Lymphocytes # (Auto) 0.5x10^3/uL (1.0-4.8) Monocytes # (Auto) 0.6x10^3/uL (0.0-1.1) Eosinophils # (Auto) 0.1x10^3/uL (0.0-0.7) Basophils # (Auto) 0.0x10^3/uL (0.0-0.2) Prothrombin Time 51.0SEC (11.7-14.0) Prothromb Time International Ratio 6.1 (0.8-1.1) Sodium Level 136mmol/L (136-145) Potassium Level 4.1mmol/L (3.5-5.1) Chloride Level 96mmol/L (98-107) Carbon Dioxide Level 31mmol/L (21-32) Anion Gap 9 (6-14) Blood Urea Nitrogen 128mg/dL (8-26) Creatinine 4.0mg/dL (0.7-1.3) Estimated GFR (Cockcroft-Gault) 14.9 Glucose Level 243mg/dL (70-99) Calcium Level 9.3mg/dL (8.5-10.1) Test 08/07/16 08:45 Glucose (Fingerstick) 243mg/dL (70-99) Microbiology 07/30/16 Blood Culture - Final, Complete NO GROWTH AFTER 5 DAYS 07/30/16 Urine Culture - Final, Complete 07/30/16 Urine Culture Result 1 (VINAYAK) - Final, Complete Medications Current Medications Ceftriaxone Sodium 50 ml @ 100 mls/hr 1X ONCE IV Last administered on 17:00; Start 07/30/16 at 16:45; Stop 07/30/16 at 17:14; Status DC Fluconazole/ Sodium Chloride (Diflucan 200mg/ 100ml Premix) 100 ml @ 100 mls/ hr 1X ONCE IV Last administered on 07/30/16 17:53; Start 07/30/16 at 16:45; Stop 07/30/16 at 17:44; Status DC Ondansetron HCl (Zofran) 4 mg PRN Q8HRS PRN IV NAUSEA/VOMITING; Start 07/30/16 at 18:45; Stop 07/31/16 at 13:46; Status DC Morphine Sulfate 2 mg PRN Q2HR PRN IV PAIN; Start 07/30/16 at 18:45; Stop at 18:44; Status DC Insulin Aspart (Novolog) 0-7 UNITS TIDWMEALS SQ Last administered on 08/05/16 09:03; Start 07/31/16 at 08:00 Dextrose 12.5 gm PRN Q15MIN PRN IV SEE COMMENTS; Start 07/30/16 at 18:45; Stop 07/31/16 at 13:45; Status DC Phytonadione 2.5 mg 2.5 mg 1X ONCE PO Last administered on 07/30/16 19:17; Start 07/30/16 at 19:00; Stop 07/30/16 at 19:01; Status DC Sodium Chloride 500 ml @ 500 mls/hr 1X ONCE IV Last administered on 07/30/16 19:00; Start 07/30/16 at 19:00; Stop 07/30/16 at 19:59; Status DC Ceftriaxone Sodium/Sodium Chloride (Rocephin/Iv Sodium Chloride 0.9% 50ml) 50 ml @ 100 mls/hr Q24H IV Last administered on 08/05/16 15:43; Start 07/31/16 at 16:00 Acetaminophen (Tylenol) 650 mg PRN Q6HRS PRN PO FEVER; Start 07/30/16 at 19:00 Ondansetron HCl 4 mg 4 mg PRN Q6HRS PRN IV NAUSEA; Start 07/30/16 at 19:00 Sodium Chloride (Iv Sodium Chloride 0.9% 1000ml Bag) 1,000 ml @ 100 mls/hr 1X ONCE IV Last administered on 07/30/16 23:11; Start 07/30/16 at 19:00; Stop at 04:59; Status DC Albuterol/ Ipratropium (Duoneb) 3 ml QIDACHS NEB Last administered on 06:54; Start 07/30/16 at 21:00 Albuterol Sulfate 2.5 mg 2.5 mg PRN Q4HRS PRN NEB SHORTNESS OF BREATH; Start at 19:00 Phytonadione/ Sodium Chloride (Vitamin K/Iv Sodium Chloride 0.9% 50ml) 51 ml @ 102 mls/hr 1X ONCE IV Last administered on 07/30/16 20:38; Start 07/30/16 at 20 :00; Stop 07/30/16 at 20:29; Status DC Info (Do NOT chart on this placeholder) 1 each PRN DAILY PRN MC UNABLE TO RESPOND; Start 07/31/16 at 01:30; Status Cancel Acetaminophen (Tylenol) 650 mg TID PO Last administered on 08/05/16 20:26; Start 07/31/16 at 14:00 Bisacodyl (Dulcolax Supp) 10 mg PRN DAILY PRN RC CONSTIPATION Last administered on 08/03/16 16:31; Start 07/31/16 at 09:15 Diclofenac Sodium (Voltaren) 1 kathryn TID TP Last administered on 08/06/16 09:00 ; Start 07/31/16 at 10:00 Diltiazem HCl (Cardizem 24hr Cd) 120 mg DAILY PO Last administered on 08/04/16 08:42; Start 08/01/16 at 09:00; Stop 08/05/16 at 08:48; Status DC Fluoxetine HCl (Prozac) 20 mg HS PO Last administered on 08/05/16 20:26; Start 07/31/16 at 21:00 Furosemide (Lasix) 60 mg BID92 PO Last administered on 08/01/16 08:48; Start at 09:30; Stop 08/01/16 at 11:13; Status DC Gabapentin (Neurontin) 200 mg HS PO Last administered on 08/05/16 20:26; Start 07/31/16 at 21:00 Magnesium Hydroxide (Milk Of Magnesia) 400 mg DAILY PRN PO CONSTIPATION; Start 07/31/16 at 09:15; Stop 08/02/16 at 13:01; Status DC Metoprolol Tartrate (Lopressor) 50 mg BID PO Last administered on 08/05/16 20: 29; Start 07/31/16 at 09:30 Mupirocin (Bactroban) 1 kathryn BID TP Last administered on 08/06/16 09:00; Start 07/31/16 at 09:30 Sennosides (Senna) 8.6 mg HS PO Last administered on 08/05/16 20:29; Start 07/31 at 21:00 Tamsulosin HCl (Flomax) 0.4 mg HS PO Last administered on 08/05/16 20:26; Start 07/31/16 at 21:00 Tramadol HCl (Ultram) 50 mg PRN Q6HRS PRN PO PAIN; Start 07/31/16 at 09:15 Insulin Aspart (Novolog) 12 units TIDAC SQ Last administered on 08/01/16 12:43 ; Start 07/31/16 at 16:30; Stop 08/01/16 at 13:23; Status DC Ondansetron HCl (Zofran Odt) 4 mg PRN Q6HRS PRN PO NAUSEA; Start 07/31/16 at 09: 30 Insulin Detemir (Levemir) 20 units QHS SQ Last administered on 08/05/16 20:42; Start 07/31/16 at 21:00 Insulin Aspart (Novolog) 0-9 UNITS TIDWMEALS SQ ; Start 07/31/16 at 12:00; Stop 07/31/16 at 12:00; Status DC Dextrose 12.5 gm PRN Q15MIN PRN IV SEE COMMENTS; Start 07/31/16 at 09:15 Warfarin Sodium (Coumadin) 6 mg DAILY16 PO Last administered on 08/03/16 16:47 ; Start 07/31/16 at 16:00; Stop 08/04/16 at 14:24; Status DC Mineral Oil (Fleet Mineral Oil) 133 ml 1X ONCE MN Last administered on 14:15; Start 07/31/16 at 11:15; Stop 07/31/16 at 11:16; Status DC Polyethylene Glycol (miraLAX PACKET) 17 gm DAILY PO Last administered on 08:56; Start 07/31/16 at 11:15 Warfarin Sodium (Coumadin Per Physician) 1 each PRN DAILY PRN MC SEE COMMENTS Last administered on 08/03/16 16:32; Start 07/31/16 at 11:15; Stop 08/04/16 at 14: 24; Status DC Lactulose 20 gm PRN Q2HR PRN PO until BM Last administered on 08/02/16 11:38; Start 08/01/16 at 11:15; Stop 08/04/16 at 09:53; Status DC Darbepoetin Davey (Aranesp) 100 mcg WEEKLYHS SQ Last administered on 08/01/16 21 :45; Start 08/01/16 at 21:00 Darbepoetin Davey (Aranesp) 60 mcg WEEKLYHS SQ Last administered on 08/01/16 21: 46; Start 08/01/16 at 21:00 Insulin Aspart (Novolog) 12 units TIDAC SQ Last administered on 08/02/16 12:03 ; Start 08/01/16 at 13:23; Stop 08/03/16 at 11:33; Status DC Potassium Chloride (Klor-Con) 40 meq 1X ONCE PO Last administered on 08/02/16 11:38; Start 08/02/16 at 11:00; Stop 08/02/16 at 11:01; Status DC Lubiprostone 8 mcg 8 mcg BIDWMEALS PO Last administered on 08/03/16 09:37; Start 08/02/16 at 17:00; Stop 08/03/16 at 12:20; Status DC Albumin Human (Albuminar) 100 ml @ 100 mls/hr TID IV Last administered on 08:38; Start 08/02/16 at 14:00; Stop 08/04/16 at 09:59; Status DC Potassium Chloride (Klor-Con) 40 meq QIDPRN PRN PO for K < 3.7; Start 08/03/16 at 11:00; Stop 08/05/16 at 12:29; Status DC Insulin Aspart (Novolog) 10 units TIDAC SQ Last administered on 08/05/16 09:03 ; Start 08/03/16 at 16:30 Lubiprostone 24 mcg 24 mcg BIDWMEALS PO Last administered on 08/04/16 08:40; Start 08/03/16 at 17:00; Stop 08/04/16 at 09:53; Status DC Potassium Chloride (KCl Premix 10meq) 100 ml @ 100 mls/hr Q1H IV Last administered on 08/04/16 08:38; Start 08/04/16 at 07:00; Stop 08/04/16 at 10:59; Status DC Lactulose 20 gm PRN BID PRN PO constipation; Start 08/04/16 at 21:00 Potassium Chloride (Klor-Con) 30 meq ONCE ONCE PO Last administered on 12:39; Start 08/04/16 at 12:00; Stop 08/04/16 at 12:01; Status DC Warfarin Sodium (Coumadin Per Pharmacy) 1 each PRN DAILY PRN MC SEE COMMENTS Last administered on 08/06/16 15:25; Start 08/04/16 at 14:30 Warfarin Sodium (Coumadin - No Dose Today) 1 each 1X WARF ONCE MC Last administered on 08/04/16 16:42; Start 08/04/16 at 16:00; Stop 08/04/16 at 16:01; Status DC Pantoprazole Sodium (Protonix) 40 mg DAILYAC PO Last administered on 08/05/16 08:56; Start 08/04/16 at 15:30 Diltiazem HCl (Cardizem 24hr Cd) 120 mg DAILY PO Last administered on 08/05/16 08:56; Start 08/05/16 at 09:00 Lubiprostone (Amitiza) 24 mcg BIDWMEALS PO ; Start 08/05/16 at 17:00 Potassium Chloride (Klor-Con) 40 meq 1X ONCE PO Last administered on 08/05/16 12:37; Start 08/05/16 at 12:30; Stop 08/05/16 at 12:31; Status DC Warfarin Sodium (Coumadin - No Dose Today) 1 each 1X WARF ONCE MC Last administered on 08/05/16 15:12; Start 08/05/16 at 16:00; Stop 08/05/16 at 16:01; Status DC Fentanyl (Duragesic 50mcg/ Hr Patch) 1 patch Q3DAYS TD Last administered on 14:28; Start 08/06/16 at 14:15 Warfarin Sodium (Coumadin - No Dose Today) 1 each 1X WARF ONCE MC Last administered on 08/06/16 16:00; Start 08/06/16 at 16:00; Stop 08/06/16 at 16:01 ; Status DC Morphine Sulfate (Roxanol Conc) 10 mg PRN Q4HRS PRN SL PAIN Last administered on 08/06/16 18:24; Start 08/06/16 at 17:15 Active Scripts Active Reported Keflex (Cephalexin) 500 Mg Capsule 1 Cap PO TID Zofran (Ondansetron Hcl) 4 Mg Tablet 1 Tab PO Q6HRS PRN [Mylanta] 30 Ml PO PRN Q4HRS PRN [Fleet Enema] 1 Applic RC DAILY PRN Dulcolax (Bisacodyl) 10 Mg Supp.rect 10 Mg RC PRN DAILY PRN Milk Of Magnesia (Magnesium Hydroxide) 400 Mg/5 Ml Oral.susp 400 Mg PO DAILY PRN Senokot (Sennosides) 8.6 Mg Tablet 1 Tab PO HS Tamsulosin Hcl 0.4 Mg Cap.er.24h 0.4 Mg PO HS Metoprolol Tartrate 50 Mg Tablet 50 Mg PO BID Tramadol Hcl 50 Mg Tablet 50 Mg PO Q6H PRN [Glycolax] 17 Gm PO DAILY PRN Cardizem Cd (Diltiazem Hcl) 180 Mg Cap.er.24h 120 Mg PO DAILY Allopurinol 300 Mg Tablet 300 Mg PO DAILY Lasix (Furosemide) 20 Mg Tablet 60 Mg PO BID Colcrys (Colchicine) 0.6 Mg Tablet 0.6 Mg PO BID Humalog (Insulin Lispro) 100 Unit/1 Ml Cartridge 12 Unit SQ TIDAC Voltaren (Diclofenac Sodium) 100 Gm Gel..gram. 1 Gm TP TID Bactroban Cream (Mupirocin) 15 Gm Cream..g. 1 Kathryn TP BID Tylenol (Acetaminophen) 325 Mg Tablet 650 Mg PO TID Prozac (Fluoxetine Hcl) 20 Mg Capsule 1 Cap PO HS Gabapentin 100 Mg Capsule 200 Mg PO HS Coumadin (Warfarin Sodium) 5 Mg Tablet 5 Mg PO DAILY [Lantus] 30 Units SQ HS Vitals/I & O Vital Sign - Last 24 Hours 08/06/16 08/06/16 08/06/16 08/06/16 14:28 15:00 16:07 18:24 Temp 97.9 97.9 Pulse 117 Resp 20 B/P 140/62 Pulse Ox 98 97 97 97 O2 Delivery Room Air Room Air Room Air Room Air O2 Flow Rate 2.0 2.0 08/06/16 08/06/16 08/06/16 08/06/16 18:39 19:00 19:00 19:51 Temp 97.9 97.9 Pulse 116 Resp 18 B/P 139/64 Pulse Ox 97 96 O2 Delivery Room Air Room Air Room Air Room Air O2 Flow Rate 2.0 08/06/16 08/06/16 08/07/16 08/07/16 20:00 22:40 03:00 06:54 Temp 97.5 97.5 97.5 97.5 Pulse 115 112 Resp 18 20 B/P 118/64 141/72 Pulse Ox 94 98 98 O2 Delivery Room Air Room Air Nasal Cannula Room Air O2 Flow Rate 3.0 3.0 08/07/16 07:00 Temp 97.7 97.7 Pulse 101 Resp 20 B/P 120/80 Pulse Ox 96 O2 Delivery Nasal Cannula O2 Flow Rate 3.0 Intake and Output 08/06/16 08/06/16 08/07/16 15:00 23:00 07:00 Intake Total 280 ml 120 ml 50 ml Output Total 300 ml Balance 280 ml -180 ml 50 ml MARQUES MELENDEZL K III DO Aug 07, 2016 11:50
[2016-08-07] MEDS ORDERED: PHYTONADIONE 10 MG/ML AMPUL. SQ ONE (14:30)
[2016-08-07 15:27] VITALS: BP 131/81
[2016-08-07] MEDS: CEFTRIAXONE SODIUM 1 GM in IV NORMAL SALINE 50ML 50 ML IV SCH (16:00)
[2016-08-07 19:00] VITALS: BP 113/65
[2016-08-07] MEDS: TAMSULOSIN 0.4 MG CAP.ER.24H. PO SCH (19:59)
[2016-08-07] MEDS: GABAPENTIN 100 MG CAPSULE. PO SCH (19:59)
[2016-08-07] MEDS: FLUOXETINE HCL 20 MG CAPSULE PO SCH (19:59)
[2016-08-07] MEDS: SENNOSIDES 8.6 MG TABLET PO SCH (20:00)
[2016-08-07] MEDS: INSULIN DETEMIR 300 UNITS/3 ML INSULN.PEN. SQ SCH (20:33)
[2016-08-07 23:00] VITALS: BP 142/68
[2016-08-08 03:00] VITALS: BP 131/59
[2016-08-08] MEDS: IPRATRPIUM/ALBUTEROL 0.5/2.5MG 3 ML NEBU. NEB SCH ×4 (06:21→17:48)
[2016-08-08 07:00] VITALS: BP 119/63
[2016-08-08] MEDS: PANTOPRAZOLE 40 MG TABLET. PO SCH (07:30)
[2016-08-08] MEDS: INSULIN ASPART 300 UNITS/3 ML INSULN.PEN SQ SCH ×6 (08:00→17:00)
[2016-08-08] MEDS: LUBIPROSTONE 8 MCG CAPSULE PO SCH ×2 (08:00→17:00)
[2016-08-08] MEDS: DILTIAZEM HCL 120 MG CAP.ER.24H PO SCH (08:44)
[2016-08-08] MEDS: POLYETHYLENE GLYCOL 3350 17 GM PACKET. PO SCH (08:44)
[2016-08-08] MEDS: METOPROLOL TART IMMED RELEASE 50 MG TABLET PO SCH ×2 (08:44→21:00)
[2016-08-08] MEDS: ACETAMINOPHEN 325 MG TABLET. PO SCH ×3 (08:44→21:00)
[2016-08-08] MEDS: MUPIROCIN 2 % TOPICAL CREAM 15GM TUBE. TP SCH ×2 (08:44→21:00)
[2016-08-08] MEDS: DICLOFENAC SODIUM 1% TOPICAL GEL 100GM TUBE. TP SCH ×3 (08:45→21:00)
[2016-08-08 09:17] LABS: BASO # 0.1 x10^3/uL (0.0-0.2); BASO % 1 % (0-3); EOS % 2 % (0-3); HEMATOCRIT 29.8 % (39.0-53.0); HEMOGLOBIN 9.6 g/dL (13.0-17.5); LYMPH # 0.6 x10^3/uL (1.0-4.8); LYMPH % 9 % (24-48); MEAN CORPUSCULAR HEMOGLOBIN 29 pg (25-35); MEAN CORPUSCULAR HGB CONC 32 g/dL (31-37); MEAN CORPUSCULAR VOLUME 88 fL (79-100); MONO % 12 % (0-9); NEUT % 77 % (31-73); PLATELET COUNT 210 x10^3/uL (140-400); RED BLOOD COUNT 3.37 x10^6/uL (4.30-5.70); RED CELL DISTRIBUTION WIDTH 17.4 % (11.5-14.5); WHITE BLOOD COUNT 7.2 x10^3/uL (4.0-11.0)
[2016-08-08 09:41] LABS: CREATININE 4.3 mg/dL (0.7-1.3); GFR 13.7; POTASSIUM 4.8 mmol/L (3.5-5.1)
[2016-08-08] MEDS ORDERED: SCOPOLAMINE 1.5MG PATCH. TD SCH ×2 (10:00)
[2016-08-08 10:01] LABS: PROTHROMBIN TIME PATIENT 62.2 SEC (11.7-14.0)
[2016-08-08 10:38] LABS: INR 7.8 (0.8-1.1)
[2016-08-08 10:41] LABS: % EOS 1 % (0-5); PLT ESTIMATE ADEQUATE (ADEQUATE)
[2016-08-08 11:00] VITALS: BP 128/70
[2016-08-08 15:00] VITALS: BP 143/71
--- NOTE | 2016-08-08 15:58 | PDOC ---
PROGRESS NOTES Chief Complaint Chief Complaint 1. Delirium on chronic worsening dementia 2. Sepsis 3. UTI 4. dehydration 5. BREANNA 6. Constipation 7. CKD4 8. Hypercoag 9. aflutter 10. HTN 11. DM 12. COPD 13. FTT 14. Lymphedema 15. SMALL sacral wound 16. Gout 17. BPH 18. Sacral Ulcer History of Present Illness History of Present Illness Pt sleeping in bed, no apparent distress and family at bedside Discussed hospice options at length with family who feels taking pt home will be too difficult Family would like to meet with neonatal social worker to set up hospice care Pt has not had anything to eat or drink for two days per Discussed implications of fluid deficit Family is aware of critical INR of 7.8, family does not wish to reverse Will respect family's wishes in caring for this patient RIAS STEPHANIE RN Vitals Vitals Vital Signs Date Time Temp Pulse Resp B/P Pulse Ox O2 Delivery O2 Flow Rate FiO2 08/08/16 15:00 97.9 95 20 143/71 96 Nasal Cannula 1.0 97.9 Physical Exam General: No acute distress, Other (lethargic, sleeping comfortably) Heart: Regular rate, Normal S1, Normal S2, No murmurs Lungs: Crackles, Other (Coarse breath sounds) Abdomen: Normal bowel sounds, Soft Extremities: Other (massive woody edema, hyperkeratotic changes bilaterally on both lower extremities) Skin: Other (small sacral decub present) Labs LABS Laboratory Tests Test 08/07/16 16:19 08/07/16 20:29 08/08/16 07:16 08/08/16 08:40 Glucose (Fingerstick) 217mg/dL (70-99) 199mg/dL (70-99) 222mg/dL (70-99) White Blood Count 7.2x10^3/uL (4.0-11.0) Red Blood Count 3.37x10^6/uL (4.30-5.70) Hemoglobin 9.6g/dL (13.0-17.5) Hematocrit 29.8% (39.0-53.0) Mean Corpuscular Volume 88fL (79-100) Mean Corpuscular Hemoglobin 29pg (25-35) Mean Corpuscular Hemoglobin Concent 32g/dL (31-37) Red Cell Distribution Width 17.4% (11.5-14.5) Platelet Count 210x10^3/uL (140-400) Neutrophils (%) (Auto) 77% (31-73) Lymphocytes (%) (Auto) 9% (24-48) Monocytes (%) (Auto) 12% (0-9) Eosinophils (%) (Auto) 2% (0-3) Basophils (%) (Auto) 1% (0-3) Neutrophils # (Auto) 5.5x10^3uL (1.8-7.7) Lymphocytes # (Auto) 0.6x10^3/uL (1.0-4.8) Monocytes # (Auto) 0.9x10^3/uL (0.0-1.1) Eosinophils # (Auto) 0.1x10^3/uL (0.0-0.7) Basophils # (Auto) 0.1x10^3/uL (0.0-0.2) Segmented Neutrophils % 61% (35-66) Band Neutrophils % 14% (0-9) Lymphocytes % 8% (24-48) Monocytes % 10% (0-10) Eosinophils % 1% (0-5) Myelocytes % 6% (0-0) Platelet Estimate Adequate (ADEQUATE) Prothrombin Time 62.2SEC (11.7-14.0) Prothromb Time International Ratio 7.8 (0.8-1.1) Sodium Level 136mmol/L (136-145) Potassium Level 4.8mmol/L (3.5-5.1) Chloride Level 97mmol/L (98-107) Carbon Dioxide Level 30mmol/L (21-32) Anion Gap 9 (6-14) Blood Urea Nitrogen 136mg/dL (8-26) Creatinine 4.3mg/dL (0.7-1.3) Estimated GFR (Cockcroft-Gault) 13.7 Glucose Level 233mg/dL (70-99) Calcium Level 9.0mg/dL (8.5-10.1) Review of Systems Review of Systems Complains of confusion Complains of fatigue Assessment and Plan Assessmemt and Plan Problems Medical Problems: (1) Acute kidney injury Status: Acute (2) Altered mental status Status: Acute (3) Supratherapeutic INR Status: Acute Assessment: . Delirium on chronic worsening dementia 2. Sepsis 3. UTI 4. dehydration 5. BREANNA 6. Constipation 7. CKD4 8. Hypercoag 9. A flutter 10. HTN 11. DM 12. COPD 13. FTT 14. Lymphedema 15. Small sacral wound 16. Gout 17. BPH 18. Sacral Ulcer Plan: Possible transfer of pt to inpatient hospice Arrange meeting between family and social contact worker Continue scopolamine patch Continue pain management Recheck labs in am PTOT as tolerated Problems: Comment Review of Relevant I have reviewed the following items alan (where applicable) has been applied. Labs Laboratory Tests Test 08/06/16 18:20 08/06/16 20:40 08/07/16 07:35 08/07/16 08:45 Glucose (Fingerstick) 199mg/dL (70-99) 187mg/dL (70-99) 243mg/dL (70-99) White Blood Count 5.3x10^3/uL (4.0-11.0) Red Blood Count 3.32x10^6/uL (4.30-5.70) Hemoglobin 9.4g/dL (13.0-17.5) Hematocrit 30.0% (39.0-53.0) Mean Corpuscular Volume 90fL (79-100) Mean Corpuscular Hemoglobin 28pg (25-35) Mean Corpuscular Hemoglobin Concent 31g/dL (31-37) Red Cell Distribution Width 17.0% (11.5-14.5) Platelet Count 168x10^3/uL (140-400) Neutrophils (%) (Auto) 76% (31-73) Lymphocytes (%) (Auto) 10% (24-48) Monocytes (%) (Auto) 12% (0-9) Eosinophils (%) (Auto) 2% (0-3) Basophils (%) (Auto) 1% (0-3) Neutrophils # (Auto) 4.0x10^3uL (1.8-7.7) Lymphocytes # (Auto) 0.5x10^3/uL (1.0-4.8) Monocytes # (Auto) 0.6x10^3/uL (0.0-1.1) Eosinophils # (Auto) 0.1x10^3/uL (0.0-0.7) Basophils # (Auto) 0.0x10^3/uL (0.0-0.2) Prothrombin Time 51.0SEC (11.7-14.0) Prothromb Time International Ratio 6.1 (0.8-1.1) Sodium Level 136mmol/L (136-145) Potassium Level 4.1mmol/L (3.5-5.1) Chloride Level 96mmol/L (98-107) Carbon Dioxide Level 31mmol/L (21-32) Anion Gap 9 (6-14) Blood Urea Nitrogen 128mg/dL (8-26) Creatinine 4.0mg/dL (0.7-1.3) Estimated GFR (Cockcroft-Gault) 14.9 Glucose Level 243mg/dL (70-99) Calcium Level 9.3mg/dL (8.5-10.1) Test 08/07/16 11:39 08/07/16 16:19 08/07/16 20:29 08/08/16 07:16 Glucose (Fingerstick) 232mg/dL (70-99) 217mg/dL (70-99) 199mg/dL (70-99) 222mg/dL (70-99) Test 08/08/16 08:40 White Blood Count 7.2x10^3/uL (4.0-11.0) Red Blood Count 3.37x10^6/uL (4.30-5.70) Hemoglobin 9.6g/dL (13.0-17.5) Hematocrit 29.8% (39.0-53.0) Mean Corpuscular Volume 88fL (79-100) Mean Corpuscular Hemoglobin 29pg (25-35) Mean Corpuscular Hemoglobin Concent 32g/dL (31-37) Red Cell Distribution Width 17.4% (11.5-14.5) Platelet Count 210x10^3/uL (140-400) Neutrophils (%) (Auto) 77% (31-73) Lymphocytes (%) (Auto) 9% (24-48) Monocytes (%) (Auto) 12% (0-9) Eosinophils (%) (Auto) 2% (0-3) Basophils (%) (Auto) 1% (0-3) Neutrophils # (Auto) 5.5x10^3uL (1.8-7.7) Lymphocytes # (Auto) 0.6x10^3/uL (1.0-4.8) Monocytes # (Auto) 0.9x10^3/uL (0.0-1.1) Eosinophils # (Auto) 0.1x10^3/uL (0.0-0.7) Basophils # (Auto) 0.1x10^3/uL (0.0-0.2) Segmented Neutrophils % 61% (35-66) Band Neutrophils % 14% (0-9) Lymphocytes % 8% (24-48) Monocytes % 10% (0-10) Eosinophils % 1% (0-5) Myelocytes % 6% (0-0) Platelet Estimate Adequate (ADEQUATE) Prothrombin Time 62.2SEC (11.7-14.0) Prothromb Time International Ratio 7.8 (0.8-1.1) Sodium Level 136mmol/L (136-145) Potassium Level 4.8mmol/L (3.5-5.1) Chloride Level 97mmol/L (98-107) Carbon Dioxide Level 30mmol/L (21-32) Anion Gap 9 (6-14) Blood Urea Nitrogen 136mg/dL (8-26) Creatinine 4.3mg/dL (0.7-1.3) Estimated GFR (Cockcroft-Gault) 13.7 Glucose Level 233mg/dL (70-99) Calcium Level 9.0mg/dL (8.5-10.1) Laboratory Tests Test 08/07/16 16:19 08/07/16 20:29 08/08/16 07:16 08/08/16 08:40 Glucose (Fingerstick) 217mg/dL (70-99) 199mg/dL (70-99) 222mg/dL (70-99) White Blood Count 7.2x10^3/uL (4.0-11.0) Red Blood Count 3.37x10^6/uL (4.30-5.70) Hemoglobin 9.6g/dL (13.0-17.5) Hematocrit 29.8% (39.0-53.0) Mean Corpuscular Volume 88fL (79-100) Mean Corpuscular Hemoglobin 29pg (25-35) Mean Corpuscular Hemoglobin Concent 32g/dL (31-37) Red Cell Distribution Width 17.4% (11.5-14.5) Platelet Count 210x10^3/uL (140-400) Neutrophils (%) (Auto) 77% (31-73) Lymphocytes (%) (Auto) 9% (24-48) Monocytes (%) (Auto) 12% (0-9) Eosinophils (%) (Auto) 2% (0-3) Basophils (%) (Auto) 1% (0-3) Neutrophils # (Auto) 5.5x10^3uL (1.8-7.7) Lymphocytes # (Auto) 0.6x10^3/uL (1.0-4.8) Monocytes # (Auto) 0.9x10^3/uL (0.0-1.1) Eosinophils # (Auto) 0.1x10^3/uL (0.0-0.7) Basophils # (Auto) 0.1x10^3/uL (0.0-0.2) Segmented Neutrophils % 61% (35-66) Band Neutrophils % 14% (0-9) Lymphocytes % 8% (24-48) Monocytes % 10% (0-10) Eosinophils % 1% (0-5) Myelocytes % 6% (0-0) Platelet Estimate Adequate (ADEQUATE) Prothrombin Time 62.2SEC (11.7-14.0) Prothromb Time International Ratio 7.8 (0.8-1.1) Sodium Level 136mmol/L (136-145) Potassium Level 4.8mmol/L (3.5-5.1) Chloride Level 97mmol/L (98-107) Carbon Dioxide Level 30mmol/L (21-32) Anion Gap 9 (6-14) Blood Urea Nitrogen 136mg/dL (8-26) Creatinine 4.3mg/dL (0.7-1.3) Estimated GFR (Cockcroft-Gault) 13.7 Glucose Level 233mg/dL (70-99) Calcium Level 9.0mg/dL (8.5-10.1) Microbiology 07/30/16 Blood Culture - Final, Complete NO GROWTH AFTER 5 DAYS 07/30/16 Urine Culture - Final, Complete 07/30/16 Urine Culture Result 1 (VINAYAK) - Final, Complete Medications Current Medications Ceftriaxone Sodium 50 ml @ 100 mls/hr 1X ONCE IV Last administered on t 17:00; Start 07/30/16 at 16:45; Stop 07/30/16 at 17:14; Status DC Fluconazole/ Sodium Chloride (Diflucan 200mg/ 100ml Premix) 100 ml @ 100 mls/ hr 1X ONCE IV Last administered on 07/30/16 17:53; Start 07/30/16 at 16:45; Stop 07/30/16 at 17:44; Status DC Ondansetron HCl (Zofran) 4 mg PRN Q8HRS PRN IV NAUSEA/VOMITING; Start 07/30/16 at 18:45; Stop 07/31/16 at 13:46; Status DC Morphine Sulfate 2 mg PRN Q2HR PRN IV PAIN; Start 07/30/16 at 18:45; Stop at 18:44; Status DC Insulin Aspart (Novolog) 0-7 UNITS TIDWMEALS SQ Last administered on 08/05/16 09:03; Start 07/31/16 at 08:00 Dextrose 12.5 gm PRN Q15MIN PRN IV SEE COMMENTS; Start 07/30/16 at 18:45; Stop 07/31/16 at 13:45; Status DC Phytonadione 2.5 mg 2.5 mg 1X ONCE PO Last administered on 07/30/16 19:17; Start 07/30/16 at 19:00; Stop 07/30/16 at 19:01; Status DC Sodium Chloride 500 ml @ 500 mls/hr 1X ONCE IV Last administered on 07/30/16 19:00; Start 07/30/16 at 19:00; Stop 07/30/16 at 19:59; Status DC Ceftriaxone Sodium/Sodium Chloride (Rocephin/Iv Sodium Chloride 0.9% 50ml) 50 ml @ 100 mls/hr Q24H IV Last administered on 08/05/16 15:43; Start 07/31/16 at 16:00 Acetaminophen (Tylenol) 650 mg PRN Q6HRS PRN PO FEVER; Start 07/30/16 at 19:00 Ondansetron HCl 4 mg 4 mg PRN Q6HRS PRN IV NAUSEA; Start 07/30/16 at 19:00 Sodium Chloride (Iv Sodium Chloride 0.9% 1000ml Bag) 1,000 ml @ 100 mls/hr 1X ONCE IV Last administered on 07/30/16 23:11; Start 07/30/16 at 19:00; Stop at 04:59; Status DC Albuterol/ Ipratropium (Duoneb) 3 ml QIDACHS NEB Last administered on 10:51; Start 07/30/16 at 21:00 Albuterol Sulfate 2.5 mg 2.5 mg PRN Q4HRS PRN NEB SHORTNESS OF BREATH; Start at 19:00 Phytonadione/ Sodium Chloride (Vitamin K/Iv Sodium Chloride 0.9% 50ml) 51 ml @ 102 mls/hr 1X ONCE IV Last administered on 07/30/16 20:38; Start 07/30/16 at 20 :00; Stop 07/30/16 at 20:29; Status DC Info (Do NOT chart on this placeholder) 1 each PRN DAILY PRN MC UNABLE TO RESPOND; Start 07/31/16 at 01:30; Status Cancel Acetaminophen (Tylenol) 650 mg TID PO Last administered on 08/05/16 20:26; Start 07/31/16 at 14:00 Bisacodyl (Dulcolax Supp) 10 mg PRN DAILY PRN RC CONSTIPATION Last administered on 08/03/16 16:31; Start 07/31/16 at 09:15 Diclofenac Sodium (Voltaren) 1 kathryn TID TP Last administered on 08/06/16 09:00 ; Start 07/31/16 at 10:00 Diltiazem HCl (Cardizem 24hr Cd) 120 mg DAILY PO Last administered on 08/04/16 08:42; Start 08/01/16 at 09:00; Stop 08/05/16 at 08:48; Status DC Fluoxetine HCl (Prozac) 20 mg HS PO Last administered on 08/05/16 20:26; Start 07/31/16 at 21:00 Furosemide (Lasix) 60 mg BID92 PO Last administered on 08/01/16 08:48; Start at 09:30; Stop 08/01/16 at 11:13; Status DC Gabapentin (Neurontin) 200 mg HS PO Last administered on 08/05/16 20:26; Start 07/31/16 at 21:00 Magnesium Hydroxide (Milk Of Magnesia) 400 mg DAILY PRN PO CONSTIPATION; Start 07/31/16 at 09:15; Stop 08/02/16 at 13:01; Status DC Metoprolol Tartrate (Lopressor) 50 mg BID PO Last administered on 08/05/16 20: 29; Start 07/31/16 at 09:30 Mupirocin (Bactroban) 1 kathryn BID TP Last administered on 08/06/16 09:00; Start 07/31/16 at 09:30 Sennosides (Senna) 8.6 mg HS PO Last administered on 08/05/16 20:29; Start 07/31 at 21:00 Tamsulosin HCl (Flomax) 0.4 mg HS PO Last administered on 08/05/16 20:26; Start 07/31/16 at 21:00 Tramadol HCl (Ultram) 50 mg PRN Q6HRS PRN PO PAIN; Start 07/31/16 at 09:15 Insulin Aspart (Novolog) 12 units TIDAC SQ Last administered on 08/01/16 12:43 ; Start 07/31/16 at 16:30; Stop 08/01/16 at 13:23; Status DC Ondansetron HCl (Zofran Odt) 4 mg PRN Q6HRS PRN PO NAUSEA; Start 07/31/16 at 09: 30 Insulin Detemir (Levemir) 20 units QHS SQ Last administered on 08/05/16 20:42; Start 07/31/16 at 21:00 Insulin Aspart (Novolog) 0-9 UNITS TIDWMEALS SQ ; Start 07/31/16 at 12:00; Stop 07/31/16 at 12:00; Status DC Dextrose 12.5 gm PRN Q15MIN PRN IV SEE COMMENTS; Start 07/31/16 at 09:15 Warfarin Sodium (Coumadin) 6 mg DAILY16 PO Last administered on 08/03/16 16:47 ; Start 07/31/16 at 16:00; Stop 08/04/16 at 14:24; Status DC Mineral Oil (Fleet Mineral Oil) 133 ml 1X ONCE PA Last administered on 14:15; Start 07/31/16 at 11:15; Stop 07/31/16 at 11:16; Status DC Polyethylene Glycol (miraLAX PACKET) 17 gm DAILY PO Last administered on 08:56; Start 07/31/16 at 11:15 Warfarin Sodium (Coumadin Per Physician) 1 each PRN DAILY PRN MC SEE COMMENTS Last administered on 08/03/16 16:32; Start 07/31/16 at 11:15; Stop 08/04/16 at 14: 24; Status DC Lactulose 20 gm PRN Q2HR PRN PO until BM Last administered on 08/02/16 11:38; Start 08/01/16 at 11:15; Stop 08/04/16 at 09:53; Status DC Darbepoetin Davey (Aranesp) 100 mcg WEEKLYHS SQ Last administered on 08/01/16 21 :45; Start 08/01/16 at 21:00 Darbepoetin Davey (Aranesp) 60 mcg WEEKLYHS SQ Last administered on 08/01/16 21: 46; Start 08/01/16 at 21:00 Insulin Aspart (Novolog) 12 units TIDAC SQ Last administered on 08/02/16 12:03 ; Start 08/01/16 at 13:23; Stop 08/03/16 at 11:33; Status DC Potassium Chloride (Klor-Con) 40 meq 1X ONCE PO Last administered on 08/02/16 11:38; Start 08/02/16 at 11:00; Stop 08/02/16 at 11:01; Status DC Lubiprostone 8 mcg 8 mcg BIDWMEALS PO Last administered on 08/03/16 09:37; Start 08/02/16 at 17:00; Stop 08/03/16 at 12:20; Status DC Albumin Human (Albuminar) 100 ml @ 100 mls/hr TID IV Last administered on 08:38; Start 08/02/16 at 14:00; Stop 08/04/16 at 09:59; Status DC Potassium Chloride (Klor-Con) 40 meq QIDPRN PRN PO for K < 3.7; Start 08/03/16 at 11:00; Stop 08/05/16 at 12:29; Status DC Insulin Aspart (Novolog) 10 units TIDAC SQ Last administered on 08/05/16 09:03 ; Start 08/03/16 at 16:30 Lubiprostone 24 mcg 24 mcg BIDWMEALS PO Last administered on 08/04/16 08:40; Start 08/03/16 at 17:00; Stop 08/04/16 at 09:53; Status DC Potassium Chloride (KCl Premix 10meq) 100 ml @ 100 mls/hr Q1H IV Last administered on 08/04/16 08:38; Start 08/04/16 at 07:00; Stop 08/04/16 at 10:59; Status DC Lactulose 20 gm PRN BID PRN PO constipation; Start 08/04/16 at 21:00 Potassium Chloride (Klor-Con) 30 meq ONCE ONCE PO Last administered on 12:39; Start 08/04/16 at 12:00; Stop 08/04/16 at 12:01; Status DC Warfarin Sodium (Coumadin Per Pharmacy) 1 each PRN DAILY PRN MC SEE COMMENTS Last administered on 08/08/16 12:40; Start 08/04/16 at 14:30 Warfarin Sodium (Coumadin - No Dose Today) 1 each 1X WARF ONCE MC Last administered on 08/04/16 16:42; Start 08/04/16 at 16:00; Stop 08/04/16 at 16:01; Status DC Pantoprazole Sodium (Protonix) 40 mg DAILYAC PO Last administered on 08/05/16 08:56; Start 08/04/16 at 15:30 Diltiazem HCl (Cardizem 24hr Cd) 120 mg DAILY PO Last administered on 08/05/16 08:56; Start 08/05/16 at 09:00 Lubiprostone (Amitiza) 24 mcg BIDWMEALS PO ; Start 08/05/16 at 17:00 Potassium Chloride (Klor-Con) 40 meq 1X ONCE PO Last administered on 08/05/16 12:37; Start 08/05/16 at 12:30; Stop 08/05/16 at 12:31; Status DC Warfarin Sodium (Coumadin - No Dose Today) 1 each 1X WARF ONCE MC Last administered on 08/05/16 15:12; Start 08/05/16 at 16:00; Stop 08/05/16 at 16:01; Status DC Fentanyl (Duragesic 50mcg/ Hr Patch) 1 patch Q3DAYS TD Last administered on 14:28; Start 08/06/16 at 14:15 Warfarin Sodium (Coumadin - No Dose Today) 1 each 1X WARF ONCE MC Last administered on 08/06/16 16:00; Start 08/06/16 at 16:00; Stop 08/06/16 at 16:01 ; Status DC Morphine Sulfate (Roxanol Conc) 10 mg PRN Q4HRS PRN SL PAIN Last administered on 08/06/16 18:24; Start 08/06/16 at 17:15 Warfarin Sodium (Coumadin - No Dose Today) 1 each 1X WARF ONCE MC Last administered on 08/07/16 16:00; Start 08/07/16 at 16:00; Stop 08/07/16 at 16:01 ; Status DC Phytonadione (Vitamin K) 5 mg 1X ONCE SQ ; Start 08/07/16 at 14:30; Stop at 14:32; Status DC Scopolamine (Transderm-Scop) 1 patch Q3DAYS TD ; Start 08/08/16 at 10:00; Stop 08/08/16 at 10:00; Status DC Scopolamine (Transderm-Scop) 1 patch Q3DAYS TD Last administered on 08/08/16 10:00; Start 08/08/16 at 10:00 Warfarin Sodium (Coumadin - No Dose Today) 1 each 1X WARF ONCE MC ; Start 08/08 at 16:00; Stop 08/08/16 at 16:01 Active Scripts Active Reported Keflex (Cephalexin) 500 Mg Capsule 1 Cap PO TID Zofran (Ondansetron Hcl) 4 Mg Tablet 1 Tab PO Q6HRS PRN [Mylanta] 30 Ml PO PRN Q4HRS PRN [Fleet Enema] 1 Applic RC DAILY PRN Dulcolax (Bisacodyl) 10 Mg Supp.rect 10 Mg RC PRN DAILY PRN Milk Of Magnesia (Magnesium Hydroxide) 400 Mg/5 Ml Oral.susp 400 Mg PO DAILY PRN Senokot (Sennosides) 8.6 Mg Tablet 1 Tab PO HS Tamsulosin Hcl 0.4 Mg Cap.er.24h 0.4 Mg PO HS Metoprolol Tartrate 50 Mg Tablet 50 Mg PO BID Tramadol Hcl 50 Mg Tablet 50 Mg PO Q6H PRN [Glycolax] 17 Gm PO DAILY PRN Cardizem Cd (Diltiazem Hcl) 180 Mg Cap.er.24h 120 Mg PO DAILY Allopurinol 300 Mg Tablet 300 Mg PO DAILY Lasix (Furosemide) 20 Mg Tablet 60 Mg PO BID Colcrys (Colchicine) 0.6 Mg Tablet 0.6 Mg PO BID Humalog (Insulin Lispro) 100 Unit/1 Ml Cartridge 12 Unit SQ TIDAC Voltaren (Diclofenac Sodium) 100 Gm Gel..gram. 1 Gm TP TID Bactroban Cream (Mupirocin) 15 Gm Cream..g. 1 Kathryn TP BID Tylenol (Acetaminophen) 325 Mg Tablet 650 Mg PO TID Prozac (Fluoxetine Hcl) 20 Mg Capsule 1 Cap PO HS Gabapentin 100 Mg Capsule 200 Mg PO HS Coumadin (Warfarin Sodium) 5 Mg Tablet 5 Mg PO DAILY [Lantus] 30 Units SQ HS Vitals/I & O Vital Sign - Last 24 Hours 08/07/16 08/07/16 08/07/16 08/08/16 19:00 20:00 23:00 03:00 Temp 98.5 98.5 98.9 98.5 98.5 98.9 Pulse 120 120 120 Resp 18 18 20 B/P 113/65 142/68 131/59 Pulse Ox 93 97 99 O2 Delivery Nasal Cannula Nasal Cannula Nasal Cannula Nasal Cannula O2 Flow Rate 1.0 2.0 1.0 1.0 08/08/16 08/08/16 08/08/16 08/08/16 06:23 07:00 08:00 10:52 Temp 98.1 98.1 Pulse 74 Resp 20 B/P 119/63 Pulse Ox 99 O2 Delivery Nasal Cannula Nasal Cannula Room Air Nasal Cannula O2 Flow Rate 3.0 1.0 3.0 08/08/16 08/08/16 11:00 15:00 Temp 98.1 97.9 98.1 97.9 Pulse 89 95 Resp 20 20 B/P 128/70 143/71 Pulse Ox 97 96 O2 Delivery Nasal Cannula Nasal Cannula O2 Flow Rate 1.0 1.0 Intake and Output 08/07/16 08/07/16 08/08/16 15:00 23:00 07:00 Intake Total 0 ml 0 ml Output Total 280 ml Balance 0 ml -280 ml RODERICK MELENDEZ III DO Aug 08, 2016 15:58
[2016-08-08] MEDS: CEFTRIAXONE SODIUM 1 GM in IV NORMAL SALINE 50ML 50 ML IV SCH (16:00)
[2016-08-08 19:00] VITALS: BP 119/43
[2016-08-08] MEDS: GABAPENTIN 100 MG CAPSULE. PO SCH (21:00)
[2016-08-08] MEDS: TAMSULOSIN 0.4 MG CAP.ER.24H. PO SCH (21:00)
[2016-08-08] MEDS: SENNOSIDES 8.6 MG TABLET PO SCH (21:00)
[2016-08-08] MEDS: DARBEPOETIN ALFA 100 MCG/0.5 ML DISP.SYRIN. SQ SCH (21:00)
[2016-08-08] MEDS: FLUOXETINE HCL 20 MG CAPSULE PO SCH (21:00)
[2016-08-08] MEDS: DARBEPOETIN ALFA 60 MCG/0.3 ML DISP.SYRIN. SQ SCH (21:00)
[2016-08-08] MEDS ORDERED: IPRATRPIUM/ALBUTEROL 0.5/2.5MG 3 ML NEBU. NEB SCH (21:00)
[2016-08-08] MEDS: INSULIN DETEMIR 300 UNITS/3 ML INSULN.PEN. SQ SCH (22:24)
[2016-08-08 23:00] VITALS: BP 117/65
[2016-08-09 03:00] VITALS: BP 125/65
[2016-08-09 07:57] VITALS: BP 113/67
== END 2016-08-09 07:47 | disposition expired | DRG 871 ==
LOC: ER 15:36 → 6 SOUTH 18:31
PROVIDERS: ADMIT Internal Medicine; ATTEND Internal Medicine
PROC: 30233L1 Transfusion of Nonautologous Fresh Plasma into Peripheral Vein, Percutaneous Approach (ICD-10-PCS; principal; 2016-07-30)
PROC: 30233K1 Transfusion of Nonautologous Frozen Plasma into Peripheral Vein, Percutaneous Approach (ICD-10-PCS; 2016-07-30)
DX: A41.9 Sepsis, unspecified organism (principal); N17.0 Acute kidney failure with tubular necrosis; G93.41 Metabolic encephalopathy; N18.6 End stage renal disease; I48.92 Unspecified atrial flutter; F05 Delirium due to known physiological condition; D68.59 Other primary thrombophilia; I13.2 Hypertensive heart and chronic kidney disease with heart failure and with stage 5 chronic kidney disease, or end stage renal disease; N39.0 Urinary tract infection, site not specified; Z51.5 Encounter for palliative care; Z66 Do not resuscitate; E11.22 Type 2 diabetes mellitus with diabetic chronic kidney disease; E66.01 Morbid (severe) obesity due to excess calories; F41.9 Anxiety disorder, unspecified; I48.91 Unspecified atrial fibrillation; I50.9 Heart failure, unspecified; J44.9 Chronic obstructive pulmonary disease, unspecified; K21.9 Gastro-esophageal reflux disease without esophagitis; M10.9 Gout, unspecified; F03.90 Unspecified dementia, unspecified severity, without behavioral disturbance, psychotic disturbance, mood disturbance, and anxiety; D64.9 Anemia, unspecified; L98.499 Non-pressure chronic ulcer of skin of other sites with unspecified severity; I89.0 Lymphedema, not elsewhere classified; N40.0 Benign prostatic hyperplasia without lower urinary tract symptoms; R31.9 Hematuria, unspecified; R62.7 Adult failure to thrive; Z79.01 Long term (current) use of anticoagulants; Z68.36 Body mass index [BMI] 36.0-36.9, adult; K59.00 Constipation, unspecified
CPT/HCPCS: 36415; 36600; 70450; 70551; 71010; 74000; 74176; 80048; 80053; 81001; 82306; 82550; 82607; 82805; 82947; 83605; 83735; 84132; 84443; 85007; 85027; 85610; 85730; 86850; 86900; 86901; 86927; 87040; 87086; 87641; 93005; 94640; 94760; 95816; 96365; 96367; G0481; J0690; J0696; J0881; J1450; J1815; J3430; J3480; J7030; J7040; J7620; P9017; P9046; 97530; 99285-25